=== PATIENT | female | born 1945 | race Caucasian/White ===

== ENCOUNTER 2016-06-28 16:05 | Emergency (ER) | payer MEDICARE ==
[2016-06-28 18:10] LABS: Hematocrit 39 % (35-47); Hemoglobin 12.5 g/dl (12.0-16.0); Mean Corpuscular HGB Conc 33 g/dl (31-36); Mean Corpuscular Hemoglobin 28 pg (27-31); Mean Corpuscular Volume 85 fL (80-97); Mean Platelet Volume 8 um3 (7.4-10.4); Red Blood Count 4.53 10^6/ul (4.0-5.4); Red Cell Distribution Width 14 % (10.5-15); White Blood Count 7.7 10^3/ul (3.5-10.8)
[2016-06-28 18:29] LABS: BUN/Creatinine Ratio 19.8 (8-20); Calcium 9.2 mg/dL (8.6-10.3); EGFR African American 69.9 (>60); EGFR Non-African American 54.3 (>60); Globulin 2.8 g/dL (2-4); Potassium 4.3 mmol/L (3.5-5.0); Total Bilirubin 0.4 mg/dL (0.2-1.0); Total Protein 6.8 g/dL (6.4-8.9)
[2016-06-28 18:36] VITALS: BP 150/65
[2016-06-28 19:35] LABS: Troponin I 0.01 ng/mL (<0.04)
[2016-06-28 20:09] LABS: Urine Bilirubin Negative (Negative); Urine Glucose Negative (Negative); Urine Nitrite Negative (Negative)
--- NOTE | 2016-06-28 22:11 | ED ---
Destiny Owens Claudia, scribed for Vinod Thompson MD on 06/28/16 at 1740 . Abdominal Pain/Female - HPI Summary HPI Summary: 70 year old female presents to the ED with epigastric pain since 10:30 this am. Pt notes that she woke up fine but then after doing some laundry she began having Sx. Pt notes that it felt like a large "gas bubble" in her stomach that would not go away she then describes intermittent "squeezing sensation" in the lower chest/epigastrium. Pt notes that she has a PMHx of Gastritis/GERD. She also notes that a few hours after the stomach pain she had bilaterally burning/ tingling in her arms which has now resolved. She currently has a dull sensation in her epigastrium. Pt notes that she has had several stress brayan in the past with Dr. Murillo but does not follow-up with him currently. Pt also notes a endoscopy last year with Dr. Su which was nml except for gastritis. Shx of Cholecystectomy. - History of Current Complaint Chief Complaint: EDAbdPain Stated Complaint: WEAK/UPPER ABD PAIN/NAUSEA Time Seen by Provider: 06/28/16 17:26 Hx Obtained From: Patient Hx Last Menstrual Period: n/a Onset/Duration: Sudden Onset - this am about 10:30, Lasting Hours, Still Present Timing: Intermittent Episode Lasting Pain Intensity: 5 Pain Scale Used: 0-10 Numeric Location: Epigastric Character: Other: - "gas"like sensation with some intermittent "sqeezing" episodes Associated Signs and Symptoms: Negative: Diaphoresis, Fever Allergies/Adverse Reactions: Allergies Allergy/AdvReac Type Severity Reaction Status Date / Time Codeine Allergy dry heaves Verified 04/30/15 08:27 Prochlorperazine Allergy convulsions Verified 04/30/15 08:27 [From Compazine] Contrast Allergy Hives Uncoded 04/30/15 08:27 PMH/Surg Hx/FS Hx/Imm Hx Previously Healthy: Yes Endocrine/Hematology History: Reports: Hx Diabetes Denies: Hx Thyroid Disease Cardiovascular History: Reports: Hx Hypertension Denies: Hx Pacemaker/ICD Respiratory History: Denies: Hx Asthma, Hx Chronic Obstructive Pulmonary Disease (COPD) GI History: Denies: Hx Ulcer Sensory History: Denies: Hx Hearing Aid Psychiatric History: Denies: Hx Panic Disorder - Cancer History Hx Chemotherapy: No Hx Radiation Therapy: No - Surgical History Surgery Procedure, Year, and Place: Hysterectomy with left oopherectomy age 36 yrs, oopherectomy age 39. Cholecystectomy. Right Knee Arthroscopy. Tonsillectomy Infectious Disease History: No Infectious Disease History: Reports: Hx Shingles - ~1993 Denies: Hx Clostridium Difficile, Hx Hepatitis, Hx Human Immunodeficiency Virus (HIV), Hx of Known/Suspected MRSA, Hx Tuberculosis, Hx Known/Suspected VRE , Hx Known/Suspected VRSA, History Other Infectious Disease, Traveled Outside the [place] in Last 30 Days - Family History Known Family History: Positive: Cardiac Disease, Other - similar neck problems - mother - Social History Occupation: Employed Full-time Lives: Alone Alcohol Use: None Hx Substance Use: No Substance Use Type: Reports: None Hx Tobacco Use: No Smoking Status (MU): Never Smoked Tobacco Review of Systems Constitutional: Negative Negative: Fever, Chills, Skin Diaphoresis Eyes: Negative ENT: Negative Cardiovascular: Negative Positive: Abdominal Pain, Nausea. Negative: Vomiting, Diarrhea Genitourinary: Negative Musculoskeletal: Negative Skin: Negative Neurological: Negative Psychological: Normal All Other Systems Reviewed And Are Negative: Yes Physical Exam Triage Information Reviewed: Yes Vital Signs On Initial Exam: Initial Vitals Temp Pulse Resp BP Pulse Ox 98.1 F 68 16 142/77 99 06/28/16 16:07 06/28/16 16:07 06/28/16 16:07 06/28/16 16:07 06/28/16 16:07 Vital Signs Reviewed: Yes Appearance: Positive: Well-Appearing - comfortable, plesant, alert Eyes: Positive: EOMI ENT: Positive: Other - moist mucosa Neck: Positive: Supple, Nontender Respiratory/Lung Sounds: Positive: Clear to Auscultation, Breath Sounds Present. Negative: Rales, Rhonchi, Wheezes Cardiovascular: Positive: RRR, S1. Negative: Murmur, Rub, Leg Edema Left, Leg Edema Right Abdomen Description: Negative: Nontender - upper abd tenderness, CVA Tenderness (R), CVA Tenderness (L) Musculoskeletal: Positive: Other - calves soft nontender no edema. Negative: Edema Left, Edema Right Neurological: Positive: Alert, Oriented to Person Place, Time Psychiatric: Positive: Other - logical coherent Diagnostics - Vital Signs Vital Signs Temp Pulse Resp BP Pulse Ox 06/28/16 16:07 98.1 F 68 16 142/77 99 - Laboratory Lab Results: Lab Results 06/28/16 06/28/16 06/28/16 Range/Units 18:00 18:00 18:00 WBC 7.7 (3.5-10.8) 10^3/ul RBC 4.53 (4.0-5.4) 10^6/ul Hgb 12.5 (12.0-16.0) g/dl Hct 39 (35-47) % MCV 85 (80-97) fL MCH 28 (27-31) pg MCHC 33 (31-36) g/dl RDW 14 (10.5-15) % Plt Count 188 (150-450) 10^3/ul MPV 8 (7.4-10.4) um3 Neut % (Auto) 52.9 (38-83) % Lymph % (Auto) 31.9 (25-47) % [place] % (Auto) 6.6 (1-9) % Eos % (Auto) 7.1 H (0-6) % Baso % (Auto) 1.5 (0-2) % Absolute Neuts (auto) 4.1 (1.5-7.7) 10^3/ul Absolute Lymphs (auto) 2.5 (1.0-4.8) 10^3/ul Absolute Monos (auto) 0.5 (0-0.8) 10^3/ul Absolute Eos (auto) 0.5 (0-0.6) 10^3/ul Absolute Basos (auto) 0.1 (0-0.2) 10^3/ul Absolute Nucleated RBC 0 10^3/ul Nucleated RBC % 0 Sodium 138 (133-145) mmol/L Potassium 4.3 (3.5-5.0) mmol/L Chloride 105 (101-111) mmol/L Carbon Dioxide 26 (22-32) mmol/L Anion Gap 7 (2-11) mmol/L BUN 20 (6-24) mg/dL Creatinine 1.01 H (0.51-0.95) mg/dL Est GFR ( Amer) 69.9 (>60) Est GFR (Non-Af Amer) 54.3 (>60) BUN/Creatinine Ratio 19.8 (8-20) Glucose 119 H (70-100) mg/dL Lactic Acid 1.3 (0.5-2.0) mmol/L Calcium 9.2 (8.6-10.3) mg/dL Total Bilirubin 0.40 (0.2-1.0) mg/dL AST 43 H (13-39) U/L ALT 47 (7-52) U/L Alkaline Phosphatase 55 (34-104) U/L Troponin I 0.01 (<0.04) ng/mL Total Protein 6.8 (6.4-8.9) g/dL Albumin 4.0 (3.2-5.2) g/dL Globulin 2.8 (2-4) g/dL Albumin/Globulin Ratio 1.4 (1-3) Lipase 17 (11.0-82.0) U/L Urine Color Urine Appearance Urine pH (5-9) Ur Specific [place] (1.010-1.030) Urine Protein (Negative) Urine Ketones (Negative) Urine Blood (Negative) Urine Nitrate (Negative) Urine Bilirubin (Negative) Urine Urobilinogen (Negative) Ur Leukocyte Esterase (Negative) Urine Glucose (Negative) 06/28/16 Range/Units 20:00 WBC (3.5-10.8) 10^3/ul RBC (4.0-5.4) 10^6/ul Hgb (12.0-16.0) g/dl Hct (35-47) % MCV (80-97) fL MCH (27-31) pg MCHC (31-36) g/dl RDW (10.5-15) % Plt Count (150-450) 10^3/ul MPV (7.4-10.4) um3 Neut % (Auto) (38-83) % Lymph % (Auto) (25-47) % [place] % (Auto) (1-9) % Eos % (Auto) (0-6) % Baso % (Auto) (0-2) % Absolute Neuts (auto) (1.5-7.7) 10^3/ul Absolute Lymphs (auto) (1.0-4.8) 10^3/ul Absolute Monos (auto) (0-0.8) 10^3/ul Absolute Eos (auto) (0-0.6) 10^3/ul Absolute Basos (auto) (0-0.2) 10^3/ul Absolute Nucleated RBC 10^3/ul Nucleated RBC % Sodium (133-145) mmol/L Potassium (3.5-5.0) mmol/L Chloride (101-111) mmol/L Carbon Dioxide (22-32) mmol/L Anion Gap (2-11) mmol/L BUN (6-24) mg/dL Creatinine (0.51-0.95) mg/dL Est GFR ( Amer) (>60) Est GFR (Non-Af Amer) (>60) BUN/Creatinine Ratio (8-20) Glucose (70-100) mg/dL Lactic Acid (0.5-2.0) mmol/L Calcium (8.6-10.3) mg/dL Total Bilirubin (0.2-1.0) mg/dL AST (13-39) U/L ALT (7-52) U/L Alkaline Phosphatase (34-104) U/L Troponin I (<0.04) ng/mL Total Protein (6.4-8.9) g/dL Albumin (3.2-5.2) g/dL Globulin (2-4) g/dL Albumin/Globulin Ratio (1-3) Lipase (11.0-82.0) U/L Urine Color Yellow Urine Appearance Clear Urine pH 6.0 (5-9) Ur Specific [place] 1.011 (1.010-1.030) Urine Protein Negative (Negative) Urine Ketones Negative (Negative) Urine Blood Negative (Negative) Urine Nitrate Negative (Negative) Urine Bilirubin Negative (Negative) Urine Urobilinogen Negative (Negative) Ur Leukocyte Esterase Negative (Negative) Urine Glucose Negative (Negative) Result Diagrams: 06/28/16 18:00 06/28/16 18:00 Lab Statement: Any lab studies that have been ordered have been reviewed, and results considered in the medical decision making process. - EKG 16:45 Cardiac Rate: NL EKG Rhythm: Sinus Rhythm - 64 beats/min EKG Interpretation: Inferior/lateral ST flattening Abdominal Pain Fem Course/Dx - Course Course Of Treatment: A/P:She has episodic upper abd lower Cp. She notes that todays episode says feels similar to prior with some radiation to the back. At first it was concerning but she has no Sx now. And again she says this is similar to multiple episodes in the past. With age and other concerns and we thought this was cardiac however the episode occurred at 10:30am and blood work and troponin several hours later are nml.I believe she is safe for d/c with lengthy discussed with her and agree that she will get a stress test for further evaluation. I believe that her Sx are unlikely cardiac related because her upper abd is tender and Sx are atypical. Also she has had her gallbladder taken out. No focal guarding, normal vitals and essentially nml lab work. I don t think CT is an order. CTA was originally ordered but after further evaluation and listening to story again I do not think this is consistent with an aneurysm. - Diagnoses Differential Diagnosis: Positive: Abdominal Aortic Aneurysm, Appendicitis, Bowel Obstruction, Constipation, Diverticulitis, Irritable Bowel Syndrome, Pancreatitis, Pneumonia, Urinary Tract Infection Provider Diagnoses: Upper abdominal pain Discharge - Discharge Plan Condition: Good Disposition: HOME Patient Education Materials: Acute Abdominal Pain (ED) Referrals: Kris Pressley MD [Primary Care Provider] - 2 Days The documentation as recorded by the Destiny zamarripa Claudia accurately reflects the service I personally performed and the decisions made by me, Vinod Thompson MD.
== END 2016-06-28 21:54 | disposition home or self-care (01) ==
LOC: ED 16:05
DX: R10.10 Upper abdominal pain, unspecified (principal); E11.9 Type 2 diabetes mellitus without complications; Z88.5 Allergy status to narcotic agent
CPT/HCPCS: 36415; 80053; 81003; 83605; 83690; 84484; 85025; 93005; 99282

== ENCOUNTER 2016-09-03 07:04 | Emergency (ER) | payer MEDICARE ==
[2016-09-03 07:25] VITALS: BP 145/76
--- NOTE | 2016-09-03 08:19 | UC ---
Allyssa Owens Salem, scribed for [facility] Center[facility]assan MD on 09/03/16 at 0813 . Skin Complaint HPI - HPI Summary HPI Summary: HPI: Patient is 70 y/o female who presents to the with pruritus complain on anterior abd and running down both lower extremities since a few nights. Pt clarifies that sx have persisted intermittently throughout the past for years. She reports that it is present most often at night. She also reports using Gold Bower with little alleviation and Hydrocortisone with no alleviation. She reports being sent here by her PCP, but didnt not have a chance to see them first. Pt was hospitalized 7 years ago for some CAD. FHx: CAD both parents. note: Vital signs stable, afebrile, post ox: 99, non-smoker, none drinker, HTN, DM; visit review otherwise non-contributory; Hx of ATOPY Nurses note: Pt c/o being itchy from lower abdomen to angles x 1 month. No rash visible, per patient. - History of Current Complaint Chief Complaint: Ras Time Seen by Provider: 09/03/16 07:26 Stated Complaint: ITCHING Hx Obtained From: Patient Hx Last Menstrual Period: menapause Onset/Duration: Gradual Onset, Lasting Weeks - Years intermittently. Onset Severity: Moderate Current Severity: Moderate Location: Other - Lower extremities and abd - anterior. Character: Pruritus Aggravating: Clothing - Possibility. Alleviating: Other - Gold Bower. Associated Signs & Symptoms: Positive: Negative - Allergy/Home Medications Allergies/Adverse Reactions: Allergies Allergy/AdvReac Type Severity Reaction Status Date / Time Codeine Allergy dry heaves Verified 04/30/15 08:27 Prochlorperazine Allergy convulsions Verified 04/30/15 08:27 [From Compazine] Contrast Allergy Hives Uncoded 04/30/15 08:27 Home Medications: Home Medications Sucralfate TAB* [Carafate*] 1 gm PO QID 09/03/16 [History Confirmed 09/03/16] Review of Systems Constitutional: Negative Skin: Other - pruritus All Other Systems Reviewed And Are Negative: Yes PMH/Surg Hx/FS Hx/Imm Hx Endocrine History Of: Reports: Diabetes Denies: Thyroid Disease Cardiovascular History Of: Reports: Hypertension Denies: Cardiac Disorders, Pacemaker/ICD Respiratory History Of: Denies: COPD, Asthma GI/ History Of: Denies: Ulcer Cancer History Of: Denies: Breast Cancer - Surgical History Surgical History: Yes Surgery Procedure, Year, and Place: Hysterectomy with left oopherectomy age 36 yrs, oopherectomy age 39. Cholecystectomy. Right Knee Arthroscopy. Tonsillectomy - Family History Known Family History: Positive: Cardiac Disease - Both parents., Other - similar neck problems - mother - Social History Alcohol Use: None Substance Use Type: None Smoking Status (MU): Never Smoked Tobacco - Immunization History Most Recent Influenza Vaccination: utd Most Recent Tetanus Shot: utd Most Recent Pneumonia Vaccination: utd Physical Exam Triage Information Reviewed: Yes Appearance: Well-Appearing, No Pain Distress, Well-Nourished Vital Signs: Initial Vital Signs Temp 97.3 F 09/03/16 07:19 Pulse 59 09/03/16 07:19 Resp 18 09/03/16 07:19 BP 145/76 09/03/16 07:19 Pulse Ox 99 09/03/16 07:19 Vital Signs Reviewed: Yes Eyes: Positive: Conjunctiva Clear ENT: Positive: Hearing grossly normal, Pharynx normal, TMs normal. Negative: Muffled/hoarse voice Neck: Positive: Supple, No Lymphadenopathy Respiratory: Positive: Chest non-tender, Lungs clear, Normal breath sounds, No respiratory distress Cardiovascular: Positive: RRR, No Murmur Abdomen Description: Positive: Nontender, No Organomegaly, Soft Bowel Sounds: Positive: Present Musculoskeletal: Positive: Strength Intact, Other: - LIM[place] Neurological: Positive: Alert Psychological: Positive: Age Appropriate Behavior Skin: Positive: Other - SOME EXCORIATED AREA IN MEDIAL ASPECT OF RIGHT LOWER LEG AND PRETIBIAL ASPECT OF LEFT LEG FROM ITCHING. NO EVIDENCE OF THROMBOSIS OR ERYTHEMA. EXCORIATED PRIMARILY ON LEFT. Course/Dx - Course Course Of Treatment: Discussed with pt possibility caused by clothing rubbing against legs and describe Contact Dermatitis. This is my primary dx. Pt will use Aveeno, powder, Calamine as a barrier and will try different pants. Will follow up with tobacco sizer. Differential dx: Scabies vs winter itch vs Contact Dermatitis. Even though the only skin disruption is from itching, I suspect that this is a direct irritant causing her discomfort. Its of note that it happens later in the day after she has been wearing her jeans all day. - Diagnoses Provider Diagnoses: Contact Dermatitis Discharge - Discharge Plan Condition: Stable Disposition: HOME Patient Education Materials: Contact Dermatitis (ED) Referrals: Kris Pressley MD [Primary Care Provider] - Additional Instructions: WE DISCUSSED: 1. TRY DIFFERENT PANTS. 2. USE CALOMINE TO CREATE A BARRIER BETWEEN YOUR LEGS AND ANYTHING RUBBING AGAINST YOUR LEGS AND STOMACH. 3. FOLLOW UP WITH A MULTIPLE RESAW OPERATOR. 4. USE POWDER AND AVEENO CREAM TO CREATE A SKIN BARRIER AND GIVE SOME RELIEF. 5. TRY NOT TO ITCH SKIN; WATCH FOR ANY INFECTION. The documentation as recorded by the Allyssa zamarripa Salem accurately reflects the service I personally performed and the decisions made by , Ghassan Christopher MD.
== END 2016-09-03 08:13 | disposition home or self-care (01) ==
LOC: UCEAST 07:04
DX: L25.9 Unspecified contact dermatitis, unspecified cause (principal); Z88.5 Allergy status to narcotic agent; Z88.8 Allergy status to other drugs, medicaments and biological substances; Z91.041 Radiographic dye allergy status
CPT/HCPCS: 99211; G0463

== ENCOUNTER 2016-09-24 12:01 | Observation (INO) | payer MEDICARE ==
[2016-09-24] MEDS ORDERED: NS 0.9% 1000 ML* 2,000 ML IV ONE (12:30)
[2016-09-24] MEDS ORDERED: Aspirin TAB* 325 MG PO ONE (12:30)
[2016-09-24 13:02] LABS: Hematocrit 40 % (35-47); Hemoglobin 12.9 g/dl (12.0-16.0); Mean Corpuscular HGB Conc 33 g/dl (31-36); Mean Corpuscular Hemoglobin 28 pg (27-31); Mean Corpuscular Volume 85 fL (80-97); Mean Platelet Volume 9 um3 (7.4-10.4); Red Cell Distribution Width 15 % (10.5-15); White Blood Count 7.6 10^3/ul (3.5-10.8)
[2016-09-24 13:14] LABS: Albumin 4.3 g/dL (3.2-5.2); BUN/Creatinine Ratio 28.6 (8-20); Calcium 9.9 mg/dL (8.6-10.3); EGFR African American 78.8 (>60); EGFR Non-African American 61.3 (>60); Globulin 2.9 g/dL (2-4); Potassium 3.8 mmol/L (3.5-5.0); Total Bilirubin 0.4 mg/dL (0.2-1.0); Total Protein 7.2 g/dL (6.4-8.9)
[2016-09-24 13:15] LABS: Troponin I 0.01 ng/mL (<0.04)
--- NOTE | 2016-09-24 13:20 | RAD ---
INDICATION: Slurred speech. CVA. Bleed. COMPARISON: CT brain August 14, 2014 TECHNIQUE: Noncontrast axial source images were acquired from the skull base to the vertex. FINDINGS: Ventricles/sulci: There is age-related cortical atrophy with compensatory dilatation of the CSF spaces. Brain parenchyma: There is moderate periventricular and subcortical white matter change compatible with chronic ischemia, unchanged. There is a cyst in the medial temporal lobe appearing unchanged. Intracranial hemorrhage:None. Extra-axial spaces: There are no abnormal extra axial fluid collections or evidence of extra-axial mass. Calvarium: There is no calvarial fracture or other calvarial abnormality. Scalp: There is no evidence of scalp or extracalvarial soft tissue abnormality. Paranasal sinuses/mastoid: The paranasal sinuses and mastoid air cells are clear. Other: None. IMPRESSION: CORTICAL ATROPHY WITH CHRONIC MICROVASCULAR ISCHEMIC CHANGES. NO ACUTE FINDINGS.
[2016-09-24 13:26] LABS: Urine Bacteria Absent (Absent); Urine Bilirubin Negative (Negative); Urine Glucose 1+(50 mg/dL) (Negative); Urine Nitrite Negative (Negative)
--- NOTE | 2016-09-24 15:03 | ED ---
Don Owens Billy, scribed for Patrick Bean MD on 09/24/16 at 1227 . Neurological HPI - HPI Summary HPI Summary: Patient is a 70 year-old female coming to [facility] with left hand numbness starting at 1030 this morning. 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 She then developed numbness in the tongue, lips, and left-side of her face. She was seen by the school nurse, and she states that there was no note of anyslurred speech or facial droop. Patient denies chest pain or shortness of breath. She also denies any weakness in the extremities or changes in vision. However, she states that she states she is beginning to feel a headache. The numbness, at this time, has spontaneously resolved. Patient is not on any bloodthinners. She states that one month ago, she had an episode of asphasia when she had difficulty findings her words, and she states that the words she spoke "did not make any sense." - History of Current Complaint Chief Complaint: EDNeurologicalDeficit Stated Complaint: NUMBNESS TO LEFT HAND AND FACE Time Seen by Provider: 09/24/16 12:15 Hx Obtained From: Patient Hx Last Menstrual Period: menapause Onset/Duration: Gradual Onset Timing: Constant Onset Severity: Moderate Current Severity: Moderate Neurological Deficit Location: Facial, LUE Headache Location: Frontal Character: Numbness/Tingling Aggravating: Unknown Alleviating: Unknown Associated Signs and Symptoms: Positive: Headache, Numbness. Negative: Visual Changes, Weakness, Impaired Speech, Lightheadness, Fever, Chest Pain, Shortness of Breath - Allergy/Home Medications Allergies/Adverse Reactions: Allergies Allergy/AdvReac Type Severity Reaction Status Date / Time Codeine Allergy dry heaves Verified 09/24/16 12:24 Prochlorperazine Allergy convulsions Verified 09/24/16 12:24 [From Compazine] Contrast Allergy Hives Uncoded 09/24/16 12:24 Home Medications: Home Medications Esomeprazole(NF) [NexIUM(NF)] 40 mg PO DAILY 09/24/16 [History Confirmed ] glipiZIDE TAB* [Glucotrol TAB*] 10 mg PO QAM 09/24/16 [History Confirmed ] PMH/Surg Hx/FS Hx/Imm Hx Endocrine/Hematology History: Reports: Hx Diabetes Denies: Hx Thyroid Disease Cardiovascular History: Reports: Hx Hypertension Denies: Hx Pacemaker/ICD Respiratory History: Denies: Hx Asthma, Hx Chronic Obstructive Pulmonary Disease (COPD) GI History: Denies: Hx Ulcer Sensory History: Denies: Hx Hearing Aid Psychiatric History: Denies: Hx Panic Disorder - Cancer History Hx Chemotherapy: No Hx Radiation Therapy: No - Surgical History Surgery Procedure, Year, and Place: Hysterectomy with left oopherectomy age 36 yrs, oopherectomy age 39. Cholecystectomy. Right Knee Arthroscopy. Tonsillectomy Infectious Disease History: No Infectious Disease History: Reports: Hx Shingles - ~1993 Denies: Hx Clostridium Difficile, Hx Hepatitis, Hx Human Immunodeficiency Virus (HIV), Hx of Known/Suspected MRSA, Hx Tuberculosis, Hx Known/Suspected VRE , Hx Known/Suspected VRSA, History Other Infectious Disease, Traveled Outside the [place] in Last 30 Days - Family History Known Family History: Positive: Cardiac Disease - Both parents., Other - similar neck problems - mother - Social History Alcohol Use: None Hx Substance Use: No Substance Use Type: Reports: None Hx Tobacco Use: No Smoking Status (MU): Never Smoked Tobacco Review of Systems Negative: Fever Negative: Chest Pain Negative: Shortness Of Breath Positive: Headache, Numbness. Negative: Weakness All Other Systems Reviewed And Are Negative: Yes Physical Exam - Summary Physical Exam Summary: The patient is well-nourished in no acute distress and in no acute pain. The skin is warm and dry and skin color reflects adequate perfusion. HEENT: The head is normocephalic and atraumatic. The pupils are equal and reactive. EOMI. The conjunctivae are clear and without drainage. Nares are patent and without drainage. Mouth reveals moist mucous membranes and the throat is without erythema and exudate. The external ears are intact. The ear canals are patent and without drainage. The tympanic membranes are intact. Neck is supple with full range of motion and non-tender. There are no carotid bruits. There is no neck vein distension. Respiratory: Chest is non-tender. Lungs are clear to auscultation and breath sounds are symmetrical and equal. Cardiovascular: Heart is regular rate and rhythm. There is no murmur or rub auscultated. There is no peripheral edema and pulses are symmetrical and equal. Abdomen: The abdomen is soft and non-tender. There are normal bowel sounds heard in all four quadrants and there is no organomegaly palpated. Musculoskeletal: There is no back pain noted. Extremities are non-tender with full range of motion. There is good capillary refill. There is no peripheral edema or calf tenderness elicited. Neurological: Patient is alert and oriented to person, place and time. The patient has symmetrical motor strength in all four extremities. Cranial nerves are grossly intact. Deep tendon reflexes are symmetrical and equal in all four extremities. Negative Babinski's. See NIHSS assessment for further details. Psychiatric: The patient has an appropriate affect and does not exhibit any anxiety or depression. Triage Information Reviewed: Yes Vital Signs On Initial Exam: Initial Vitals Temp Pulse Resp BP Pulse Ox 99.2 F 62 18 165/62 98 09/24/16 12:15 09/24/16 12:15 09/24/16 12:15 09/24/16 12:15 09/24/16 12:15 Vital Signs Reviewed: Yes Diagnostics - Vital Signs Vital Signs Temp Pulse Resp BP Pulse Ox 09/24/16 12:15 99.2 F 62 18 165/62 98 - Laboratory Lab Results: Lab Results 09/24/16 09/24/16 09/24/16 Range/Units 12:07 12:07 12:20 WBC 7.6 (3.5-10.8) 10^3/ul RBC 4.70 (4.0-5.4) 10^6/ul Hgb 12.9 (12.0-16.0) g/dl Hct 40 (35-47) % MCV 85 (80-97) fL MCH 28 (27-31) pg MCHC 33 (31-36) g/dl RDW 15 (10.5-15) % Plt Count 182 (150-450) 10^3/ul MPV 9 (7.4-10.4) um3 Neut % (Auto) 63.0 (38-83) % Lymph % (Auto) 23.9 L (25-47) % Grayson % (Auto) 7.0 (1-9) % Eos % (Auto) 4.9 (0-6) % Baso % (Auto) 1.2 (0-2) % Absolute Neuts (auto) 4.8 (1.5-7.7) 10^3/ul Absolute Lymphs (auto) 1.8 (1.0-4.8) 10^3/ul Absolute Monos (auto) 0.5 (0-0.8) 10^3/ul Absolute Eos (auto) 0.4 (0-0.6) 10^3/ul Absolute Basos (auto) 0.1 (0-0.2) 10^3/ul Absolute Nucleated RBC 0 10^3/ul Nucleated RBC % 0 INR (Anticoag Therapy) 0.98 (0.89-1.11) Sodium (133-145) mmol/L Potassium (3.5-5.0) mmol/L Chloride (101-111) mmol/L Carbon Dioxide (22-32) mmol/L Anion Gap (2-11) mmol/L BUN (6-24) mg/dL Creatinine (0.51-0.95) mg/dL Est GFR ( Amer) (>60) Est GFR (Non-Af Amer) (>60) BUN/Creatinine Ratio (8-20) Glucose (70-100) mg/dL Lactic Acid (0.5-2.0) mmol/L Calcium (8.6-10.3) mg/dL Total Bilirubin (0.2-1.0) mg/dL AST (13-39) U/L ALT (7-52) U/L Alkaline Phosphatase (34-104) U/L Troponin I (<0.04) ng/mL Total Protein (6.4-8.9) g/dL Albumin (3.2-5.2) g/dL Globulin (2-4) g/dL Albumin/Globulin Ratio (1-3) Urine Color Yellow Urine Appearance Clear Urine pH 5.0 (5-9) Ur Specific [place] 1.013 (1.010-1.030) Urine Protein 1+(30 mg/dl) H (Negative) Urine Ketones Negative (Negative) Urine Blood Negative (Negative) Urine Nitrate Negative (Negative) Urine Bilirubin Negative (Negative) Urine Urobilinogen Negative (Negative) Ur Leukocyte Esterase Negative (Negative) Urine WBC (Auto) Absent (Absent) Urine RBC (Auto) Absent (Absent) Urine Bacteria Absent (Absent) Urine Glucose 1+(50 mg/dl) H (Negative) 09/24/16 09/24/16 Range/Units 12:20 12:20 WBC (3.5-10.8) 10^3/ul RBC (4.0-5.4) 10^6/ul Hgb (12.0-16.0) g/dl Hct (35-47) % MCV (80-97) fL MCH (27-31) pg MCHC (31-36) g/dl RDW (10.5-15) % Plt Count (150-450) 10^3/ul MPV (7.4-10.4) um3 Neut % (Auto) (38-83) % Lymph % (Auto) (25-47) % Grayson % (Auto) (1-9) % Eos % (Auto) (0-6) % Baso % (Auto) (0-2) % Absolute Neuts (auto) (1.5-7.7) 10^3/ul Absolute Lymphs (auto) (1.0-4.8) 10^3/ul Absolute Monos (auto) (0-0.8) 10^3/ul Absolute Eos (auto) (0-0.6) 10^3/ul Absolute Basos (auto) (0-0.2) 10^3/ul Absolute Nucleated RBC 10^3/ul Nucleated RBC % INR (Anticoag Therapy) (0.89-1.11) Sodium 135 (133-145) mmol/L Potassium 3.8 (3.5-5.0) mmol/L Chloride 102 (101-111) mmol/L Carbon Dioxide 26 (22-32) mmol/L Anion Gap 7 (2-11) mmol/L BUN 26 H (6-24) mg/dL Creatinine 0.91 (0.51-0.95) mg/dL Est GFR ( Amer) 78.8 (>60) Est GFR (Non-Af Amer) 61.3 (>60) BUN/Creatinine Ratio 28.6 H (8-20) Glucose 194 H (70-100) mg/dL Lactic Acid 1.6 (0.5-2.0) mmol/L Calcium 9.9 (8.6-10.3) mg/dL Total Bilirubin 0.40 (0.2-1.0) mg/dL AST 39 (13-39) U/L ALT 40 (7-52) U/L Alkaline Phosphatase 58 (34-104) U/L Troponin I 0.01 (<0.04) ng/mL Total Protein 7.2 (6.4-8.9) g/dL Albumin 4.3 (3.2-5.2) g/dL Globulin 2.9 (2-4) g/dL Albumin/Globulin Ratio 1.5 (1-3) Urine Color Urine Appearance Urine pH (5-9) Ur Specific [place] (1.010-1.030) Urine Protein (Negative) Urine Ketones (Negative) Urine Blood (Negative) Urine Nitrate (Negative) Urine Bilirubin (Negative) Urine Urobilinogen (Negative) Ur Leukocyte Esterase (Negative) Urine WBC (Auto) (Absent) Urine RBC (Auto) (Absent) Urine Bacteria (Absent) Urine Glucose (Negative) Result Diagrams: 09/24/16 12:07 09/24/16 12:20 Lab Statement: Any lab studies that have been ordered have been reviewed, and results considered in the medical decision making process. - CT brain CT Interpretation Completed By: Radiologist - CORTICAL ATROPHY WITH CHRONIC MICROVASCULAR ISCHEMIC CHANGES. NO ACUTE FINDINGS. - EKG 1210 Cardiac Rate: NL - 65 bpm EKG Rhythm: Sinus Rhythm ST Segment: Non-Specific - Non-specific ST changes in V3-V6 EKG Interpretation: T-wave inversion in II, III; normal axis; poor R-wave progression; no STEMI NIH Scale - NIH Scale Level of Consciousness: Alert/Keenly Responsive Ask Patient the Month and His/Her Age: Both Correct Ask Pt to Open/Close Eyes and Under Sheriff/Release Non-Paretic Hand: Both Correctly Best Gaze (Only Horizontal Eye Movement): Normal Visual Field Testing: No Visual Loss Facial Paresis-Pt to Smile & Close Eyes or Grimace Symmetry: Normal/Symmetrical Motor Function - Right Arm: No Drift-Holds 10 Seconds Motor Function - Left Arm: No Drift-Holds 10 Seconds Motor Function - Right Leg: No Drift-Holds 10 Seconds Motor Function - Left Leg: No Drift-Holds 10 Seconds Limb Ataxia-Must be out of Proportion to Weakness Present: Absent Sensory (Use Pinprick to Test Arms/Legs/Trunk/Face): Normal Best Language (Describe Picture, Name Items): No Aphasia Dysarthria (Read Several Words): Normal Extinction and Inattention: No Abnormality Total Score: 0 Course/Dx - Course Assessment/Plan: 70 year-old female coming to [facility] for evaluation of numbness in the left face and hand. EKG shows T-wave inversion in II, III; normal axis; poor R-wave progression; no STEMI; and non-specific ST changes in V3-V6. NIH stroke scale of 0. Patient care discussed with Dr. Hanley and Dr. David, who accepted the patient for admission. - Differential Dx Differential Diagnoses Neuro: Positive: Cerebrovascular Accident, Seizure Disorder, Transient Ischemic Attack - Diagnoses Provider Diagnoses: TIA (transient ischemic attack) - Physician Notifications Discussed Care of Patient With: Dr. Hanley (neurology) @ 1233: recommends TIA workup. Dr. David (hospitalist) @ 1252: accepts admission. Will likely have prophylactic CTA. Discharge - Discharge Plan Condition: Stable Disposition: ADMITTED TO [facility] documentation as recorded by the Don zamarripa Billy accurately reflects the service I personally performed and the decisions made by me, Patrick Bean MD.
[2016-09-24] MEDS ORDERED: LORazepam TAB(*) 0.5 MG PO ONE (15:33)
[2016-09-24] MEDS ORDERED: Dextrose 50% Syringe 50 ML* 25 GM/50 ML SYRINGE IV PUSH PRN (16:42)
[2016-09-24] MEDS ORDERED: Sucralfate TAB* 1 GM PO SCH (17:00)
[2016-09-24] MEDS: Insulin LISPRO* 1 UNITS UNIT SUBCUT SCH ×2 (17:15→22:15)
--- NOTE | 2016-09-24 17:21 | CONS ---
NEUROLOGY CONSULTATION REPORT: DATE OF CONSULT: 09/24/16 REQUESTING PHYSICIAN: Dr. Bean in ED. PRIMARY CARE PHYSICIAN: Dr. Kris Pressley. REASON FOR CONSULT: Possible TIA. HISTORY OF PRESENT ILLNESS: The patient is a 70-year-old right-handed female who about at 10:45 this morning suddenly felt a numbness in the left hand followed by the same sensation in the left side of the face, perioral area and her tongue. She describes this numbness more of a feeling 'heavy' and 'warm' in the left side of the face. This lasted probably for 20 to 30 minutes and by the time 911 was called and she was on en route the the hospital, the symptoms improved and by the time she arrived at the hospital in the ED, it had resolved. She currently complains of some mild headache in the bifrontal region. Denies any diplopia or weakness in the arm and leg or dysarthria or aphasia. She had probably a couple of similar episodes to a milder extent, only involving the left facial numbness, within the last few months. About a months ago, she had an episode where she had difficulty remembering words when she was singing a familiar song with her grandson, and when they arrived home she continued to have difficulty with findings words she wanted to say; she then went to sleep and when she woke up, the symptoms had resolved. PAST MEDICAL HISTORY: 1. Hypertension. 2. Diabetes. 3. History of shingles in 1993. 4. Chronic neck pain and occipital headache (no clear history of migraine headaches) PAST SURGICAL HISTORY: 1. Hysterectomy and left oophorectomy at age 36. 2. Cholecystectomy. 3. Right knee arthroscopy. 4. Tonsillectomy. MEDICATIONS: Home medications include: 1. Metformin 1000 mg p.o. b.i.d. 2. Glipizide 10 mg q.a.m. and 5 mg q.p.m. 3. Carafate. 4. Losartan 25 mg at bedtime. 5. Nexium. 6. Atenolol 50 mg p.o. b.i.d. ALLERGIES: To CODEINE and PROCHLORPERAZINE and to CONTRAST. FAMILY HISTORY: Both her parents had history of cardiac disease. 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 She does not smoke or drink alcohol or do drugs. REVIEW OF SYSTEMS: A complete review of systems was performed and other than what mentioned in the HPI is negative. PHYSICAL EXAM: Blood pressure 162/73, pulse rate 67, respiratory rate 18, temperature 98.4. The patient is awake, alert and oriented x3. Pupils are symmetric and reactive to light. Extraocular movements are intact. Visual mary are intact by confrontation. Face is symmetric. V1 to V3 is intact to light touch and pinprick. Tongue is midline. Palate elevates upwards. Sensation is intact to light touch and pinprick in the upper and lower extremities symmetrically. The strength is 5/5 throughout. There is no pronator drift. [id number] is intact bilaterally. Rapid alternative movements are intact bilaterally. Deep tendon reflexes are 2+ and symmetric in the upper and lower extremities. NIHSS is 0. LABORATORY DATA: Sodium 135, potassium 3.8, BUN 26, creatinine 0.91, glucose 194. AST 39, ALT 40. Alkaline phosphatase is 58. LDL is pending. Vitamin B2 a week ago was 249. IMAGING: She had head CT, cortical atrophy with chronic microvascular ischemic changes. ASSESSMENT AND PLAN: A 70-year-old right-handed female with history of an episode of numbness in the left side of the face and left hand which resolved after about 20 to 30 minutes. She had an episode of seemingly mild aphasia about one month ago. Considering the patient's vascula risk factor, it was important to investigate and do a TIA workup including an MRI of the brain and MRA of the head and neck (or alternatively CTA of head and neck, but she is allergic to contrast). She needs a transthoracic echocardiogram and a telemonitoring is needed to watch for A-fib. Can be started on daily aspirin. CC: Dr. Kris Pressley, primary care physician* [id number]/[facility] #: [id number] [facility]ITAL[facility]iana
[2016-09-24] MEDS ORDERED: Insulin REGULAR(*) 1 UNITS UNIT SUBCUT SCH (18:00)
--- NOTE | 2016-09-24 18:04 | HP ---
HISTORY AND PHYSICAL: DATE OF ADMISSION: 09/24/16 TIME OF EVALUATION: 2:30 p.m. PRIMARY CARE PROVIDER: Dr. Pressley. CHIEF COMPLAINT: "My hand was numb." HISTORY OF PRESENT ILLNESS: Ms. Angulo is a 70-year-old lady with a past medical history of type 2 diabetes, hypertension, irritable bowel syndrome, diverticular disease, obesity, who presented to the emergency room with complaints of left hand numbness. She states she was in her usual state of health until around 10:30 this morning when she had sudden onset of left hand numbness. This was followed by left- sided facial numbness including her lips and her tongue. She went to the school nurse office and states that her blood pressure was 210/100 and she was advised to come to the emergency room. She states that by the time she was arriving to the hospital, her symptoms were already resolving and at the time of this interview, she is back to her usual self. She denies headache, nausea, vomiting, chest pain, palpitations, dizziness, or lightheadedness. She states that 1 month ago, she had an episode of difficulty finding words. She was with her grandson trying to sing a song that they always sing together and she could not remember it and even when talking, she states that she was not making sense. She took a nap and an hour later when she woke up, she was feeling fine. The patient states that she is compliant with her medications and that she took her usual antihypertensives last night and this morning as prescribed. PAST MEDICAL HISTORY: 1. Hypertension. 2. Type 2 diabetes. 3. Irritable bowel. 4. Diverticulosis. 5. GERD, the patient states Dr. Pressley suspects she has also an ulcer and added sucralfate to her PPI. PAST SURGICAL HISTORY: 1. Status post hysterectomy. 2. Status post cholecystectomy. MEDICATIONS: 1. Atenolol 50 mg p.o. b.i.d. 2. Nexium 40 mg p.o. daily. 3. Glipizide 10 mg p.o. in the morning and 5 mg p.o. in the evening. 4. Losartan 25 mg p.o. at bedtime. 5. Metformin 1000 mg p.o. b.i.d. 6. Sucralfate 1 g p.o. 4 times a day. ALLERGIES: CODEINE and CONTRAST, the patient had hives and with COMPAZINE she had reported convulsion. FAMILY HISTORY: Father had a history of coronary artery disease. SOCIAL HISTORY: She denies history of tobacco, alcohol, or drug use. REVIEW OF SYSTEMS: A 14-point review of systems was performed and all the pertinent negative and positive findings are in the HPI. PHYSICAL EXAMINATION GENERAL: The patient is pleasant elderly lady, sitting up in the stretcher, in no acute distress. VITAL SIGNS: Temperature 99.2, heart rate is 71, respiratory rate is 20, oxygen saturation 96% on room air, blood pressure 162/73. HEENT: Pupils are equal, reactive to light. Extraocular movements are intact. Moist mucous membranes. Cranial nerves II through XII are grossly intact. NECK: Supple. There is no audible carotid bruits. CHEST: Breath sounds present bilaterally with no added sounds. CVS: Normal S1 and S2. Regular rate and rhythm. ABDOMEN: Obese, soft, nontender, and nondistended. Bowel sounds are present. EXTREMITIES: No edema. NEUROLOGIC: She is alert, awake, and oriented x3. Able to move all 4 extremities. No sensory deficits at this time. LABORATORY AND IMAGING DATA: CBC was normal except for mild lymphopenia 23%. INR is 0.98. Chemistries showed sodium of 135, potassium of 3.8, chloride of 102 , bicarb of 26, BUN of 26, creatinine of 0.91, glucose of 195, lactic acid 1.6, calcium of 9.9. LFTs are normal. Troponin 0.01. Urinalysis showed 1+ protein , 1+ glucose, but no other abnormalities. CT of the brain without contrast showed cortical atrophy with chronic microvascular ischemic changes and no acute findings. EKG done on 09/24/16 at 12:10 p.m. showed sinus rhythm at 65 beats per minute with T flattening in V4 to V6 and T inversion in V3, but this is unchanged from her prior EKG from June 2016. ASSESSMENT AND PLAN: Ms. Angulo is a 70-year-old lady with past medical history of type 2 diabetes, hypertension, irritable bowel, diverticulosis, possible peptic ulcer disease, who presented to the emergency room with complaints of left hand and facial numbness who is going to be admitted for possible transient ischemic attack. 1. Transient ischemic attack. The patient will be admitted as observation to the telemetry floor and she will be started on aspirin. Her case was discussed with Neurology and as she had a reaction to contrast in the past, the decision was to do an MRI of the brain, MRA of the head and neck for further imaging. She will also have an echocardiogram with bubble study, I am going to check a lipid profile, hemoglobin A1c. She will be monitored with neuro checks. Her episode of word finding difficulty could suggest another episode of transient ischemic attack a month ago. 2. Hypertensive urgency. The patient had a blood pressure of greater than 200/ 100 at the school, when she was having symptoms, so her numbness could also be related to it. 3. Her blood pressure is better at this time. I am going to continue her atenolol and losartan with holding parameters. 4. Type 2 diabetes. The patient is n.p.o. at this point. We are going to cover her with regular insulin sliding scale. Glipizide and metformin are on hold. 5. DVT prophylaxis. The patient has a score of 3 on the DVT Prophylaxis Risk Assessment Guide and she will be started on subcutaneous heparin. 6. Code status is full. TIME SPENT: Approximately 60 minutes was spent with the patient interview, medical records review, physical examination to complete the admission, more than half of this time was spent [id number] with the patient in coordination of care. CC: Dr. Pressley* [id number]/[facility] #: [id number] JUNE
[2016-09-24] MEDS: Sucralfate TAB* 1 GM PO SCH (20:23)
[2016-09-24] MEDS: Atenolol TAB* 50 MG PO SCH (20:23)
[2016-09-24] MEDS ORDERED: Losartan TAB* 25 MG PO SCH (21:00)
[2016-09-24] MEDS ORDERED: Gadobenate* (CONTRAST) 529 MG/ML 10 ML SDV IV ONE (21:01)
--- NOTE | 2016-09-24 21:48 | RAD ---
HISTORY: TIA COMPARISONS: None TECHNIQUE: 3-D axial [id number] MR angiography was performed of the head to include the platinum of [place]. Multiple 3-D maximum intensity projection reconstructions are also submitted for review. FINDINGS: The study is limited by patient motion artifact. RIGHT VERTEBRAL ARTERY: The distal right vertebral artery is unremarkable, without stenosis. LEFT VERTEBRAL ARTERY: The distal left vertebral artery is unremarkable, without stenosis. DOMINANCE: The vertebral arteries are codominant. DISTAL RIGHT CERVICAL INTERNAL CAROTID ARTERY: The distal right cervical internal carotid artery is unremarkable. DISTAL LEFT CERVICAL INTERNAL CAROTID ARTERY: The distal left cervical internal carotid artery is unremarkable. INTRACRANIAL CIRCULATION: There is no aneurysm, vascular malformation, occlusion, or stenosis of the visualized intracranial circulation. The anterior communicating artery complex is clear. Bilateral posterior communicating arteries are identified. OTHER FINDINGS: None IMPRESSION: NO ANEURYSM, VASCULAR MALFORMATION, OCCLUSION, OR STENOSIS OF THE VISUALIZED INTRACRANIAL CIRCULATION.
--- NOTE | 2016-09-24 21:50 | RAD ---
HISTORY: TIA COMPARISONS: Head CT dated September 24, 2016 TECHNIQUE: The following sequences were obtained of the head: Sagittal T1-weighted images, axial T2-weighted images, axial FLAIR images, axial susceptibility weighted images, axial T1-weighted images. Additionally, axial diffusion-weighted images were obtained with calculated apparent diffusion coefficients. FINDINGS: The study is limited by patient motion artifact. HEMORRHAGE/INFARCT: There is no hemorrhage or acute infarct. MASSES/SHIFT: There is no mass or shift. EXTRA-AXIAL SPACES/MENINGES: There are no extra-axial fluid collections. SULCI AND VENTRICLES: The sulci and ventricles are normal in size and position for the patient's stated age. CEREBRUM: There are multiple scattered small foci of elevated T2/FLAIR signal within the periventricular and subcortical white matter. There is a dilated perivascular space of the left basal ganglia. BRAINSTEM: There are no focal parenchymal abnormalities. CEREBELLUM: There are no focal parenchymal abnormalities. The cerebellar tonsils are normal in size and position. SELLA: The sella is normal. PINEAL: The pineal region is clear. CP ANGLE/TEMPORAL BONES: The labyrinthine structures are grossly normal. VESSELS: Normal flow-voids are noted within the visualized vertebral vasculature. DIFFUSION ABNORMALITIES: There are no diffusion abnormalities. PARANASAL SINUSES/MASTOIDS: The paranasal sinuses are clear. ORBITS: The orbits are unremarkable. BONES AND SOFT TISSUE: No bone or soft tissue abnormalities are noted. OTHER: None IMPRESSION: 1. ELEVATED T2/FLAIR SIGNAL IN THE PERIVENTRICULAR AND SUBCORTICAL WHITE MATTER. WHILE NONSPECIFIC, THE APPEARANCE IS SUGGESTIVE OF CHRONIC SMALL VESSEL ISCHEMIA. 2. NO RESTRICTED DIFFUSION TO SUGGEST ACUTE INFARCT.
--- NOTE | 2016-09-24 21:52 | RAD ---
HISTORY: K COMPARISONS: None TECHNIQUE: The following sequences were obtained of the neck after localizing images: Stacked axial 2-D [id number] MR angiography of the neck; 3-D axial [id number] MR angiography of the carotid bifurcations. Additionally 3-D multiphase contrast-enhanced MR angiography of the neck was performed after the administration of a gadolinium-based intravenous contrast agent. . Multiple 3-D maximum intensity projection reconstructions are submitted for review. FINDINGS: The study is limited by patient motion artifact. AORTA: There is no ostial or proximal stenosis of the cephalic great vessels. RIGHT VERTEBRAL ARTERY: The right vertebral artery is patent and without stenosis. There is in plane flow saturation artifact of the horizontal portion of the right vertebral artery. LEFT VERTEBRAL ARTERY: The left vertebral artery is patent, without stenosis. There is in plane flow saturation artifact of the horizontal portion of the left vertebral artery. DOMINANCE: The vertebral arteries are codominant. RIGHT COMMON CAROTID ARTERY: The right common carotid artery is patent. RIGHT INTERNAL CAROTID ARTERY: There is no right internal carotid artery stenosis by NASCET criteria. LEFT COMMON CAROTID ARTERY: The left common carotid artery is patent. LEFT INTERNAL CAROTID ARTERY: There is no left internal carotid artery stenosis by NASCET criteria. ADDITIONAL FINDINGS: The visualized intracranial circulation is unremarkable. IMPRESSION: NO INTERNAL CAROTID ARTERY STENOSIS BY NASCET CRITERIA. CPT II Codes: 3100F
[2016-09-24] MEDS: Heparin VIAL(*) 5000 UNITS/ML VIAL (FIVE THOUSAND) SUBCUT SCH (23:11)
[2016-09-25] MEDS: Heparin VIAL(*) 5000 UNITS/ML VIAL (FIVE THOUSAND) SUBCUT SCH (05:27)
[2016-09-25 05:56] LABS: HDL Cholesterol 44.2 mg/dL
[2016-09-25] MEDS ORDERED: Omeprazole CAP* 20 MG PO SCH (06:00)
[2016-09-25] MEDS: Sucralfate TAB* 1 GM PO SCH ×2 (07:13→11:30)
[2016-09-25] MEDS: Insulin LISPRO* 1 UNITS UNIT SUBCUT SCH ×2 (08:23→12:09)
[2016-09-25] MEDS: Atenolol TAB* 50 MG PO SCH (08:23)
[2016-09-25] MEDS ORDERED: Aspirin EC TAB* 325 MG PO SCH (09:00)
--- NOTE | 2016-09-25 11:00 | ECHO ---
Patient: SANKET COON [facility] Rec#: [id number] : 1945 Date: 09/25/2016 Age: 70y Height: 160.02 cm / 63.0 in Weight: 32.66 kg / 72.0 lbs Sex: F Admit Date#: 09/24/2016 Referring: Ladonna Berkowitz MD Reading: Liyah Mojica MD Bus Greaser: Shirley Pan RDCS CC: Kris Pressley MD Transthoracic Echocardiogram Findings History: HTN,DM,IBS,GERD,obesity, left handed numbess and facial numbness, prior difficulty with speech 1 month ago. Technical Comments: The study is technically limited due to patient body habitus. Completed at 1016. Left Ventricle: The left ventricular chamber size is normal. Posterior wall hypertrophy is observed. Global left ventricular wall motion and contractility are within normal limits. The estimated ejection fraction is 55-60%. Left Atrium: The left atrial chamber size is normal. Right Ventricle: The right ventricular cavity size is normal. The right ventricular global systolic function is normal. Right Atrium: The right atrial cavity size is normal. There is no patent foramen ovale visualized. A patent foramen ovale is not demonstrated with color Doppler and agitated contrast. Aortic Valve: The aortic valve is trileaflet. The aortic valve leaflets are mildly thickened. There is a trace of aortic regurgitation.Trace-mild AI. There is no evidence of aortic stenosis. Mitral Valve: The mitral valve leaflets are mildly thickened. There is a trace of mitral regurgitation. There is no evidence of mitral stenosis. Tricuspid Valve: The tricuspid valve leaflets are normal. There is no evidence of tricuspid valve regurgitation. There is no tricuspid stenosis. Pulmonic Valve: The pulmonic valve appears normal. There is no evidence of pulmonic regurgitation. There is no pulmonic stenosis. Pericardium: No pericardial fat pad is visualized. Aorta: There is mild dilatation of the ascending aorta. There is no dilatation of the aortic arch. There is mild dilatation of the aortic root. Pulmonary Artery: The main pulmonary artery appears normal. Venous: The venous system is not well visualized. Summary: There are changes noted when compared to the previous study done on 04/11/2004, dilated ascending aorta and aortic root are new. Conclusions The left ventricular chamber size is normal. Global left ventricular wall motion and contractility are within normal limits. The estimated ejection fraction is 55-60%. A patent foramen ovale is not demonstrated with color Doppler and agitated contrast. There is a trace of aortic regurgitation.Trace-mild AI. There is a trace of mitral regurgitation. There is mild dilatation of the ascending aorta. There is mild dilatation of the aortic root. There are changes noted when compared to the previous study done on 04/11/2004, dilated ascending aorta and aortic root are new. Measurements Name Value Normal Range RVIDd (AP) 2D 2.4 cm (0.9 - 2.6) RVDdMajor (2D) 2.9 cm (2.2 - 4.4) RAd ISD 4CH 4.2 cm (3.4 - 4.9) RA (A4C)W 2.2 cm (2.9 - 4.6) IVSd (2D) 1 cm (0.6 - 1) LVPWd (2D) 1.1 cm (0.6 - 1) LVIDd (2D) 4.6 cm (3.6 - 5.4) LVIDs (2D) 3.1 cm - LV FS (2D) 33 % (25 - 45) Aortic Annulus 1.6 cm (1.4 - 2.6) Ao root diameter (2D) 3.6 cm (2.1 - 3.5) Ascending Ao 3.7 cm (2.1 - 3.4) Aortic arch 2.4 cm (1.8 - 3.4) Descending Ao 0.8 cm - LA dimension (AP) 2D 3.5 cm (2.3 - 3.8) LAd ISD 4CH 5 cm (2.9 - 5.3) LA ISD 4CH W 3.1 cm (2.5 - 4.5) Name Value Normal Range LA ESV SP 4CH (A/L) 39 ml - LA ESV SP 2CH (A/L) 27 ml - LA ESV BP (A/L) 34 ml - LA ESV BP (A/L) index 27.36 ml/m2 - LA ESV SP 4CH (MOD) 35 ml - LA ESV SP 2CH (MOD) 26 ml - Name Value Normal Range MV E-wave Vmax 0.9 m/sec - MV deceleration time 285 msec - MV A-wave Vmax 1 m/sec - MV E:A ratio 0.87 ratio - LV septal e' Vmax 0.07 m/sec - LV lateral e' Vmax 0.08 m/sec - LV E:e' septal ratio 12.86 ratio - LV E:e' lateral ratio 11.25 ratio - Name Value Normal Range AV Vmax 1.7 m/sec - AV VTI 42 cm - AV peak gradient 4.46 mmHg - AV mean gradient 6.54 mmHg - LVOT diameter 1.8 cm - LVOT Vmax 1.3 m/sec - LVOT VTI 32.5 cm - LVOT peak gradient 6.98 mmHg - LVOT mean gradient 3.58 mmHg - SV LVOT 80 ml - ARCHIE (continuity Vmax) 3.1 cm2 - AR PHT 775 msec - AR peak gradient 60.63 mmHg -
--- NOTE | 2016-09-25 11:28 | PN ---
Progress Note - Progress Note SOAP: Neurology progress note Date of service: 09/25/16 Subjective: There was no acute events overnight. No recurrence of the symptoms or new symptoms. Patient feeling well this morning. Objective: Vital Signs Temp Pulse Resp BP Pulse Ox 98.0 F 59 18 142/72 94 09/25/16 07:15 09/25/16 07:15 09/25/16 07:15 09/25/16 07:15 09/25/16 07:15 Current Medications Aspirin (Ecotrin Ec Tab*) 325 mg PO DAILY [facility] Last Admin: 09/25/16 08:23 Dose: 325 mg Atenolol (Tenormin Tab*) 50 mg PO BID [facility] Last Admin: 09/25/16 08:23 Dose: 50 mg Dextrose (D50w Syringe 50 Ml*) 12.5 gm IV PUSH .FOR FS < 60 - SS PRN PRN Reason: FS < 60 Heparin Sodium (Porcine) (Heparin Vial(*)) 5,000 units SUBCUT Q8HR [facility] Last Admin: 09/25/16 05:27 Dose: 5,000 units Insulin Human Lispro (Humalog*) 0 units SUBCUT ACHS [facility] PRN Reason: Protocol Last Admin: 09/25/16 08:23 Dose: 3 units Losartan Potassium (Cozaar Tab*) 25 mg PO BEDTIME [facility] Last Admin: 09/24/16 20:22 Dose: 25 mg Omeprazole (Prilosec Cap*) 20 mg PO 0600 [facility] Last Admin: 09/25/16 05:27 Dose: 20 mg Sucralfate (Carafate*) 1 gm PO 0700,1100,1600,2100 [facility] Last Admin: 09/25/16 07:13 Dose: 1 gm Laboratory Last Values WBC 7.6 10^3/ul (3.5-10.8) 09/24/16 12:07 RBC 4.70 10^6/ul (4.0-5.4) 09/24/16 12:07 Hgb 12.9 g/dl (12.0-16.0) 09/24/16 12:07 Hct 40 % (35-47) 09/24/16 12:07 MCV 85 fL (80-97) 09/24/16 12:07 MCH 28 pg (27-31) 09/24/16 12:07 MCHC 33 g/dl (31-36) 09/24/16 12:07 RDW 15 % (10.5-15) 09/24/16 12:07 Plt Count 182 10^3/ul (150-450) 09/24/16 12:07 MPV 9 um3 (7.4-10.4) 09/24/16 12:07 Neut % (Auto) 63.0 % (38-83) 09/24/16 12:07 Lymph % (Auto) 23.9 % (25-47) L 09/24/16 12:07 [place] % (Auto) 7.0 % (1-9) 09/24/16 12:07 Eos % (Auto) 4.9 % (0-6) 09/24/16 12:07 Baso % (Auto) 1.2 % (0-2) 09/24/16 12:07 Absolute Neuts (auto) 4.8 10^3/ul (1.5-7.7) 09/24/16 12:07 Absolute Lymphs (auto) 1.8 10^3/ul (1.0-4.8) 09/24/16 12:07 Absolute Monos (auto) 0.5 10^3/ul (0-0.8) 09/24/16 12:07 Absolute Eos (auto) 0.4 10^3/ul (0-0.6) 09/24/16 12:07 Absolute Basos (auto) 0.1 10^3/ul (0-0.2) 09/24/16 12:07 Absolute Nucleated RBC 0 10^3/ul 09/24/16 12:07 Nucleated RBC % 0 09/24/16 12:07 INR (Anticoag Therapy) 0.98 (0.89-1.11) 09/24/16 12:20 Sodium 135 mmol/L (133-145) 09/24/16 12:20 Potassium 3.8 mmol/L (3.5-5.0) 09/24/16 12:20 Chloride 102 mmol/L (101-111) 09/24/16 12:20 Carbon Dioxide 26 mmol/L (22-32) 09/24/16 12:20 Anion Gap 7 mmol/L (2-11) 09/24/16 12:20 BUN 26 mg/dL (6-24) H 09/24/16 12:20 Creatinine 0.91 mg/dL (0.51-0.95) 09/24/16 12:20 Est GFR ( Amer) 78.8 (>60) 09/24/16 12:20 Est GFR (Non-Af Amer) 61.3 (>60) 09/24/16 12:20 BUN/Creatinine Ratio 28.6 (8-20) H 09/24/16 12:20 Glucose 194 mg/dL (70-100) H 09/24/16 12:20 POC Glucose (mg/dL) 178 mg/dL (74-106) H 09/25/16 07:16 Lactic Acid 1.6 mmol/L (0.5-2.0) 09/24/16 12:20 Calcium 9.9 mg/dL (8.6-10.3) 09/24/16 12:20 Total Bilirubin 0.40 mg/dL (0.2-1.0) 09/24/16 12:20 AST 39 U/L (13-39) 09/24/16 12:20 ALT 40 U/L (7-52) 09/24/16 12:20 Alkaline Phosphatase 58 U/L (34-104) 09/24/16 12:20 Troponin I 0.01 ng/mL (<0.04) 09/24/16 12:20 Total Protein 7.2 g/dL (6.4-8.9) 09/24/16 12:20 Albumin 4.3 g/dL (3.2-5.2) 09/24/16 12:20 Globulin 2.9 g/dL (2-4) 09/24/16 12:20 Albumin/Globulin Ratio 1.5 (1-3) 09/24/16 12:20 Triglycerides 176 mg/dL 09/25/16 05:26 Cholesterol 149 mg/dL 09/25/16 05:26 LDL Cholesterol 70 mg/dL 09/25/16 05:26 HDL Cholesterol 44.2 mg/dL 09/25/16 05:26 Urine Color Yellow 09/24/16 12:07 Urine Appearance Clear 09/24/16 12:07 Urine pH 5.0 (5-9) 09/24/16 12:07 Ur Specific Lueders 1.013 (1.010-1.030) 09/24/16 12:07 Urine Protein 1+(30 mg/dl) (Negative) H 09/24/16 12:07 Urine Ketones Negative (Negative) 09/24/16 12:07 Urine Blood Negative (Negative) 09/24/16 12:07 Urine Nitrate Negative (Negative) 09/24/16 12:07 Urine Bilirubin Negative (Negative) 09/24/16 12:07 Urine Urobilinogen Negative (Negative) 09/24/16 12:07 Ur Leukocyte Esterase Negative (Negative) 09/24/16 12:07 Urine WBC (Auto) Absent (Absent) 09/24/16 12:07 Urine RBC (Auto) Absent (Absent) 09/24/16 12:07 Urine Bacteria Absent (Absent) 09/24/16 12:07 Urine Glucose 1+(50 mg/dl) (Negative) H 09/24/16 12:07 LDL 70 On neurological exam: awake, alert, oriented, speech fluent. Pupils symmetric and reactive. Face symmetric. V1-3 intact to light touch and pinprick. tongue midline. Strength 5/5 throughout. Sensation intact to light touch and pinprick bilaterally. Finger to nose intact bilaterally. Gait stable. MRI IMPRESSION: 1. ELEVATED T2/FLAIR SIGNAL IN THE PERIVENTRICULAR AND SUBCORTICAL WHITE MATTER. WHILE NONSPECIFIC, THE APPEARANCE IS SUGGESTIVE OF CHRONIC SMALL VESSEL ISCHEMIA. 2. NO RESTRICTED DIFFUSION TO SUGGEST ACUTE INFARCT. MRA HEAD IMPRESSION: NO ANEURYSM, VASCULAR MALFORMATION, OCCLUSION, OR STENOSIS OF THE VISUALIZED INTRACRANIAL CIRCULATION. MRA NECK: IMPRESSION: NO INTERNAL CAROTID ARTERY STENOSIS BY NASCET CRITERIA. Echo Summary: There are changes noted when compared to the previous study done on 04/11/2004, dilated ascending aorta and aortic root are new. Conclusions The left ventricular chamber size is normal. Global left ventricular wall motion and contractility are within normal limits. The estimated ejection fraction is 55-60%. A patent foramen ovale is not demonstrated with color Doppler and agitated contrast. There is a trace of aortic regurgitation.Trace-mild AI. There is a trace of mitral regurgitation. There is mild dilatation of the ascending aorta. There is mild dilatation of the aortic root. There are changes noted when compared to the previous study done on 04/11/2004, dilated ascending aorta and aortic root are new. Assessment and Plan: 70 year-old female presented with an episode of left sided numbness in face and left hand which resolved in 20-30 minutes. Workup for TIA so far has been negative with no intracranial stenosis and brain MRI other than some non- specific changes that are maybe chronic small vessel disease is negative for acute stroke.. The patient did experience some headache after her symptoms yesterday, therefore, other than TIA, a complex migraine could be in the differential diagnosis. At this point, no further recommendations other than start to take daily antiplatelets, can be 81 mg daily of aspirin. LDL is in the goal range. And continue to control the risk factors of hypertension and diabetes.
[2016-09-25 11:47] VITALS: BP 148/70
--- NOTE | 2016-09-26 02:05 | DS ---
CC: Kris Pressley MD DISCHARGE SUMMARY: DATE OF ADMISSION: DATE OF DISCHARGE: 09/25/16 HOSPITAL COURSE: This 70-year-old woman presented with an episode of left-sided numbness in face an d left hand, which lasted 20 to 30 minutes. She was seen in consultation by Dr. Hanley. She under went evaluation with neck MRA, head MRA, brain MRI and transthoracic echocardiogram. There were no significant findings from any of these tests. She had no further symptoms in the hospital. She did report having mild headache on questioning. It appears she very likely has a history of migraine h eadaches with severe headaches and nausea causing her to seek neurologic consultation for which medi cation was prescribed. She remembers these events but reportedly as they were many years ago. FINAL DIAGNOSES: 1. Transient ischemic attacks versus migraine headache. 2. Hypertension. 3. Diabetes. 4. Gastroesophageal reflux disease. DISCHARGE MEDICATIONS: 1. Aspirin 81 mg daily. 2. Losartan 25 mg h.s. 3. Metformin 1000 mg b.i.d. 4. Atenolol 50 mg b.i.d. 5. Glipizide 5 mg h.s. 6. Sucralfate 1 g 4 times a day. 7. Glipizide 10 mg every morning. 8. Esomeprazole 40 mg daily. [id number]/[facility] #: [id number]
== END 2016-09-25 13:36 | disposition home or self-care (01) ==
LOC: ED 12:01 → MEDTELE 12:55
PROVIDERS: ADMIT Internal Medicine; ATTEND Internal Medicine
DX: R20.0 Anesthesia of skin (principal); R51 Headache; I16.0 Hypertensive urgency; E11.9 Type 2 diabetes mellitus without complications; K21.9 Gastro-esophageal reflux disease without esophagitis; I49.9 Cardiac arrhythmia, unspecified; I77.819 Aortic ectasia, unspecified site; Z79.84 Long term (current) use of oral hypoglycemic drugs; Z79.899 Other long term (current) drug therapy; Z88.8 Allergy status to other drugs, medicaments and biological substances; Z88.5 Allergy status to narcotic agent; R47.01 Aphasia
CPT/HCPCS: 36415; 70450; 70544; 70549; 70551; 80053; 80061; 81003; 81015; 83036; 83605; 84484; 85025; 85610; 93005; 93306; 96360; 96361; 96372; 99284; A9270-GY; A9579; G0378; J1644

== ENCOUNTER 2016-11-01 08:10 | Emergency (ER) | payer MEDICARE ==
[2016-11-01 08:37] VITALS: BP 156/82
--- NOTE | 2016-11-01 09:26 | UC ---
Back Pain HPI - HPI Summary HPI Summary: Noticed urinary frequency for at least a week, up to once per hour. In the last couple days has L lower back pain that radiates through her hip to her L groin. Denies colicky pain, mainly with movement and rest/position relieves pain reliably. No fever, vomiting, or dysuria. Recently started new DM medication empagliflozin which is helping her blood sugars significantly, but Dr. Dorsey told her it would put her at risk for more UTIs and yeast infections. Has had lots of vulvar itching and burning for a few days. - History of Current Complaint Chief Complaint: UCGU Stated Complaint: BACK PAIN POSSIBLE UTI Time Seen by Provider: 11/01/16 08:49 Hx Obtained From: Patient Hx Last Menstrual Period: menapause ?: No Onset/Duration: Gradual Onset, Lasting Days Timing: Constant Severity Initially: Mild Severity Currently: Moderate Character: Aching, Stiffness, Burning - vulva Aggravating: Movement, Bending, Walking Alleviating: Rest, Position Associated Signs And Symptoms: Positive: Redness - vulva, Other - urinary frequency. Negative: Fever, Weakness, Numbness, Tingling, Abdominal Pain, Flank Pain, Bladder Incontinence, Bowel Incontinence - Allergies/Home Medications Allergies/Adverse Reactions: Allergies Allergy/AdvReac Type Severity Reaction Status Date / Time Codeine Allergy dry heaves Verified 09/24/16 12:24 Iodinated Diagnostic Agents Allergy Hives Verified 09/24/16 15:53 Prochlorperazine Allergy convulsions Verified 09/24/16 12:24 [From Compazine] Home Medications: Home Medications Empagliflozin-Metformin HCl [Synjardy 12.5-500 mg] 11/01/16 [History] Pantoprazole Sodium 11/01/16 [History] PMH/Surg Hx/FS Hx/Imm Hx Endocrine History Of: Reports: Diabetes - type 2 Denies: Thyroid Disease Cardiovascular History Of: Reports: Hypertension Denies: Cardiac Disorders, Pacemaker/ICD Respiratory History Of: Denies: COPD, Asthma GI/ History Of: Denies: Ulcer Cancer History Of: Denies: Breast Cancer - Surgical History Surgical History: Yes Surgery Procedure, Year, and Place: Hysterectomy with left oopherectomy age 36 yrs, oopherectomy age 39. Cholecystectomy. Right Knee Arthroscopy. Tonsillectomy - Family History Known Family History: Positive: Cardiac Disease - Both parents., Other - similar neck problems - mother - Social History Occupation: Retired Alcohol Use: None Substance Use Type: None Smoking Status (MU): Never Smoked Tobacco - Immunization History Most Recent Influenza Vaccination: utd Most Recent Tetanus Shot: utd Most Recent Pneumonia Vaccination: utd Review of Systems Constitutional: Negative Skin: Negative Eyes: Negative ENT: Negative Respiratory: Negative Cardiovascular: Negative Gastrointestinal: Negative Genitourinary: Frequency, Urgency, Other - itching, burning Motor: Negative Neurovascular: Negative Musculoskeletal: Myalgia - L low back pain Neurological: Negative Psychological: Negative All Other Systems Reviewed And Are Negative: Yes Physical Exam Triage Information Reviewed: Yes Appearance: Well-Appearing, No Pain Distress, Obese Vital Signs: Initial Vital Signs Temp 98.3 F 11/01/16 08:31 Pulse 63 11/01/16 08:31 Resp 16 11/01/16 08:31 BP 156/82 11/01/16 08:31 Pulse Ox 97 11/01/16 08:31 Vital Signs Reviewed: Yes Eye Exam: Normal Eyes: Positive: Conjunctiva Clear ENT Exam: Normal ENT: Positive: Normal ENT inspection, Hearing grossly normal, Pharynx normal, TMs normal Dental: Negative: Percussion Tenderness @, Gross Decay/Caries @ Neck exam: Normal Neck: Positive: Supple Respiratory Exam: Normal Respiratory: Positive: Chest non-tender, Lungs clear, Normal breath sounds, No respiratory distress, No accessory muscle use Cardiovascular Exam: Normal Cardiovascular: Positive: RRR, No Murmur Abdomen Description: Positive: Nontender, No Organomegaly, Soft. Negative: CVA Tenderness (R), CVA Tenderness (L) Musculoskeletal Exam: Normal Musculoskeletal: Positive: Strength Intact, ROM Intact Neurological Exam: Normal, Other - DTRs 2+ BLE Neurological: Positive: Alert Psychological Exam: Normal Skin Exam: Normal - Additional Comments external genital exam performed, erythema, swelling, white curd-like discharge noted. Affirm collected. Back Pain Course/Dx - Differential Dx/Diagnosis Provider Diagnoses: Low back strain. vulvovaginal candidiasis. hematuria. Elevated blood pressure due to discomfort Discharge - Discharge Plan Condition: Stable Disposition: HOME Prescriptions: Cyclobenzaprine TAB* [Flexeril 10 MG TAB*] 5 mg PO BID #14 tab Fluconazole [Diflucan 150 MG (NF)] 150 mg PO ONCE #3 tab Terconazole Vaginal [Terazol 3] 1 applic VAGINAL BEDTIME #1 kit Patient Education Materials: Vulvovaginal Candidiasis (ED), Acute Low Back Pain (ED), Hematuria (ED) Referrals: Mina Dorsey MD [Primary Care Provider] - Additional Instructions: 1. I think your low back pain is from the joints and muscles in your back. This kind of pain is very common, and usually goes away in a matter of weeks. Make sure you continue light activity (such as walking or swimming) every day, use acetaminophen 650mg 3-4 times per day for pain, take 5mg cyclobenzaprine at bedtime, and consider use of a hot tub or very warm bath for 20 minutes up to 4 times per day. 2. Your urinary frequency is almost certainly from your new medication, as the medicine sends glucose out through your urine. This is what will make you more prone to UTIs and yeast infections. Continue to drink plenty of fluids and know that you will probably have some urinary frequency as long as you are on this medication. 3. You likely have a vaginal yeast infection. I have prescribed both pills and a cream for this -- use them concurrently. 4. The small amount of blood in your urine needs to be rechecked by your primary care office to make sure it resolves on its own. If it doesn't, you may need further testing. Go to the hospital if you develop fever, vomiting, or severe pain.
--- NOTE | 2016-11-03 10:42 | UC ---
Progress - Progress Note Progress Note: on cephalexin, cult/sens pending.
--- NOTE | 2016-11-03 10:45 | UC ---
Progress - Progress Note Progress Note: RN to call pt. + suzy. cont meds.
== END 2016-11-01 09:26 | disposition home or self-care (01) ==
LOC: UCEAST 08:10
DX: S39.012A Strain of muscle, fascia and tendon of lower back, initial encounter (principal); E11.9 Type 2 diabetes mellitus without complications; I10 Essential (primary) hypertension; B37.3 Candidiasis of vulva and vagina; R31.9 Hematuria, unspecified; Z78.0 Asymptomatic menopausal state; Z88.5 Allergy status to narcotic agent; Z91.041 Radiographic dye allergy status; Z79.84 Long term (current) use of oral hypoglycemic drugs; X58.XXXA Exposure to other specified factors, initial encounter
CPT/HCPCS: 81003; 87086; 87480; 87510; 99212; G0463

== ENCOUNTER 2016-11-16 15:04 | Emergency (ER) | payer MEDICARE ==
[2016-11-16 15:45] VITALS: BP 156/71
--- NOTE | 2016-11-16 16:02 | UC ---
Throat Pain/Nasal [place] HPI - HPI Summary HPI Summary: complaint of nasal congestion and cough that started 11/02/16 sinus congestion which has worsened cough with yellow sputum bilateral ear pain pressure in her head is increasing feels fatigued denies fever and chills took some alkaseltzer cold medication without relief - History of Current Complaint Chief Complaint: UCRespiratory Stated Complaint: SINUS CONGESTION Time Seen by Provider: 11/16/16 15:44 Hx Obtained From: Patient Hx Last Menstrual Period: menapause - Allergies/Home Medications Allergies/Adverse Reactions: Allergies Allergy/AdvReac Type Severity Reaction Status Date / Time Codeine Allergy dry heaves Verified 11/16/16 15:45 Iodinated Diagnostic Agents Allergy Hives Verified 11/16/16 15:45 Prochlorperazine Allergy convulsions Verified 11/16/16 15:45 [From Compazine] Home Medications: Home Medications Sitagliptin Phosphate [Januvia] 100 mg PO 11/16/16 [History] PMH/Surg Hx/FS Hx/Imm Hx Previously Healthy: Yes Endocrine History Of: Reports: Diabetes - type 2 Denies: Thyroid Disease Cardiovascular History Of: Reports: Hypertension Denies: Cardiac Disorders, Pacemaker/ICD Respiratory History Of: Denies: COPD, Asthma GI/ History Of: Denies: Ulcer Cancer History Of: Denies: Breast Cancer - Surgical History Surgical History: Yes Surgery Procedure, Year, and Place: Hysterectomy with left oopherectomy age 36 yrs, oopherectomy age 39. Cholecystectomy. Right Knee Arthroscopy. Tonsillectomy - Family History Known Family History: Positive: Cardiac Disease - Both parents., Other - similar neck problems - mother - Social History Alcohol Use: None Substance Use Type: None Smoking Status (MU): Never Smoked Tobacco - Immunization History Most Recent Influenza Vaccination: utd Most Recent Tetanus Shot: utd Most Recent Pneumonia Vaccination: utd Review of Systems Constitutional: Negative Skin: Negative Eyes: Negative ENT: Ear Ache, Nasal Discharge Respiratory: Cough Cardiovascular: Negative Gastrointestinal: Negative Genitourinary: Negative Motor: Negative Neurovascular: Negative Musculoskeletal: Negative Neurological: Headache Psychological: Negative All Other Systems Reviewed And Are Negative: Yes Physical Exam Triage Information Reviewed: Yes Appearance: No Pain Distress, Well-Nourished, Ill-Appearing Vital Signs: Initial Vital Signs Temp 97.5 F 11/16/16 15:38 Pulse 59 11/16/16 15:38 Resp 16 11/16/16 15:38 BP 156/71 11/16/16 15:38 Pulse Ox 99 11/16/16 15:38 Vital Signs Reviewed: Yes Eyes: Positive: Conjunctiva Clear ENT: Positive: Pharyngeal erythema, Nasal congestion, Nasal drainage, TMs normal , Other: - frontal and maxillary sinus tenderness Neck: Positive: No Lymphadenopathy Respiratory: Positive: Lungs clear, Normal breath sounds, No respiratory distress, No accessory muscle use Cardiovascular: Positive: RRR, No Murmur, Pulses Normal Abdomen Description: Positive: Nontender, Soft Bowel Sounds: Positive: Present Musculoskeletal: Positive: No Edema Neurological: Positive: Alert Psychological Exam: Normal Skin Exam: Normal Throat Pain/Nasal Course/Dx - Course Course Of Treatment: exam completed. will treat for sinusitis with augmentin d/ t length of time and sinus tenderness - Differential Dx/Diagnosis Differential Diagnosis/HQI/PQRI: Pharyngitis, Sinusitis, Tonsillitis, URI Provider Diagnoses: elevated blood pressure. sinusitis Discharge - Discharge Plan Condition: Stable Disposition: HOME Prescriptions: Amoxicillin/Clavulanate TAB* [Augmentin TAB 875*] 875 mg PO BID #20 tab Patient Education Materials: Sinusitis (ED) Referrals: Mina Dorsey MD [Primary Care Provider] - Additional Instructions: Please take antibiotic as directed Increase fluids and rest Take acetaminophen or ibuprofen for fever or pain Please review your discharge instructions. If your symptoms do not improve please call your primary care provider or return to urgent care. Your blood pressure is elevated. Please contact your primary care provider within 1 day -4 weeks for further evaluation.
== END 2016-11-16 16:20 | disposition home or self-care (01) ==
LOC: UCEAST 15:04
DX: I10 Essential (primary) hypertension (principal); J32.9 Chronic sinusitis, unspecified; E11.9 Type 2 diabetes mellitus without complications; Z79.84 Long term (current) use of oral hypoglycemic drugs; Z78.0 Asymptomatic menopausal state; Z88.5 Allergy status to narcotic agent
CPT/HCPCS: 99212; G0463

== ENCOUNTER 2016-12-27 21:09 | Emergency (ER) | payer MEDICARE ==
[2016-12-27 21:19] VITALS: BP 163/83
--- NOTE | 2016-12-27 21:52 | UC ---
Headache HPI - HPI Summary HPI Summary: WENT TO GO TO BED ABOUT 20 MIN [employer] AND FELT DIZZY AND HEADACHY. PT HAD WATCHED THE [employer] LAST NIGHT AND STATES LOOKING UP AT THE [facility] AGGRAVATED HER CERVICAL STENOSIS WHICH OFTEN MAKES HER FEEL THIS WAY. TOUCHED RIGHT SIDE OF HEAD AND NOTICED A SWELLING. NO FEVER, NAUSEA, JOINT PAIN. NO CP OR SOB. SHE IS LESS CONCERNED ABOUT THE DIZZINESS THAN THE LUMP ON HER HEAD. - History Of Current Complaint Chief Complaint: KYLAHeadajessica Stated Complaint: HEADACHE,DIZZY Time Seen by Provider: 12/27/16 21:33 Hx Obtained From: Patient Hx Last Menstrual Period: menapause Onset/Duration: Sudden Onset, Lasting Hours - ABOUT 1 HR, Still Present - BUT BETTER Pain Intensity: 6 Pain Scale Used: 0-10 Numeric Timing: Constant Location of Headache: Parietal, Occipital Aggravating Factor: Nothing Allevating Factors: Nothing Associated Signs And Symptoms: Positive: Dizziness, Neck Pain. Negative: Nausea , Vomiting, Sinus Pressure, Fever, Decreased LOC, Visual Changes - Allergies/Home Medications Allergies/Adverse Reactions: Allergies Allergy/AdvReac Type Severity Reaction Status Date / Time Codeine Allergy dry heaves Verified 11/16/16 15:45 Iodinated Diagnostic Agents Allergy Hives Verified 11/16/16 15:45 Prochlorperazine Allergy convulsions Verified 11/16/16 15:45 [From Compazine] Home Medications: Home Medications Simvastatin TAB(NF) [Zocor 10 MG (NF)] 10 mg PO 1700 12/27/16 [History Confirmed 12/27/16] PMH/Surg Hx/FS Hx/Imm Hx Endocrine History: Diabetes Cardiovascular History: Hypertension - Surgical History Surgical History: Yes Surgery Procedure, Year, and Place: Hysterectomy with left oopherectomy age 36 yrs, oopherectomy age 39. Cholecystectomy. Right Knee Arthroscopy. Tonsillectomy - Family History Known Family History: Positive: Cardiac Disease - Both parents., Other - similar neck problems - mother - Social History Alcohol Use: None Substance Use Type: None Smoking Status (MU): Never Smoked Tobacco - Immunization History Most Recent Influenza Vaccination: utd Most Recent Tetanus Shot: utd Most Recent Pneumonia Vaccination: utd Review of Systems Constitutional: Negative Skin: Other - BUT BITE Eyes: Negative Respiratory: Negative Cardiovascular: Negative Gastrointestinal: Negative Musculoskeletal: Arthralgia Neurological: Headache, Other - DIZZY All Other Systems Reviewed And Are Negative: Yes Physical Exam Triage Information Reviewed: Yes Appearance: Well-Appearing, No Pain Distress, Well-Nourished Vital Signs: Initial Vital Signs Temp 97.1 F 12/27/16 21:12 Pulse 68 12/27/16 21:12 Resp 18 12/27/16 21:12 BP 163/83 12/27/16 21:12 Pulse Ox 100 12/27/16 21:12 Vital Signs Reviewed: Yes Eyes: Positive: Conjunctiva Clear ENT: Positive: Hearing grossly normal Neck: Positive: Supple, Nontender Respiratory: Positive: No respiratory distress, No accessory muscle use Cardiovascular: Positive: Pulses Normal Abdomen Description: Positive: Soft Musculoskeletal: Positive: No Edema Neurological: Positive: Alert Psychological: Positive: Age Appropriate Behavior Skin: Positive: Other - 1CM AREA OF INDURATION WITH CENTRAL PUNCTUM CONSISTENT IN APPEARANCE WITH INSECT BITE. NO ERYTHEMA. MILDLY TENDER. Headache Course/Dx - Differential Dx/Diagnosis Provider Diagnoses: 1. INSECT BITE. 2. CERVICAL STRAIN Discharge - Discharge Plan Condition: Stable Disposition: HOME Patient Education Materials: Cervical Strain (ED), Insect Bite or Sting (ED) Referrals: Mina Dorsey MD [Primary Care Provider] - 1 Week Additional Instructions: YOU HAVE WHAT APPEARS TO BE A BUG BITE ON THE RIGHT SIDE OF YOUR HEAD. THERE IS NO SURROUNDING REDNESS TO INDICATE A SKIN INFECTION OR LYME DISEASE. TAKE SOME IBUPROFEN TO HELP WITH THE DISCOMFORT AND FOLLOW-UP WITH YOUR PCP. IT SHOULD IMPROVE OVER THE NEXT FEW DAYS. BE VIGILANT OF YOUR SYMPTOMS AND DON'T HESITATE TO GET SEEN AGAIN IF YOU DEVELOP UNEXPLAINED FEVER, HEADACHE, JOINT PAIN, BODY ACHES, RASH OR ANY OTHER CONCERNING SYMPTOMS.
== END 2016-12-27 22:24 | disposition home or self-care (01) ==
LOC: UCEAST 21:09
DX: E11.9 Type 2 diabetes mellitus without complications (principal); I10 Essential (primary) hypertension; T14.8 Other injury of unspecified body region; W57.XXXA Bitten or stung by nonvenomous insect and other nonvenomous arthropods, initial encounter; Y93.9 Activity, unspecified; Y92.9 Unspecified place or not applicable; Y99.9 Unspecified external cause status; S16.1XXA Strain of muscle, fascia and tendon at neck level, initial encounter; X50.0XXA Overexertion from strenuous movement or load, initial encounter; Y93.89 Activity, other specified; Y99.8 Other external cause status
CPT/HCPCS: 99211; G0463

== ENCOUNTER 2017-01-17 07:12 | Emergency (ER) | payer MEDICARE ==
[2017-01-17 07:22] VITALS: BP 128/65
--- NOTE | 2017-01-17 07:39 | UC ---
Lower Extremity/Ankle HPI - HPI Summary HPI Summary: 71 YEAR OLD FEMALE WITH A HISTORY OF RIGHT ACHILLES TENDON TEAR PRESENTS WITH COMPLAINS OF RIGHT HEEL PAIN. - History of Current Complaint Chief Complaint: UCLowerExtremity Stated Complaint: HEEL PAIN Time Seen by Provider: 01/17/17 07:28 Hx Last Menstrual Period: menapause - Allergies/Home Medications Allergies/Adverse Reactions: Allergies Allergy/AdvReac Type Severity Reaction Status Date / Time Codeine Allergy dry heaves Verified 11/16/16 15:45 Iodinated Diagnostic Agents Allergy Hives Verified 11/16/16 15:45 Prochlorperazine Allergy convulsions Verified 11/16/16 15:45 [From Compazine] PMH/Surg Hx/FS Hx/Imm Hx - Surgical History Surgical History: Yes Surgery Procedure, Year, and Place: Hysterectomy with left oopherectomy age 36 yrs, oopherectomy age 39. Cholecystectomy. Right Knee Arthroscopy. Tonsillectomy - Family History Known Family History: Positive: Cardiac Disease - Both parents., Other - similar neck problems - mother - Social History Alcohol Use: None Substance Use Type: None Smoking Status (MU): Never Smoked Tobacco - Immunization History Most Recent Influenza Vaccination: utd Most Recent Tetanus Shot: utd Most Recent Pneumonia Vaccination: utd Review of Systems Constitutional: Negative Skin: Negative Eyes: Negative ENT: Negative Respiratory: Negative Cardiovascular: Negative Gastrointestinal: Negative Genitourinary: Negative Motor: Negative Neurovascular: Negative Musculoskeletal: Other: - RIGHT HEEL PAIN Neurological: Negative Psychological: Negative All Other Systems Reviewed And Are Negative: Yes Physical Exam Triage Information Reviewed: Yes Vital Signs: Initial Vital Signs Temp 36.1 C 01/17/17 07:18 Pulse 60 01/17/17 07:18 Resp 16 01/17/17 07:18 BP 128/65 01/17/17 07:18 Pulse Ox 99 01/17/17 07:18 Eye Exam: Normal ENT Exam: Normal Dental Exam: Normal Neck exam: Normal Neck: Positive: 1 Respiratory Exam: Normal Cardiovascular Exam: Normal Abdominal Exam: Normal Musculoskeletal: Positive: Other: - RIGHT RETROCALCANEAL BURSITIS Neurological Exam: Normal Psychological Exam: Normal Skin Exam: Normal Lower Extremity Course/Dx - Differential Dx/Diagnosis Provider Diagnoses: RIGHT RETROCALCANEAL BURSITIS Discharge - Discharge Plan Condition: Stable Disposition: HOME Prescriptions: Methylprednisolone [Medrol Dosepak 4 MG*] 4 mg PO .SEE MATEO INSTRUCTION #21 tab Patient Education Materials: Ankle Bursitis (ED) Referrals: Mina Dorsey MD [Primary Care Provider] -
== END 2017-01-17 07:40 | disposition home or self-care (01) ==
LOC: UCEAST 07:12
DX: M77.51 Other enthesopathy of right foot and ankle (principal)
CPT/HCPCS: 99212; G0463

== ENCOUNTER 2017-05-22 01:00 | Emergency (ER) | payer MEDICARE ==
[2017-05-22] MEDS ORDERED: Morphine INJ* 4 MG/ML 1 ML CARPUJECT IV ONE (02:12)
[2017-05-22] MEDS ORDERED: Ondansetron INJ* 2 MG/ML VIAL IV ONE (02:12)
[2017-05-22 02:57] LABS: Hematocrit 39 % (35-47); Hemoglobin 12.7 g/dl (12.0-16.0); Mean Corpuscular HGB Conc 33 g/dl (31-36); Mean Corpuscular Hemoglobin 28 pg (27-31); Mean Corpuscular Volume 85 fL (80-97); Mean Platelet Volume 8 um3 (7.4-10.4); Red Blood Count 4.54 10^6/ul (4.0-5.4); Red Cell Distribution Width 14 % (10.5-15); White Blood Count 8.3 10^3/ul (3.5-10.8)
[2017-05-22 03:08] LABS: Albumin 4.3 g/dL (3.2-5.2); BUN/Creatinine Ratio 19.6 (8-20); C Reactive Protein 4.08 mg/L (< 5.00); Calcium 9.4 mg/dL (8.6-10.3); EGFR African American 68.9 (>60); EGFR Non-African American 53.6 (>60); Globulin 2.7 g/dL (2-4); Potassium 3.9 mmol/L (3.5-5.0); Total Bilirubin 0.5 mg/dL (0.2-1.0)
[2017-05-22 03:37] LABS: Urine Bacteria Absent (Absent); Urine Bilirubin Negative (Negative); Urine Glucose Negative (Negative); Urine Nitrite Negative (Negative)
[2017-05-22] MEDS ORDERED: Amoxicillin/Clavulanate TAB* 875 MG PO ONE (04:18)
[2017-05-22 04:56] VITALS: BP 122/62
--- NOTE | 2017-05-22 08:23 | RAD ---
INDICATION: Abdominal pain. COMPARISON: Comparison is made with a prior study from May 02, 2014. TECHNIQUE: A CT scan of the abdomen and pelvis was performed without intravenous or oral contrast. Contiguous axial sections were obtained from the lung bases through the symphysis pubis. Images were reconstructed in the coronal and sagittal planes. FINDINGS: The lung bases are clear. No pleural effusion is present. The liver and spleen are mildly enlarged and unchanged. The liver is decreased in attenuation consistent with fatty infiltration. No significant focal abnormality seen on this noncontrast study. The patient is status post cholecystectomy. The pancreas appears to be within normal limits. The adrenal glands and kidneys are normal in size. No renal calculi or hydronephrosis is seen. There is suggestion of a small cyst arising from the midportion of the right kidney measuring 1 cm in size which is unchanged from the prior study. The aorta is normal in caliber with mild calcific plaque present. No significant enlarged retroperitoneal lymph nodes are seen. The stomach is moderately distended. There appears to be food debris present. The small bowel and colon are nondistended. The appendix is within normal limits. There is moderate sigmoid diverticulosis and mild thickening of the wall of the proximal sigmoid colon suggesting the possibility of mild diverticulitis. The patient is status post hysterectomy. No free intraperitoneal air or fluid is seen. No abscess is noted. No significant focal osseous abnormality is seen. IMPRESSION: 1. MODERATE SIGMOID DIVERTICULOSIS AND MILD THICKENING OF THE WALL OF THE PROXIMAL SIGMOID COLON SUGGESTING THE POSSIBILITY OF MILD DIVERTICULITIS. 2. MILD HEPATOSPLENOMEGALY AND HEPATIC STEATOSIS, UNCHANGED. 3. MODERATE DISTENTION OF THE STOMACH.
--- NOTE | 2017-06-07 01:38 | ED ---
Crista Owens SooYoung, scribed for Lilibeth Wan MD on 05/22/17 at 0207 . Abdominal Pain/Female - HPI Summary HPI Summary: A 71 y/o F presents to ED with c/o epigastric abd pain onset three days ago and worsening today. Associated sx: nausea, bloating. Last BM was yesterday morning and was normal. Abd SHx includes hysterectomy, cholecystectomy. Pt states she has "a twisted intestine." She is not on any pain medication. - History of Current Complaint Chief Complaint: EDAbdPain Stated Complaint: ABD BLOATING/PAIN Time Seen by Provider: 05/22/17 02:06 Hx Obtained From: Patient Hx Last Menstrual Period: menapause Onset/Duration: Gradual Onset, Lasting Days, Still Present Timing: Constant Severity Initially: Moderate Severity Currently: Severe Pain Intensity: 10 Pain Scale Used: 0-10 Numeric Location: Epigastric Associated Signs and Symptoms: Positive: Nausea, Other: - bloating Allergies/Adverse Reactions: Allergies Allergy/AdvReac Type Severity Reaction Status Date / Time Codeine Allergy dry heaves Verified 05/22/17 02:10 Iodinated Diagnostic Agents Allergy Hives Verified 05/22/17 02:10 Prochlorperazine Allergy convulsions Verified 05/22/17 02:10 [From Compazine] PMH/Surg Hx/FS Hx/Imm Hx Previously Healthy: No Endocrine/Hematology History: Reports: Hx Diabetes - type 2 Denies: Hx Thyroid Disease Cardiovascular History: Reports: Hx Hypertension Denies: Hx Pacemaker/ICD Respiratory History: Denies: Hx Asthma, Hx Chronic Obstructive Pulmonary Disease (COPD) GI History: Denies: Hx Ulcer Sensory History: Denies: Hx Contacts or Glasses, Hx Hearing Aid Opthamlomology History: Denies: Hx Contacts or Glasses Psychiatric History: Denies: Hx Panic Disorder - Cancer History Hx Chemotherapy: No Hx Radiation Therapy: No - Surgical History Surgery Procedure, Year, and Place: Hysterectomy with left oopherectomy age 36 yrs, oopherectomy age 39. Cholecystectomy. Right Knee Arthroscopy. Tonsillectomy Infectious Disease History: No Infectious Disease History: Denies: Hx Clostridium Difficile, Hx Hepatitis, Hx Human Immunodeficiency Virus (HIV), Hx of Known/Suspected MRSA, Hx Shingles, Hx Tuberculosis, Hx Known/ Suspected VRE, Hx Known/Suspected VRSA, History Other Infectious Disease, Traveled Outside the [place] in Last 30 Days - Family History Known Family History: Positive: Cardiac Disease - Both parents., Other - similar neck problems - mother - Social History Occupation: Employed Full-time Lives: With Family Alcohol Use: None Hx Substance Use: No Substance Use Type: Reports: None Hx Tobacco Use: No Smoking Status (MU): Never Smoked Tobacco Review of Systems Negative: Fever Positive: Abdominal Pain, Nausea, Other - bloating All Other Systems Reviewed And Are Negative: Yes Physical Exam - Summary Physical Exam Summary: VITAL SIGNS: Reviewed. GENERAL: Patient is a well-developed and nourished FEMALE who is lying comfortable in the stretcher. Patient is not in any acute respiratory distress. HEAD AND FACE: No signs of trauma. No ecchymosis, hematomas or skull depressions. No sinus tenderness. EYES: PERRLA, EOMI x 2, no injected conjunctiva, no nystagmus. EARS: Hearing grossly intact. Ear canals and tympanic membranes are within normal limits. MOUTH: Oropharynx is within normal limits. NECK: Supple, trachea is midline, no adenopathy, no JVD, no carotid bruit, no c- spine tenderness, neck with full ROM. CHEST: Symmetric, no tenderness at palpation LUNGS: Clear to auscultation bilaterally. No wheezing or crackles. CVS: Regular rate and rhythm, S1 and S2 present, no murmurs or gallops appreciated. ABDOMEN: Soft. RUQ tenderness. Moderate distention. No rebound, no guarding, and no masses palpated. Hypoactive bowel sounds. EXTREMITIES: FROM in all major joints, no edema, no cyanosis, no clubbing. NEURO: Alert and oriented x 3. No acute neurological deficits. Speech is normal and follows commands. SKIN: Dry and warm Triage Information Reviewed: Yes Vital Signs On Initial Exam: Initial Vitals Temp Pulse Resp BP Pulse Ox 97 F 77 18 184/70 99 05/22/17 01:02 05/22/17 01:02 05/22/17 01:02 05/22/17 01:02 05/22/17 01:02 Vital Signs Reviewed: Yes Diagnostics - Vital Signs Vital Signs Temp Pulse Resp BP Pulse Ox 05/22/17 01:02 97 F 77 18 184/70 99 - Laboratory Result Diagrams: 05/22/17 02:45 05/22/17 02:45 Lab Statement: Any lab studies that have been ordered have been reviewed, and results considered in the medical decision making process. - CT ABD/PEL CT Interpretation: Positive (See Comments) - IMPRESSION: Diverticulosis with mild sigmoid colitis. ED physician has reviewed this radiology report and agrees. CT Interpretation Completed By: Radiologist Re-Evaluation - Re-Evaluation 1 Re-Evaluation Time: 04:22 Change: Improved Comment: Discussing results with pt. Pt voiced understanding. Abdominal Pain Fem Course/Dx - Course Course Of Treatment: A 71 y/o F presents to ED with c/o epigastric abd pain onset three days ago and worsening today. Associated sx: nausea, bloating. Last BM was yesterday morning and was normal. Abd SHx includes hysterectomy, cholecystectomy. Pt states she has "a twisted intestine." She is not on any pain medication. Pt given morphine and zofran in ED. Bloodwork is without significant abnormality except elevated glucose. UA results show trace leukocyte esterase. ABD/PEL CT shows "Diverticulosis with mild sigmoid colitis. " - Diagnoses Provider Diagnoses: Colitis Discharge - Discharge Plan Condition: Stable Disposition: HOME Prescriptions: Amoxicillin/Clavulanate TAB* [Augmentin TAB 875*] 875 mg PO BID #14 tab traMADol TAB* [Ultram*] 50 mg PO Q6HR PRN #14 tab MDD 4 PRN Reason: Pain Patient Education Materials: Amoxicillin/Clavulanate Potassium (By mouth), Tramadol (By mouth), Colitis (ED) Referrals: Mina Dorsey MD [Primary Care Provider] - 1 Week Additional Instructions: Follow up with your primary care provider this week. Please return to the ED if you experience new or worsening symptoms. The documentation as recorded by the Crista zamarripa SooYoung accurately reflects the service I personally performed and the decisions made by me, Lilibeth Wan MD.
== END 2017-05-22 04:55 | disposition home or self-care (01) ==
LOC: ED 01:00
DX: K52.9 Noninfective gastroenteritis and colitis, unspecified (principal); I10 Essential (primary) hypertension; E11.8 Type 2 diabetes mellitus with unspecified complications; Z88.5 Allergy status to narcotic agent
CPT/HCPCS: 36415; 74176; 80053; 81003; 81015; 82150; 83690; 85025; 85610; 85730; 86140; 87086; 96374; 96375; 96376; 99283; A9270-GY; J2270; J2405

== ENCOUNTER 2017-07-12 07:52 | Emergency (ER) | payer MEDICARE ==
[2017-07-12] MEDS ORDERED: Acetaminophen TAB* 325 MG PO ONE (08:43)
[2017-07-12 09:56] VITALS: BP 134/65
[2017-07-12] MEDS ORDERED: Benzonatate CAP* 100 MG PO ONE (10:45)
[2017-07-12] MEDS ORDERED: guaiFENesin ER TAB 600 MG PO ONE (10:45)
[2017-07-12] MEDS ORDERED: Albuterol HFA INHALER* 8 gm MDI INH ONE (10:45)
--- NOTE | 2017-07-25 15:21 | UC ---
Ashwin Owens Natalie, scribed for Chelsi Brar DO on 07/12/17 at 1036 . FLU HPI - HPI Summary HPI Summary: The pt is a 71 y/o F presenting to [facility] c/o influenza-like symptoms starting 06/14 and worsening since. She started with nasal congestion and worsening coughing. The pain is rated 9/10. 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 Pt additionally c/o fever (101F), runny nose, sore throat, ear ache, body aches, nausea, vomiting (once this morning), and loss of appetite. Pt denies SOB, headache, recent falls, recent confusion and abd pain. - History of Current Complaint Chief Complaint: UCRespiratory Stated Complaint: HEAD CONGESTION COUGH FEVER Time Seen by Provider: 07/12/17 08:43 Hx Obtained From: Patient Hx Last Menstrual Period: menopause Onset/Duration: Lasting Days - started 07/09/17, Still Present Severity Currently: Severe Severity Initially: Moderate Pain Intensity: 9 Pain Scale Used: 0-10 Numeric Associated Signs & Symptoms: Positive: Fever - 110F, Cough, Sore Throat, Nasal Congestion, Vomiting. Negative: Headache - Allergy/Home Medications Allergies/Adverse Reactions: Allergies Allergy/AdvReac Type Severity Reaction Status Date / Time Codeine Allergy dry heaves Verified 07/25/17 14:56 Iodinated Diagnostic Agents Allergy Hives Verified 07/25/17 14:56 Prochlorperazine Allergy convulsions Verified 07/25/17 14:56 [From Compazine] PMH/Surg Hx/FS Hx/Imm Hx Previously Healthy: No Endocrine History: Diabetes Cardiovascular History: Hypertension - Surgical History Surgical History: Yes Surgery Procedure, Year, and Place: Hysterectomy with left oopherectomy age 36 yrs, oopherectomy age 39. Cholecystectomy. Right Knee Arthroscopy. Tonsillectomy - Family History Known Family History: Positive: Cardiac Disease - Both parents., Other - similar neck problems - mother - Social History Alcohol Use: None Substance Use Type: None Smoking Status (MU): Never Smoked Tobacco - Immunization History Most Recent Influenza Vaccination: utd Most Recent Tetanus Shot: utd Most Recent Pneumonia Vaccination: utd Review of Systems Constitutional: Fever ENT: Sore Throat, Ear Ache, Nasal Discharge, Sinus Congestion Respiratory: Cough, Other - NEGATIVE: SOB Gastrointestinal: Vomiting, Nausea, Other - POSITIVE: loss of appetite; NEGATIVE : abd pain Musculoskeletal: Other: - body aches Neurological: Other - NEGATIVE: headache All Other Systems Reviewed And Are Negative: Yes Physical Exam Triage Information Reviewed: Yes Vital Signs: Initial Vital Signs Temp 101 F 07/12/17 08:08 Pulse 74 07/12/17 08:08 Resp 17 07/12/17 08:08 BP 144/56 07/12/17 08:08 Pulse Ox 99 07/12/17 08:08 Vital Signs Reviewed: Yes - Additional Comments Appearance: Mildly ill-Appearing, No Pain Distress, Well-Nourished Eyes: conjunctiva clear, no discharge ENT: Hearing grossly normal, no muffled/hoarse voice. TMs normal, negative tonsillar swelling, negative tonsillar exudate, negative trismus. Neck: Normal, Supple Respiratory/Lung Sounds: Lungs clear, Normal breath sounds, No respiratory distress, No accessory muscle use, Prolonged expiration at bilateral bases Cardiovascular: RRR, No murmur Abdomen: Nontender, Soft, no guarding, not distended Musculoskeletal: Normal Neurological: Alert, muscle tone normal Psychiatric: Normal, age appropriate behavior Skin: Normal, Warm, Dry, Normal color Flu Course/Dx - Course Course Of Treatment: [facility] the patient was given Acetaminophen. Patient will be discharged with prescription for Albuterol, Tessalon, and Mucinex and follow up from PCP. The patient is agreeable with this plan. Medications reviewed. Allergies reviewed. High blood pressure noted likely d/t pt's condition.. - Differential Dx/Diagnosis Provider Diagnoses: influenza Discharge - Discharge Plan Condition: Stable Disposition: HOME Prescriptions: Benzonatate CAP* [Tessalon 100 MG CAP*] 100 mg PO TID #30 cap guaiFENesin ER TAB [Mucinex*] 600 mg PO BID PRN #1 box PRN Reason: Cough Patient Education Materials: Influenza (ED) Referrals: Mina Dorsey MD [Primary Care Provider] - 2 Days Additional Instructions: INHALED BRONCHODILATORS: You have received a prescription for an inhaled bronchodilator -- a medication which stimulates the airways in the lung to dilate. This improves the flow of air in asthma, bronchitis, and emphysema. These medicines have some similarity to adrenaline, and can cause similar side effects: shakiness, racing heart, and a sense of nervousness. These side effects decrease with time. Contact your doctor if these side effects are severe. Do not over-use the medicine. Too-frequent use of the inhaler may make it ineffective. Call your doctor if the inhaler is not controlling your symptoms at the prescribed doses. EXPECTORANT MEDICATION: WE SENT IN A SCRIPT FOR MUCINEX SO THAT IT IS EASIER FOR YOU TO PICK THE RIGHT MED AT THE PHARMACY. HOWEVER, YOU CAN ALSO GO TO THE [employer] [facility] AND BUY PLAIN GUAIFENESIN WITHOU BINDERS OR FILLERS. An expectorant medicine has been prescribed. This type of drug makes mucous thinner, helping the sinuses, nose, and bronchial tubes to remain free of pus and mucous. Expectorants make a cough less severe and more comfortable, and help infected sinuses drain. In general, antihistamines defeat the purpose of the expectorant by making mucous thicker. They should be avoided unless specifically recommended by your physician. TESSALON PERLES: You have received a prescription for Tessalon Perles (benzonatate). This is a non-narcotic medicine for relief of cough. It usually works in about 15- 20 minutes and lasts around four hours. Tessalon Perles should be swallowed. They should not be chewed or dissolved in the mouth (this can produce temporary numbing of the mouth and choking can occur). If you develop any adverse effects such as wheezing, shortness of breath, hives, rash, itching, or lightheadedness, please return at once. The documentation as recorded by the Ashwin zamarripa Natalie accurately reflects the service I personally performed and the decisions made by , Chelsi Brar DO.
== END 2017-07-12 11:05 | disposition home or self-care (01) ==
LOC: UCEAST 07:52
DX: J11.1 Influenza due to unidentified influenza virus with other respiratory manifestations (principal); E11.9 Type 2 diabetes mellitus without complications; I10 Essential (primary) hypertension; Z90.710 Acquired absence of both cervix and uterus; Z90.722 Acquired absence of ovaries, bilateral; Z90.49 Acquired absence of other specified parts of digestive tract; Z88.5 Allergy status to narcotic agent; Z88.8 Allergy status to other drugs, medicaments and biological substances; Z91.041 Radiographic dye allergy status
CPT/HCPCS: 87502; 87651; 99213; A9270-GY; G0463

== ENCOUNTER 2017-07-13 12:31 | Emergency (ER) | payer MEDICARE ==
[2017-07-13] MEDS ORDERED: Oseltamivir CAP* 75 MG PO ONE (14:18)
[2017-07-13 14:40] LABS: ABS Basophils 0 10^3/ul (0-0.2); ABS Eosinophils 0.1 10^3/ul (0-0.6); ABS Lymphocytes 1.4 10^3/ul (1.0-4.8); ABS Monocytes 0.9 10^3/ul (0-0.8); ABS Neutrophils 5.6 10^3/ul (1.5-7.7); ABS Nucleated RBC 0 10^3/ul; Eosinophil % 0.7 % (0-6); Hematocrit 37 % (35-47); Hemoglobin 12.9 g/dl (12.0-16.0); Lymphocyte % 17.8 % (25-47); Mean Corpuscular HGB Conc 34 g/dl (31-36); Mean Corpuscular Hemoglobin 29 pg (27-31); Mean Corpuscular Volume 83 fL (80-97); Mean Platelet Volume 8 um3 (7.4-10.4); Nucleated Red Blood Cells % 0.1; Platelet Count 183 10^3/ul (150-450); Red Blood Count 4.49 10^6/ul (4.0-5.4); Red Cell Distribution Width 15 % (10.5-15)
--- NOTE | 2017-07-13 14:40 | RAD ---
Indication: Flu, cough. Single frontal view of the chest performed at 1426 hours was reviewed. Comparison is made with previous exam dated April 30, 2015. No mediastinal shift is noted. Heart is of normal size and configuration. Lung mary appear clear. IMPRESSION: NO ACTIVE CARDIOPULMONARY DISEASE IS NOTED.
[2017-07-13 14:47] LABS: EGFR Non-African American 45.3 (>60)
[2017-07-13] MEDS: NS 0.9% 1000 ML* 2,000 ML IV ONE (15:13)
[2017-07-13 19:24] VITALS: BP 151/84
--- NOTE | 2017-07-13 22:28 | CONS ---
CC: Dr. Mina Dorsey; Dr. Donavan Iniguez * CONSULTATION REPORT: DATE OF CONSULT: 07/13/17 REFERRING PROVIDER: Dr. Dustin Kaba, Emergency Department. PRIMARY CARE PROVIDER: Dr. Mina Dorsey. MY ATTENDING WHILE IN THE HOSPITAL: Dr. Donavan Iniguez. CHIEF COMPLAINTS: Flu-like symptoms for 4 days. HISTORY OF PRESENT ILLNESS: Ms. Angulo is a 71-year-old female with a past medical history significant for diabetes mellitus, hypertension, irritable bowel disease, diverticular disease, GERD with an ulcer, chronic kidney disease stage 2 and possible TIA, who presents after 4 days of flu-like symptoms. The patient states that this started on Wednesday night with a cough and a sore throat. On Wednesday, the patient started become febrile, had a temperature and her cough got worse. The patient denied any muscle aches or diarrhea at this time. The patient continued to get worse. On Wednesday had a fever that she was unable to decrease with Tylenol and had some diarrhea, became lightheaded and sat on the side of the tub. This was witnessed by her daughter and the daughter states that she was unresponsive while sitting for less than 2 minutes. The patient denied any tunnel vision, yawning, palpitations, chest pain, shortness of breath. The patient has no history of coronary artery disease, atrial fibrillation, palpitations, or other cardiac pathology. The patient actually had a formed bowel movement after her 1 episode of diarrhea. The patient states that she has been eating and drinking less due to her illness. The patient states she has had a decrease in urine, which has resumed after intravenous fluids in the emergency department. The patient denies any nausea or vomiting except small amounts after extended coughing fits. The hospitalist service was requested to assess for admission due to syncope. PAST MEDICAL HISTORY: Diabetes mellitus type 2, hypertension, IBS, diverticular disease, obesity, GERD with an ulcer, acute CKD stage 2, TIA. PAST SURGICAL HISTORY: Hysterectomy, cholecystectomy. MEDICATIONS: 1. Losartan 50 mg p.o. daily. 2. Metformin 1000 mg p.o. daily. 3. Glipizide 5 mg p.o. daily. 4. Carafate 1 g p.o. q.i.d. 5. Aspirin 81 mg p.o. daily. 6. Pantoprazole 20 mg p.o. daily. 7. Januvia 100 mg p.o. daily. 8. Simvastatin 10 mg p.o. daily. 9. Tessalon 100 mg p.o. t.i.d. 10. Mucinex 600 mg p.o. b.i.d. as needed. 11. Glargine 20 units subcutaneous daily. ALLERGIES: CODEINE, PROCHLORPERAZINE, IODINATED CONTRAST AGENTS. FAMILY HISTORY: The patient's father had an ND. The patient's paternal grandmother had diabetes mellitus type 2. The patient's maternal grandmother had bladder cancer. SOCIAL HISTORY: The patient has less than 100 lifetime cigarette smoking history. The patient denies alcohol use. The patient denies drug use. 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 The patient is and has 1 child. REVIEW OF SYSTEMS: A 14-point review of systems has been reviewed and is negative except as the above. PHYSICAL EXAMINATION: General: The patient is a 71-year-old female who appears stated age and sitting comfortably in bed, in no acute distress. Vital Signs: At time of discharge: Temperature 99.2, pulse rate 66, respiratory rate 20, oxygen saturation 97% on room air, blood pressure 106/70. HEENT: Head : Normocephalic, atraumatic. Sclerae anicteric. No conjunctival injection. Nasal mucosa moist. No discharge. Oral mucosa moist. No pharyngeal erythema or postnasal drainage is noted. Lips are chapped. Neck: Supple, nontender. Painful lymphadenopathy in the submandibular region. No carotid bruits auscultated. Cardiac: Regular rate and rhythm. No clicks, murmurs, gallops, or rubs. Pulses 2+ in bilateral dorsalis pedis, posterior tibialis, and radial areas. No edema noted in the bilateral lower extremities. Respiratory: Clear to auscultation bilaterally. No wheezes, rales, or rhonchi. Good air exchange bilaterally. Abdomen: Soft, nontender, nondistended. Bowel sounds present and normoactive in all 4 quadrants. No abdominal bruits auscultated. No hepatosplenomegaly. Genitourinary: No suprapubic tenderness or CVA tenderness. Skin: Clean, dry, and intact. No rash. Neuro: Cranial nerves II through XII grossly intact. No focal deficits. No weakness. Psychiatric: The patient is very pleasant and cooperative. DIAGNOSTIC STUDIES/LAB DATA: White blood cell count 8.0, RBC count 4.49, hemoglobin 12.9, hematocrit 37, MCV 83, MCH 29, MCHC 34, RDW of 15, platelet count 183, neutrophil percent 69.6, lymphocyte percentage 70.9, absolute monocytes 0.9. Sodium 133, potassium 4.0, chloride 98, carbon dioxide 25, anion gap 10, BUN 22, creatinine 1.8, glucose 99, lactic acid 2.4, calcium 9.1. Total bilirubin 0.5, AST 30, ALT 27, alkaline phosphatase 49. Troponin I 0.01. Total protein 6.9. Albumin 3.9, globulin 3.0, albumin-globulin ratio 1.3. Influenza A from 07/12/17 is positive, influenza B negative, group A Strep negative. Chest x-ray from 07/13/17 read as no active cardiopulmonary disease. Electrocardiogram from 07/13/17 shows normal sinus rhythm, no ST segment changes , rate 71, QTc of 453, left axis deviation, no other abnormalities. Exaggerated sinus arrhythmia. IMPRESSION: The patient is a 71-year-old female with a past medical history significant for diabetes mellitus type 2, hypertension, irritable bowel syndrome , diverticular disease, obesity, gastroesophageal reflux disease, chronic kidney disease stage 2 and previous transient ischemic attack, who presents with syncope in the setting of dehydration from diarrhea and influenza A. The patient has no alarming symptoms that this would be cardiac related. The patient was unresponsive for fewer than 2 minutes. The patient has no significant laboratory abnormalities or hemodynamic instability. ASSESSMENT AND PLAN: 1. Influenza A. Continue Tamiflu. The patient has been instructed to increase her fluid intake. The patient may take Imodium for any diarrhea to avoid fluid losses. The patient is not vomiting at this time. The patient is on day 4 of typical influenza course and should be beginning to recover soon. 2. Syncope, dehydration. The patient was given 2 L of fluid in the emergency department and now feels significantly better, good enough to go home. The patient will have her daughter with her. The patient states understanding that she should avoid becoming dehydrated again by drinking large amounts of fluid to compensate for any diarrheal losses and increased in some of the losses due to the fever. The patient has no alarming symptoms, but this might be cardiac in origin. The patient had an echocardiogram in August 2016, which showed normal ejection fraction. The patient has no EKG changes. The patient had a troponin high of 0.01. It was discussed with the patient the risk of staying in the hospital including delirium, falls, and contraction of hospital-acquired infections as well as the risk to other patients of having the patient who is influenza positive in the hospital. The patient was in agreement with this assessment and states that she would definitely prefer to go home. 3. Diabetes mellitus type 2. Continue the patient's home medications. The patient's glucose was 99. While in the hospital, the patient's hemoglobin A1c from last year was 8.0. The patient should follow up with her primary care provider about her diabetic control. 4. Hypertension. The patient was borderline hypotensive while in the hospital , but this increased again with fluid administration. Continue the patient's home antihypertensive medications at this time. 5. Gastroesophageal reflux disease with ulcer. We will continue Carafate and pantoprazole. 6. Chronic kidney disease stage 2. The patient should follow up with her primary care provider for repeat BMP to monitor her kidney function. The patient's creatinine is slightly above baseline probably due to dehydration. 7. FEN. The patient should drink a large amount of fluid to offset her losses from her influenza and diarrhea. The patient should not engage in too strenuous activity. 8. Disposition. It was recommended that the patient has not been admitted to the hospital. Thank you very much for this consultation. TIME SPENT: Approximately 60 minutes were spent on this consultation, 30 of which were spent [id number] with the patient obtaining history and physical and discussing treatment plan. WEI ARRINGTON [id number]/[facility] #: [id number] JUNE
== END 2017-07-13 19:25 | disposition home or self-care (01) ==
LOC: ED 12:31
DX: J09.X2 Influenza due to identified novel influenza A virus with other respiratory manifestations (principal); R55 Syncope and collapse; E86.0 Dehydration; E11.9 Type 2 diabetes mellitus without complications; I10 Essential (primary) hypertension; K21.9 Gastro-esophageal reflux disease without esophagitis; N18.2 Chronic kidney disease, stage 2 (mild); Z79.82 Long term (current) use of aspirin
CPT/HCPCS: 36415; 71045; 80053; 83605; 84484; 85025; 93005; 96360; 99283; A9270-GY

== ENCOUNTER 2017-07-25 12:08 | Emergency (ER) | payer MEDICARE ==
[2017-07-25 14:56] VITALS: BP 120/66
--- NOTE | 2017-07-25 15:29 | UC ---
Respiratory Complaint HPI - HPI Summary HPI Summary: PT POSITIVE FLU A 07/12/17. HAS TAKEN TAMIFLU AND MUCINEX. FEELS HER SX ARE NOT BETTER. STILL HAS STRONG COUGH, NAUSEA AND NOW HAS POST-TUSSIVE EMESIS. ALSO HAS RIGHT SIDE PAIN - WORSE WITH COUGH. STOOLS HAVE BECOME LOOSE TODAY. FEELS "LIKE I HAVE BEEN HIT BY A BUS". WAS IN ED 07/13/17 FOR DEHYDRATION. - History of Current Complaint Chief Complaint: UCRespiratory Stated Complaint: COUGH,CONGESTED Time Seen by Provider: 07/25/17 14:50 Hx Obtained From: Patient Hx Last Menstrual Period: post Onset/Duration: Gradual Onset, Lasting Weeks, Still Present Timing: Constant Severity Initially: Moderate Severity Currently: Moderate Pain Intensity: 6 Pain Scale Used: 0-10 Numeric Character: Cough: Productive Aggravating Factors: Exertion, Deep Breaths Alleviating Factors: Nothing Associated Signs And Symptoms: Positive: Pleuritic Chest Pain, Nasal Congestion , Hoarseness - Allergies/Home Medications Allergies/Adverse Reactions: Allergies Allergy/AdvReac Type Severity Reaction Status Date / Time Codeine Allergy dry heaves Verified 07/25/17 14:56 Iodinated Diagnostic Agents Allergy Hives Verified 07/25/17 14:56 Prochlorperazine Allergy convulsions Verified 07/25/17 14:56 [From Compazine] PMH/Surg Hx/FS Hx/Imm Hx Endocrine History: Diabetes Cardiovascular History: Hypertension - Surgical History Surgical History: Yes Surgery Procedure, Year, and Place: Hysterectomy with left oopherectomy age 36 yrs, oopherectomy age 39. Cholecystectomy. Right Knee Arthroscopy. Tonsillectomy - Family History Known Family History: Positive: Cardiac Disease - Both parents., Hypertension, Other - similar neck problems - mother - Social History Alcohol Use: None Substance Use Type: None Smoking Status (MU): Never Smoked Tobacco - Immunization History Most Recent Influenza Vaccination: utd Most Recent Tetanus Shot: utd Most Recent Pneumonia Vaccination: utd Review of Systems Constitutional: Fatigue ENT: Sore Throat, Nasal Discharge Respiratory: Shortness Of Breath, Cough Cardiovascular: Negative Gastrointestinal: Nausea All Other Systems Reviewed And Are Negative: Yes Physical Exam Triage Information Reviewed: Yes Appearance: No Pain Distress, Well-Nourished, Ill-Appearing - MOD Vital Signs: Initial Vital Signs Temp 98.5 F 01/28/18 14:51 Pulse 70 07/25/17 14:51 Resp 16 07/25/17 14:51 BP 120/66 07/25/17 14:51 Pulse Ox 100 07/25/17 14:51 Vital Signs Reviewed: Yes Eyes: Positive: Conjunctiva Clear ENT: Positive: Hearing grossly normal, Pharynx normal, Other - BILATERAL EAC OBSTRUCTED WITH CERUMEN Neck: Positive: Supple Respiratory Exam: Normal Cardiovascular Exam: Normal Abdomen Description: Positive: Soft, Other: - MILDLY TENDER DIFFUSELY Musculoskeletal: Positive: No Edema Neurological: Positive: Alert Psychological: Positive: Age Appropriate Behavior Skin: Negative: rashes UC Diagnostic Evaluation - Laboratory O2 Sat by Pulse Oximetry: 100 Respiratory Course/Dx - Course Course Of Treatment: TO [facility] PR[facility] CAR. PT OFFERED TRANSPORT BY AMBULANCE BUT DECLINES. ADVISED THAT BY NOT TRAVELING IN A MONITORED SETTING SHE COULD BE RISKING WORSENING OF HER CONDITION THAT COULD POSE A THREAT TO HER LIFE, HEALTH AND MEDICAL SAFETY. SHE VERBALIZES UNDERSTANDING AND CONTINUES TO DECLINE AMBULANCE TRANSFER. - Differential Dx/Diagnosis Provider Diagnoses: COUGH/SOB/FATIGUE Discharge - Discharge Plan Condition: Stable Disposition: OTHER Discharge Disposition Comment: TO [facility] Patient Education Materials: Shortness of Breath (ED) Referrals: Mina Dorsey MD [Primary Care Provider] - If Needed Additional Instructions: GO DIRECTLY TO THE [facility] FROM HERE FOR FURTHER EVALUATION.
== END 2017-07-25 15:36 ==
LOC: UCEAST 12:08
DX: R05 Cough (principal); R06.02 Shortness of breath; R53.83 Other fatigue; Z88.5 Allergy status to narcotic agent; I10 Essential (primary) hypertension; E11.9 Type 2 diabetes mellitus without complications
CPT/HCPCS: 99212; G0463

== ENCOUNTER 2017-07-25 16:01 | Emergency (ER) | payer MEDICARE ==
[2017-07-25] MEDS ORDERED: GuaiFENesin DM* 5 ML UDC PO ONE (17:11)
--- NOTE | 2017-07-25 17:35 | RAD ---
INDICATION: Cough COMPARISON: Chest x-ray July 13, 2017 TECHNIQUE: An AP portable view obtained at 1718 hours is submitted. FINDINGS: Bones/Soft Tissues: There are no acute bony findings. Cardiomediastinal: The cardiomediastinal silhouette is normal. Lungs: There are no infiltrates. Pleura: There are no pleural effusions. Other: None IMPRESSION: NO ACTIVE DISEASE.
[2017-07-25 17:37] LABS: Urine Appearance Clear; Urine Blood Negative (Negative); Urine Color Straw; Urine Ketones Negative (Negative); Urine Protein Negative (Negative); Urine Specific Gravity 1.004 (1.010-1.030); Urine Urobilinogen Negative (Negative)
[2017-07-25 17:58] LABS: ABS Basophils 0 10^3/ul (0-0.2); ABS Eosinophils 0.2 10^3/ul (0-0.6); ABS Lymphocytes 1.6 10^3/ul (1.0-4.8); ABS Monocytes 0.6 10^3/ul (0-0.8); ABS Neutrophils 4.1 10^3/ul (1.5-7.7); ABS Nucleated RBC 0 10^3/ul; Eosinophil % 3.5 % (0-6); Hematocrit 38 % (35-47); Hemoglobin 12.7 g/dl (12.0-16.0); Lymphocyte % 24.7 % (25-47); Mean Corpuscular HGB Conc 33 g/dl (31-36); Mean Corpuscular Hemoglobin 28 pg (27-31); Mean Corpuscular Volume 84 fL (80-97); Mean Platelet Volume 8 um3 (7.4-10.4); Nucleated Red Blood Cells % 0.1; Platelet Count 193 10^3/ul (150-450); Red Blood Count 4.54 10^6/ul (4.0-5.4); Red Cell Distribution Width 15 % (10.5-15); White Blood Count 6.5 10^3/ul (3.5-10.8)
[2017-07-25 18:14] LABS: EGFR Non-African American 51.2 (>60)
[2017-07-25 19:31] VITALS: BP 141/61
--- NOTE | 2017-07-26 17:42 | ED ---
Krystle Owens Edward, scribed for Mike Santo MD on 07/25/17 at 1713 . Respiratory - HPI Summary HPI Summary: 71 y/o female presents to the ED c/o cough and SOB for around two weeks. Pt vomited last night to bring up phlegm. The cough is otherwise nonproductive. Associated: diarrhea today, chills, scratchy throat. - History of Current Complaint Chief Complaint: EDNauseaVomitDiarrh Stated Complaint: FLU-LIKE SYMPTOMS,SOB Time Seen by Provider: 07/25/17 17:07 Hx Obtained From: Patient Onset/Duration: Lasting Weeks Pain Intensity: 8 Character: Cough (Nonproductive) Aggravating Factor(s): Nothing Alleviating Factor(s): Nothing Associated Signs and Symptoms: SOB, Chills - Allergy/Home Medications Allergies/Adverse Reactions: Allergies Allergy/AdvReac Type Severity Reaction Status Date / Time Codeine Allergy dry heaves Verified 07/25/17 16:10 Iodinated Diagnostic Agents Allergy Hives Verified 07/25/17 16:10 Prochlorperazine Allergy convulsions Verified 07/25/17 16:10 [From Compazine] PMH/Surg Hx/FS Hx/Imm Hx Previously Healthy: No Endocrine/Hematology History: Reports: Hx Diabetes - type 2 Denies: Hx Thyroid Disease Cardiovascular History: Reports: Hx Hypertension Denies: Hx Pacemaker/ICD Respiratory History: Denies: Hx Asthma, Hx Chronic Obstructive Pulmonary Disease (COPD) GI History: Denies: Hx Ulcer Sensory History: Denies: Hx Contacts or Glasses, Hx Hearing Aid Opthamlomology History: Denies: Hx Contacts or Glasses Psychiatric History: Denies: Hx Panic Disorder - Cancer History Hx Chemotherapy: No Hx Radiation Therapy: No - Surgical History Surgery Procedure, Year, and Place: Hysterectomy with left oopherectomy age 36 yrs, oopherectomy age 39. Cholecystectomy. Right Knee Arthroscopy. Tonsillectomy - Immunization History Date of Tetanus Vaccine: unk Date of Influenza Vaccine: 03/14 Infectious Disease History: No Infectious Disease History: Denies: Hx Clostridium Difficile, Hx Hepatitis, Hx Human Immunodeficiency Virus (HIV), Hx of Known/Suspected MRSA, Hx Shingles, Hx Tuberculosis, Hx Known/ Suspected VRE, Hx Known/Suspected VRSA, History Other Infectious Disease, Traveled Outside the [place] in Last 30 Days - Family History Known Family History: Positive: Cardiac Disease - Both parents., Hypertension, Other - similar neck problems - mother - Social History Alcohol Use: None Hx Substance Use: No Substance Use Type: Reports: None Hx Tobacco Use: No Smoking Status (MU): Never Smoked Tobacco Review of Systems Positive: Chills Eyes: Negative Positive: Sore Throat - scratchy throat Cardiovascular: Negative Positive: Shortness Of Breath, Cough Positive: Diarrhea Genitourinary: Negative Musculoskeletal: Negative Skin: Negative Neurological: Negative Psychological: Normal All Other Systems Reviewed And Are Negative: Yes Physical Exam - Summary Physical Exam Summary: VITAL SIGNS: Reviewed. GENERAL: Patient is a well-developed and nourished female who is lying comfortable in the stretcher. Patient is not in any acute respiratory distress. HEAD AND FACE: No signs of trauma. No ecchymosis, hematomas or skull depressions. No sinus tenderness. EYES: PERRLA, EOMI x 2, No injected conjunctiva, no nystagmus. EARS: Hearing grossly intact. Ear canals and tympanic membranes are within normal limits. MOUTH: Oropharynx within normal limits. NECK: Supple, trachea is midline, no adenopathy, no JVD, no carotid bruit, no c- spine tenderness, neck with full ROM. CHEST: Symmetric, no tenderness at palpation LUNGS: Clear to auscultation bilaterally. No wheezing or crackles. CVS: Regular rate and rhythm, S1 and S2 present, no murmurs or gallops appreciated. ABDOMEN: Soft, non-tender. No signs of distention. No rebound no guarding, and no masses palpated. Bowel sounds are normal. EXTREMITIES: FROM in all major joints, no edema, no cyanosis or clubbing. NEURO: Alert and oriented x 3. No acute neurological deficits. Speech is normal and follows commands. SKIN: Dry and warm Triage Information Reviewed: Yes Vital Signs On Initial Exam: Initial Vitals Temp Pulse Resp BP Pulse Ox 98.6 F 71 16 130/106 99 07/25/17 16:10 07/25/17 16:10 07/25/17 16:10 07/25/17 16:10 07/25/17 16:10 Vital Signs Reviewed: Yes Diagnostics - Vital Signs Vital Signs Temp Pulse Resp BP Pulse Ox 07/25/17 16:10 98.6 F 71 16 130/106 99 - Laboratory Lab Results: Lab Results 07/25/17 07/25/17 07/25/17 Range/Units 17:17 17:25 17:36 WBC (3.5-10.8) 10^3/ul RBC (4.0-5.4) 10^6/ul Hgb (12.0-16.0) g/dl Hct (35-47) % MCV (80-97) fL MCH (27-31) pg MCHC (31-36) g/dl RDW (10.5-15) % Plt Count (150-450) 10^3/ul MPV (7.4-10.4) um3 Neut % (Auto) (38-83) % Lymph % (Auto) (25-47) % [place] % (Auto) (1-9) % Eos % (Auto) (0-6) % Baso % (Auto) (0-2) % Absolute Neuts (auto) (1.5-7.7) 10^3/ul Absolute Lymphs (auto) (1.0-4.8) 10^3/ul Absolute Monos (auto) (0-0.8) 10^3/ul Absolute Eos (auto) (0-0.6) 10^3/ul Absolute Basos (auto) (0-0.2) 10^3/ul Absolute Nucleated RBC 10^3/ul Nucleated RBC % Sodium (133-145) mmol/L Potassium (3.5-5.0) mmol/L Chloride (101-111) mmol/L Carbon Dioxide (22-32) mmol/L Anion Gap (2-11) mmol/L BUN (6-24) mg/dL Creatinine (0.51-0.95) mg/dL Est GFR ( Amer) (>60) Est GFR (Non-Af Amer) (>60) BUN/Creatinine Ratio (8-20) Glucose (70-100) mg/dL Calcium (8.6-10.3) mg/dL Total Bilirubin (0.2-1.0) mg/dL AST (13-39) U/L ALT (7-52) U/L Alkaline Phosphatase (34-104) U/L C-Reactive Protein (< 5.00) mg/L Total Protein (6.4-8.9) g/dL Albumin (3.2-5.2) g/dL Globulin (2-4) g/dL Albumin/Globulin Ratio (1-3) Urine Color Straw Urine Appearance Clear Urine pH 5.0 (5-9) Ur Specific [place] 1.004 L (1.010-1.030) Urine Protein Negative (Negative) Urine Ketones Negative (Negative) Urine Blood Negative (Negative) Urine Nitrate Negative (Negative) Urine Bilirubin Negative (Negative) Urine Urobilinogen Negative (Negative) Ur Leukocyte Esterase Negative (Negative) Urine Glucose Negative (Negative) Influenza A (Rapid) Negative (Negative) Influenza B (Rapid) Negative (Negative) Group A Strep Rapid Negative (Negative) 07/25/17 07/25/17 Range/Units 17:45 17:45 WBC 6.5 (3.5-10.8) 10^3/ul RBC 4.54 (4.0-5.4) 10^6/ul Hgb 12.7 (12.0-16.0) g/dl Hct 38 (35-47) % MCV 84 (80-97) fL MCH 28 (27-31) pg MCHC 33 (31-36) g/dl RDW 15 (10.5-15) % Plt Count 193 (150-450) 10^3/ul MPV 8 (7.4-10.4) um3 Neut % (Auto) 62.3 (38-83) % Lymph % (Auto) 24.7 L (25-47) % [place] % (Auto) 9.0 (1-9) % Eos % (Auto) 3.5 (0-6) % Baso % (Auto) 0.5 (0-2) % Absolute Neuts (auto) 4.1 (1.5-7.7) 10^3/ul Absolute Lymphs (auto) 1.6 (1.0-4.8) 10^3/ul Absolute Monos (auto) 0.6 (0-0.8) 10^3/ul Absolute Eos (auto) 0.2 (0-0.6) 10^3/ul Absolute Basos (auto) 0 (0-0.2) 10^3/ul Absolute Nucleated RBC 0 10^3/ul Nucleated RBC % 0.1 Sodium 137 (133-145) mmol/L Potassium 4.1 (3.5-5.0) mmol/L Chloride 101 (101-111) mmol/L Carbon Dioxide 27 (22-32) mmol/L Anion Gap 9 (2-11) mmol/L BUN 20 (6-24) mg/dL Creatinine 1.06 H (0.51-0.95) mg/dL Est GFR ( Amer) 65.9 (>60) Est GFR (Non-Af Amer) 51.2 (>60) BUN/Creatinine Ratio 18.9 (8-20) Glucose 127 H (70-100) mg/dL Calcium 9.1 (8.6-10.3) mg/dL Total Bilirubin 0.40 (0.2-1.0) mg/dL AST 28 (13-39) U/L ALT 26 (7-52) U/L Alkaline Phosphatase 46 (34-104) U/L C-Reactive Protein 8.70 H (< 5.00) mg/L Total Protein 7.0 (6.4-8.9) g/dL Albumin 4.0 (3.2-5.2) g/dL Globulin 3.0 (2-4) g/dL Albumin/Globulin Ratio 1.3 (1-3) Urine Color Urine Appearance Urine pH (5-9) Ur Specific [place] (1.010-1.030) Urine Protein (Negative) Urine Ketones (Negative) Urine Blood (Negative) Urine Nitrate (Negative) Urine Bilirubin (Negative) Urine Urobilinogen (Negative) Ur Leukocyte Esterase (Negative) Urine Glucose (Negative) Influenza A (Rapid) (Negative) Influenza B (Rapid) (Negative) Group A Strep Rapid (Negative) Result Diagrams: 07/25/17 17:45 07/25/17 17:45 Lab Statement: Any lab studies that have been ordered have been reviewed, and results considered in the medical decision making process. - Radiology CXR Xray Interpretation: No Acute Changes Radiology Interpretation Completed By: Radiologist Disposition - Course Assessment/Plan: 71 y/o female presents to the ED c/o cough and SOB for several weeks. Pt vomited last night to bring up phlegm. The cough is otherwise nonproductive. Associated: diarrhea today, chills, scratchy throat. CXR SHOWS NAD. Test results are without significant abnormalities. CXR negative. UA uti. Rapid influenza negative. In the ED course the pt was hydrated, given Robitussin and the pts sx improved. The pt was given an Rx for mucinex and d/c home with f/u with pcp. The pt is hemodynamically stable, A&Ox3. I discussed all the findings and test results with the patient. Patient was instructed to return to the emergency room immediately if any of the symptoms return or worsens. Plan of care was discussed with the patient and understands and agrees. All questions were answered at patient satisfaction. There were no further complaints or concerns. Lung exam before discharge: CTA B/L. Good air exchange. No wheezing or crackles heard. CVS: S1 and S2 present. No murmurs appreciated. Patient is alert and oriented x 3. Patient is hemodynamically stable. Patient will be discharged home with follow up PCP in the next 2-3 days - Differential Dx - Cardiopulmonary Differential Diagnoses - Cardiopulmonary: Bronchitis, Lower Resp Infection - Diagnoses Provider Diagnoses: Bronchitis Discharge - Discharge Plan Condition: Stable Disposition: HOME Prescriptions: Pseudoephedrine-Guaifenesin [Mucinex D 60-600 mg] 1 tab PO BID #10 tab Patient Education Materials: Acute Bronchitis (ED) Referrals: Mina Dorsey MD [Primary Care Provider] - 4 Days (PLEASE F/U IN 3-5 DAYS) The documentation as recorded by the Krystle zamarripa Edward accurately reflects the service I personally performed and the decisions made by Gal salguero Walter, MD.
== END 2017-07-25 19:29 | disposition home or self-care (01) ==
LOC: ED 16:01
DX: J40 Bronchitis, not specified as acute or chronic (principal)
CPT/HCPCS: 36415; 71045; 80053; 81003; 85025; 86140; 87502; 87651; 99282; A9270-GY

== ENCOUNTER 2017-08-23 07:02 | Emergency (ER) | payer MEDICARE ==
[2017-08-23 07:18] VITALS: BP 164/72
--- NOTE | 2017-08-23 07:53 | UC ---
Abdominal Pain Female HPI - HPI Summary HPI Summary: 71 YO FEMALE WITH THE ONSET OF LLQ ABD PAIN YESTERDAY GRADUAL ONSET NAUSEA NO CHANGE IN BOWEL HABITS NO UTI SYMPTOMS MAX PAIN THIS AM WAS 10/10 PAIN CURRENTLY 6/10 FEVER YESTERDAY DIABETIC HX DIVERTICULITIS - History of Current Complaint Chief Complaint: UCGU Stated Complaint: ABD PAIN Time Seen by Provider: 08/23/17 07:27 Hx Obtained From: Patient Hx Last Menstrual Period: post Onset/Duration: Gradual Onset, Lasting Hours Severity Initially: Mild Severity Currently: Moderate Pain Intensity: 6 - MAX PAIN THIS AM 10/10 Pain Scale Used: 0-10 Numeric Location: Discrete At: LLQ Radiates to: Back Character: Unable to describe Aggravating Factor(s): Movement Alleviating Factor(s): Nothing Associated Signs and Symptoms: Positive: Fever, Decreased Appetite, Nausea Allergies/Adverse Reactions: Allergies Allergy/AdvReac Type Severity Reaction Status Date / Time codeine Allergy Nausea Verified 08/23/17 07:27 Iodinated Contrast- Oral and Allergy Nausea Verified 08/23/17 07:27 IV Dye prochlorperazine Allergy nauase Verified 08/23/17 07:27 [From Compazine] PMH/Surg Hx/FS Hx/Imm Hx Previously Healthy: Yes Endocrine History: Diabetes Cardiovascular History: Hypertension GI/ History: Diverticulitis - Surgical History Surgical History: Yes Surgery Procedure, Year, and Place: Hysterectomy with left oopherectomy age 36 yrs, oopherectomy age 39. Cholecystectomy. Right Knee Arthroscopy. Tonsillectomy - Family History Known Family History: Positive: Cardiac Disease - Both parents., Hypertension, Other - similar neck problems - mother - Social History Alcohol Use: None Substance Use Type: None Smoking Status (MU): Never Smoked Tobacco - Immunization History Most Recent Influenza Vaccination: utd Most Recent Tetanus Shot: utd Most Recent Pneumonia Vaccination: utd Review of Systems Constitutional: Fever Skin: Negative Eyes: Negative ENT: Negative Respiratory: Negative Cardiovascular: Negative Gastrointestinal: Abdominal Pain, Nausea Genitourinary: Negative Motor: Negative Neurovascular: Negative Musculoskeletal: Negative Neurological: Negative Psychological: Negative Is Patient Immunocompromised?: No All Other Systems Reviewed And Are Negative: Yes Physical Exam Triage Information Reviewed: Yes Appearance: Well-Appearing, No Pain Distress, Well-Nourished Vital Signs: Initial Vital Signs Temp 97.1 F 08/23/17 07:13 Pulse 69 02/26/18 07:13 BP 164/72 08/23/17 07:13 Pulse Ox 96 08/23/17 07:13 Vital Signs Reviewed: Yes Eyes: Positive: Conjunctiva Clear ENT: Positive: Hearing grossly normal. Negative: Nasal congestion, Nasal drainage, Trismus, Hoarse voice Neck: Positive: Nontender, No Lymphadenopathy Respiratory: Positive: Lungs clear, Normal breath sounds, No respiratory distress, No accessory muscle use Cardiovascular: Positive: RRR, No Murmur Abdomen Description: Positive: No Organomegaly, Soft, Other: - MARKEDL;Y TENDER LLQ. Negative: Nontender, CVA Tenderness (R), CVA Tenderness (L), Distended Musculoskeletal: Positive: ROM Intact, No Edema Neurological Exam: Normal Psychological Exam: Normal Skin Exam: Normal Abd Pain Female Course/Dx - Course Course Of Treatment: UNABLE TO PROVIDE UA HERE. DECLINES EMS TRANSFER - Differential Dx/Diagnosis Provider Diagnoses: LLQ ABD PAIN. SUSPECT DIVERTICULITIS Discharge - Discharge Plan Condition: Stable Disposition: TRANS HIGHER LVL OF CARE FAC Referrals: Mina Dorsey MD [Primary Care Provider] - Additional Instructions: TO ER FOR FURTHER INVESTIGATION OF YOUR SYMPTOMS I AM CONCERNED YOU HAVE DIVERTICULITIS
== END 2017-08-23 07:50 | disposition short-term general hospital (02) ==
LOC: UCEAST 07:02
DX: R10.32 Left lower quadrant pain (principal); R11.0 Nausea; E11.9 Type 2 diabetes mellitus without complications; Z79.4 Long term (current) use of insulin; Z79.84 Long term (current) use of oral hypoglycemic drugs; I10 Essential (primary) hypertension; K57.92 Diverticulitis of intestine, part unspecified, without perforation or abscess without bleeding; Z90.710 Acquired absence of both cervix and uterus; Z90.722 Acquired absence of ovaries, bilateral; Z90.49 Acquired absence of other specified parts of digestive tract; Z88.5 Allergy status to narcotic agent; Z88.8 Allergy status to other drugs, medicaments and biological substances; Z91.041 Radiographic dye allergy status
CPT/HCPCS: 99211; G0463

== ENCOUNTER 2017-08-23 08:35 | Emergency (ER) | payer MEDICARE ==
[2017-08-23] MEDS ORDERED: Ondansetron INJ* 2 MG/ML VIAL IV ONE (09:16)
[2017-08-23] MEDS ORDERED: NS 0.9% 1000 ML* 1,000 ML IV ONE (09:16)
[2017-08-23 09:41] LABS: ABS Basophils 0.1 10^3/ul (0-0.2); ABS Eosinophils 0.2 10^3/ul (0-0.6); ABS Lymphocytes 1.5 10^3/ul (1.0-4.8); ABS Monocytes 0.8 10^3/ul (0-0.8); ABS Neutrophils 7.3 10^3/ul (1.5-7.7); ABS Nucleated RBC 0 10^3/ul; Eosinophil % 1.5 % (0-6); Hematocrit 37 % (35-47); Hemoglobin 12.1 g/dl (12.0-16.0); Lymphocyte % 15.2 % (25-47); Mean Corpuscular HGB Conc 33 g/dl (31-36); Mean Corpuscular Hemoglobin 28 pg (27-31); Mean Corpuscular Volume 84 fL (80-97); Mean Platelet Volume 8 um3 (7.4-10.4); Nucleated Red Blood Cells % 0.1; Platelet Count 191 10^3/ul (150-450); Red Blood Count 4.36 10^6/ul (4.0-5.4); Red Cell Distribution Width 15 % (10.5-15); White Blood Count 9.8 10^3/ul (3.5-10.8)
[2017-08-23 09:58] LABS: EGFR Non-African American 63.5 (>60)
--- NOTE | 2017-08-23 10:17 | RAD ---
CLINICAL HISTORY: Left lower quadrant pain, history of diverticulitis COMPARISON: May 22, 2017 TECHNIQUE: Multiple contiguous axial CT scans were obtained of the abdomen and pelvis, without intravenous contrast enhancement. Coronal and sagittal multiplanar reformations are submitted for review. Oral contrast was not administered. FINDINGS: The study is limited by the lack of intravenous contrast. This limits evaluation of the solid organs and vasculature. LUNG BASES: The lung bases are clear. LIVER: The liver is diffusely low in attenuation compared to the spleen. There are no focal hepatic parenchymal masses. BILE DUCTS: There is no intrahepatic or extrahepatic biliary dilatation. GALLBLADDER: The gallbladder is not clearly visualized. PANCREAS: The pancreas is normal, without mass or ductal dilatation. SPLEEN: The spleen measures approximately 14.7 cm in long axis. UPPER GI TRACT: Evaluation of the gastrointestinal tract is limited by incomplete gastric distention. The upper GI tract is unremarkable. SMALL BOWEL AND MESENTERY: The small bowel is normal in contour, course, and caliber. There is no obstruction or dilatation. COLON: There are are extensive diverticula of the descending and sigmoid colon. There is mucosal thickening with stranding of the pericolonic fat along the sigmoid colon. There is no loculated fluid collection. ADRENALS: Normal bilaterally. KIDNEYS: There is an exophytic simple cyst of the midpole the right kidney. There is no hydronephrosis or nephrolithiasis. BLADDER: The bladder is smooth in contour. PELVIC ORGANS: The pelvic organs are not visualized. AORTA: There is mild calcific atherosclerotic disease of the abdominal aorta and its branches, without aneurysmal dilatation IVC: Unremarkable LYMPH NODES: There is no lymphadenopathy by size criteria. ABDOMINAL WALL: There is no evidence for abdominal wall hernia. BONES AND SOFT TISSUES: Degenerative changes are noted. OTHER: None IMPRESSION: 1. SIGMOID DIVERTICULITIS, WITHOUT APPRECIABLE LOCULATED FLUID COLLECTION TO SUGGEST ABSCESS. 2. SPLENOMEGALY. 3. FATTY INFILTRATION OF THE LIVER.
[2017-08-23] MEDS ORDERED: metroNIDAZOLE TAB* 250 MG PO ONE (10:48)
[2017-08-23] MEDS ORDERED: Ciprofloxacin TAB* 500 MG PO ONE (10:48)
[2017-08-23 11:17] VITALS: BP 152/70
--- NOTE | 2017-08-24 14:33 | ED ---
Tio Owens Angela, scribed for Dustin Kaba MD on 08/23/17 at 0915 . Abdominal Pain/Female - HPI Summary HPI Summary: This pt is a 71 y/o female presenting to [facility] referred by [facility] c/o gradually worsening suprapubic abd pain since yesterday. Pt reports she has had diarrhea and nausea today. She denies bloody diarrhea. Last night pt states she had a fever of a little over 100F. Pt additionally notes she has some lower back pain. Denies dysuria, hematuria. Pt has just finished an antibiotics over a little week ago for sinusitis. PMHx: IBS, diverticulitis multiple times. Pt lives at home with her daughter. - History of Current Complaint Chief Complaint: EDAbdPain Stated Complaint: LOWER ABD PAIN FROM CC Hx Obtained From: Patient Hx Last Menstrual Period: post Onset/Duration: Lasting Days - 1, Still Present Timing: Days - 1 Severity Currently: Moderate Pain Intensity: 6 Location: Suprapubic Radiates: No Aggravating Factor(s): Nothing Alleviating Factor(s): Nothing Associated Signs and Symptoms: Positive: Cough, Back Pain - lower, Nausea, Diarrhea. Negative: Vomiting Allergies/Adverse Reactions: Allergies Allergy/AdvReac Type Severity Reaction Status Date / Time codeine Allergy Nausea Verified 08/23/17 07:27 Iodinated Contrast- Oral and Allergy Nausea Verified 08/23/17 07:27 IV Dye prochlorperazine Allergy nauase Verified 08/23/17 07:27 [From Compazine] Home Medications: Home Medications Aspirin Low Dose CHEW TAB* [Aspirin Low Dose TAB*] 81 mg PO QAM 08/23/17 [ History Confirmed 08/23/17] Atenolol TAB* [Tenormin TAB* 50 MG] 50 mg PO BID 08/23/17 [History Confirmed ] Lovastatin (NF) [Mevacor (NF)] 10 mg PO DAILY 08/23/17 [History Confirmed ] Pantoprazole TAB (NF) [Protonix TAB (NF)] 20 mg PO QAM 08/23/17 [History Confirmed 08/23/17] SitaGLIPtin (NF) [Januvia (NF)] 100 mg PO QAM 08/23/17 [History Confirmed ] traMADol TAB* [Ultram*] 5 - 100 mg PO Q12H PRN 08/23/17 [History Confirmed 08/23] PMH/Surg Hx/FS Hx/Imm Hx Endocrine/Hematology History: Reports: Hx Diabetes - type 2 Denies: Hx Thyroid Disease Cardiovascular History: Reports: Hx Hypertension Denies: Hx Pacemaker/ICD Respiratory History: Denies: Hx Asthma, Hx Chronic Obstructive Pulmonary Disease (COPD) GI History: Denies: Hx Ulcer Sensory History: Denies: Hx Contacts or Glasses, Hx Hearing Aid Opthamlomology History: Denies: Hx Contacts or Glasses Psychiatric History: Denies: Hx Panic Disorder - Cancer History Hx Chemotherapy: No Hx Radiation Therapy: No - Surgical History Surgery Procedure, Year, and Place: Hysterectomy with left oopherectomy age 36 yrs, oopherectomy age 39. Cholecystectomy. Right Knee Arthroscopy. Tonsillectomy - Immunization History Date of Tetanus Vaccine: unk Date of Influenza Vaccine: 03/14 Infectious Disease History: No Infectious Disease History: Denies: Hx Clostridium Difficile, Hx Hepatitis, Hx Human Immunodeficiency Virus (HIV), Hx of Known/Suspected MRSA, Hx Shingles, Hx Tuberculosis, Hx Known/ Suspected VRE, Hx Known/Suspected VRSA, History Other Infectious Disease, Traveled Outside the [place] in Last 30 Days - Family History Known Family History: Positive: Cardiac Disease - Both parents., Hypertension, Other - similar neck problems - mother - Social History Alcohol Use: None Hx Substance Use: No Substance Use Type: Reports: None Hx Tobacco Use: No Smoking Status (MU): Never Smoked Tobacco Review of Systems Positive: Fever. Negative: Chills Negative: Erythema Negative: Sore Throat Negative: Chest Pain Negative: Shortness Of Breath, Cough Positive: Abdominal Pain, Diarrhea, Nausea. Negative: Vomiting Negative: dysuria, hematuria Musculoskeletal: Other - lower back pain Negative: Myalgia, Edema Negative: Rash Neurological: Other - NEG: dizziness All Other Systems Reviewed And Are Negative: Yes Physical Exam - Summary Physical Exam Summary: Constitutional: Well-developed, Well-nourished, Alert. (-) Distressed Skin: Warm, Dry HENT: Normocephalic; Atraumatic Eyes: Conjunctiva normal Neck: Musculoskeletal ROM normal neck. (-) JVD, (-) Stridor, (-) Tracheal deviation Cardio: Rhythm regular, rate normal, Heart sounds normal; Intact distal pulses; The pedal pulses are 2+ and symmetric. Radial pulses are 2+ and symmetric. (-) Murmur Pulmonary/Chest wall: Effort normal. (-) Respiratory distress, (-) Wheezes, (-) Rales Abd: Soft, Left lower quadrant tenderness, (-) Distension, (-) Guarding, (-) Rebound Musculoskeletal: (-) Edema Lymph: (-) Cervical adenopathy Neuro: Alert, Oriented x3 Psych: Mood and affect Normal Triage Information Reviewed: Yes Vital Signs On Initial Exam: Initial Vitals Temp Pulse Resp BP Pulse Ox 97.7 F 67 16 152/67 99 08/23/17 08:42 08/23/17 08:42 08/23/17 08:42 08/23/17 08:42 08/23/17 08:42 Vital Signs Reviewed: Yes Diagnostics - Vital Signs Vital Signs Temp Pulse Resp BP Pulse Ox 08/23/17 08:42 97.7 F 67 16 152/67 99 - Laboratory Result Diagrams: 08/23/17 09:30 08/23/17 09:30 Lab Statement: Any lab studies that have been ordered have been reviewed, and results considered in the medical decision making process. - CT Abdomen/Pelvis CT CT Interpretation: Positive (See Comments) - IMPRESSION: 1. Sigmoid diverticulitis, without appreciable loculted fluid collection to suggest abscess. 2. Splenomegaly. 3. Fatty infiltration of the liver. Dr. Kaba has reviewed this radiology report. CT Interpretation Completed By: Radiologist Re-Evaluation - Re-Evaluation First Eval Re-Evaluation Time: 10:48 Comment: I reviewed the CT abdomen/pelvis with the pt. She was given return ED precautions. Abdominal Pain Fem Course/Dx - Course Course Of Treatment: Labs and CT abdomen/pelvis were obtained. In the ED course , the pt was given IV fluids and Zofran. CT shows recurrent diverticulitis. Therefore pt will be discharged to home with a prescription for Ciprofloxacin and Flagyl. She was advised to follow up with her PCP. - Diagnoses Provider Diagnoses: Recurrent diverticulitis Discharge - Discharge Plan Condition: Stable Disposition: HOME Prescriptions: Ciprofloxacin TAB* [Cipro 500 MG TAB*] 500 mg PO BID #42 tab metroNIDAZOLE [Flagyl 500 MG TAB] 500 mg PO TID #63 tab Patient Education Materials: Diverticulitis (ED) Referrals: Mina Dorsey MD [Primary Care Provider] - 2 Days (in 2-3 days.) Additional Instructions: Follow up with your primary care provider in 2-3 days. RETURN TO THE EMERGENCY DEPARTMENT FOR CHANGING OR WORSENING SYMPTOMS. The documentation as recorded by the Tio zamarripa Angela accurately reflects the service I personally performed and the decisions made by me, Dustin Kaba MD.
== END 2017-08-23 11:17 | disposition home or self-care (01) ==
LOC: ED 08:35
DX: K57.92 Diverticulitis of intestine, part unspecified, without perforation or abscess without bleeding (principal); R05 Cough; M54.5 Low back pain; R19.7 Diarrhea, unspecified; Z86.79 Personal history of other diseases of the circulatory system; R50.9 Fever, unspecified
CPT/HCPCS: 36415; 74176; 80053; 83605; 83690; 85025; 86140; 96374; 99282; A9270-GY; J2405

== ENCOUNTER 2017-11-22 09:49 | Emergency (ER) | payer MEDICARE ==
[2017-11-22] MEDS ORDERED: NS 0.9% 1000 ML* 1,000 ML IV ONE (10:16)
[2017-11-22 10:34] LABS: ABS Basophils 0.1 10^3/ul (0-0.2); ABS Eosinophils 0.4 10^3/ul (0-0.6); ABS Lymphocytes 1.9 10^3/ul (1.0-4.8); ABS Monocytes 0.5 10^3/ul (0-0.8); ABS Neutrophils 4.4 10^3/ul (1.5-7.7); ABS Nucleated RBC 0 10^3/ul; Eosinophil % 5.5 % (0-6); Hematocrit 39 % (35-47); Hemoglobin 12.7 g/dl (12.0-16.0); Lymphocyte % 26.1 % (25-47); Mean Corpuscular HGB Conc 33 g/dl (31-36); Mean Corpuscular Hemoglobin 28 pg (27-31); Mean Corpuscular Volume 84 fL (80-97); Mean Platelet Volume 7.7 um3 (7.4-10.4); Nucleated Red Blood Cells % 0; Platelet Count 197 10^3/ul (150-450); Red Blood Count 4.58 10^6/ul (4.0-5.4); Red Cell Distribution Width 15 % (10.5-15); White Blood Count 7.2 10^3/ul (3.5-10.8)
--- NOTE | 2017-11-22 10:41 | RAD ---
HISTORY: Abdominal pain, epigastric pain COMPARISONS: July 25, 2017 VIEWS: 1: frontal portable view of the chest at 10:22 AM FINDINGS: LINES AND TUBES: None. CARDIOMEDIASTINAL SILHOUETTE: The cardiomediastinal silhouette is normal for portable technique. PLEURA: The costophrenic angles are sharp. No pleural abnormalities are noted. LUNG PARENCHYMA: The lungs are clear. ABDOMEN: The upper abdomen is clear. There is no subphrenic gas. BONES AND SOFT TISSUES: No bone or soft tissue abnormalities are noted. IMPRESSION: NO ACTIVE CARDIOPULMONARY DISEASE.
[2017-11-22 10:43] LABS: INR 1.02 (0.77-1.02)
[2017-11-22 10:58] LABS: EGFR Non-African American 56.6 (>60)
--- NOTE | 2017-11-22 11:24 | RAD ---
CLINICAL HISTORY: Diffuse abdominal pain, diverticulitis COMPARISON: August 23, 2017, May 02, 2014 TECHNIQUE: Multiple contiguous axial CT scans were obtained of the abdomen and pelvis, without intravenous contrast enhancement. Coronal and sagittal multiplanar reformations are submitted for review. Oral contrast was not administered. FINDINGS: The study is limited by the lack of intravenous contrast. This limits evaluation of the solid organs and vasculature. LUNG BASES: The lung bases are clear. LIVER: The liver is diffusely low in attenuation compared to the spleen. There are no focal hepatic parenchymal masses. BILE DUCTS: There is no intrahepatic or extrahepatic biliary dilatation. GALLBLADDER: The gallbladder is not clearly visualized. The patient is status post cholecystectomy by history. PANCREAS: The pancreas is normal, without mass or ductal dilatation. SPLEEN: Normal in size and appearance. UPPER GI TRACT: Evaluation of the gastrointestinal tract is limited by incomplete gastric distention. The upper GI tract is unremarkable. SMALL BOWEL AND MESENTERY: The small bowel is normal in contour, course, and caliber. There is no obstruction or dilatation. COLON: There is extensive diverticulosis of the distal descending and sigmoid colon. There is no appreciable pericolonic inflammatory change. ADRENALS: There is a 1.3 cm right adrenal nodule suggestive of an adrenal adenoma. This can be identified on the 2014 examination and is stable. KIDNEYS: The kidneys are normal in shape, size, contour, and axis. There is no hydronephrosis or nephrolithiasis. BLADDER: The bladder is smooth in contour. PELVIC ORGANS: The pelvic organs are not visualized. AORTA: There is mild calcific atherosclerotic disease of the abdominal aorta and its branches, without aneurysmal dilatation IVC: Unremarkable LYMPH NODES: There is no lymphadenopathy by size criteria. ABDOMINAL WALL: There is postsurgical change to the abdominal wall in the right upper quadrant. BONES AND SOFT TISSUES: Degenerative changes are noted. OTHER: None IMPRESSION: DIVERTICULOSIS. FATTY INFILTRATION OF THE LIVER.
[2017-11-22 12:47] LABS: Urine Appearance Cloudy; Urine Blood Negative (Negative); Urine Color Yellow; Urine Ketones Negative (Negative); Urine Protein Negative (Negative); Urine Specific Gravity 1.012 (1.010-1.030); Urine Urobilinogen Negative (Negative)
[2017-11-22 13:41] VITALS: BP 144/75
--- NOTE | 2017-11-22 14:08 | ED ---
Sandhya Owens Rebecca, scribed for Fab Ricardo on 11/22/17 at 1005 . Abdominal Pain/Female - HPI Summary HPI Summary: Pt is a 72 y/o F who presents to ED c/o abdominal pain. Sx began 3 days ago and has improved since yesterday. Pain is diffusely throughout the abdomen with radiation up the chest and on triage was moderate, ranked 7/10. Sx aggravated and alleviated by nothing. Additionally c/o mild SOB. Denies CP, N/V/D, constipation. Prior similar episodes. PSHx cholecystectomy. PMHx diverticulitis - scheduled to have surgery in December to remove the sigmoid colon. - History of Current Complaint Chief Complaint: EDAbdPain Stated Complaint: ABD PAIN Time Seen by Provider: 11/22/17 10:02 Hx Obtained From: Patient Hx Last Menstrual Period: post Onset/Duration: Lasting Days - 3 days, Still Present Severity Currently: Moderate Pain Intensity: 7 Pain Scale Used: 0-10 Numeric Location: Diffuse Radiates: Yes Radiates to: Chest Aggravating Factor(s): Nothing Alleviating Factor(s): Nothing Associated Signs and Symptoms: Positive: Other: - SOB. Negative: Nausea, Vomiting, Diarrhea Allergies/Adverse Reactions: Allergies Allergy/AdvReac Type Severity Reaction Status Date / Time codeine Allergy Nausea Verified 11/22/17 09:54 Iodinated Contrast- Oral and Allergy Nausea Verified 11/22/17 09:54 IV Dye prochlorperazine Allergy nauase Verified 11/22/17 09:54 [From Compazine] PMH/Surg Hx/FS Hx/Imm Hx Endocrine/Hematology History: Reports: Hx Diabetes - type 2 Denies: Hx Thyroid Disease Cardiovascular History: Reports: Hx Hypertension Denies: Hx Pacemaker/ICD Respiratory History: Denies: Hx Asthma, Hx Chronic Obstructive Pulmonary Disease (COPD) GI History: Reports: Hx Diverticulosis Denies: Hx Ulcer Sensory History: Denies: Hx Contacts or Glasses, Hx Hearing Aid Opthamlomology History: Denies: Hx Contacts or Glasses Psychiatric History: Denies: Hx Panic Disorder - Cancer History Hx Chemotherapy: No Hx Radiation Therapy: No - Surgical History Surgery Procedure, Year, and Place: Hysterectomy with left oopherectomy age 36 yrs, oopherectomy age 39. Cholecystectomy. Right Knee Arthroscopy. Tonsillectomy - Immunization History Date of Tetanus Vaccine: unk Date of Influenza Vaccine: 03/14 Infectious Disease History: No Infectious Disease History: Denies: Hx Clostridium Difficile, Hx Hepatitis, Hx Human Immunodeficiency Virus (HIV), Hx of Known/Suspected MRSA, Hx Shingles, Hx Tuberculosis, Hx Known/ Suspected VRE, Hx Known/Suspected VRSA, History Other Infectious Disease, Traveled Outside the [place] in Last 30 Days - Family History Known Family History: Positive: Cardiac Disease - Both parents., Hypertension, Other - similar neck problems - mother - Social History Alcohol Use: None Hx Substance Use: No Substance Use Type: Reports: None Hx Tobacco Use: No Smoking Status (MU): Never Smoked Tobacco Review of Systems Negative: Chest Pain Positive: Shortness Of Breath Positive: Abdominal Pain, Other - NEGATIVE: Constipation. Negative: Vomiting, Diarrhea, Nausea All Other Systems Reviewed And Are Negative: Yes Physical Exam - Summary Physical Exam Summary: Appearance: Well appearing, no pain distress Skin: warm, dry, reflects adequate perfusion Head/face: normal Eyes: EOMI, SHEILA ENT: normal Neck: supple, non-tender Respiratory: CTA, breath sounds present Cardiovascular: RRR, pulses symmetrical ~ Abdomen: tender in the RUQ and LUQ, soft Bowel: present Musculoskeletal: normal, strength/ROM intact Neuro: normal, sensory motor intact, A&Ox3 Triage Information Reviewed: Yes Vital Signs On Initial Exam: Initial Vitals Temp Pulse Resp BP Pulse Ox 97.3 F 64 18 175/87 99 11/22/17 09:55 11/22/17 09:55 11/22/17 09:55 11/22/17 09:55 11/22/17 09:55 Vital Signs Reviewed: Yes Diagnostics - Vital Signs Vital Signs Temp Pulse Resp BP Pulse Ox 11/22/17 09:55 97.3 F 64 18 175/87 99 - Laboratory Lab Results: Lab Results 11/22/17 11/22/17 11/22/17 Range/Units 10:25 10:25 10:25 WBC 7.2 (3.5-10.8) 10^3/ul RBC 4.58 (4.0-5.4) 10^6/ul Hgb 12.7 (12.0-16.0) g/dl Hct 39 (35-47) % MCV 84 (80-97) fL MCH 28 (27-31) pg MCHC 33 (31-36) g/dl RDW 15 (10.5-15) % Plt Count 197 (150-450) 10^3/ul MPV 7.7 (7.4-10.4) um3 Neut % (Auto) 61.0 (38-83) % Lymph % (Auto) 26.1 (25-47) % Yell % (Auto) 6.6 (0-7) % Eos % (Auto) 5.5 (0-6) % Baso % (Auto) 0.8 (0-2) % Absolute Neuts (auto) 4.4 (1.5-7.7) 10^3/ul Absolute Lymphs (auto) 1.9 (1.0-4.8) 10^3/ul Absolute Monos (auto) 0.5 (0-0.8) 10^3/ul Absolute Eos (auto) 0.4 (0-0.6) 10^3/ul Absolute Basos (auto) 0.1 (0-0.2) 10^3/ul Absolute Nucleated RBC 0 10^3/ul Nucleated RBC % 0 INR (Anticoag Therapy) 1.02 (0.77-1.02) APTT 32.4 (26.0-36.3) seconds Sodium 139 (139-145) mmol/L Potassium 4.7 (3.5-5.0) mmol/L Chloride 106 (101-111) mmol/L Carbon Dioxide 25 (22-32) mmol/L Anion Gap 8 (2-11) mmol/L BUN 22 (6-24) mg/dL Creatinine 0.97 H (0.51-0.95) mg/dL Est GFR ( Amer) 72.8 (>60) Est GFR (Non-Af Amer) 56.6 (>60) BUN/Creatinine Ratio 22.7 H (8-20) Glucose 99 (70-100) mg/dL Lactic Acid (0.5-2.0) mmol/L Calcium 9.4 (8.6-10.3) mg/dL Total Bilirubin 0.50 (0.2-1.0) mg/dL AST 37 (13-39) U/L ALT 35 (7-52) U/L Alkaline Phosphatase 48 (34-104) U/L Troponin I 0.00 (<0.04) ng/mL Total Protein 7.3 (6.4-8.9) g/dL Albumin 4.2 (3.2-5.2) g/dL Globulin 3.1 (2-4) g/dL Albumin/Globulin Ratio 1.4 (1-3) Lipase 26 (11.0-82.0) U/L Urine Color Urine Appearance Urine pH (5-9) Ur Specific [place] (1.010-1.030) Urine Protein (Negative) Urine Ketones (Negative) Urine Blood (Negative) Urine Nitrate (Negative) Urine Bilirubin (Negative) Urine Urobilinogen (Negative) Ur Leukocyte Esterase (Negative) Urine WBC (Auto) (Absent) Urine RBC (Auto) (Absent) Ur Squamous Epith Cells (Absent) Urine Bacteria (Absent) Urine Glucose (Negative) 11/22/17 11/22/17 Range/Units 10:25 12:12 WBC (3.5-10.8) 10^3/ul RBC (4.0-5.4) 10^6/ul Hgb (12.0-16.0) g/dl Hct (35-47) % MCV (80-97) fL MCH (27-31) pg MCHC (31-36) g/dl RDW (10.5-15) % Plt Count (150-450) 10^3/ul MPV (7.4-10.4) um3 Neut % (Auto) (38-83) % Lymph % (Auto) (25-47) % Yell % (Auto) (0-7) % Eos % (Auto) (0-6) % Baso % (Auto) (0-2) % Absolute Neuts (auto) (1.5-7.7) 10^3/ul Absolute Lymphs (auto) (1.0-4.8) 10^3/ul Absolute Monos (auto) (0-0.8) 10^3/ul Absolute Eos (auto) (0-0.6) 10^3/ul Absolute Basos (auto) (0-0.2) 10^3/ul Absolute Nucleated RBC 10^3/ul Nucleated RBC % INR (Anticoag Therapy) (0.77-1.02) APTT (26.0-36.3) seconds Sodium (139-145) mmol/L Potassium (3.5-5.0) mmol/L Chloride (101-111) mmol/L Carbon Dioxide (22-32) mmol/L Anion Gap (2-11) mmol/L BUN (6-24) mg/dL Creatinine (0.51-0.95) mg/dL Est GFR ( Amer) (>60) Est GFR (Non-Af Amer) (>60) BUN/Creatinine Ratio (8-20) Glucose (70-100) mg/dL Lactic Acid 1.1 (0.5-2.0) mmol/L Calcium (8.6-10.3) mg/dL Total Bilirubin (0.2-1.0) mg/dL AST (13-39) U/L ALT (7-52) U/L Alkaline Phosphatase (34-104) U/L Troponin I (<0.04) ng/mL Total Protein (6.4-8.9) g/dL Albumin (3.2-5.2) g/dL Globulin (2-4) g/dL Albumin/Globulin Ratio (1-3) Lipase (11.0-82.0) U/L Urine Color Yellow Urine Appearance Cloudy Urine pH 5.0 (5-9) Ur Specific [place] 1.012 (1.010-1.030) Urine Protein Negative (Negative) Urine Ketones Negative (Negative) Urine Blood Negative (Negative) Urine Nitrate Negative (Negative) Urine Bilirubin Negative (Negative) Urine Urobilinogen Negative (Negative) Ur Leukocyte Esterase 1+ A (Negative) Urine WBC (Auto) Trace(0-5/hpf) (Absent) Urine RBC (Auto) Trace(0-2/hpf) (Absent) Ur Squamous Epith Cells Present A (Absent) Urine Bacteria Absent (Absent) Urine Glucose Negative (Negative) Result Diagrams: 11/22/17 10:25 11/22/17 10:25 Lab Statement: Any lab studies that have been ordered have been reviewed, and results considered in the medical decision making process. - Radiology CXR Xray Interpretation: No Acute Changes - NO ACTIVE CARDIOPULMONARY DISEASE. ED physician reviewed this radiology report. Radiology Interpretation Completed By: Radiologist - CT Abd/Pel CT CT Interpretation Completed By: Radiologist - DIVERTICULOSIS. FATTY INFILTRATION OF THE LIVER. ED physician reviewed this report. - EKG 1006 Cardiac Rate: NL - 60 bpm EKG Rhythm: Sinus Rhythm EKG Interpretation: No acute changes Re-Evaluation - Re-Evaluation First Eval Re-Evaluation Time: 13:28 Change: Improved Comment: Discussed results and D/C plan with the pt. Abdominal Pain Fem Course/Dx - Course Course Of Treatment: Pt is a 72 y/o F who presents to ED c/o diffuse, moderate abdominal pain with radiation to the chest for 3 days, improving since yesterday. Additionally c/o mild SOB. Denies CP, N/V/D, constipation. Prior similar episodes. PSHx cholecystectomy. PMHx diverticulitis - scheduled to have surgery in December to remove the sigmoid colon. BLood work and UA were done. UA is negative for UTI. CXR and CT Abd/Pel reveal no acute findings. EKG is sinus rhythm with no acute changes. In the ED course, pt received 1 L of fluids. Pt will be D/C to home with Dx of nonspecific abdominal pain. She understands and agrees. Allergies noted. - Diagnoses Differential Diagnosis: Positive: Diverticulitis, Pancreatitis, Renal Colic, Urinary Tract Infection Provider Diagnoses: Pain, abdominal, nonspecific - Provider Notifications Discussed Care Of Patient With: Davis Smith Time Discussed With Above Provider: 13:28 Instructed by Provider To: Other - COnfirms that the pt is alright to be discharged. Discharge - Sign-Out/Discharge Documenting (check all that apply): Discharge/Admit/Transfer - Discharge - Discharge Plan Condition: Stable Disposition: HOME Patient Education Materials: Acute Abdominal Pain (ED) Referrals: Mina Dorsey MD [Primary Care Provider] - 3 Days Additional Instructions: RETURN TO ED FOR ANY NEW OR WORSENING SYMPTOMS. - Billing Disposition and Condition Condition: STABLE Disposition: HOME The documentation as recorded by the Sandhya zamarripa Rebecca accurately reflects the service I personally performed and the decisions made by , Fab Ricardo.
== END 2017-11-22 13:41 | disposition home or self-care (01) ==
LOC: ED 09:49
DX: R10.84 Generalized abdominal pain (principal); R06.02 Shortness of breath; K57.30 Diverticulosis of large intestine without perforation or abscess without bleeding; K76.0 Fatty (change of) liver, not elsewhere classified; E11.9 Type 2 diabetes mellitus without complications; Z79.84 Long term (current) use of oral hypoglycemic drugs; Z79.4 Long term (current) use of insulin; I10 Essential (primary) hypertension; Z90.710 Acquired absence of both cervix and uterus; Z90.722 Acquired absence of ovaries, bilateral; Z90.49 Acquired absence of other specified parts of digestive tract; Z88.5 Allergy status to narcotic agent; Z88.8 Allergy status to other drugs, medicaments and biological substances; Z91.041 Radiographic dye allergy status
CPT/HCPCS: 36415; 71045; 74176; 80053; 81003; 81015; 83605; 83690; 84484; 85025; 85610; 85730; 87086; 93005; 96360; 99282

== ENCOUNTER 2018-01-05 09:15 | Inpatient (IN) | payer MEDICARE ==
--- NOTE | 2017-12-31 01:57 | HP ---
AMENDED REPORT NOW INCLUDES COSIGNER DESIGNATION - ESIGNED BEFORE ADJUSTMENT CC: Dr. Mina Dorsey* ADMISSION HISTORY AND PHYSICAL: DATE OF ADMISSION: 01/12/18 ATTENDING PHYSICIAN: Davis Smith MD *(WEI Dodson, dictating). CHIEF COMPLAINT: Recurrent diverticulitis. HISTORY OF PRESENT ILLNESS: This is a 72-year-old hypertensive, diabetic female , who has had recurrent episodes of diverticulitis. Per the patient, approximately 10 episodes in the last 3 years, most episodes are characterized by acute lower abdominal pain located in the suprapubic area radiating bilaterally into the back. She denies fever or chills. Virtually, all episodes have been treated as an outpatient with oral antibiotics and resolution. She has not had any blood per rectum. She did undergo colonoscopy in 2015, which was apparently an incomplete study because of a torturous colon, a completion virtual colonoscopy was performed and by her history, that was normal other than for diverticular disease. She has had a couple of recent episodes of diverticulitis, one at the end of July and one at the end of October. The most recent CT scan on 11/22/17 without contrast did show extensive diverticulosis, but without evidence of diverticulitis or abscess. She states that in recent weeks, she has experienced symptoms of postprandial bloating in the upper abdomen with associated gassiness and increased burping as well as nausea, though no vomiting. She does report occasional constipation. She was seen in the office by Dr. Smith on 10/14/17. He has reviewed her previous diagnostic workup including CT scan from July of this year showing active diverticulitis at that time. He has discussed with her the indications for surgery, the risks, benefits, and alternatives, and she would like to proceed as scheduled with open sigmoid colectomy. PAST MEDICAL HISTORY: Recurrent diverticulitis (see above), type 2 diabetes with microalbuminuria, irritable bowel syndrome, hypertension, obesity, GERD, cervical degenerative disk disease, and stenosis. The patient denies any history of heart disease. She was evaluated in 2017 for symptoms of a possible stroke, but that was apparently ruled out. An echocardiogram at that time was apparently normal. PAST SURGICAL HISTORY: Open cholecystectomy, subtotal abdominal hysterectomy for endometriosis with eventual completion oophorectomy. Tonsillectomy remotely , right knee arthroscopies. No reported surgical or anesthesia complications other than postoperative nausea. CURRENT MEDICATIONS: 1. Glipizide extended release 2.5 mg once daily. 2. Toujeo 36 units subcutaneously q.a.m. (the patient is instructed to take half her usual dose on the day of her prep and then per direction from Anesthesia). 3. Januvia 100 mg once daily. 4. Metformin 1000 mg b.i.d. 5. Atenolol 50 mg b.i.d. 6. Lovastatin 10 mg once daily. 7. Losartan 50 mg once daily. 8. Aspirin 81 mg once daily (the patient is instructed to hold for 5 to 20 days preoperatively). 9. Carafate 1 g once daily. 10. Pantoprazole 20 mg once daily. 11. Cyclobenzaprine 10 mg b.i.d. p.r.n. for neck spasm. 12. Multivitamin once daily. DRUG ALLERGIES: IV CONTRAST (hives) and (the patient has been pretreated successfully for CONTRAST allergy). CODEINE (vomiting), COMPAZINE (convulsions) , JARDIANCE (yeast infection), TRULICITY (diarrhea). FAMILY HISTORY: Negative for colorectal cancer, anesthesia problems, bleeding or clotting disorder. SOCIAL HISTORY: The patient is . Her daughter and grandson live with her. 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 She denies use of tobacco. She drinks alcohol rarely and denies other recreational drug use. REVIEW OF SYSTEMS: General: No recent constitutional symptoms or acute illnesses other than described in the HPI. Her weight has been relatively stable. Eyes: Possible early cataracts. No other changes. Ears, Nose, and Throat: No problems reported. Cardiovascular: Treated for hypertension. No history of [place] or angina. No palpitations or history of heart murmur. Respiratory: No history of asthma, chronic cough or shortness of breath. GI: History of GERD symptoms, controlled. Otherwise, see HPI. : No problems reported. PATIENT SAFETY OFFICER: Most recent breast exam in August of this year, mammogram July of this year, which was normal. She no longer has pelvic exams performed. Endocrine: No thyroid dysfunction. She is treated for type 2 diabetes and has recently been increasing her Toujeo dosing gradually. She states that her morning fingerstick glucoses are currently in the 120 to 125 range. She has not recently experienced any hypoglycemia. Neuropsych: No problems reported. Musculoskeletal: As above. No additions. PHYSICAL EXAMINATION GENERAL: A well-nourished, obese female, in no acute distress. VITAL SIGNS: Height 62.5 inches, weight 170 pounds, BMI 30.6, temperature 97.2 , blood pressure 138/74, pulse 72, respirations 18. SKIN: Warm and dry. No suspicious rashes or lesions noted. HEENT: Pupils equal and round, reactive. EOMs intact. No conjunctival pallor. Oropharynx: Teeth in good repair. No intraoral lesions. NECK: No lymphadenopathy, thyromegaly or masses. LUNGS: Clear to auscultation. No rales or wheezes. HEART: Regular rate and rhythm. No murmur appreciated. BREASTS: Not examined. ABDOMEN: Well-healed right subcostal incision as well as Pfannenstiel incision. Soft, nontender to palpation. No palpable masses or organomegaly. GENITALIA: Not done. RECTAL: Not done. BACK: No spinous processes or CVA tenderness. EXTREMITIES: No edema. NEUROLOGIC: Grossly intact. IMPRESSION: Recurrent diverticulitis. PLAN: Open sigmoid colectomy. WEI DODSON [id number]/[facility] #: [id number] MTDD
[2018-01-11] MEDS ORDERED: Buffered Lidocaine 0.9% SYRIN* 5 ML/SYR SYRINGE INTRADERM ONE (09:14)
[2018-01-12] MEDS ORDERED: ERTApenem(*) 1 GM in NS 0.9% 50 ML* 50 ML IVPB SCH ×2
[2018-01-12] MEDS ORDERED: Dexamethasone IV* 4 MG/ML 1 ML (4 MG) IV SLOW PU ONE (06:00)
[2018-01-12] MEDS ORDERED: Famotidine IV* 10 MG/ML 2 ML (20 mg) IV ONE (06:00)
--- OUTSIDE RECORDS SUMMARY | 2018-01-12 07:43 | XMS REPORT ---
:1945 External Reference #:[id number] Author Organization [employer] Address [address] [facility] [place] [address] [place] [address] Phone [phone] Care Team Providers Name Role Phone Mina Dorsey MD Primary Care Physician Unavailable Payers Type Date Identification Numbers Payment Provider Subscriber Health Maintenance Effective: Policy Number: [facility] [employer] Charline Angelo (HMO) 06/28/2016 [id number] [employer] PayID: [id number] [address] [address] [place] [address] Medigap Part B Expires: 06/27/2016 Policy Number: [id number] Medicare Charline Angulo PayID: [id number] [address] [place] [address] Medigap Part B Expires: 08/26/2016 Policy Number: [facility] Charline Angulo [id number] PayID: [id number] [address] [place] [address] Advance Directives Type Date Description Status Comment Other Directive 05/31/2017 Health Care Proxy Current and Verified Problems Date Description Provider Status Onset: 01/17/2013 Type 2 diabetes mellitus Kris Pressley MD Active Onset: 01/17/2013 Essential hypertension Kris Pressley MD Active Onset: 01/17/2013 Irritable bowel syndrome Kris Pressley MD Active Onset: 01/17/2013 Diverticular disease of colon Kris Pressley MD Active Onset: 10/15/2016 Microalbuminuria due to type 2 Mina Dorsey, Active diabetes mellitus M.D.,FACP Onset: 06/24/2017 Ex-smoker Mina Dorsey, Active MSaira,FACP Onset: 08/17/2014 Dizziness and giddiness Inactive Inactive: 10/15/2016 Onset: 07/16/2014 Epigastric pain Inactive Inactive: 10/15/2016 Onset: 07/16/2014 Flatulence, eructation and gas pain Inactive Inactive: 10/15/2016 Family History Date Family Member(s) Problem(s) Comments Father MA Bypass graft x4 Mother Heart Disease Tachycardic Siblings None Paternal Grandfather due to Heart Disease () Maternal Grandmother due to Bladder Cancer () Maternal Grandmother due to Heart Disease () Social History Type Date Description Comments Marital Status Lives With Daughter 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 [employer] ETOH Use 10/15/2016 Denies alcohol use Recreational Drug Use 10/15/2016 Denies Drug Use Smoking Patient has never smoked Daily Caffeine 10/15/2016 Consumes on average 2 cups of regular coffee per day General Hx Text 1 daughter Allergies, Adverse Reactions, Alerts Date Description Reaction Status Severity Comments 09/24/2016 Iodinated Diagnostic Hives active Agents 09/24/2016 Codeine Nausea and Vomiting active 09/24/2016 Compazine active convulsions 12/16/2016 Jardiance active yeast infection 12/21/2016 Trulicity active diarrhea Medications Medication Date Status Form Strength Qnty SIG Indications Ordering Provider Cyclobenzaprine 09/24 Active Tablets 10mg 60tab 1 tablet by Mina CROSS /2017 s mouth bid Linda Dorsey, as needed M.D.,FACP muscle spasms Accu-Check 09/24 Active Device 1unit use devise E11.9 Mina Glucose Monitor /2018 s as Linda Dorsey, instructed M.D.,FACP daily last visit: 09/24/17, may change product if insurance does not cover Accu-Check Emily 09/24 Active Misc 100un check blood E11.9 Mina Chem Strips /2018 its sugar up to Linda Dorsey, three times M.D.,FACP daily last visit: 09/24/17 may change product if insurance does not cover Accu-Check Emily 30 Active Misc 100un use with E11.9 Mina Kevin /2017 its glucometer Linda Dorsey, up to three M.D.,FACP times daily, last visit: 09/24/17 product may be changed if the insurance does not cover Glipizide ER 06/24 Active Tablets ER 2.5mg 90tab 1 by mouth 24HR s every day Linda Dorsey M.D.,FACP Pen [place] 03/19 Active Misc 31G X 8 100un use one E11.9 Mina mm its time a Linda Dorsey, daily with Dionisio,FACP toujeo last visit: 09/24/17 Tojoie Solostar 03/19 Active Solution 300Unit/M 9unit inject Pen-Inject L s subcutaneou Linda Dorsey, sly 36 u M.DJayla,FACP once a day Januvia 12/21 Active Tablets 100mg 90tab Take 1 s Tablet By Linda Dorsey, Mouth M.DJayla,FACP Every Day Lovastatin 12/16 Active Tablets 10mg 90tab Take 1 s Tablet By Linda Dorsey, Mouth AT M.D.,FACP Bedtime Meclizine HCL 10/15 Active Tablets 25mg 30tab 2-1 by s mouth three Linda Dorsey, times a day M.DJayla,FACP as needed Losartan 10/15 Active Tablets 50mg 90tab Take 1 s Tablet By Linda Dorsey, Mouth M.DJayla,FACP Every Day Aspirin Low Dose 09/25 Active Chewtabs 81mg 100un Every Day its Carafate 07/10 Active Tablets 1gm 120ta take one K29.00 bs tablet by Linda Dorsey, mouth four M.D.,FACP times a day before meals every night Pantoprazole 02/[address] 20mg 90tab 1 by mouth [place] s every day Dionisio Gutiérrez Metformin HCL 02/01 Active Tablets 1000mg 180ta Take 1 bs Tablet By Linda Dorsey, Mouth M.D.,FACP Twice A Day Atenolol Active Tablets 50mg 180ta Take 1 Mina /0000 bs Tablet By Linda Dorsey, Mouth M.DJayla,FACP Twice A Day Augmentin 07/28 Hx Tablets 875-125mg 20tab 1 tablet by J01.90 s mouth q12 Ethan, [employer] - hours for 08/07 10 days Tramadol HCL 07/28 Hx Tablets 50mg 30tab 1-2 tablets M89.8x8 Barrett s every 12 Ethan, [employer] - hours as 08/04 needed for pain. [employer] 05/26 Hx Device Mina Blood Glucose /2016 Linda Dorsey Meter - Dionisio,FACP 09/24 [employer] 05/26 Hx Strips 150un check BS Mina Blood Glucose /2016 its tid Linda Dorsey Test Strips - [facility] 09/24 Glipizide ER 03/19 Hx Tablets ER 5mg 90tab 1 by mouth 24HR s every [place]achikara - judith , Dionisio 06/24 Nystatin 03/19 Hx Powder [id number] 60gm topical B37.9 t/GM twice a day Linda Dorsey, - as needed M.DJayla,FACP 09/24 Clotrimazole 02/23 Hx Cream 1% 90gm apply twice B37.9 daily Marla - Dionisio 03/19 Trulicity 12/16 Hx Solution 0.75mg/0. 4unit sc weekly Pen-Inject 5ML s Ricardo Dale M.D.,FACP 12/21 Januvia 11/03 Hx Tablets 100mg 90tab 1 by mouth s every day Ricardo Dale M.D.,FACP 12/16 Flexeril 11/01 Hx Tablets 10mg 30tab one tablet s every 12 Linda Dorsey, - hours as M.Linda,[facility] 09/24 needed for muscle spasm Diflucan 11/01 Hx Tablets 150mg 2tabs 1tab by mouth now Ordering - and repeat Provider 02/23 in 3 days Terconazole 11/01 Hx Cream 0.8% 20gm 1 applicator Ordering - intravagina Provider 11/04 lly at bedtime x 3 Valacyclovir HCL 10/15 Hx Tablets 1gm 21tab by mouth s every 8 Linda Dorsey - hours for 1 M.DJayla,[facility] Synjardy 10/15 Hx Tablets 5-500mg 60tab 2 tabs po s every Am Ricardo Dale M.D.,[facility] 11/03 Nexium 09/[address] 40mg Every Day - 10/15 Prevnar 13 06/18 Hx Suspension .5uni 0.5mg Z00.00 Huan ts intramuscul Kris - ar once 10/15 Zostavax 06/18 Hx Suspension [id number]/ 1unit 1 sq Z00.00 Pressley Rec 0.65ML s Ricardo Ponce MD 10/15 Glipizide 02/01 Hx Tablets 5mg 180ta 1 tab twice /2014 bs a day Ricardo Dale M.D.,[facility] 03/19 Eql Pain Relief 01/26 Hx Capsules 500mg Once Unknown Extra Strength /2014 - 10/15 Meclizine HCL 08/17 Hx Tablets 12.5mg 30tab one tab s every 8 Kris, - hours as 10/15 Glucophage 02/27 Hx Tablets 500mg Twice Daily - 10/15 Losartan 00 Hx Tablets 25mg 90tab daily Martínez Potassium /0000 Ricardo Pina 10/15 Medications Administered in Office Medication Date Status Form Strength Qnty SIG Indications Ordering Provider Pneumococcal,U Administered Injection Unknown nspecified 010 Immunizations CPT Code Status Date Vaccine Reaction Lot # [id number] Given 06/24/2017 Pneumonia Vaccine [id number] Given 03/19/2017 Influenza Virus Vaccine, NO IMMEDIATE REACTION , [id number] Quadrivalent, Split, PT TOLERATED WELL Preservative Free 04140 Given 04/29/2015 Pneumococcal Conjugate Vaccine 13 Valent For Intramuscular Use Vital Signs Date Vital Result Comment 12/31/2017 Height 62.5 inches 5'2.50" Weight 171.00 lb Heart Rate 63 /min BP Systolic Sitting 120 mmHg BP Diastolic Sitting 60 mmHg Body Temperature 97.6 F O2 % BldC Oximetry 97 % BMI (Body Mass Index) 30.8 kg/m2 12/30/2017 Height 62.5 inches 5'2.50" Weight 170.00 lb Heart Rate 72 /min BP Systolic Sitting 138 mmHg BP Diastolic Sitting 74 mmHg Respiratory Rate 18 /min Body Temperature 97.2 F BMI (Body Mass Index) 30.6 kg/m2 10/14/2017 Height 62.5 inches 5'2.50" Weight 170.00 lb Heart Rate 74 /min BP Systolic 128 mmHg BP Diastolic 68 mmHg Respiratory Rate 16 /min Body Temperature 98.1 F BMI (Body Mass Index) 30.6 kg/m2 09/24/2017 Height 62.5 inches 5'2.50" Weight 170.00 lb Heart Rate 67 /min BP Systolic Sitting 138 mmHg BP Diastolic Sitting 68 mmHg Body Temperature 96.7 F O2 % BldC Oximetry 98 % BMI (Body Mass Index) 30.6 kg/m2 07/28/2017 Weight 170.00 lb Heart Rate 73 /min BP Systolic 130 mmHg BP Diastolic 70 mmHg Body Temperature 97.7 F O2 % BldC Oximetry 96 % 06/24/2017 Weight 172.00 lb Heart Rate 63 /min BP Systolic Sitting 154 mmHg BP Diastolic Sitting 80 mmHg BP Systolic Recheck 156 mmHg BP Diastolic Recheck 78 mmHg Body Temperature 98.0 F O2 % BldC Oximetry 98 % 05/31/2017 Weight 173.00 lb Heart Rate 71 /min BP Systolic Sitting 160 mmHg BP Diastolic Sitting 80 mmHg Body Temperature 97.5 F O2 % BldC Oximetry 96 % 03/19/2017 Height 63 inches 5'3" Weight 173.38 lb Heart Rate 63 /min BP Systolic 122 mmHg BP Diastolic 64 mmHg Body Temperature 98.7 F O2 % BldC Oximetry 98 % BMI (Body Mass Index) 30.7 kg/m2 02/23/2017 Height 63 inches 5'3" Weight 173.50 lb Heart Rate 62 /min BP Systolic 136 mmHg BP Diastolic 72 mmHg Body Temperature 97.6 F O2 % BldC Oximetry 99 % BMI (Body Mass Index) 30.7 kg/m2 12/16/2016 Weight 173.12 lb Heart Rate 74 /min BP Systolic Sitting 120 mmHg BP Diastolic Sitting 68 mmHg Body Temperature 98.5 F O2 % BldC Oximetry 97 % 10/15/2016 Height 62.5 inches 5'2.50" Weight 173.12 lb Heart Rate 66 /min BP Systolic Sitting 160 mmHg BP Diastolic Sitting 80 mmHg BP Systolic Recheck 180 mmHg BP Diastolic Recheck 84 mmHg Body Temperature 98.1 F O2 % BldC Oximetry 98 % BMI (Body Mass Index) 31.2 kg/m2 07/10/2016 Height 66 inches Weight 180.00 lb Heart Rate 66 /min BP Systolic 160 mmHg BP Diastolic 84 mmHg BMI (Body Mass Index) 29.0 kg/m2 Results Test Date Test Result H/L Range Note Laboratory test finding 12/31/2017 Hemoglobin A1c 7.2 High 5-7 CBC Auto Diff 12/30/2017 White Blood Count 7.3 10^3/uL 3.5-10.8 Red Blood Count 4.68 10^6/uL 4.00-5.40 Hemoglobin 13.2 g/dL 12.0-16.0 Hematocrit 39 % 35-47 Mean Corpuscular Volume 83 fL 80-97 Mean Corpuscular Hemoglobin 28 pg 27-31 Mean Corpuscular HGB Conc 34 g/dL 31-36 Red Cell Distribution Width 15 % 10.5-15 Platelet Count 194 10^3/uL 150-450 Mean Platelet Volume 7.8 um3 7.4-10.4 Abs Neutrophils 4.0 10^3/uL 1.5-7.7 Abs Lymphocytes 2.2 10^3/uL 1.0-4.8 Abs Monocytes 0.6 10^3/uL 0-0.8 Abs Eosinophils 0.4 10^3/uL 0-0.6 Abs Basophils 0.1 10^3/uL 0-0.2 Abs Nucleated RBC 0 10^3/uL Granulocyte % 54.9 % 38-83 Lymphocyte % 30.3 % 25-47 Monocyte % 8.0 % High 0-7 Eosinophil % 5.9 % 0-6 Basophil % 0.9 % 0-2 Nucleated Red Blood Cells % 0 Comp Metabolic Panel 12/30/2017 Sodium 140 mmol/L 135-145 Chloride 104 mmol/L 101-111 Co2 Carbon Dioxide 26 mmol/L 22-32 Glucose 112 mg/dL High 70-100 Blood Urea Nitrogen 21 mg/dL 6-24 Creatinine 0.98 mg/dL High 0.51-0.95 BUN/Creatinine Ratio 21.4 High 8-20 Calcium 9.6 mg/dL 8.6-10.3 Total Protein 7.4 g/dL 6.4-8.9 Albumin 4.4 g/dL 3.2-5.2 Globulin 3.0 g/dL 2-4 Albumin/Globulin Ratio 1.5 1-3 Total Bilirubin 0.50 mg/dL 0.2-1.0 Alkaline Phosphatase 55 U/L 34-104 Alt 34 U/L 7-52 Egfr Non- 55.9 >60 Egfr 67.7 >60 1 Potassium 4.7 mmol/L 3.5-5.0 Anion Gap 10 mmol/L 2-11 Ast 40 U/L High 13-39 Type & Screen 12/30/2017 Patient Blood Type A Positive Antibody Screen NEGATIVE Urine Culture And Sensitivities 11/22/2017 Urine Culture SEE RESULT BELOW 2 Urinalysis Profile 11/22/2017 Urine Color Yellow Urine Appearance Cloudy Urine Specific [place] 1.012 1.010-1.030 Urine pH 5.0 5-9 Urine Urobilinogen Negative Negative Urine Ketones Negative Negative Urine Protein Negative Negative Urine Leukocytes 1+ Negative Urine Blood Negative Negative Urine Nitrite Negative Negative Urine Bilirubin Negative Negative Urine Glucose Negative Negative Urine White Blood Cell Trace(0-5/hpf) Absent Urine Red Blood Cell Trace(0-2/hpf) Absent Urine Bacteria Absent Absent Urine Squamous Epithelial Cell Present Absent Laboratory test finding 11/22/2017 Lipase 26 U/L 11.0-82.0 Troponin-I (TnI) 0.00 ng/mL <0.04 Lactic Acid 1.1 mmol/L 0.5-2.0 3 Comp Metabolic Panel 11/22/2017 Sodium 139 mmol/L 139-145 Potassium 4.7 mmol/L 3.5-5.0 Chloride 106 mmol/L 101-111 Co2 Carbon Dioxide 25 mmol/L 22-32 Anion Gap 8 mmol/L 2-11 Glucose 99 mg/dL 70-100 Blood Urea Nitrogen 22 mg/dL 6-24 Creatinine 0.97 mg/dL High 0.51-0.95 BUN/Creatinine Ratio 22.7 High 8-20 Calcium 9.4 mg/dL 8.6-10.3 Total Protein 7.3 g/dL 6.4-8.9 Albumin 4.2 g/dL 3.2-5.2 Globulin 3.1 g/dL 2-4 Albumin/Globulin Ratio 1.4 1-3 Total Bilirubin 0.50 mg/dL 0.2-1.0 Alkaline Phosphatase 48 U/L 34-104 Alt 35 U/L 7-52 Ast 37 U/L 13-39 Egfr Non- 56.6 >60 Egfr 72.8 >60 4 Laboratory test finding 11/22/2017 Partial Thrombo Time 32.4 seconds 26.0 -36.3 PTT Inr/Protime 11/22/2017 Inr 1.02 0.77-1.02 CBC Auto Diff 11/22/2017 White Blood Count 7.2 10^3/uL 3.5-10.8 Red Blood Count 4.58 10^6/uL 4.0-5.4 Hemoglobin 12.7 g/dL 12.0-16.0 Hematocrit 39 % 35-47 Mean Corpuscular Volume 84 fL 80-97 Mean Corpuscular Hemoglobin 28 pg 27-31 Mean Corpuscular HGB Conc 33 g/dL 31-36 Red Cell Distribution Width 15 % 10.5-15 Platelet Count 197 10^3/uL 150-450 Mean Platelet Volume 7.7 um3 7.4-10.4 Abs Neutrophils 4.4 10^3/uL 1.5-7.7 Abs Lymphocytes 1.9 10^3/uL 1.0-4.8 Abs Monocytes 0.5 10^3/uL 0-0.8 Abs Eosinophils 0.4 10^3/uL 0-0.6 Abs Basophils 0.1 10^3/uL 0-0.2 Abs Nucleated RBC 0 10^3/uL Granulocyte % 61.0 % 38-83 Lymphocyte % 26.1 % 25-47 Monocyte % 6.6 % 0-7 Eosinophil % 5.5 % 0-6 Basophil % 0.8 % 0-2 Nucleated Red Blood Cells % 0 Urine Microalbumin Random 09/24/2017 Ur Microalbumin (mg/L) 161.8 mg/L Urine Creatinine 97.93 mg/dL Urine Microalbumin/Creatinine 165.2 ug/mg High <31 Lipid Profile (Trig/Chol/HDL) 09/24/2017 Triglycerides 105 mg/dL 5 Cholesterol 144 mg/dL 6 HDL Cholesterol 63.7 mg/dL 7 LDL Cholesterol 59 mg/dL 8 Basic Metabolic Panel 09/24/2017 Sodium 141 mmol/L 139-145 Potassium 4.7 mmol/L 3.5-5.0 Chloride 105 mmol/L 101-111 Co2 Carbon Dioxide 25 mmol/L 22-32 Anion Gap 11 mmol/L 2-11 Glucose 140 mg/dL High 70-100 Blood Urea Nitrogen 23 mg/dL 6-24 Creatinine 0.92 mg/dL 0.51-0.95 BUN/Creatinine Ratio 25.0 High 8-20 Calcium 9.8 mg/dL 8.6-10.3 Egfr Non- 60.3 >60 Egfr 77.6 >60 9 Laboratory test finding 09/24/2017 Hemoglobin A1c (Glyco HGB) 7.5 % High 4.0-5.6 10 Hepatitis C Antibody Nonreactive Nonreactive 11 CBC Auto Diff 08/23/2017 White Blood Count 9.8 10^3/uL 3.5-10.8 Red Blood Count 4.36 10^6/uL 4.0-5.4 Hemoglobin 12.1 g/dL 12.0-16.0 Hematocrit 37 % 35-47 Mean Corpuscular Volume 84 fL 80-97 Mean Corpuscular Hemoglobin 28 pg 27-31 Mean Corpuscular HGB Conc 33 g/dL 31-36 Red Cell Distribution Width 15 % 10.5-15 Platelet Count 191 10^3/uL 150-450 Mean Platelet Volume 8 um3 7.4-10.4 Abs Neutrophils 7.3 10^3/uL 1.5-7.7 Abs Lymphocytes 1.5 10^3/uL 1.0-4.8 Abs Monocytes 0.8 10^3/uL 0-0.8 Abs Eosinophils 0.2 10^3/uL 0-0.6 Abs Basophils 0.1 10^3/uL 0-0.2 Abs Nucleated RBC 0 10^3/uL Granulocyte % 74.1 % 38-83 Lymphocyte % 15.2 % Low 25-47 Monocyte % 8.4 % High 0-7 Eosinophil % 1.5 % 0-6 Basophil % 0.8 % 0-2 Nucleated Red Blood Cells % 0.1 Laboratory test finding 08/23/2017 Lipase 19 U/L 11.0-82.0 C Reactive Protein 33.38 mg/L High < 5.00 12 Laboratory test finding 08/23/2017 Lactic Acid 2.2 mmol/L High 0.5-2.0 13 Comp Metabolic Panel 08/23/2017 Sodium 136 mmol/L 133-145 Potassium 4.2 mmol/L 3.5-5.0 Chloride 101 mmol/L 101-111 Co2 Carbon Dioxide 28 mmol/L 22-32 Anion Gap 7 mmol/L 2-11 Glucose 147 mg/dL High 70-100 Blood Urea Nitrogen 17 mg/dL 6-24 Creatinine 0.88 mg/dL 0.51-0.95 BUN/Creatinine Ratio 19.3 8-20 Calcium 9.7 mg/dL 8.6-10.3 Total Protein 7.1 g/dL 6.4-8.9 Albumin 3.9 g/dL 3.2-5.2 Globulin 3.2 g/dL 2-4 Albumin/Globulin Ratio 1.2 1-3 Total Bilirubin 0.70 mg/dL 0.2-1.0 Alkaline Phosphatase 56 U/L 34-104 Alt 26 U/L 7-52 Ast 22 U/L 13-39 Egfr Non- 63.5 >60 Egfr 81.7 >60 14 Laboratory test 07/25/2017 Rapid Influenza A B SEE RESULT BELOW 15 finding Antigen Laboratory test 07/25/2017 Rapid Strep A SEE RESULT BELOW 16 finding Laboratory test 07/25/2017 Rapid Strep Negative Negative 17 finding Molecular Comp Metabolic Panel 07/25/2017 Sodium 137 mmol/L 133-145 Potassium 4.1 mmol/L 3.5-5.0 Chloride 101 mmol/L 101-111 Co2 Carbon Dioxide 27 mmol/L 22-32 Anion Gap 9 mmol/L 2-11 Glucose 127 mg/dL High 70-100 Blood Urea Nitrogen 20 mg/dL 6-24 Creatinine 1.06 mg/dL High 0.51-0.95 BUN/Creatinine Ratio 18.9 8-20 Calcium 9.1 mg/dL 8.6-10.3 Total Protein 7.0 g/dL 6.4-8.9 Albumin 4.0 g/dL 3.2-5.2 Globulin 3.0 g/dL 2-4 Albumin/Globulin Ratio 1.3 1-3 Total Bilirubin 0.40 mg/dL 0.2-1.0 Alkaline Phosphatase 46 U/L 34-104 Alt 26 U/L 7-52 Ast 28 U/L 13-39 Egfr Non- 51.2 >60 Egfr 65.9 >60 18 Laboratory test finding 07/25/2017 C Reactive Protein 8.70 mg/L High < 5.00 19 Urinalysis Profile 07/25/2017 Urine Color Straw Urine Appearance Clear Urine Specific [place] 1.004 Low 1.010-1.030 Urine pH 5.0 5-9 Urine Urobilinogen Negative Negative Urine Ketones Negative Negative Urine Protein Negative Negative Urine Leukocytes Negative Negative Urine Blood Negative Negative Urine Nitrite Negative Negative Urine Bilirubin Negative Negative Urine Glucose Negative Negative CBC Auto Diff 07/25/2017 White Blood Count 6.5 10^3/uL 3.5-10.8 Red Blood Count 4.54 10^6/uL 4.0-5.4 Hemoglobin 12.7 g/dL 12.0-16.0 Hematocrit 38 % 35-47 Mean Corpuscular Volume 84 fL 80-97 Mean Corpuscular Hemoglobin 28 pg 27-31 Mean Corpuscular HGB Conc 33 g/dL 31-36 Red Cell Distribution Width 15 % 10.5-15 Platelet Count 193 10^3/uL 150-450 Mean Platelet Volume 8 um3 7.4-10.4 Abs Neutrophils 4.1 10^3/uL 1.5-7.7 Abs Lymphocytes 1.6 10^3/uL 1.0-4.8 Abs Monocytes 0.6 10^3/uL 0-0.8 Abs Eosinophils 0.2 10^3/uL 0-0.6 Abs Basophils 0 10^3/uL 0-0.2 Abs Nucleated RBC 0 10^3/uL Granulocyte % 62.3 % 38-83 Lymphocyte % 24.7 % Low 25-47 Monocyte % 9.0 % 1-9 Eosinophil % 3.5 % 0-6 Basophil % 0.5 % 0-2 Nucleated Red Blood Cells % 0.1 Rapid Influenza A & B 07/25/2017 Influenza A Molecular NEGATIVE Negative 20 Molecular Influenza B Molecular NEGATIVE Negative Laboratory test finding 07/13/2017 Troponin-I (TnI) 0.01 ng/mL <0.04 Comp Metabolic Panel 07/13/2017 Sodium 133 mmol/L 133-145 Potassium 4.0 mmol/L 3.5-5.0 Chloride 98 mmol/L Low 101-111 Co2 Carbon Dioxide 25 mmol/L 22-32 Anion Gap 10 mmol/L 2-11 Glucose 99 mg/dL 70-100 Blood Urea Nitrogen 22 mg/dL 6-24 Creatinine 1.18 mg/dL High 0.51-0.95 BUN/Creatinine Ratio 18.6 8-20 Calcium 9.1 mg/dL 8.6-10.3 Total Protein 6.9 g/dL 6.4-8.9 Albumin 3.9 g/dL 3.2-5.2 Globulin 3.0 g/dL 2-4 Albumin/Globulin Ratio 1.3 1-3 Total Bilirubin 0.50 mg/dL 0.2-1.0 Alkaline Phosphatase 49 U/L 34-104 Alt 27 U/L 7-52 Ast 30 U/L 13-39 Egfr Non- 45.3 >60 Egfr 58.2 >60 21 Laboratory test finding 07/13/2017 Lactic Acid 1.0 mmol/L 0.5-2.0 22 Laboratory test finding 07/13/2017 Lactic Acid 2.4 mmol/L High 0.5-2.0 23 CBC Auto Diff 07/13/2017 White Blood Count 8.0 10^3/uL 3.5-10.8 Red Blood Count 4.49 10^6/uL 4.0-5.4 Hemoglobin 12.9 g/dL 12.0-16.0 Hematocrit 37 % 35-47 Mean Corpuscular Volume 83 fL 80-97 Mean Corpuscular Hemoglobin 29 pg 27-31 Mean Corpuscular HGB Conc 34 g/dL 31-36 Red Cell Distribution Width 15 % 10.5-15 Platelet Count 183 10^3/uL 150-450 Mean Platelet Volume 8 um3 7.4-10.4 Abs Neutrophils 5.6 10^3/uL 1.5-7.7 Abs Lymphocytes 1.4 10^3/uL 1.0-4.8 Abs Monocytes 0.9 10^3/uL High 0-0.8 Abs Eosinophils 0.1 10^3/uL 0-0.6 Abs Basophils 0 10^3/uL 0-0.2 Abs Nucleated RBC 0 10^3/uL Granulocyte % 69.6 % 38-83 Lymphocyte % 17.8 % Low 25-47 Monocyte % 11.5 % High 1-9 Eosinophil % 0.7 % 0-6 Basophil % 0.4 % 0-2 Nucleated Red Blood Cells % 0.1 Laboratory test finding 07/12/2017 Rapid Strep Molecular Negative Negative 24 Rapid Influenza A & B 07/12/2017 Influenza A Molecular POSITIVE Negative 25 Molecular Influenza B Molecular NEGATIVE Negative Laboratory test finding 06/24/2017 Hemoglobin A1c 7.2 High 5-7 CBC Auto Diff 05/22/2017 White Blood Count 8.3 10^3/uL 3.5-10.8 Red Blood Count 4.54 10^6/uL 4.0-5.4 Hemoglobin 12.7 g/dL 12.0-16.0 Hematocrit 39 % 35-47 Mean Corpuscular Volume 85 fL 80-97 Mean Corpuscular Hemoglobin 28 pg 27-31 Mean Corpuscular HGB Conc 33 g/dL 31-36 Red Cell Distribution Width 14 % 10.5-15 Platelet Count 194 10^3/uL 150-450 Mean Platelet Volume 8 um3 7.4-10.4 Abs Neutrophils 5.7 10^3/uL 1.5-7.7 Abs Lymphocytes 1.7 10^3/uL 1.0-4.8 Abs Monocytes 0.6 10^3/uL 0-0.8 Abs Eosinophils 0.3 10^3/uL 0-0.6 Abs Basophils 0.1 10^3/uL 0-0.2 Abs Nucleated RBC 0 10^3/uL Granulocyte % 68.0 % 38-83 Lymphocyte % 20.0 % Low 25-47 Monocyte % 7.7 % 1-9 Eosinophil % 3.6 % 0-6 Basophil % 0.7 % 0-2 Nucleated Red Blood Cells % 0 Urinalysis Profile 05/22/2017 Urine Color Straw Urine Appearance Clear Urine Specific [place] 1.010 1.010-1.030 Urine pH 5.0 5-9 Urine Urobilinogen Negative Negative Urine Ketones Negative Negative Urine Protein Negative Negative Urine Leukocytes Trace Negative Urine Blood Negative Negative Urine Nitrite Negative Negative Urine Bilirubin Negative Negative Urine Glucose Negative Negative Urine White Blood Cell Trace(0-5/hpf) Absent Urine Red Blood Cell Absent Absent Urine Bacteria Absent Absent Urine Squamous Epithelial Cell Present Absent Inr/Protime 05/22/2017 Inr 0.99 0.89-1.11 Laboratory test finding 05/22/2017 Amylase 41 U/L 29-103 Lipase 24 U/L 11.0-82.0 C Reactive Protein 4.08 mg/L < 5.00 26 Comp Metabolic Panel 05/22/2017 Sodium 138 mmol/L 133-145 Potassium 3.9 mmol/L 3.5-5.0 Chloride 105 mmol/L 101-111 Co2 Carbon Dioxide 23 mmol/L 22-32 Anion Gap 10 mmol/L 2-11 Glucose 165 mg/dL High 70-100 Blood Urea Nitrogen 20 mg/dL 6-24 Creatinine 1.02 mg/dL High 0.51-0.95 BUN/Creatinine Ratio 19.6 8-20 Calcium 9.4 mg/dL 8.6-10.3 Total Protein 7.0 g/dL 6.4-8.9 Albumin 4.3 g/dL 3.2-5.2 Globulin 2.7 g/dL 2-4 Albumin/Globulin Ratio 1.6 1-3 Total Bilirubin 0.50 mg/dL 0.2-1.0 Alkaline Phosphatase 49 U/L 34-104 Alt 26 U/L 7-52 Ast 27 U/L 13-39 Egfr Non- 53.6 >60 Egfr 68.9 >60 27 Laboratory test 05/22/2017 Partial Thrombo 31.1 seconds 26.0-36.3 finding Time PTT Urine Culture And 05/22/2017 Urine Culture SEE RESULT 28 Sensitivities BELOW Laboratory test 03/19/2017 Hemoglobin A1c 8.4 High 5-7 finding Laboratory test 12/27/2016 Point of Care 124 mg/dL High 74-106 29 finding Glucose Laboratory test 12/16/2016 Culture Throat SEE RESULT 30 finding BELOW Laboratory test 12/16/2016 Rapid Group A Strep neg finding Laboratory test 12/16/2016 Hemoglobin A1c 8.3 High 5-7 finding Poc Urinalysis 11/01/2016 Poc Glucose, Urine 2+ Negative Poc Bilirubin, Urine Negative Negative Poc Ketone, Urine Negative Negative Poc Specific [place], Urine 1.010 1.010-1.030 Poc Blood, Urine Trace-intact Negative Poc pH, Urine 5.0 5-9 Poc Protein, Urine Negative Negative Poc Urobilinogen, Urine 0.2 Negative Poc Nitrite, Urine Negative Negative Poc Leukocytes, Urine Negative Negative Poc Color, Urine Yellow Poc Clarity, Urine Clear 31 Urine Culture And 11/01/2016 Urine Culture SEE RESULT BELOW 32 Sensitivities Laboratory test finding 11/01/2016 [place]/Yeast: SEE RESULT BELOW 33 Vaginal Dna Laboratory test finding 09/24/2016 Lactic Acid 1.6 mmol/L 0.5-2.0 34 Troponin I 0.01 ng/mL <0.04 35 CBC Auto Diff 09/24/2016 Abs Basophils 0.1 10^3/uL 0-0.2 Abs Eosinophils 0.4 10^3/uL 0-0.6 Abs Lymphocytes 1.8 10^3/uL 1.0-4.8 Abs Monocytes 0.5 10^3/uL 0-0.8 Abs Neutrophils 4.8 10^3/uL 1.5-7.7 Abs Nucleated RBC 0 10^3/uL Basophil % 1.2 % 0-2 Eosinophil % 4.9 % 0-6 Granulocyte % 63.0 % 38-83 Hematocrit 40 % 35-47 Hemoglobin 12.9 g/dL 12.0-16.0 Lymphocyte % 23.9 % Low 25-47 Mean Corpuscular HGB Conc 33 g/dL 31-36 Mean Corpuscular Hemoglobin 28 pg 27-31 Mean Corpuscular Volume 85 fL 80-97 Mean Platelet Volume 9 um3 7.4-10.4 Monocyte % 7.0 % 1-9 Nucleated Red Blood Cells % 0 Platelet Count 182 10^3/uL 150-450 Red Blood Count 4.70 10^6/uL 4.0-5.4 Red Cell Distribution Width 15 % 10.5-15 White Blood Count 7.6 10^3/uL 3.5-10.8 Comp Metabolic Panel 09/24/2016 Albumin 4.3 g/dL 3.2-5.2 Albumin/Globulin Ratio 1.5 1-3 Alkaline Phosphatase 58 U/L 34-104 Alt 40 U/L 7-52 Anion Gap 7 mmol/L 2-11 Ast 39 U/L 13-39 BUN/Creatinine Ratio 28.6 High 8-20 Blood Urea Nitrogen 26 mg/dL High 6-24 Calcium 9.9 mg/dL 8.6-10.3 Chloride 102 mmol/L 101-111 Co2 Carbon Dioxide 26 mmol/L 22-32 Creatinine 0.91 mg/dL 0.51-0.95 Egfr 78.8 >60 Egfr Non- 61.3 >60 Globulin 2.9 g/dL 2-4 Glucose 194 mg/dL High 70-100 Potassium 3.8 mmol/L 3.5-5.0 Sodium 135 mmol/L 133-145 36 Total Bilirubin 0.40 mg/dL 0.2-1.0 Total Protein 7.2 g/dL 6.4-8.9 Inr/Protime 09/24/2016 Inr 0.98 0.89-1.11 Laboratory Studies 09/24/2016 Absolute Basophils (auto) 0.1 10^3/ul 0- 0.2 Absolute Eosinophils (auto) 0.4 10^3/ul 0-0.6 Absolute Lymphocytes (auto) 1.8 10^3/ul 1.0-4.8 Absolute Monocytes (auto) 0.5 10^3/ul 0-0.8 Absolute Neutrophils (auto) 4.8 10^3/ul 1.5-7.7 Basophils (%) (Auto) 1.2 % 0-2 Eosinophils (%) (Auto) 4.9 % 0-6 Hematocrit 40 % 35-47 Hemoglobin 12.9 g/dL 12.0-16.0 Lymphocytes (%) (Auto) 23.9 % Low 25-47 Mean Corpuscular Hemoglobin 28 pg 27-31 Mean Corpuscular Hemoglobin Concent 33 g/dL 31-36 Mean Corpuscular Volume 85 fL 80-97 Mean Platelet Volume 9 um3 7.4-10.4 Monocytes (%) (Auto) 7.0 % 1-9 Neutrophils (%) (Auto) 63.0 % 38-83 Nucleated RBC Absolute Count (auto) 0 10^3/ul Nucleated Red Blood Cells % 0 Platelet Count 182 10^3/ul 150-450 Red Blood Count 4.70 10^6/ul 4.0-5.4 Red Cell Distribution Width 15 % 10.5-15 Urine Specific [place] 1.013 1.010-1.030 Urine pH 5.0 5-9 White Blood Count 7.6 10^3/ul 3.5-10.8 Urinalysis Profile 09/24/2016 Urine Appearance Clear Urine Bacteria Absent Absent Urine Bilirubin Negative Negative Urine Blood Negative Negative Urine Color Yellow Urine Glucose 1+(50 mg/dL) Negative Urine Ketones Negative Negative Urine Leukocytes Negative Negative Urine Nitrite Negative Negative Urine Protein 1+(30 mg/dL) Negative Urine Red Blood Cell Absent Absent Urine Specific [place] 1.013 1.010-1.030 Urine Urobilinogen Negative Negative Urine White Blood Cell Absent Absent Urine pH 5.0 5-9 Laboratory test finding 09/17/2016 Vitamin B12 249 pg/mL 180-914 37 Laboratory Studies 09/17/2016 Urine Creatinine mg/dL 128.28 mg/dL 37 Urine Microalbumin/Creatinine Ratio 366.2 ug/mg High 0-31 37 Urine Random Microalbumin 469.8 mg/L 37 Vitamin B12 Level 249 pg/mL 180-914 37 Urine Microalbumin Random 09/17/2016 Ur Microalbumin (mg/L) 469.8 mg/L 37 Urine Creatinine 128.28 mg/dL 37 Urine Microalbumin/Creatinine 366.2 ug/mg High <31 37 Laboratory test finding 09/17/2016 Hemoglobin A1c (!) 8.1 % High 4.0-5.9 CBC W/Auto Differential(!) 09/17/2016 Absolute Lymphocytes 2.0 X103/UL 1.0-4.8 Absolute Monocytes 0.4 X103/UL 0.0-0.8 Absolute Neutrophils 3.6 X103/UL 1.5-7.7 Hematocrit 39.4 % 35-52 Hemoglobin Blood 12.4 g/dL 12.0-18.0 Lymph% 33.1 % 20.0-45.0 MCH (Corpuscular Hemoglobin) 28.3 pg 27-31 MCHC (Corpuscular Hemog Conc) 31.6 g/dL Low 32.0-36.0 MCV (Corpuscular Volume) 89.6 FL 79-97 MPV 8.1 FL 7.4-10.4 [place]% 7.3 % 1.0-9.0 Neutrophil % 59.6 % 38.0-83.0 Platelet Count Blood Auto CNT 165 X103/UL 150-450 RBC Red Blood Count 4.39 X106/UL 4.20-6.20 RDW 15.7 % High 10.5-15.0 White Blood Count Ser Auto CNT 6.1 3/UL 4.8-10.8 CMP(!) 09/17/2016 Albumin Serum/Plasma(!) 4.3 g/dL 3.5-5.2 Alkaline Phosphatase(!) 63 U/L 39-117 Alt - SGPT 58 U/L High 10-40 Ast - Sgot 49 U/L High 5-34 BUN - Urea Nitrogen(!) 17 mg/dL 6-24 BUN/Creatinine Ratio(!) 24.3 RATIO 8.0-36 Bilirubin Total Mass/Vol 0.8 mg/dL 0.2-1.3 Calcium Ser/Plasma Mass/Vol(!) 9.4 mg/dL 8.6-10.2 Carbon Dioxide Ser/Plasm(!) 26 mEq/L 21-33 Chloride Serum/Plasma(!) 104 mEq/L 94-112 Creatinine Serum Mass/Vol(!) 0.7 mg/dL 0.5-1.4 Glucose Serum(!) 173 mg/dL High 70-105 Potassium(!) 4.3 mEq/L 3.6-5.5 Protein Total 6.3 g/dL 6.2-8.1 Sodium(!) 142 mEq/L 134-149 Uric Acid Ser/Plas Mass/Vol(!) 3.1 mg/dL 2.6-7.2 Lipid Panel(!) 09/17/2016 Cholesterol Total Mass/Vol 152 mg/dL 140-200 HDL Cholesterol Mol/Vol 58 30-85 LDL Cholesterol Mass/Vol(!) 71 mg/dL 0-130 Triglycerides Ser/Plas Mass/VL 113 mg/dL 30-150 Ua Dipstick Macroscopic(!) 09/17/2016 Ua Appearance Clear Ua Bilirubin Neg Ua Blood Qual Neg Ua Color Yellow Ua Glucose QL 3+ High Ua Ketones Neg Ua Leukocytes Neg Ua Nitrite Neg Ua PH Test 5.0 units 5.0-8.0 Ua Protein 1+ High Ua Specific [place] 1.020 GM/ML 1.00-1.035 Ua Urobilinogen Neg Ua Microscopic 09/17/2016 Ua Amorphous None Ua Bacteria Trace Ua Casts None Ua Crystals Few- CA.[place] Ua Epithelial Cells Mod Ua Mucous Small Ua RBC Rare Ua WBC 0-2 Ua Yeast None Laboratory Studies 06/28/2016 Urine Specific [place] 1.011 1.010-1.030 Urine pH 6.0 5-9 Laboratory test finding 06/28/2016 Lactic Acid 1.3 mmol/L 0.5-2.0 38 Lipase 17 U/L 11.0-82.0 39 Troponin I 0.01 ng/mL <0.04 CBC Auto Diff 06/28/2016 Abs Basophils 0.1 10^3/uL 0-0.2 Abs Eosinophils 0.5 10^3/uL 0-0.6 Abs Lymphocytes 2.5 10^3/uL 1.0-4.8 Abs Monocytes 0.5 10^3/uL 0-0.8 Abs Neutrophils 4.1 10^3/uL 1.5-7.7 Abs Nucleated RBC 0 10^3/uL Basophil % 1.5 % 0-2 Eosinophil % 7.1 % High 0-6 Granulocyte % 52.9 % 38-83 Hematocrit 39 % 35-47 Hemoglobin 12.5 g/dL 12.0-16.0 Lymphocyte % 31.9 % 25-47 Mean Corpuscular HGB Conc 33 g/dL 31-36 Mean Corpuscular Hemoglobin 28 pg 27-31 Mean Corpuscular Volume 85 fL 80-97 Mean Platelet Volume 8 um3 7.4-10.4 Monocyte % 6.6 % 1-9 Nucleated Red Blood Cells % 0 Platelet Count 188 10^3/uL 150-450 Red Blood Count 4.53 10^6/uL 4.0-5.4 Red Cell Distribution Width 14 % 10.5-15 White Blood Count 7.7 10^3/uL 3.5-10.8 Comp Metabolic Panel 06/28/2016 Albumin 4.0 g/dL 3.2-5.2 Albumin/Globulin Ratio 1.4 1-3 Alkaline Phosphatase 55 U/L 34-104 Alt 47 U/L 7-52 Anion Gap 7 mmol/L 2-11 Ast 43 U/L High 13-39 BUN/Creatinine Ratio 19.8 8-20 Blood Urea Nitrogen 20 mg/dL 6-24 Calcium 9.2 mg/dL 8.6-10.3 Chloride 105 mmol/L 101-111 Co2 Carbon Dioxide 26 mmol/L 22-32 Creatinine 1.01 mg/dL High 0.51-0.95 Egfr 69.9 >60 Egfr Non- 54.3 >60 Globulin 2.8 g/dL 2-4 Glucose 119 mg/dL High 70-100 Potassium 4.3 mmol/L 3.5-5.0 Sodium 138 mmol/L 133-145 40 Total Bilirubin 0.40 mg/dL 0.2-1.0 Total Protein 6.8 g/dL 6.4-8.9 Laboratory Studies 06/28/2016 Absolute Basophils (auto) 0.1 10^3/ul 0- 0.2 Absolute Eosinophils (auto) 0.5 10^3/ul 0-0.6 Absolute Lymphocytes (auto) 2.5 10^3/ul 1.0-4.8 Absolute Monocytes (auto) 0.5 10^3/ul 0-0.8 Absolute Neutrophils (auto) 4.1 10^3/ul 1.5-7.7 Alanine Aminotransferase (Alt/SGPT) 47 U/L 7-52 Albumin 4.0 g/dL 3.2-5.2 Albumin/Globulin Ratio 1.4 1-3 Alkaline Phosphatase 55 U/L 34-104 Anion Gap 7 mmol/L 2-11 Aspartate Amino Transf (Ast/Sgot) 43 U/L High 13-39 BUN/Creatinine Ratio 19.8 8-20 Basophils (%) (Auto) 1.5 % 0-2 Blood Urea Nitrogen 20 mg/dL 6-24 Calcium Level 9.2 mg/dL 8.6-10.3 Carbon Dioxide Level 26 mmol/L 22-32 Chloride Level 105 mmol/L 101-111 Creatinine 1.01 mg/dL High 0.51-0.95 Eosinophils (%) (Auto) 7.1 % High 0-6 Estimated GFR () 69.9 Estimated GFR (Non- 54.3 Globulin 2.8 g/dL 2-4 Glucose Level 119 mg/dL High 70-100 Hematocrit 39 % 35-47 Hemoglobin 12.5 g/dL 12.0-16.0 Lactic Acid Level 1.3 mmol/L 0.5-2.0 Lipase 17 U/L 11.0-82.0 Lymphocytes (%) (Auto) 31.9 % 25-47 Mean Corpuscular Hemoglobin 28 pg 27-31 Mean Corpuscular Hemoglobin Concent 33 g/dL 31-36 Mean Corpuscular Volume 85 fL 80-97 Mean Platelet Volume 8 um3 7.4-10.4 Monocytes (%) (Auto) 6.6 % 1-9 Neutrophils (%) (Auto) 52.9 % 38-83 Nucleated RBC Absolute Count (auto) 0 10^3/ul Nucleated Red Blood Cells % 0 Platelet Count 188 10^3/ul 150-450 Potassium Level 4.3 mmol/L 3.5-5.0 Red Blood Count 4.53 10^6/ul 4.0-5.4 Red Cell Distribution Width 14 % 10.5-15 Sodium Level 138 mmol/L 133-145 Total Bilirubin 0.40 mg/dL 0.2-1.0 Total Protein 6.8 g/dL 6.4-8.9 Troponin I 0.01 ng/mL White Blood Count 7.7 10^3/ul 3.5-10.8 Urinalysis Profile 06/28/2016 Urine Appearance Clear Urine Bilirubin Negative Negative Urine Blood Negative Negative Urine Color Yellow Urine Glucose Negative Negative Urine Ketones Negative Negative Urine Leukocytes Negative Negative Urine Nitrite Negative Negative Urine Protein Negative Negative Urine Specific [place] 1.011 1.010-1.030 Urine Urobilinogen Negative Negative Urine pH 6.0 5-9 CBC Auto Diff 06/23/2016 Abs Basophils 0 10^3/uL 0-0.2 Abs Eosinophils 0.5 10^3/uL 0-0.6 Abs Lymphocytes 2.6 10^3/uL 1.0-4.8 Abs Monocytes 0.7 10^3/uL 0-0.8 Abs Neutrophils 4.3 10^3/uL 1.5-7.7 Abs Nucleated RBC 0 10^3/uL Basophil % 0.2 % 0-2 Eosinophil % 6.1 % High 0-6 Granulocyte % 52.7 % 38-83 Hematocrit 39 % 35-47 Hemoglobin 12.8 g/dL 12.0-16.0 Lymphocyte % 32.1 % 25-47 Mean Corpuscular HGB Conc 33 g/dL 31-36 Mean Corpuscular Hemoglobin 28 pg 27-31 Mean Corpuscular Volume 85 fL 80-97 Mean Platelet Volume 8 um3 7.4-10.4 Monocyte % 8.9 % 1-9 Nucleated Red Blood Cells % 0 Platelet Count 196 10^3/uL 150-450 Red Blood Count 4.58 10^6/uL 4.0-5.4 Red Cell Distribution Width 14 % 10.5-15 White Blood Count 8.2 10^3/uL 3.5-10.8 Comp Metabolic Panel 06/23/2016 Albumin 4.3 g/dL 3.2-5.2 Albumin/Globulin Ratio 1.4 1-3 Alkaline Phosphatase 53 U/L 34-104 Alt 38 U/L 7-52 Anion Gap 7 mmol/L 2-11 Ast 40 U/L High 13-39 BUN/Creatinine Ratio 25.0 High 8-20 Blood Urea Nitrogen 26 mg/dL High 6-24 Calcium 9.5 mg/dL 8.6-10.3 Chloride 103 mmol/L 101-111 Co2 Carbon Dioxide 27 mmol/L 22-32 Creatinine 1.04 mg/dL High 0.51-0.95 Egfr 67.6 >60 Egfr Non- 52.5 >60 Globulin 3.0 g/dL 2-4 Glucose 90 mg/dL 70-100 Potassium 4.1 mmol/L 3.5-5.0 Sodium 137 mmol/L 133-145 41 Total Bilirubin 0.50 mg/dL 0.2-1.0 Total Protein 7.3 g/dL 6.4-8.9 Laboratory test finding 10/24/2015 Point of Care Glucose 143 mg/dL High 74 -106 42 Laboratory test finding 06/25/2015 SOB 1St Sample (Gai) Neg SOB 2ND Sample (Gai) Neg SOB 3RD Sample () Neg Ua Dipstick Macroscopic(!) 06/18/2015 Ua Appearance Clear Ua Bilirubin Neg Ua Blood Qual Neg Ua Color Yellow Ua Glucose QL Neg Ua Ketones Neg Ua Leukocytes 1+ High Ua Nitrite Neg Ua PH Test 5.0 units 5.0-8.0 Ua Protein Neg Ua Specific [place] 1.020 GM/ML 1.00-1.035 Ua Urobilinogen Neg Ua Microscopic 06/18/2015 Ua Amorphous None Ua Bacteria Rare Ua Casts Few-Hyaline Ua Crystals None Ua Epithelial Cells Mod Ua Mucous Small Ua RBC 0-2 Ua WBC 7-12 High Ua Yeast None Laboratory test finding 06/11/2015 Hemoglobin A1c (!) 6.2 % High 4.0-5.9 CBC W/Auto Differential(!) 06/11/2015 Absolute Lymphocytes 2.1 X103/UL 1.0-4.8 Absolute Monocytes 0.5 X103/UL 0.0-0.8 Absolute Neutrophils 3.9 X103/UL 1.5-7.7 Hematocrit 38.2 % 35-52 Hemoglobin Blood 12.0 g/dL 12.0-18.0 Lymph% 32.0 % 20.0-45.0 MCH (Corpuscular Hemoglobin) 27.4 pg 27-31 MCHC (Corpuscular Hemog Conc) 31.4 g/dL Low 32.0-36.0 MCV (Corpuscular Volume) 87.4 FL 79-97 MPV 7.6 FL 7.4-10.4 [place]% 8.0 % 1.0-9.0 Neutrophil % 60.0 % 38.0-83.0 Platelet Count Blood Auto CNT 197 X103/UL 150-450 RBC Red Blood Count 4.37 X106/UL 4.20-6.20 RDW 14.8 % 10.5-15.0 White Blood Count Ser Auto CNT 6.5 3/UL 4.8-10.8 CMP(!) 06/11/2015 Albumin Serum/Plasma(!) 4.2 g/dL 3.5-5.2 Alkaline Phosphatase(!) 57 U/L 39-117 Alt - SGPT 21 U/L 10-40 Ast - Sgot 19 U/L 5-34 BUN - Urea Nitrogen(!) 23 mg/dL 6-24 BUN/Creatinine Ratio(!) 25.6 RATIO 8.0-36 Bilirubin Total Mass/Vol 0.7 mg/dL 0.2-1.3 Calcium Ser/Plasma Mass/Vol(!) 9.4 mg/dL 8.6-10.2 Carbon Dioxide Ser/Plasm(!) 24 mEq/L 21-33 Chloride Serum/Plasma(!) 107 mEq/L 94-112 Creatinine Serum Mass/Vol(!) 0.9 mg/dL 0.5-1.4 Glucose Serum(!) 104 mg/dL 70-105 Potassium(!) 4.7 mEq/L 3.6-5.5 Protein Total 6.2 g/dL 6.2-8.1 Sodium(!) 142 mEq/L 134-149 Uric Acid Ser/Plas Mass/Vol(!) 4.4 mg/dL 2.6-7.2 Lipid Panel(!) 06/11/2015 Cholesterol Total Mass/Vol 156 mg/dL 140-200 HDL Cholesterol Mol/Vol 53 30-85 LDL Cholesterol Mass/Vol(!) 78 mg/dL 0-130 Triglycerides Ser/Plas Mass/VL 124 mg/dL 30-150 Laboratory test finding 04/30/2015 Lactic Acid 1.8 mmol/L 0.5-2.2 Troponin I 0.00 ng/mL <0.03 43 CBC Auto Diff 04/30/2015 Abs Basophils 0.1 10^3/uL 0-0.2 Abs Eosinophils 0.3 10^3/uL 0-0.6 Abs Lymphocytes 1.8 10^3/uL 1.0-4.8 Abs Monocytes 0.5 10^3/uL 0-0.8 Abs Neutrophils 4.7 10^3/uL 1.5-7.7 Abs Nucleated RBC 0 10^3/uL Basophil % 0.9 % 0-2 Eosinophil % 3.7 % 0-6 Granulocyte % 64.6 % 38-83 Hematocrit 40 % 35-47 Hemoglobin 12.9 g/dL 12.0-16.0 Lymphocyte % 24.2 % Low 25-47 Mean Corpuscular HGB Conc 32 g/dL 31-36 Mean Corpuscular Hemoglobin 28 pg 27-31 Mean Corpuscular Volume 87 fL 80-97 Mean Platelet Volume 8 um3 7.4-10.4 Monocyte % 6.6 % 1-9 Nucleated Red Blood Cells % 0 Platelet Count 210 10^3/uL 150-450 Red Blood Count 4.58 10^6/uL 4.0-5.4 Red Cell Distribution Width 14 % 10.5-15 White Blood Count 7.2 10^3/uL 4.8-10.8 Comp Metabolic Panel 04/30/2015 Albumin 4.3 g/dL 3.2-5.2 Albumin/Globulin Ratio 1.5 1-3 Alkaline Phosphatase 50 U/L 34-104 Alt 20 U/L 7-52 Anion Gap TNP mmol/L 2-11 Ast TNP U/L 13-39 BUN/Creatinine Ratio 26.3 High 8-20 Blood Urea Nitrogen 25 mg/dL High 6-24 Calcium 9.7 mg/dL 8.6-10.3 Chloride 104 mmol/L 101-111 Co2 Carbon Dioxide 23 mmol/L 22-32 Creatinine 0.95 mg/dL 0.51-0.95 Egfr 75.2 >60 Egfr Non- 58.5 >60 Globulin 2.8 g/dL 2-4 Glucose 129 mg/dL High 70-100 Potassium TNP mmol/L 3.5-5.0 Sodium 136 mmol/L 133-145 44 Total Bilirubin 0.60 mg/dL 0.2-1.0 Total Protein 7.1 g/dL 6.4-8.9 Laboratory Studies 04/30/2015 Absolute Basophils (auto) 0.1 10^3/ul 0- 0.2 Absolute Eosinophils (auto) 0.3 10^3/ul 0-0.6 Absolute Lymphocytes (auto) 1.8 10^3/ul 1.0-4.8 Absolute Monocytes (auto) 0.5 10^3/ul 0-0.8 Absolute Neutrophils (auto) 4.7 10^3/ul 1.5-7.7 Basophils (%) (Auto) 0.9 % 0-2 Eosinophils (%) (Auto) 3.7 % 0-6 Hematocrit 40 % 35-47 Hemoglobin 12.9 g/dL 12.0-16.0 Lymphocytes (%) (Auto) 24.2 % Low 25-47 Mean Corpuscular Hemoglobin 28 pg 27-31 Mean Corpuscular Hemoglobin Concent 32 g/dL 31-36 Mean Corpuscular Volume 87 fL 80-97 Mean Platelet Volume 8 um3 7.4-10.4 Monocytes (%) (Auto) 6.6 % 1-9 Neutrophils (%) (Auto) 64.6 % 38-83 Nucleated RBC Absolute Count (auto) 0 10^3/ul Nucleated Red Blood Cells % 0 Platelet Count 210 10^3/ul 150-450 Red Blood Count 4.58 10^6/ul 4.0-5.4 Red Cell Distribution Width 14 % 10.5-15 White Blood Count 7.2 10^3/ul 4.8-10.8 Ua Dipstick Macroscopic(!) 01/18/2015 Ua Appearance Clear Ua Bilirubin Neg Ua Blood Qual Neg Ua Color Yellow Ua Glucose QL Neg Ua Ketones Neg Ua Leukocytes Neg Ua Nitrite Neg Ua PH Test 5.0 units 5.0-8.0 Ua Protein Neg Ua Specific [place] 1.020 GM/ML 1.00-1.035 Ua Urobilinogen Neg Laboratory test finding 01/12/2015 Troponin I 0.01 ng/mL <0.03 45 Laboratory test finding 01/12/2015 Lipase 44 U/L 11.0-82.0 46 Troponin I 0.00 ng/mL <0.03 CBC Auto Diff 01/12/2015 Abs Basophils 0.1 10^3/uL 0-0.2 Abs Eosinophils 0.5 10^3/uL 0-0.6 Abs Lymphocytes 2.5 10^3/uL 1.0-4.8 Abs Monocytes 0.8 10^3/uL 0-0.8 Abs Neutrophils 4.2 10^3/uL 1.5-7.7 Abs Nucleated RBC 0 10^3/uL Basophil % 0.9 % 0-2 Eosinophil % 6.6 % High 0-6 Granulocyte % 52.0 % 38-83 Hematocrit 39 % 35-47 Hemoglobin 12.7 g/dL 12.0-16.0 Lymphocyte % 30.3 % 25-47 Mean Corpuscular HGB Conc 33 g/dL 31-36 Mean Corpuscular Hemoglobin 29 pg 27-31 Mean Corpuscular Volume 86 fL 80-97 Mean Platelet Volume 8 um3 7.4-10.4 Monocyte % 10.2 % High 1-9 Nucleated Red Blood Cells % 0 Platelet Count 196 10^3/uL 150-450 Red Blood Count 4.47 10^6/uL 4.0-5.4 Red Cell Distribution Width 14 % 10.5-15 White Blood Count 8.1 10^3/uL 4.8-10.8 Comp Metabolic Panel 01/12/2015 Albumin 4.3 g/dL 3.2-5.2 Albumin/Globulin Ratio 1.5 1-3 Alkaline Phosphatase 58 U/L 34-104 Alt 23 U/L 7-52 Anion Gap 9 mmol/L 2-11 Ast 23 U/L 13-39 BUN/Creatinine Ratio 24.2 High 8-20 Blood Urea Nitrogen 30 mg/dL High 6-24 Calcium 9.5 mg/dL 8.6-10.3 Chloride 104 mmol/L 101-111 Co2 Carbon Dioxide 24 mmol/L 22-32 Creatinine 1.24 mg/dL High 0.51-0.95 Egfr 55.3 >60 Egfr Non- 43.0 >60 Globulin 2.8 g/dL 2-4 Glucose 141 mg/dL High 70-100 Potassium 4.0 mmol/L 3.5-5.0 Sodium 137 mmol/L 133-145 47 Total Bilirubin 0.30 mg/dL 0.2-1.0 Total Protein 7.1 g/dL 6.4-8.9 CMP(!) 01/04/2015 Albumin Serum/Plasma(!) 4.4 g/dL 3.5-5.2 Alkaline Phosphatase(!) 62 U/L 39-117 Alt - SGPT 24 U/L 10-40 Ast - Sgot 21 U/L 5-34 BUN - Urea Nitrogen(!) 22 mg/dL 6-24 BUN/Creatinine Ratio(!) 24.4 RATIO 8.0-36 Bilirubin Total Mass/Vol 0.6 mg/dL 0.2-1.3 Calcium Ser/Plasma Mass/Vol(!) 9.5 mg/dL 8.6-10.2 Carbon Dioxide Ser/Plasm(!) 23 mEq/L 21-33 Chloride Serum/Plasma(!) 105 mEq/L 94-112 Creatinine Serum Mass/Vol(!) 0.9 mg/dL 0.5-1.4 Glucose Serum(!) 128 mg/dL High 70-105 Potassium(!) 4.8 mEq/L 3.6-5.5 Protein Total 6.5 g/dL 6.2-8.1 Sodium(!) 142 mEq/L 134-149 Uric Acid Ser/Plas Mass/Vol(!) 4.2 mg/dL 2.6-7.2 Urine Microalbumin Random 11/15/2014 Ur Microalbumin (mg/L) 45.0 mg/L Urine Creatinine 175.14 mg/dL Urine Microalbumin/Creatinine 25.6 ug/mg <31 1 Because ethnic data is not always readily available, this report includes an eGFR for both -Americans and non- Americans. The National Kidney Disease Education Program (NKDEP) does not endorse the use of the MDRD equation for patients that are not between the ages of 18 and 70, are , have extremes of body size, muscle mass, or nutritional status, or are non- or non-. According to the National Kidney Foundation, irrespective of diagnosis, the stage of the disease is based on the level of kidney function: Stage Description GFR(mL/min/1.73 m(2)) 1 Kidney damage with normal or decreased GFR 90 2 Kidney damage with mild decrease in GFR 60-89 3 Moderate decrease in GFR 30-59 4 Severe decrease in GFR 15-29 5 Kidney failure <15 (or dialysis) 2 SEE RESULT BELOW Name: CHARLINE ANGULO : [address]: Fab Ricardo MD Acct: [id number] Unit: [id number] AGE: 72 Location: ED Re11/22/17 SEX: F Status: AMBER MALLOY SPEC: [id number] KATHE: 11/22/[address] [facility] [address]: Fab Ricardo MD REQ: [id number] RECD: 11/22/17 STATUS: IRINA MARRERO DR: Mina Dorsey MD _ SOURCE: URINE SPDESC: ORDERED: Urine Culture Procedure Result Reported Site Urine Culture Final 11/23/17- 1304 ML No Growth (<1,000 CFU/mL) * ML - Main Lab . END OF REPORT DEPARTMENT OF PATHOLOGY, [address] [place] [address] Anil Goodrich M.D. Director [facility] # [id number] [facility] Severe Sepsis and Septic Shock Management Bundle Measure requires all lactic acids initially measuring >2.0 mmol/L be repeated. 4 Because ethnic data is not always readily available, this report includes an eGFR for both -Americans and non- Americans. The National Kidney Disease Education Program (NKDEP) does not endorse the use of the MDRD equation for patients that are not between the ages of 18 and 70, are , have extremes of body size, muscle mass, or nutritional status, or are non- or non-. According to the National Kidney Foundation, irrespective of diagnosis, the stage of the disease is based on the level of kidney function: Stage Description GFR(mL/min/1.73 m(2)) 1 Kidney damage with normal or decreased GFR 90 2 Kidney damage with mild decrease in GFR 60-89 3 Moderate decrease in GFR 30-59 4 Severe decrease in GFR 15-29 5 Kidney failure <15 (or dialysis) 5 Desirable: <150 Borderline High: 150-199 High: 200-499 Very High: >500 6 Desirable: <200 Borderline High: 200-239 High: >239 7 Low: <40 Desirable: 40-60 High: >60 8 Desirable: <100 Near Optimal: 100-129 Borderline High: 130-159 High: 160-189 Very High: >189 9 Because ethnic data is not always readily available, this report includes an eGFR for both -Americans and non- Americans. The National Kidney Disease Education Program (NKDEP) does not endorse the use of the MDRD equation for patients that are not between the ages of 18 and 70, are , have extremes of body size, muscle mass, or nutritional status, or are non- or non-. According to the National Kidney Foundation, irrespective of diagnosis, the stage of the disease is based on the level of kidney function: Stage Description GFR(mL/min/1.73 m(2)) 1 Kidney damage with normal or decreased GFR 90 2 Kidney damage with mild decrease in GFR 60-89 3 Moderate decrease in GFR 30-59 4 Severe decrease in GFR 15-29 5 Kidney failure <15 (or dialysis) 10 Therapeutic target for the treatment of diabetes mellitus patients is <7% HBA1C, and in selective patients <6.0%. Please refer to [place] [employer] diabetic care guidelines for further information. 11 FASTING 10 HOUR 12 Acute inflammation: >10.00 13 Critical Result LACT:2.2 Called to DOYLE at: 10:00:35 by:[id number] Read back by:DOYLE EPSTEIN Severe Sepsis and Septic Shock Management Bundle Measure requires all lactic acids initially measuring >2.0 mmol/L be repeated. 14 Because ethnic data is not always readily available, this report includes an eGFR for both -Americans and non- Americans. The National Kidney Disease Education Program (NKDEP) does not endorse the use of the MDRD equation for patients that are not between the ages of 18 and 70, are , have extremes of body size, muscle mass, or nutritional status, or are non- or non-. According to the National Kidney Foundation, irrespective of diagnosis, the stage of the disease is based on the level of kidney function: Stage Description GFR(mL/min/1.73 m(2)) 1 Kidney damage with normal or decreased GFR 90 2 Kidney damage with mild decrease in GFR 60-89 3 Moderate decrease in GFR 30-59 4 Severe decrease in GFR 15-29 5 Kidney failure <15 (or dialysis) 15 SEE RESULT BELOW Name: CHARLINE ANGULO Mary Ann : [address]: Mike Santo MD Acct: [id number] Unit: [id number] AGE: 71 Location: ED Re07/25/17 SEX: F Status: REG ER SPEC: [id number] KATHE: 07/25/[address]: Evi CARVAJAL REQ: [id number] RECD: 07/25/17 STATUS: IRINA MARRERO DR: Mina Santo MD _ SOURCE: NASAL SPDESC: ORDERED: Flu A B Request Procedure Result Reported Site Rapid Influenza A B Request Final 07/25/171735 ML Specimen received for Influenza A/B Molecular testing * ML - MAIN LAB ([facility]) . END OF REPORT * ML=Testing performed at Main Lab DEPARTMENT OF PATHOLOGY, [address] [place] [address] Anil Goodrich M.D. Director [facility] # [id number] 16 SEE RESULT BELOW Name: CHARLINE ANGULO : [address]: Mike Santo MD Acct: [id number] Unit: [id number] AGE: 71 Location: ED Re07/25/17 SEX: F Status: REG ER SPEC: [id number] KATHE: 07/25/[address] [facility] [address]: Mike Santo MD REQ: [id number] RECD: 07/25/17 STATUS: IRINA MARRERO DR: Mina Dorsey MD _ SOURCE: THROAT SPDESC: ORDERED: Strep A Request Procedure Result Reported Site Rapid Strep A Request Final 07/25/17- 1720 ML Specimen received for Rapid Strep A Molecular testing * ML - MAIN LAB ([facility]) . END OF REPORT * ML=Testing performed at Main Lab DEPARTMENT OF PATHOLOGY, [address] [place] [address] Anil Goodrich M.D. Director [facility] # [id number] 17 Landscape Architect And Planner: [id number] Because ethnic data is not always readily available, this report includes an eGFR for both -Americans and non- Americans. The National Kidney Disease Education Program (NKDEP) does not endorse the use of the MDRD equation for patients that are not between the ages of 18 and 70, are , have extremes of body size, muscle mass, or nutritional status, or are non- or non-. According to the National Kidney Foundation, irrespective of diagnosis, the stage of the disease is based on the level of kidney function: Stage Description GFR(mL/min/1.73 m(2)) 1 Kidney damage with normal or decreased GFR 90 2 Kidney damage with mild decrease in GFR 60-89 3 Moderate decrease in GFR 30-59 4 Severe decrease in GFR 15-29 5 Kidney failure <15 (or dialysis) 19 Acute inflammation: >10.00 20 Landscape Architect And Planner: [id number] Because ethnic data is not always readily available, this report includes an eGFR for both -Americans and non- Americans. The National Kidney Disease Education Program (NKDEP) does not endorse the use of the MDRD equation for patients that are not between the ages of 18 and 70, are , have extremes of body size, muscle mass, or nutritional status, or are non- or non-. According to the National Kidney Foundation, irrespective of diagnosis, the stage of the disease is based on the level of kidney function: Stage Description GFR(mL/min/1.73 m(2)) 1 Kidney damage with normal or decreased GFR 90 2 Kidney damage with mild decrease in GFR 60-89 3 Moderate decrease in GFR 30-59 4 Severe decrease in GFR 15-29 5 Kidney failure <15 (or dialysis) 22 [facility] Severe Sepsis and Septic Shock Management Bundle Measure requires all lactic acids initially measuring >2.0 mmol/L be repeated. 23 Critical Result LACT:2.4 Called to [id number] at: 14:56:34 by:[id number] Read back by:[id number] [facility] Severe Sepsis and Septic Shock Management Bundle Measure requires all lactic acids initially measuring >2.0 mmol/L be repeated. 24 Landscape Architect And Planner: [id number] 25 Landscape Architect And Planner: [id number] 26 Acute inflammation: >10.00 27 Because ethnic data is not always readily available, this report includes an eGFR for both -Americans and non- Americans. The National Kidney Disease Education Program (NKDEP) does not endorse the use of the MDRD equation for patients that are not between the ages of 18 and 70, are , have extremes of body size, muscle mass, or nutritional status, or are non- or non-. According to the National Kidney Foundation, irrespective of diagnosis, the stage of the disease is based on the level of kidney function: Stage Description GFR(mL/min/1.73 m(2)) 1 Kidney damage with normal or decreased GFR 90 2 Kidney damage with mild decrease in GFR 60-89 3 Moderate decrease in GFR 30-59 4 Severe decrease in GFR 15-29 5 Kidney failure <15 (or dialysis) 28 SEE RESULT BELOW Name: OPERACHARLINE C : [address]: Lilibeth Wan MD Acct: [id number] Unit: [id number] AGE: 71 Location: ED Re05/22/17 SEX: F Status: DEP ER SPEC: [id number] KATHE: 05/22/[address] [facility] [address]: Lilibeth Wan MD REQ: [id number] RECD: 05/22/17 STATUS: IRINA MARRERO DR: Mnia Dorsey MD _ SOURCE: URINE [facility]: ORDERED: Urine Culture Procedure Result Reported Site Urine Culture Final 05/24/17826 ML No growth of clinically significant organisms * ML - MAIN LAB ([facility]1) . END OF REPORT * ML=Testing performed at Main Lab DEPARTMENT OF PATHOLOGY, [address] [place] [id number] Anil Goodrich M.D. Director [facility] # [id number] 29 Landscape Architect And Planner: [id number] 30 SEE RESULT BELOW Name: CHARLINE ANGULO : [address]: Fidel Dorsey MD Acct: [id number] Unit: [id number] AGE: 71 Location: [facility] Re12/16/16 SEX: F Status: REG REF SPEC: [id number] KATHE: 12/16/[address]: Mina Dorsey MD REQ: [id number] RECD: 12/16/16 STATUS: COMP _ SOURCE: THROAT SPDESC: ORDERED: Throat Culture COMMENTS: [id number] Procedure Result Reported Site Throat Culture Final 12/18/16- 1110 ML Organism 1 NORMAL MARIANN Quantity 2+ Throat cultures are clinically indicated to detect the presence of group A strep, arcanobacterium and yeast. In certain cases, predominating organisms will be reported. * ML - MAIN LAB ([facility]) . END OF REPORT * ML=Testing performed at Main Lab DEPARTMENT OF PATHOLOGY, [address] [place] [address] Anil Goodrich M.D. Director [facility] # [id number] 31 Landscape Architect And Planner: [id number] 32 SEE RESULT BELOW Name: CHARLINE ANGULO Mary Ann : [address]: Stanislav Enciso MD Acct: [id number] Unit: [id number] AGE: 70 Location: [facility] Re11/01/16 SEX: F Status: DEP ER SPEC: [id number] KATHE: 11/01/[address] [facility] [address]: Roxann Cook NP REQ: [id number] RECD: 11/01/16 STATUS: IRINA MARRERO DR: Stanislav Dorsey MD _ SOURCE: URINE SPDESC: ORDERED: Urine Culture Procedure Result Reported Site Urine Culture Final 11/02/16- 1303 ML No growth of clinically significant organisms * ML - MAIN LAB ([facility]) . END OF REPORT * ML=Testing performed at Main Lab DEPARTMENT OF PATHOLOGY, [address] [place] [address] Anil Goodrich M.D. Director [facility] # [id number] 33 SEE RESULT BELOW Name: CHARLINE ANGULO : [address]: Stanislav Enciso MD Acct: [id number] Unit: [id number] AGE: 70 Location: [facility] Re11/01/16 SEX: F Status: DEP ER SPEC: [id number] KATHE: 11/01/[address]: Roxann Cook NP REQ: [id number] RECD: 11/01/16 STATUS: COMP ELIDA DR: Stanislav Dorsey MD _ SOURCE: VAGINAL SPDESC: ORDERED: Landon,Yeast DNA COMMENTS: Would you like to order Trichomonas Vaginalis RNA testing? N Procedure Result Reported Site Gardnerella/Yeast: Vaginal DNA Final 11/02/16- 1306 ML Organism 1 Negative Gardnerella Organism 2 POSITIVE UZMA The presence of G. vaginalis, although suggestive, is not diagnostic for bacterial vaginosis. Results should be interpreted in conjuction with other clinical and laboratory data available. Women with vaginal discharge should be evaluated for risk factors of cervicitis and pelvic inflammatory disease, toxic shock syndrome (S.aureus), and if present, evaluated for organisms not included in this assay such as N. gonorrhoeae, C. trachomatis, Mobiluncus, Mycoplasma and/or Prevotella. Mixed infections may occur. The performance of this test on patient specimens collected during or immediately after antimicrobial therapy is unknown. The presence or absence of Uzma species, or G. vaginalis cannot be used as a test for therapeutic success or failure. * ML - MAIN LAB ([facility]) . END OF REPORT * ML=Testing performed at Main Lab DEPARTMENT OF PATHOLOGY, [address] [place] [address] Anil Goodrich M.D. Director [facility] # [id number] 34 [facility] Severe Sepsis and Septic Shock Management Bundle Measure requires all lactic acids initially measuring >2.0 mmol/L be repeated. 35 99th percentile=0.04 ng/mL Troponin results at [facility] and [facility] are not interchangeable. 36 Because ethnic data is not always readily available, this report includes an eGFR for both -Americans and non- Americans. The National Kidney Disease Education Program (NKDEP) does not endorse the use of the MDRD equation for patients that are not between the ages of 18 and 70, are , have extremes of body size, muscle mass, or nutritional status, or are non- or non-. According to the National Kidney Foundation, irrespective of diagnosis, the stage of the disease is based on the level of kidney function: Stage Description GFR(mL/min/1.73 m(2)) 1 Kidney damage with normal or decreased GFR 90 2 Kidney damage with mild decrease in GFR 60-89 3 Moderate decrease in GFR 30-59 4 Severe decrease in GFR 15-29 5 Kidney failure <15 (or dialysis) 37 [id number] 38 [facility] Severe Sepsis and Septic Shock Management Bundle Measure requires all lactic acids initially measuring >2.0 mmol/L be repeated. 39 99th percentile=0.04 ng/mL Troponin results at [facility] and [facility] are not interchangeable. 40 Because ethnic data is not always readily available, this report includes an eGFR for both -Americans and non- Americans. The National Kidney Disease Education Program (NKDEP) does not endorse the use of the MDRD equation for patients that are not between the ages of 18 and 70, are , have extremes of body size, muscle mass, or nutritional status, or are non- or non-. According to the National Kidney Foundation, irrespective of diagnosis, the stage of the disease is based on the level of kidney function: Stage Description GFR(mL/min/1.73 m(2)) 1 Kidney damage with normal or decreased GFR 90 2 Kidney damage with mild decrease in GFR 60-89 3 Moderate decrease in GFR 30-59 4 Severe decrease in GFR 15-29 5 Kidney failure <15 (or dialysis) 41 Because ethnic data is not always readily available, this report includes an eGFR for both -Americans and non- Americans. The National Kidney Disease Education Program (NKDEP) does not endorse the use of the MDRD equation for patients that are not between the ages of 18 and 70, are , have extremes of body size, muscle mass, or nutritional status, or are non- or non-. According to the National Kidney Foundation, irrespective of diagnosis, the stage of the disease is based on the level of kidney function: Stage Description GFR(mL/min/1.73 m(2)) 1 Kidney damage with normal or decreased GFR 90 2 Kidney damage with mild decrease in GFR 60-89 3 Moderate decrease in GFR 30-59 4 Severe decrease in GFR 15-29 5 Kidney failure <15 (or dialysis) 42 Landscape Architect And Planner: [id number] BRAULIO NUGENT 43 Reference Range and Interpretation: TnI (ng/mL) Interpretation Less Than 0.03 ng/mL Not supportive of diagnosis of MA 0.03 - 0.50 ng/mL Indeterminate: suggest serial studies if clinically indicated. Greater than 0.5 ng/mL Consistent with diagnosis of MA 44 Because ethnic data is not always readily available, this report includes an eGFR for both -Americans and non- Americans. The National Kidney Disease Education Program (NKDEP) does not endorse the use of the MDRD equation for patients that are not between the ages of 18 and 70, are , have extremes of body size, muscle mass, or nutritional status, or are non- or non-. According to the National Kidney Foundation, irrespective of diagnosis, the stage of the disease is based on the level of kidney function: Stage Description GFR(mL/min/1.73 m(2)) 1 Kidney damage with normal or decreased GFR 90 2 Kidney damage with mild decrease in GFR 60-89 3 Moderate decrease in GFR 30-59 4 Severe decrease in GFR 15-29 5 Kidney failure <15 (or dialysis) 45 Reference Range and Interpretation: TnI (ng/mL) Interpretation Less Than 0.03 ng/mL Not supportive of diagnosis of MA 0.03 - 0.50 ng/mL Indeterminate: suggest serial studies if clinically indicated. Greater than 0.5 ng/mL Consistent with diagnosis of MA 46 Reference Range and Interpretation: TnI (ng/mL) Interpretation Less Than 0.03 ng/mL Not supportive of diagnosis of MA 0.03 - 0.50 ng/mL Indeterminate: suggest serial studies if clinically indicated. Greater than 0.5 ng/mL Consistent with diagnosis of MA 47 Because ethnic data is not always readily available, this report includes an eGFR for both -Americans and non- Americans. The National Kidney Disease Education Program (NKDEP) does not endorse the use of the MDRD equation for patients that are not between the ages of 18 and 70, are , have extremes of body size, muscle mass, or nutritional status, or are non- or non-. According to the National Kidney Foundation, irrespective of diagnosis, the stage of the disease is based on the level of kidney function: Stage Description GFR(mL/min/1.73 m(2)) 1 Kidney damage with normal or decreased GFR 90 2 Kidney damage with mild decrease in GFR 60-89 3 Moderate decrease in GFR 30-59 4 Severe decrease in GFR 15-29 5 Kidney failure <15 (or dialysis) Procedures Date CPT Code Description Status 08/25/2017 Mammogram Completed 02/17/2017 Diabetic Retinal Eye Exam Completed 09/25/2016 02199 ECHO Transthorasic Realtime 2D W Doppler & Color Flow Completed Hosp 09/24/2016 23967 EKG, Interpretation Only Completed 08/17/2016 Mammogram Completed 10/24/2015 Colonoscopy Completed 08/09/2015 Mammogram Completed Encounters Type Date Location Provider CPT E/M Dx Office Visit 10/14/2017 [facility] [place] [address] K57.32 3:30p [facility] K58.2 Office Visit 07/28/2017 4:00p [facility] [place] [address] J01.90 [place] R05 M89.8x8 Office Visit 07/13/2017 1:08p [facility], [place] [address] J10.1 Hospitalists E11.65 E86.0 I10 Office Visit 06/24/2017 2:00p [facility] Medicine Mina Dorsey, [address] E11.9 - [place] Nichole,FACP I10 Z23 Office Visit 05/31/2017 2:30p [facility] [place] [address] R10.10 Medicine - [address] Office Visit 03/19/2017 4:00p [facility] Mina Dorsey, 569[address] E11.9 Medicine - [place] Nichole,FACP K21.9 I10 Z23 Office Visit 02/23/2017 11:40a [facility] Yair Gutiérrez M.D. 88702 B37.9 Medicine - [address] E11.9 Office Visit 12/16/2016 4:20p [facility] Mina Dorsey, [address] E11.8 - [place] Nichole,FACP J02.9 Office Visit 10/15/2016 11:50a [facility] Mina Dorsey, [address]116 G45.9 - [address] Dionisio,FACP E11.8 I10 B00.89 Office Visit 09/25/2016 9:50a [facility] Joni Hanley, [address] G45.9 M.D. I10 Office Visit 09/25/2016 2:05p [facility], [place] Rivera, [address]118 G45.9 Hospitalists M.D. E11.8 I16.0 G43.909 Office Visit 09/24/2016 9:50a [facility] Joni Hanley, [address]1682 G45.9 M.D. I10 Office Visit 09/24/2016 2:04p [facility], Ladonna Leija, [address]238 G45.9 Hospitalists M.D. E11.8 I16.0 Plan of Care Future Appointment(s):06/22/2019 2:20 pm - Mina Dorsey M.D.,FACP at [facility] - [address]/12/2018 7:30 am - [facility] MD at [facility]12/31/2017 - Mina Dorsey M.D.,FACPE11.9 Type 2 diabetes mellitus without complicationsComments:Discussed your plans for your diabetes medications are as follows:1) Discontinue Metformin and Glipizide the day of the surgery.2) Continue taking Januvia through the surgery.3) Please take half of theToujeo dose on the day of the surgery (18 units instead of 36 units).Your A1c has improved since 09/24/17 from 7.5 down to 7.2 today.Discussed discontinuing your Aspirin a week prior to your surgery.I10 Essential (primary) fnrzqblurelwT01.30 Dvrtclos of lg int w/o perforation or abscess w/o bleeding
--- OUTSIDE RECORDS SUMMARY | 2018-01-12 07:44 | XMS REPORT ---
:1945 External Reference #:[id number] Author Organization Identia Address [address] [place] [address] Phone [phone] Care Team Providers Name Role Phone Mina Dorsey MD Primary Care Physician Unavailable Payers Type Date Identification Numbers Payment Provider Subscriber Health Maintenance Effective: Policy Number: [employer] Medicare Charline Angelo (HMO) 06/28/2016 [id number] Solutions PayID: [id number] [address] [address] [place] [address] Medigap Part B Expires: 06/27/2016 Policy Number: [id number] Medicare Charline Angulo PayID: [id number] [address] [place] [address] Medigap Part B Expires: 08/26/2016 Policy Number: [facility] Charline Angulo [id number] PayID: [id number] [address] [place] [address] Advance Directives Type Date Description Status Comment [...] History Date Family Member(s) Problem(s) Comments Father SD Bypass graft x4 Mother Heart Disease Tachycardic Siblings None Paternal Grandfather due to Heart Disease () Maternal Grandmother due to Bladder Cancer () Maternal Grandmother due to Heart Disease () Social History Type Date Description Comments Marital Status Lives With Daughter 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 [employer] ETOH Use 10/15/2016 Denies alcohol use Recreational [...] s every day Linda Dorsey M.D.,FACP Pen [place] 03/19 Active Misc 31G X 8 100un use one E11.9 Mina mm its time a Linda Dorsey, daily with Dionisio,FACP toualison last visit: 09/24/17 Cheryl Solostar 03/19 Active Solution 300Unit/M 9unit inject Pen-Inject L s subcutaneou Linda Dorsey, sly 25 u MSaira,FACP once a day, increase by 2u every 2 days until Am FS <110, max 40/day (12/30/17 36 units) Januvia 12/21 Active Tablets 100mg 90tab Take 1 s Tablet By Briana Dale M.DJayla,FACP Every Day Lovastatin 12/16 Active Tablets 10mg 90tab Take 1 s Tablet By Linda Dorsey Mouth AT M.DJayla,FACP Bedtime Meclizine HCL 10/15 Active Tablets 25mg 30tab 2-1 by s mouth three Linda Dorsey, times a day M.DJayla,FACP as needed Losartan 10/15 Active Tablets 50mg 90tab Take 1 s Tablet By Linda Dorsey Mouth M.DJayla,FACP Every Day Aspirin Low Dose 09/25 Active Chewtabs 81mg 100un Every Day its Carafate 07/10 Active Tablets 1gm 120ta take one K29.00 bs tablet by Linda Dorsey mouth four MJaylaDJayla,FACP times a day before meals every night Pantoprazole 02/[address] 20mg 90tab 1 by mouth Yair Lucero s every day Dionisio Gutiérrez Metformin HCL 02/01 Active Tablets 1000mg 180ta Take 1 bs Tablet By Linda Dorsey Mouth M.DJayla,FACP Twice A Day Atenolol Active Tablets 50mg 180ta Take 1 Mina /0000 bs Tablet By Linda Dorsey, Mouth M.Linda,FACP Twice A Day Augmentin 07/28 Hx Tablets 875-125mg 20tab 1 tablet by J01.90 Barrett s mouth q12 Ethan, LADLE REPAIRMAN - hours for 08/07 10 days Tramadol HCL 07/28 Hx Tablets 50mg 30tab 1-2 tablets M89.8x8 [place] s every 12 Ethan, LADLE REPAIRMAN - hours as 08/04 needed for pain. [facility] 05/26 Hx Device Mina Blood Glucose /2016 Linda Dorsey Meter - Dionis[facility] 09/24 [facility] 05/26 Hx Strips 150un check BS Mina Blood Glucose /2016 its tid Linda Dorsey Test Strips - Dionisio,[facility] 09/24 Glipizide ER 03/19 Hx Tablets ER 5mg 90tab 1 by mouth 24HR s every [place]achikara - Dionisio wong 06/24 Nystatin 03/19 Hx Powder [id number] 60gm topical B37.9 t/GM twice a day Linda Dorsey, - as needed M.Linda,[facility] 09/24 Clotrimazole 02/23 Hx Cream 1% 90gm apply twice B37.9 daily Marla - Dionisio 03/19 Trulicity 12/16 Hx Solution 0.75mg/0. 4unit sc weekly Pen-Inject 5ML s Ricardo Dale M.D.,FACP 12/21 Januvia 11/03 Hx Tablets 100mg 90tab 1 by mouth s every day Ricardo Dale M.D.,[facility] 12/16 Flexeril 11/01 Hx Tablets 10mg 30tab one tablet s every 12 Linda Dorsey, - hours as M.Linda,[facility] 09/24 needed for muscle spasm Diflucan 11/01 Hx Tablets 150mg 2tabs 1tab by mouth now Ordering - and repeat Provider 02/23 in 3 days Terconazole 11/01 Hx Cream 0.8% 20gm 1 applicator Ordering - intravagina Provider 11/04 lly at bedtime x 3 Valacyclovir HCL 10/15 Hx Tablets 1gm 21tab by mouth s every 8 D. Sunita - hours for 1 M.DJayla,[facility] Synjardy 10/15 Hx Tablets 5-500mg 60tab 2 tabs po s every Am Ricardo Dale M.D.,[facility] 11/03 Nexium 09/[address] 40mg Every Day Unknown - 10/15 Prevnar 13 06/18 Hx Suspension .5uni 0.5mg Z00.00 Huan ts intramuscul Kris - ar once 10/15 Zostavax 06/18 Hx Suspension 78850Kci/ 1unit 1 sq Z00.00 Huan Rec 0.65ML s Ricardo Ponce MD 10/15 Glipizide 02/01 Hx Tablets 5mg 180ta 1 tab twice /2014 bs a day Ricardo Dale M.D.,[facility] 03/19 Eql Pain Relief 01/26 Hx Capsules 500mg Once Unknown Extra Strength /2014 - 10/15 Meclizine HCL 08/17 Hx Tablets 12.5mg 30tab one tab Huan s every 8 Kris - hours as 10/15 Glucophage 02/27 Hx Tablets 500mg Twice Daily Unknown - 10/15 Losartan 00/00 Hx Tablets 25mg 90tab daily Martínez Potassium /0000 s Ricardo Wagoner 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-Mary Ann 10/15 Medications Administered in Office Medication Date Status Form Strength Qnty SIG Indications Ordering Provider Pneumococcal,U Administered Injection Unknown nspecified 010 Immunizations CPT Code Status Date Vaccine Reaction Lot # [id number] Given 06/24/2017 Pneumonia Vaccine [id number] Given 03/19/2017 Influenza Virus Vaccine, NO IMMEDIATE REACTION , [id number] Quadrivalent, Split, PT TOLERATED WELL Preservative Free [id number] Given 04/29/2015 Pneumococcal Conjugate Vaccine 13 Valent For Intramuscular Use Vital Signs Date Vital Result Comment 12/30/2017 Height 62.5 inches 5'2.50" Weight 170.00 [...] Test Date Test Result H/L Range Note CBC Auto Diff 11/22/2017 White Blood Count [...] 0-2 Nucleated Red Blood Cells % 0 Inr/Protime 11/22/2017 Inr 1.02 0.77-1.02 Laboratory test finding 11/22/2017 Partial Thrombo Time 32.4 seconds 26.0 -36.3 PTT Comp Metabolic Panel 11/22/2017 Sodium 139 mmol/L [...] Egfr Non- 56.6 >60 Egfr 72.8 >60 1 Laboratory test finding 11/22/2017 Lipase 26 U/L 11.0-82.0 Troponin-I (TnI) 0.00 ng/mL <0.04 Lactic Acid 1.1 mmol/L 0.5-2.0 2 Urinalysis Profile 11/22/2017 Urine Color Yellow Urine Appearance Cloudy Urine Specific Lockhart 1.012 1.010-1.030 Urine pH 5.0 5-9 Urine Urobilinogen Negative Negative Urine Ketones Negative Negative Urine Protein Negative Negative Urine Leukocytes 1+ Negative Urine Blood Negative Negative Urine Nitrite Negative Negative Urine Bilirubin Negative Negative Urine Glucose Negative Negative Urine White Blood Cell Trace(0-5/hpf) Absent Urine Red Blood Cell Trace(0-2/hpf) Absent Urine Bacteria Absent Absent Urine Squamous Epithelial Cell Present Absent Urine Culture And 11/22/2017 Urine Culture SEE RESULT BELOW 3 Sensitivities Urine Microalbumin Random 09/24/2017 Ur Microalbumin (mg/L) 161.8 mg/L Urine Creatinine 97.93 mg/dL Urine Microalbumin/Creatinine 165.2 ug/mg High <31 Lipid Profile (Trig/Chol/HDL) 09/24/2017 Triglycerides 105 mg/dL 4 Cholesterol 144 mg/dL 5 HDL Cholesterol 63.7 mg/dL 6 LDL Cholesterol 59 mg/dL 7 Basic Metabolic Panel 09/24/2017 Sodium 141 mmol/L 139-145 Potassium 4.7 mmol/L 3.5-5.0 Chloride 105 mmol/L 101-111 Co2 Carbon Dioxide 25 mmol/L 22-32 Anion Gap 11 mmol/L 2-11 Glucose 140 mg/dL High 70-100 Blood Urea Nitrogen 23 mg/dL 6-24 Creatinine 0.92 mg/dL 0.51-0.95 BUN/Creatinine Ratio 25.0 High 8-20 Calcium 9.8 mg/dL 8.6-10.3 Egfr Non- 60.3 >60 Egfr 77.6 >60 8 Laboratory test finding 09/24/2017 Hemoglobin A1c (Glyco HGB) 7.5 % High 4.0-5.6 9 Hepatitis C Antibody Nonreactive Nonreactive 10 CBC Auto Diff 08/23/2017 White Blood Count [...] Reactive Protein 33.38 mg/L High < 5.00 11 Laboratory test finding 08/23/2017 Lactic Acid 2.2 mmol/L High 0.5-2.0 12 Comp Metabolic Panel 08/23/2017 Sodium 136 mmol/L [...] Egfr Non- 63.5 >60 Egfr 81.7 >60 13 Laboratory test 07/25/2017 Rapid Influenza A B SEE RESULT BELOW 14 finding Antigen Laboratory test 07/25/2017 Rapid Strep A SEE RESULT BELOW 15 finding Laboratory test 07/25/2017 Rapid Strep Negative Negative 16 finding Molecular Comp Metabolic Panel 07/25/2017 Sodium [...] Egfr Non- 51.2 >60 Egfr 65.9 >60 17 Laboratory test finding 07/25/2017 C Reactive Protein 8.70 mg/L High < 5.00 18 Urinalysis Profile 07/25/2017 Urine Color Straw Urine Appearance Clear Urine Specific [place] 1.004 Low 1.010-1.030 Urine pH 5.0 5-9 [...] B 07/25/2017 Influenza A Molecular NEGATIVE Negative 19 Molecular Influenza B Molecular NEGATIVE Negative Laboratory [...] Egfr Non- 45.3 >60 Egfr 58.2 >60 20 Laboratory test finding 07/13/2017 Lactic Acid 1.0 mmol/L 0.5-2.0 21 Laboratory test finding 07/13/2017 Lactic Acid 2.4 mmol/L High 0.5-2.0 22 CBC Auto Diff 07/13/2017 White Blood Count [...] finding 07/12/2017 Rapid Strep Molecular Negative Negative 23 Rapid Influenza A & B 07/12/2017 Influenza A Molecular POSITIVE Negative 24 Molecular Influenza B Molecular NEGATIVE Negative Laboratory [...] Color Straw Urine Appearance Clear Urine Specific Lockhart 1.010 1.010-1.030 Urine pH 5.0 5-9 Urine [...] C Reactive Protein 4.08 mg/L < 5.00 25 Comp Metabolic Panel 05/22/2017 Sodium 138 mmol/L [...] Egfr Non- 53.6 >60 Egfr 68.9 >60 26 Laboratory test 05/22/2017 Partial Thrombo 31.1 seconds 26.0-36.3 finding Time PTT Urine Culture And 05/22/2017 Urine Culture SEE RESULT 27 Sensitivities BELOW Laboratory test 03/19/2017 Hemoglobin A1c 8.4 High 5-7 finding Laboratory test 12/27/2016 Point of Care 124 mg/dL High 74-106 28 finding Glucose Laboratory test 12/16/2016 Culture Throat SEE RESULT 29 finding BELOW Laboratory test 12/16/2016 Rapid Group A Strep neg finding Laboratory test 12/16/2016 Hemoglobin A1c 8.3 High 5-7 finding Poc Urinalysis 11/01/2016 Poc Glucose, Urine 2+ Negative Poc Bilirubin, Urine Negative Negative Poc Ketone, Urine Negative Negative Poc Specific [place], Urine 1.010 1.010-1.030 Poc Blood, Urine Trace-intact Negative Poc pH, Urine 5.0 5-9 Poc Protein, Urine Negative Negative Poc Urobilinogen, Urine 0.2 Negative Poc Nitrite, Urine Negative Negative Poc Leukocytes, Urine Negative Negative Poc Color, Urine Yellow Poc Clarity, Urine Clear 30 Urine Culture And 11/01/2016 Urine Culture SEE RESULT BELOW 31 Sensitivities Laboratory test finding 11/01/2016 Gardnerella/Yeast: SEE RESULT BELOW 32 Vaginal Dna Laboratory test finding 09/24/2016 Lactic Acid 1.6 mmol/L 0.5-2.0 33 Troponin I 0.01 ng/mL <0.04 34 CBC Auto Diff 09/24/2016 Abs Basophils 0.1 [...] 3.8 mmol/L 3.5-5.0 Sodium 135 mmol/L 133-145 35 Total Bilirubin 0.40 mg/dL 0.2-1.0 Total Protein [...] Distribution Width 15 % 10.5-15 Urine Specific [place] 1.013 1.010-1.030 Urine pH 5.0 5-9 White Blood Count 7.6 10^3/ul 3.5-10.8 Urinalysis Profile 09/24/2016 Urine Appearance Clear Urine Bacteria Absent Absent Urine Bilirubin Negative Negative Urine Blood Negative Negative Urine Color Yellow Urine Glucose 1+(50 mg/dL) Negative Urine Ketones Negative Negative Urine Leukocytes Negative Negative Urine Nitrite Negative Negative Urine Protein 1+(30 mg/dL) Negative Urine Red Blood Cell Absent Absent Urine Specific [place] 1.013 1.010-1.030 Urine Urobilinogen Negative Negative Urine White Blood Cell Absent Absent Urine pH 5.0 5-9 Laboratory test finding 09/17/2016 Vitamin B12 249 pg/mL 180-914 36 Laboratory Studies 09/17/2016 Urine Creatinine mg/dL 128.28 mg/dL 36 Urine Microalbumin/Creatinine Ratio 366.2 ug/mg High 0-31 36 Urine Random Microalbumin 469.8 mg/L 36 Vitamin B12 Level 249 pg/mL 180-914 36 Urine Microalbumin Random 09/17/2016 Ur Microalbumin (mg/L) 469.8 mg/L 36 Urine Creatinine 128.28 mg/dL 36 Urine Microalbumin/Creatinine 366.2 ug/mg High <31 36 Laboratory test finding 09/17/2016 Hemoglobin A1c (!) [...] 89.6 FL 79-97 MPV 8.1 FL 7.4-10.4 Morrow% 7.3 % 1.0-9.0 Neutrophil % 59.6 % [...] 5.0-8.0 Ua Protein 1+ High Ua Specific Lockhart 1.020 GM/ML 1.00-1.035 Ua Urobilinogen Neg Ua Microscopic 09/17/2016 Ua Amorphous None Ua Bacteria Trace Ua Casts None Ua Crystals Few- CA.[place] Ua Epithelial Cells Mod Ua Mucous Small Ua RBC Rare Ua WBC 0-2 Ua Yeast None Laboratory Studies 06/28/2016 Urine Specific [place] 1.011 1.010-1.030 Urine pH 6.0 5-9 Laboratory test finding 06/28/2016 Lactic Acid 1.3 mmol/L 0.5-2.0 37 Lipase 17 U/L 11.0-82.0 38 Troponin I 0.01 ng/mL <0.04 CBC Auto [...] 4.3 mmol/L 3.5-5.0 Sodium 138 mmol/L 133-145 39 Total Bilirubin 0.40 mg/dL 0.2-1.0 Total Protein [...] Negative Urine Protein Negative Negative Urine Specific [place]hart 1.011 1.010-1.030 Urine Urobilinogen Negative Negative Urine [...] 4.1 mmol/L 3.5-5.0 Sodium 137 mmol/L 133-145 40 Total Bilirubin 0.50 mg/dL 0.2-1.0 Total Protein 7.3 g/dL 6.4-8.9 Laboratory test finding 10/24/2015 Point of Care Glucose 143 mg/dL High 74 -106 41 Laboratory test finding 06/25/2015 [address] 1St Sample (Gai) Neg SOB 2ND Sample (Gai) Neg SOB 3RD Sample (Gai) Neg Ua Dipstick Macroscopic(!) 06/18/2015 Ua Appearance Clear Ua Bilirubin Neg Ua Blood Qual Neg Ua Color Yellow Ua Glucose QL Neg Ua Ketones Neg Ua Leukocytes 1+ High Ua Nitrite Neg Ua PH Test 5.0 units 5.0-8.0 Ua Protein Neg Ua Specific Lockhart 1.020 GM/ML 1.00-1.035 Ua Urobilinogen Neg Ua [...] 87.4 FL 79-97 MPV 7.6 FL 7.4-10.4 Morrow% 8.0 % 1.0-9.0 Neutrophil % 60.0 % [...] mmol/L 0.5-2.2 Troponin I 0.00 ng/mL <0.03 42 CBC Auto Diff 04/30/2015 Abs Basophils 0.1 [...] TNP mmol/L 3.5-5.0 Sodium 136 mmol/L 133-145 43 Total Bilirubin 0.60 mg/dL 0.2-1.0 Total Protein [...] units 5.0-8.0 Ua Protein Neg Ua Specific Lockhart 1.020 GM/ML 1.00-1.035 Ua Urobilinogen Neg Laboratory test finding 01/12/2015 Troponin I 0.01 ng/mL <0.03 44 Laboratory test finding 01/12/2015 Lipase 44 U/L 11.0-82.0 45 Troponin I 0.00 ng/mL <0.03 CBC Auto [...] 4.0 mmol/L 3.5-5.0 Sodium 137 mmol/L 133-145 46 Total Bilirubin 0.30 mg/dL 0.2-1.0 Total Protein [...] 5 Kidney failure <15 (or dialysis) 2 [facility] Severe Sepsis and Septic Shock Management Bundle Measure requires all lactic acids initially measuring >2.0 mmol/L be repeated. 3 SEE RESULT BELOW Name: CHARLINE ANGULO Mary Ann : [address]: Fab Ricardo MD Acct: [id number] Unit: [id number] AGE: 72 Location: ED Re11/22/17 SEX: F Status: DEP ER SPEC: [id number] KATHE: 11/22/[address] [facility] [address]: Fab Ricrado MD REQ: [id number] RECD: 11/22/17 STATUS: [facility] DR: Mina Dorsey MD _ SOURCE: URINE SPDESC: ORDERED: Urine Culture Procedure Result Reported Site Urine Culture Final 11/23/17- 1304 ML No Growth (<1,000 CFU/mL) * ML - Main Lab . END OF REPORT DEPARTMENT OF PATHOLOGY, [address] [place] [address] Anil Goodrich M.D. Director [facility] # [id number] Desirable: <150 Borderline High: 150-199 High: 200-499 Very High: >500 5 Desirable: <200 Borderline High: 200-239 High: >239 6 Low: <40 Desirable: 40-60 High: >60 7 Desirable: <100 Near Optimal: 100-129 Borderline High: 130-159 High: 160-189 Very High: >189 8 Because ethnic data is not always readily [...] 15-29 5 Kidney failure <15 (or dialysis) 9 Therapeutic target for the treatment of diabetes mellitus patients is <7% HBA1C, and in selective patients <6.0%. Please refer to [place] [employer] diabetic care guidelines for further information. 10 FASTING 10 HOUR 11 Acute inflammation: >10.00 12 Critical Result LACT:2.2 Called to DOYLE at: 10:00:35 by:[id number] Read back by:DOYLE EPSTEIN Severe Sepsis and Septic Shock Management Bundle Measure requires all lactic acids initially measuring >2.0 mmol/L be repeated. 13 Because ethnic data is not always readily [...] 15-29 5 Kidney failure <15 (or dialysis) 14 SEE RESULT BELOW Name: CHARLINE ANGULO : [address]: Mike Santo MD Acct: [id number] Unit: [id number] AGE: 71 Location: ED Re07/25/17 SEX: F Status: REG ER SPEC: [id number] KATHE: 07/25/[address]: Evi CARVAJAL REQ: [id number] RECD: 07/25/17 STATUS: [facility] DR: Mina Santo MD _ SOURCE: NASAL SPDESC: ORDERED: Flu A B Request Procedure Result Reported Site Rapid Influenza A B Request Final 07/25/17- 1736 ML Specimen received for Influenza A/B Molecular testing * ML - MAIN LAB ([facility]) . END OF REPORT * ML=Testing performed at Main Lab DEPARTMENT OF PATHOLOGY, [address] [place] [address] Anil Goodrich M.D. Director [facility] # [id number] 15 SEE RESULT BELOW Name: CHARLINE ANGULO : [address]: Mike Santo MD Acct: [id number] Unit: [id number] AGE: 71 Location: ED Re07/25/17 SEX: F Status: REG ER SPEC: [id number] KATHE: 07/25/17-17[address] [facility] [address]: Mike Santo MD REQ: [id number] RECD: 07/25/17 STATUS: [facility] DR: Mina Dorsey MD _ SOURCE: [facility]: ORDERED: Strep A Request Procedure Result Reported Site Rapid Strep A Request Final 07/25/17- 1721 ML Specimen received for Rapid Strep A Molecular testing * ML - MAIN LAB ([facility]) . END OF REPORT * ML=Testing performed at Main Lab DEPARTMENT OF PATHOLOGY, [address] [place] [address] Anil Goodrich M.D. Director [facility] # [id number] 16 Wrapping Machine Helper: [id number] 17 Because ethnic data is not always readily [...] 15-29 5 Kidney failure <15 (or dialysis) 18 Acute inflammation: >10.00 19 Wrapping Machine Helper: [id number] 20 Because ethnic data is not always readily [...] 15-29 5 Kidney failure <15 (or dialysis) 21 [facility] Severe Sepsis and Septic Shock Management Bundle Measure requires all lactic acids initially measuring >2.0 mmol/L be repeated. 22 Critical Result LACT:2.4 Called to [id number] at: 14:56:34 by:[id number] Read back by:[id number] [facility] Severe Sepsis and Septic Shock Management Bundle Measure requires all lactic acids initially measuring >2.0 mmol/L be repeated. 23 Wrapping Machine Helper: [id number] 24 Wrapping Machine Helper: [id number] 25 Acute inflammation: >10.00 26 Because ethnic data is not always readily [...] 15-29 5 Kidney failure <15 (or dialysis) 27 SEE RESULT BELOW Name: CHARLINE ANGULO : [address]: Lilibeth Wan MD Acct: [id number] Unit: [id number] AGE: 71 Location: ED Re05/22/17 SEX: F Status: DEP ER SPEC: [id number] KATHE: 05/22/17 [facility] [address]: Lilibeth Wan MD REQ: [id number] RECD: 05/22/17 STATUS: [facility] DR: Mina Dorsey MD _ SOURCE: URINE SPDESC: ORDERED: Urine Culture Procedure Result Reported Site Urine Culture Final 05/24/17- 08 ML No growth of clinically significant organisms * ML - MAIN LAB ([facility]) . END OF REPORT * ML=Testing performed at Main Lab DEPARTMENT OF PATHOLOGY, [address] [place] [address] Anil Goodrich M.D. Director [facility] # [id number] 28 Wrapping Machine Helper: [id number] 29 SEE RESULT BELOW Name: CHARLINE ANGULO Mary Ann : [address]: Fidel Dorsey MD Acct: [id number] Unit: [id number] AGE: 71 Location: [facility] Re12/16/16 SEX: F Status: REG REF SPEC: [id number] KATHE: 12/16/[address]: Mina Dorsey MD REQ: [id number] RECD: 12/16/16 STATUS: COMP _ SOURCE: THROAT SPDESC: ORDERED: Throat Culture COMMENTS: [id number] Procedure Result Reported Site Throat Culture Final 12/18/16- 1110 ML Organism 1 NORMAL MARIANN Quantity 2+ Throat cultures are clinically indicated to detect the presence of group A strep, arcanobacterium and yeast. In certain cases, predominating organisms will be reported. * ML - MAIN LAB ([facility]) . END OF REPORT * ML=Testing performed at Main Lab DEPARTMENT OF PATHOLOGY, [address] [place] [address] Anil Goodrich M.D. Director [facility] # [id number] 30 Wrapping Machine Helper: [id number] 31 SEE RESULT BELOW Name: CHARLINE ANGULO : [address]: Stanislav Enciso MD Acct: [id number] Unit: [id number] AGE: 70 Location: [facility] Re11/01/16 SEX: F Status: DEP ER SPEC: [id number] KATHE: 11/01/[address]: Roxann Cook NP REQ: [id number] RECD: 11/01/16 STATUS: [facility] DR: Stanislav Dorsey MD _ SOURCE: URINE SPDESC: ORDERED: Urine Culture Procedure Result Reported Site Urine Culture Final 11/02/16- 1303 ML No growth of clinically significant organisms * ML - MAIN LAB ([facility]) . END OF REPORT * ML=Testing performed at Main Lab DEPARTMENT OF PATHOLOGY, [address] [place] [address] Anil Goodrich M.D. Director [facility] # [id number] 32 SEE RESULT BELOW Name: CHARLINE ANGULO : [address]: Stanislav Enciso MD Acct: [id number] Unit: [id number] AGE: 70 Location: [facility] Re11/01/16 SEX: F Status: DEP ER SPEC: [id number] KATHE: 11/01/16-[address]: Roxann Cook NP REQ: [id number] RECD: 11/01/16-9217 STATUS: [facility] DR: Stanislav Dorsey MD _ SOURCE: VAGINAL [...] or failure. * ML - MAIN LAB ([facility]) . END OF REPORT * ML=Testing performed at Main Lab DEPARTMENT OF PATHOLOGY, [address] [place] [address] Anil Goodrich M.D. Director [facility] # [id number] 33 [facility] Severe Sepsis and Septic Shock Management Bundle Measure requires all lactic acids initially measuring >2.0 mmol/L be repeated. 34 99th percentile=0.04 ng/mL Troponin results at [facility] are not interchangeable. 35 Because ethnic data is not always readily [...] 15-29 5 Kidney failure <15 (or dialysis) 36 [id number] [facility] Severe Sepsis and Septic Shock Management Bundle Measure requires all lactic acids initially measuring >2.0 mmol/L be repeated. 38 99th percentile=0.04 ng/mL Troponin results at [facility] and [facility] are not interchangeable. 39 Because ethnic data is not always readily [...] 15-29 5 Kidney failure <15 (or dialysis) 40 Because ethnic data is not always [...] 5 Kidney failure <15 (or dialysis) 41 Wrapping Machine Helper: [id number] BRAULIO NUGENT 42 Reference Range and Interpretation: TnI (ng/mL) Interpretation Less Than 0.03 ng/mL Not supportive of diagnosis of SD 0.03 - 0.50 ng/mL Indeterminate: suggest serial studies if clinically indicated. Greater than 0.5 ng/mL Consistent with diagnosis of SD 43 Because ethnic data is not always readily [...] 15-29 5 Kidney failure <15 (or dialysis) 44 Reference Range and Interpretation: TnI (ng/mL) Interpretation Less Than 0.03 ng/mL Not supportive of diagnosis of SD 0.03 - 0.50 ng/mL Indeterminate: suggest serial studies if clinically indicated. Greater than 0.5 ng/mL Consistent with diagnosis of SD 45 Reference Range and Interpretation: TnI (ng/mL) Interpretation Less Than 0.03 ng/mL Not supportive of diagnosis of SD 0.03 - 0.50 ng/mL Indeterminate: suggest serial studies if clinically indicated. Greater than 0.5 ng/mL Consistent with diagnosis of SD 46 Because ethnic data is not always readily [...] 02/17/2017 Diabetic Retinal Eye Exam Completed 09/25/2016 29206 ECHO Transthorasic Realtime 2D W Doppler & Color Flow Completed Hosp 09/24/2016 41791 EKG, Interpretation Only Completed 08/17/2016 Mammogram Completed 10/24/2015 Colonoscopy Completed 08/09/2015 Mammogram Completed Encounters Type Date Location Provider CPT E/M Dx Office Visit 10/14/2017 [facility] [place] [address] K57.32 3:30p Switch Cleaner K58.2 Office Visit 07/28/2017 4:00p [facility] [place] [address] J01.90 [place] 443105 M89.8x8 Office Visit 07/13/2017 1:08p [facility] [place] [address] J10.1 Hospitalists E11.65 E86.0 I10 Office Visit 06/24/2017 2:00p [facility] Internal Medicine Mina Dorsey, [address] E11.9 - [place] Nichole,FACP I10 Z23 Office Visit 05/31/2017 2:30p [facility] Internal Yanci Weiss, RYAN [address] R10.10 Medicine - [address] Office Visit 03/19/2017 4:00p [facility] Internal Mina Dorsey, [address] E11.9 Medicine - [place] Nichole,FACP K21.9 I10 Z23 Office Visit 02/23/2017 11:40a [facility] Internal Yair Gutiérrez M.D. [address] B37.9 Medicine - [address] E11.9 Office Visit 12/16/2016 4:20p [facility] Internal Medicine Mina Dorsey, [address] E11.[address] - [address] Dionisio,FACP J02.9 Office Visit 10/15/2016 11:50a [facility] Mina Dorsey, [address] G45.9 - [address] Nichole,FACP E11.8 I10 B00.89 Office Visit 09/25/2016 9:50a [facility] Joni Hanley, 14636 G45.9 M.D. I10 Office Visit 09/25/2016 2:05p [facility], Osman Rivera, 33147 G45.9 Hospitalists MSaira E11.8 I16.0 G43.909 Office Visit 09/24/2016 9:50a [facility] Joni Hanley, 55547 G45.9 M.D. I10 Office Visit 09/24/2016 2:04p [facility], Ladonna Leija, [address]8613 G45.9 Hospitalists MJaylaDJayla E11.8 I16.0 Plan of Care Future Appointment(s):12/31/2017 9:40 am - Mina Dorsey M.D.,FACP at [facility] - [address]/ 7:30 am - Davis Smith MD at [facility]
[2018-01-12] MEDS ORDERED: Heparin VIAL(*) 5000 UNITS/ML VIAL (FIVE THOUSAND) ONE (07:55)
[2018-01-12] MEDS ORDERED: Famotidine IV* 10 MG/ML 2 ML (20 mg) ONE (07:55)
[2018-01-12] MEDS ORDERED: Dexamethasone IV* 4 MG/ML 1 ML (4 MG) ONE (07:55)
[2018-01-12] MEDS ORDERED: Midazolam* 1 MG/ML 5 ML VIAL (5 MG) ONE (09:30)
[2018-01-12] MEDS ORDERED: fentaNYL* 50 MCG/ML 5 ML VIAL (250 MCG VIAL) ONE (09:31)
[2018-01-12] MEDS ORDERED: Propofol* 10 MG/ML 20 ML BTL IV PUSH ONE (09:32)
[2018-01-12] MEDS ORDERED: Ketorolac INJ* 30 MG/ML 1 ML VIAL ONE (09:32)
[2018-01-12] MEDS ORDERED: Lidocaine 2% PF * 5 ML VIAL ONE (09:32)
[2018-01-12] MEDS ORDERED: Ondansetron INJ* 2 MG/ML VIAL ONE (09:32)
[2018-01-12] MEDS ORDERED: Bupivacaine 0.25% W/EPI* 10 ML SDV ONE (10:22)
[2018-01-12] MEDS ORDERED: Ondansetron INJ* 2 MG/ML VIAL IV PRN ×3 (11:06→15:18)
[2018-01-12] MEDS ORDERED: DiMENhydriNATE IV* 50 MG/ML VIAL IV PUSH PRN ×2 (11:06)
[2018-01-12] MEDS ORDERED: EPHEDrine (Pressors)* 50 MG/ML VIAL IV PUSH PRN (11:06)
[2018-01-12] MEDS ORDERED: oxyCODONE/Acetamin 5/325 MG* TAB PO PRN ×2 (11:06)
[2018-01-12] MEDS ORDERED: Naloxone* 0.4 MG/ML 1 ML VIAL IV PRN (11:06)
[2018-01-12] MEDS ORDERED: Naloxone* 0.4 MG/ML 1 ML VIAL IV PUSH PRN (11:18)
[2018-01-12] MEDS ORDERED: fentaNYL* 50 MCG/ML 2 ML VIAL (100 MCG VIAL) ONE ×3 (11:19→15:34)
[2018-01-12] MEDS ORDERED: Atracurium* 10 MG/ML 10 ML VIAL ONE (11:41)
[2018-01-12] MEDS ORDERED: Ropivacaine (OR use only) 2 MG/ML 10 ML ONE (11:54)
[2018-01-12] MEDS ORDERED: HYDROmorphone PCA* 20 MG/20 ML PCA.SYRING PCA SCH (12:00)
[2018-01-12] MEDS ORDERED: Scopolamine 1.5 mg* PATCH TRANSDERM SCH (12:00)
[2018-01-12] MEDS ORDERED: HYDROmorphone PCA* 20 MG/20 ML PCA.SYRING ONE (12:18)
[2018-01-12] MEDS ORDERED: Docusate CAP* 100 MG PO PRN (15:18)
[2018-01-12] MEDS ORDERED: Cyclobenzaprine TAB* 10 MG PO PRN (15:22)
[2018-01-12] MEDS ORDERED: Dextrose 50% Syringe 50 ML* 25 GM/50 ML SYRINGE IV PUSH PRN (15:26)
--- NOTE | 2018-01-12 15:31 | OP ---
Operative Report - Blank - Operative Report Date of Operation: 01/12/18 Note: Brief Operative Note: Pre-op: Recurrent diverticulitis Post-op: Same Procedure: Sigmoid colectomy Surgeon: Dr. Smith Blower Mechanic: WEI Alexander Anesthesia: GETA EBL: 300 cc Fluids: LR 2,000 cc Catheter: Boyce to gravity Drains: None Specimen: Sigmoid colon Findings: See dictated op note
[2018-01-12] MEDS ORDERED: HYDROmorphone INJ* 0.5 MG/0.5 ML SYRINGE ONE (15:34)
[2018-01-12] MEDS: HYDROmorphone INJ* 0.5 MG/0.5 ML SYRINGE IV PRN ×3 (15:38→17:38)
[2018-01-12] MEDS: Ropivacaine* 300 MG in NS 0.9% 250 ML* 240 ML EPIDURAL SCH (15:39)
[2018-01-12] MEDS: fentaNYL* 50 MCG/ML 2 ML VIAL (100 MCG VIAL) IV PRN ×2 (15:41→16:17)
[2018-01-12] MEDS ORDERED: Insulin LISPRO* 1 UNITS UNIT SUBCUT ONE (17:06)
[2018-01-12] MEDS: Insulin LISPRO* 1 UNITS UNIT SUBCUT SCH (17:06)
[2018-01-12] MEDS: Atenolol TAB* 50 MG PO SCH (21:20)
[2018-01-12] MEDS: Omeprazole CAP* 20 MG PO SCH (21:21)
[2018-01-12] MEDS: Losartan TAB* 25 MG PO SCH (21:42)
[2018-01-12] MEDS ORDERED: Ertapenem* 1 GM in NS 0.9% 50 ML* 50 ML IVPB ONE (22:00)
[2018-01-13] MEDS: Insulin LISPRO* 1 UNITS UNIT SUBCUT SCH ×4 (00:02→18:33)
[2018-01-13] MEDS: Heparin VIAL(*) 5000 UNITS/ML VIAL (FIVE THOUSAND) SUBCUT SCH ×3 (05:52→21:33)
[2018-01-13 06:03] LABS: Hematocrit 34 % (35-47); Hemoglobin 11.2 g/dl (12.0-16.0); Mean Corpuscular HGB Conc 33 g/dl (31-36); Mean Corpuscular Hemoglobin 28 pg (27-31); Mean Corpuscular Volume 84 fL (80-97); Mean Platelet Volume 8.2 um3 (7.4-10.4); Platelet Count 201 10^3/ul (150-450); Red Blood Count 4.05 10^6/ul (4.00-5.40); Red Cell Distribution Width 15 % (10.5-15)
[2018-01-13 06:09] LABS: ABS Basophils 0 10^3/ul (0-0.2); ABS Eosinophils 0 10^3/ul (0-0.6); ABS Monocytes 1.1 10^3/ul (0-0.8); ABS Nucleated RBC 0 10^3/ul; Eosinophil % 0 % (0-6); Lymphocyte % 7.7 % (25-47); Nucleated Red Blood Cells % 0
[2018-01-13] MEDS: Atenolol TAB* 50 MG PO SCH ×2 (08:09→21:21)
[2018-01-13] MEDS: Omeprazole CAP* 20 MG PO SCH ×2 (08:09→15:10)
--- NOTE | 2018-01-13 10:23 | PN ---
Progress Note - Progress Note Date of Service: 01/13/18 SOAP: Subjective: POD #1 s/p open sigmoid colectomy. Patient rates her pain at a consistent 6/10. She is currently on Dilaudid via LINING SETTER and says she is pushing her button about every 15 minutes with very little relief. Denies nausea/vomiting. She is passing flatus and has ambulated from her bed to the door in her room once today. Objective: Vital Signs 01/13/18 01/13/18 01/13/18 03:00 03:20 05:43 Temperature 98.9 F Pulse Rate 83 Respiratory 16 21 16 Rate Blood Pressure 121/55 (mmHg) O2 Sat by Pulse 95 96 95 Oximetry 01/13/18 01/13/18 01/13/18 07:00 07:14 08:00 Temperature 98.8 F Pulse Rate 85 Respiratory 18 16 16 Rate Blood Pressure 123/58 (mmHg) O2 Sat by Pulse 94 96 94 Oximetry heart- RRR no gallops, rubs or murmurs appreciated lungs- clear to auscultation bilaterally abdo- bowel sounds present and abdomen is tender. wound vac dressing is covering wound with no surrounding erythema. Assessment: S/P sigmoid colectomy the patient appears to be doing well with no signs of infection but pain is not currently well controlled. Plan: -adjust epidural dose -if epidural dose adjustment does work to improve pain, increase Dilaudid -encourage ambulation -incentive spirometry -cruz cath removal tomorrow
[2018-01-13] MEDS ORDERED: HYDROmorphone PCA* 20 MG/20 ML PCA.SYRING PCA SCH (10:36)
--- NOTE | 2018-01-13 11:40 | PN ---
Progress Note - Progress Note Date of Service: 01/13/18 SOAP: Subjective: Pt seen and examined. abdo pain. no flatus, no nausea Objective: af vss uo fair lungs clear abdo: soft/ distended/ tender vac dressing intact ext wnl labs noted Assessment: POD1 sigmoid colectomy Plan: continue cruz for now- fair UO, difficulty getting out of bed pain control ice chips
[2018-01-13] MEDS: Ropivacaine* 300 MG in NS 0.9% 250 ML* 240 ML EPIDURAL SCH (13:34)
[2018-01-13] MEDS ORDERED: NS 0.9% 1000 ML* 1,000 ML IV ONE (15:25)
[2018-01-13] MEDS ORDERED: Magnesium Sulfate 1 GM IV* 1 GM/100 ML BAG IV ONE (15:25)
[2018-01-13] MEDS: Losartan TAB* 25 MG PO SCH (21:21)
[2018-01-14 05:51] LABS: ABS Basophils 0 10^3/ul (0-0.2); ABS Eosinophils 0.1 10^3/ul (0-0.6); ABS Lymphocytes 1.4 10^3/ul (1.0-4.8); ABS Monocytes 0.6 10^3/ul (0-0.8); ABS Neutrophils 6.9 10^3/ul (1.5-7.7); ABS Nucleated RBC 0 10^3/ul; Eosinophil % 0.7 % (0-6); Hematocrit 28 % (35-47); Hemoglobin 9.6 g/dl (12.0-16.0); Lymphocyte % 15.4 % (25-47); Mean Corpuscular HGB Conc 34 g/dl (31-36); Mean Corpuscular Hemoglobin 29 pg (27-31); Mean Corpuscular Volume 84 fL (80-97); Mean Platelet Volume 7.9 um3 (7.4-10.4); Nucleated Red Blood Cells % 0; Platelet Count 135 10^3/ul (150-450); Red Blood Count 3.36 10^6/ul (4.00-5.40); Red Cell Distribution Width 15 % (10.5-15)
[2018-01-14] MEDS: Insulin LISPRO* 1 UNITS UNIT SUBCUT SCH ×4 (06:03→18:19)
[2018-01-14] MEDS: Heparin VIAL(*) 5000 UNITS/ML VIAL (FIVE THOUSAND) SUBCUT SCH ×3 (06:03→21:57)
[2018-01-14 06:17] LABS: EGFR Non-African American 82.5 (>60)
[2018-01-14] MEDS: Omeprazole CAP* 20 MG PO SCH ×2 (08:18→16:51)
[2018-01-14] MEDS: Atenolol TAB* 50 MG PO SCH ×2 (08:19→21:06)
--- NOTE | 2018-01-14 11:18 | PN ---
Progress Note - Progress Note Date of Service: 01/14/18 SOAP: Subjective: Pt seen and examined. abdo pain. no flatus, no nausea, positive burping Attempted to walk together today, but pt unsteady with R leg cramp and abdominal pain Objective: af Hr 90-100s normotensive; O2 sat 94% on ra uo good lungs clear abdo: distended/ tender diffusely vac dressing intact ext wnl labs noted Assessment: POD2 sigmoid colectomy Plan: d/c cruz pain control ice chips OOB change IVF
[2018-01-14] MEDS: D5W 1/2 NS 1000 ML BAG* 1,000 ML IV SCH (11:21)
--- NOTE | 2018-01-14 15:16 | RAD ---
HISTORY: enlarged R calf, s/p surgery; r/o DVT COMPARISONS: None relevant TECHNIQUE: Multiple transverse and longitudinal ultrasound images were obtained of the right lower extremity from the level of the common femoral vein inferiorly through to the infrapopliteal veins using grayscale, color Doppler, and spectral Doppler imaging with and without compression and with augmentation. Comparison images were obtained of the contralateral common femoral vein. FINDINGS: VEINS: The venous system of the right lower extremity is compressible throughout its course, with normal flow on color Doppler imaging and normal response to augmentation on spectral Doppler imaging. SOFT TISSUES: Unremarkable. OTHER FINDINGS: There is a 4.6 x 1.1 x 2.7 cm fluid collection within the popliteal fossa. IMPRESSION: 1. NO RIGHT LOWER EXTREMITY DEEP VEIN THROMBOSIS 2. BETTS'S CYST
[2018-01-14] MEDS: Ropivacaine* 300 MG in NS 0.9% 250 ML* 240 ML EPIDURAL SCH (16:10)
--- NOTE | 2018-01-14 17:01 | PN ---
Progress Note - Progress Note Date of Service: 01/14/18 SOAP: Subjective: POD #2 s/p sigmoid colectomy. Patient complains of pain behind her R knee. A doppler was ordered and the impression was a Watkins's cyst. Admits to feeling a little hot but at 15:09 temp was 99.5 F. Denies chills, n/v. Her abdominal pain is better controlled today. She can usually get her pain level down to 3-4/10 by laying down still and using her RECEIVING TELLER every 10-15 minutes. She is passing flatus and urinated for the first time at 16:40 since getting her cruz removed at 11:00. She tried ambulating this morning with but was lightheaded and in pain so she didn't but since then she walked to the commode to urinate. Objective: Vital Signs 01/14/18 01/14/18 01/14/18 10:00 11:28 12:00 Temperature 98.5 F Pulse Rate 105 Respiratory 18 20 20 Rate Blood Pressure 154/66 (mmHg) O2 Sat by Pulse 96 94 96 Oximetry 01/14/18 01/14/18 14:00 15:09 Temperature 99.5 F Pulse Rate 105 Respiratory 18 20 Rate Blood Pressure 160/90 (mmHg) O2 Sat by Pulse 94 95 Oximetry heart: RRR lungs: clear to auscultation bilaterally abdomen: +b/s, tenderness elicited on light palpation. no erythema or edema surrounding wound dressing. Assessment: S/P sigmoid colectomy the patient is improving and her pain is being managed better. Plan: -continue RECEIVING TELLER -continue ice chips only -incentive spirometry -ambulation
[2018-01-14] MEDS: Losartan TAB* 25 MG PO SCH (21:06)
[2018-01-15] MEDS: Insulin LISPRO* 1 UNITS UNIT SUBCUT SCH ×4 (00:02→18:08)
[2018-01-15] MEDS: D5W 1/2 NS 1000 ML BAG* 1,000 ML IV SCH ×2 (00:38→14:00)
[2018-01-15 05:36] LABS: ABS Basophils 0 10^3/ul (0-0.2); ABS Eosinophils 0.2 10^3/ul (0-0.6); ABS Lymphocytes 1.2 10^3/ul (1.0-4.8); ABS Monocytes 0.7 10^3/ul (0-0.8); ABS Neutrophils 6.5 10^3/ul (1.5-7.7); ABS Nucleated RBC 0 10^3/ul; Eosinophil % 2.8 % (0-6); Hematocrit 28 % (35-47); Hemoglobin 9.4 g/dl (12.0-16.0); Lymphocyte % 13.9 % (25-47); Mean Corpuscular HGB Conc 34 g/dl (31-36); Mean Corpuscular Hemoglobin 29 pg (27-31); Mean Corpuscular Volume 83 fL (80-97); Mean Platelet Volume 7.4 um3 (7.4-10.4); Nucleated Red Blood Cells % 0; Platelet Count 144 10^3/ul (150-450); Red Blood Count 3.32 10^6/ul (4.00-5.40); Red Cell Distribution Width 15 % (10.5-15); White Blood Count 8.6 10^3/ul (3.5-10.8)
[2018-01-15] MEDS: Heparin VIAL(*) 5000 UNITS/ML VIAL (FIVE THOUSAND) SUBCUT SCH ×3 (06:02→22:45)
[2018-01-15] MEDS: Omeprazole CAP* 20 MG PO SCH ×2 (07:19→16:43)
--- NOTE | 2018-01-15 08:29 | PN ---
Progress Note - Progress Note Date of Service: 01/15/18 SOAP: Subjective: Pt seen and examined. abdo pain. no flatus, no nausea, positive burping walk together today Objective: af Hr 90-100s normotensive; uo fair lungs clear abdo: distended/ tender diffusely vac dressing intact ext wnl labs noted Assessment: POD3 sigmoid colectomy Plan: pain control clears OOB
[2018-01-15] MEDS: Atenolol TAB* 50 MG PO SCH ×2 (09:58→22:43)
[2018-01-15] MEDS ORDERED: Scopolamine PATCH Remove* 1 NOTE MISC PATCH OFF ONE (12:00)
--- NOTE | 2018-01-15 16:29 | OP ---
[facility]; primary care doctor; Mina Dorsey MD OPERATIVE REPORT: DATE OF OPERATION: 01/12/18 DATE OF : 1945 SURGEON: Davis Smith MD RADIO TECHNICIAN: Catherine. ANESTHESIOLOGIST: Dr. Bergman. ANESTHESIA: General and epidural. PRE-OP DIAGNOSIS: Recurrent diverticulitis. POST-OP DIAGNOSIS: Recurrent diverticulitis. OPERATIVE PROCEDURE: Sigmoid colectomy. ESTIMATED BLOOD LOSS: 300 cc. FLUIDS: 2 L of crystalloid fluid given. DRAINS: Boyce catheter to gravity. SPECIMEN: Sigmoid colon. INDICATIONS: Ms. Angulo is a 72-year-old female with history of recurrent diverticulitis leading to s everal emergency room visits and treatments. The patient was seen as outpatient and recommendation w as for a sigmoid colectomy. The patient understood the risk, benefits and alternatives for the proce dure. She understood the risks which included bleeding, infection, leak, the possible need for colos issac, possible prolonged hospitalization, stroke, [place] and even and consent was signed. On day of admission, the patient was brought to the operating room. A spinal epidural was inserted. Please see the operative report for details. The patient was then given general anesthesia after pl acement of sequential devices bilaterally. The patient received preoperative antibiotics. Rectal exam was performed and rectum was washed out with the Betadine mixture. There was no evidence of stenosis at the anus. The patient was mostly clear from below. Boyce catheter was then inserted and the patient's abdomen was prepped and draped in standard surgical fashion and a time-out was per formed. DESCRIPTION OF PROCEDURE: A midline incision was made, this was deepened down through layers of the abdominal wall and entry into the abdomen was made. Small bowel appeared normal. The omentum was ad hered to the anterior abdominal wall mostly at the upper abdomen along the open cholecystectomy scar. The portion inferior to this were taken down with sharp dissection and the omentum reflected superi kamila. A Bookwalter retractor was used and the small bowel was brought up into the right upper quadrant. We first had to lyse some adhesions of the small bowel from the cecum and sigmoid colon. The descendin g colon appeared normal. It then started to show bulkiness consistent with disease that had extended into the pelvis. In the pelvis, the colon took an angulation, which was difficult to fully gauge at this point. Attention was then towards the White line of Toldt. This was taken down with electrocautery and we e xtended our dissection up to the splenic flexure. Omentum over the site were taken down with both bl unt and sharp dissection until we could see the splenic flexure well enough. We entered into the day ne in between omentum and transverse colon mesentry and performed our dissection from here to fully t karina down the splenic flexure. Once this was taken down, we did put a lap pad up in the site. There was some oozing. Colon appeare d intact and next our attention towards the pelvis. We took the peritoneum off the lateral aspect of the sigmoid colon. It should be noted that we refle cted colon medially and the left ureter was identified. It was difficult attachments to what seemed to be the vaginal cuff. This was taken down mostly bluntly with scissors. Blunt dissection of the s igmoid colon was utilized to really follow its outline. The angulation had extended towards the righ t iliac fossa, it proved difficult and we ended up entering into the colon. There was no soilage; ho wever, and this was clamped off. This gave us the opportunity to follow the colon inferiorly and gav e stability to stay in the appropriate plane. We got towards the upper rectum and finally the perito andie reflection at this site. Upper rectum appeared intact and at this point we made our decision to transect the colon with a TA-60 green load stapler. LigaSure device was then used to take the mesen try. I took this up to the area of the mid descending colon. The specimen was passed off and attent ion was turned towards the pelvis. Hemostasis was achieved. There was some oozing at the vaginal cu ff area. Bladder was maintained intact and was not injured. There were no ovaries, no uterus as exp ected. The anterior aspect of the rectum was intact and free of any disease. The descending colon came into this area with ease and without tension. It should be noted that we did transect the colon utilizing a pursestring device first placing this o edilberto the portion of the colon that we wished to transect through. Once the pursestring was in place, we did cut that specimen off. The descending colon was then dilated with the typical dilators. It would not be able to hold a 31 m m EEA anvil. We also did have some leakage of thin brownish fluid. This was suctioned off and we di d have the bowel clamped proximally and soilage was minimal. Once 31 mm [address] was in place, the 3-0 suture was tied down. It appeared intact and was involving th e entire wall of the colon. There were no diverticula at this site. From below, the anus was dilated and EEA stapling device inserted. We placed the spike out at the a nterior proximal rectum and matted with the anvil. An air test was utilized placing the anastomosis under water. We inflated the rectum with air. We c lamped the descending colon in the appropriate fashion and the bowel dilated with air easily. There was no leak and the air was then evacuated. The anastomosis was in the appropriate orientation, inta ct and there was no evidence of bleeding. We then irrigated out the pelvis, where there had been scant amount of soilage. We then looked at th e splenic flexure. Some omental areas were oozing and these were controlled with electrocautery. We copiously irrigated the abdomen with approximately 3 L of warm saline. The retractor was then rem nneka. Small bowel allowed to fall in through position. Attention was turned towards the midline inci ronnie, which was reapproximated with #1 Vicryl sutures in [id number] fashion. We irrigated the s kin incision and reapproximated with skin ellen and applied a negative pressure wound therapy KCI v acuum to the midline wound. The patient was woken up in the OR and transferred to PACU in stable con dition. [id number]/[facility] [place] #: [id number]
[2018-01-15] MEDS ORDERED: Ketorolac INJ* 15 MG/ML 1 ML VIAL IV PUSH ONE (22:26)
[2018-01-15] MEDS: Losartan TAB* 25 MG PO SCH (22:42)
[2018-01-16] MEDS: Insulin LISPRO* 1 UNITS UNIT SUBCUT SCH ×5 (00:10→22:01)
[2018-01-16] MEDS: D5W 1/2 NS 1000 ML BAG* 1,000 ML IV SCH ×3 (03:15→18:21)
[2018-01-16 06:10] LABS: ABS Basophils 0 10^3/ul (0-0.2); ABS Eosinophils 0.4 10^3/ul (0-0.6); ABS Lymphocytes 1.2 10^3/ul (1.0-4.8); ABS Nucleated RBC 0 10^3/ul; Eosinophil % 5.2 % (0-6); Hematocrit 28 % (35-47); Hemoglobin 9.6 g/dl (12.0-16.0); Lymphocyte % 13.6 % (25-47); Mean Corpuscular HGB Conc 34 g/dl (31-36); Mean Corpuscular Hemoglobin 29 pg (27-31); Mean Corpuscular Volume 84 fL (80-97); Mean Platelet Volume 7.7 um3 (7.4-10.4); Nucleated Red Blood Cells % 0; Platelet Count 178 10^3/ul (150-450); Red Blood Count 3.33 10^6/ul (4.00-5.40); Red Cell Distribution Width 15 % (10.5-15); White Blood Count 8.7 10^3/ul (3.5-10.8)
[2018-01-16 06:31] LABS: EGFR Non-African American 68.7 (>60)
[2018-01-16] MEDS: Heparin VIAL(*) 5000 UNITS/ML VIAL (FIVE THOUSAND) SUBCUT SCH ×3 (06:35→22:03)
[2018-01-16] MEDS: Omeprazole CAP* 20 MG PO SCH ×2 (07:23→17:27)
[2018-01-16] MEDS: Atenolol TAB* 50 MG PO SCH ×2 (08:53→21:57)
--- NOTE | 2018-01-16 10:24 | PN ---
Progress Note - Progress Note Date of Service: 01/16/18 SOAP: Subjective: Pt seen and examined. abdo pain. no flatus, no nausea, feeling better today. Difficult night with pain at Right pop fossa (Watkins's cyst) walk together today Objective: Temp Pulse Resp BP Pulse Ox 98.2 F 70 18 144/65 97 01/16/18 07:11 01/16/18 07:11 01/16/18 08:47 01/16/18 07:11 01/16/18 08:00 Intake & Output 01/15/18 01/16/18 01/16/18 22:59 06:59 14:59 Intake Total 310 50 Output Total 100 500 750 Balance 210 -450 -750 lungs clear abdo: less distended/ less tender vac dressing intact ext wnl labs noted path: reviewed and d/w pt Assessment: POD4 sigmoid colectomy Plan: pain control advance to liquids OOB
[2018-01-16] MEDS ORDERED: Insulin LISPRO* 1 UNITS UNIT SUBCUT SCH (10:30)
[2018-01-16] MEDS ORDERED: Magnesium Sulfate 1 GM IV* 1 GM/100 ML BAG IV ONE (11:00)
[2018-01-16] MEDS: Potassium Phosphate IV* 15 MMOLE in NS 0.9% 250 ML* 250 ML IVPB SCH ×2 (12:49→20:03)
[2018-01-16] MEDS: Losartan TAB* 25 MG PO SCH (21:57)
[2018-01-16] MEDS: metFORMIN* 1,000 MG TAB PO SCH (21:58)
[2018-01-17] MEDS: Heparin VIAL(*) 5000 UNITS/ML VIAL (FIVE THOUSAND) SUBCUT SCH ×3 (06:34→22:14)
[2018-01-17] MEDS: Omeprazole CAP* 20 MG PO SCH ×2 (07:39→16:59)
[2018-01-17] MEDS: Aspirin 81 mg CHEW TAB* 81 MG TAB.CHEW PO SCH (09:40)
[2018-01-17] MEDS: metFORMIN* 1,000 MG TAB PO SCH ×2 (09:40→22:10)
[2018-01-17] MEDS: Atenolol TAB* 50 MG PO SCH ×2 (09:40→22:10)
[2018-01-17] MEDS: glipiZIDE TAB* 5 MG PO SCH (09:40)
[2018-01-17] MEDS: Insulin LISPRO* 1 UNITS UNIT SUBCUT SCH ×4 (09:42→22:11)
[2018-01-17] MEDS ORDERED: oxyCODONE/Acetamin 5/325 MG* TAB PO PRN (10:56)
[2018-01-17] MEDS ORDERED: HYDROmorphone INJ* 0.5 MG/0.5 ML SYRINGE IV SLOW PU PRN (10:57)
--- NOTE | 2018-01-17 11:00 | PN ---
Progress Note - Progress Note Date of Service: 01/17/18 SOAP: Subjective: pt seen and examined. Doing well today. OOB. Pos flatus this am, no nausea Objective: Temp Pulse Resp BP Pulse Ox 98.4 F 71 20 137/62 97 01/17/18 07:22 01/17/18 07:22 01/17/18 10:00 01/17/18 07:22 01/17/18 10:00 Intake & Output 01/16/18 01/17/18 01/17/18 22:59 06:59 14:59 Intake Total 650 50 270 Output Total 225 200 150 Balance 425 -150 120 a and o x3, nad lungs clear, decreased effort abdo; soft/ less distended/ less tender CIGAR HEAD PERFORATOR dressing removed. no erythema, small bulla at umbilicus ext: pop fossa discomfort Assessment: POD 5, sigmoid colectomy Plan: ad calzada diet d/c planning
[2018-01-17] MEDS: Ketorolac INJ* 15 MG/ML 1 ML VIAL IV PUSH SCH ×3 (11:41→22:16)
[2018-01-17] MEDS: Losartan TAB* 25 MG PO SCH (22:09)
[2018-01-18] MEDS: Ketorolac INJ* 15 MG/ML 1 ML VIAL IV PUSH SCH ×4 (06:03→22:54)
[2018-01-18] MEDS: Heparin VIAL(*) 5000 UNITS/ML VIAL (FIVE THOUSAND) SUBCUT SCH ×3 (06:05→21:05)
[2018-01-18] MEDS: Omeprazole CAP* 20 MG PO SCH ×2 (07:35→16:42)
[2018-01-18] MEDS: metFORMIN* 1,000 MG TAB PO SCH ×2 (09:35→20:53)
[2018-01-18] MEDS: Aspirin 81 mg CHEW TAB* 81 MG TAB.CHEW PO SCH (09:35)
[2018-01-18] MEDS: glipiZIDE TAB* 5 MG PO SCH (09:35)
[2018-01-18] MEDS: Atenolol TAB* 50 MG PO SCH ×2 (09:35→20:52)
[2018-01-18] MEDS: Insulin GLARGINE(*) 1 UNITS UNIT SUBCUT SCH (09:36)
[2018-01-18] MEDS: Insulin LISPRO* 1 UNITS UNIT SUBCUT SCH ×4 (09:37→21:03)
[2018-01-18] MEDS: Acetaminophen TAB* 325 MG PO PRN ×2 (09:41→13:53)
--- NOTE | 2018-01-18 10:12 | PN ---
Progress Note - Progress Note Date of Service: 01/18/18 SOAP: Subjective: pt seen and exemained. Fells well. pos flatus, BM, less ado pain Objective: Temp Pulse Resp BP Pulse Ox 97.7 F 79 16 155/76 95 01/18/18 07:24 01/18/18 07:24 01/18/18 07:44 01/18/18 07:24 01/18/18 07:24 Intake & Output 01/17/18 01/18/18 01/18/18 22:59 06:59 14:59 Intake Total 560 360 200 Output Total 200 Balance 360 360 200 lungs clear abdo: soft/ less distended, NT staple line intact, bulla unchanged, no drainage ext wnl Assessment: POD6 sigmoid colectomy Plan: advance diet d/c planning
--- NOTE | 2018-01-18 10:56 | PN ---
Progress Note - Progress Note Date of Service: 01/18/18 SOAP: Subjective: [] Objective: [] Assessment: [] Plan: []
[2018-01-18] MEDS: Losartan TAB* 25 MG PO SCH (20:53)
[2018-01-19] MEDS: Acetaminophen TAB* 325 MG PO PRN (05:30)
[2018-01-19] MEDS: Heparin VIAL(*) 5000 UNITS/ML VIAL (FIVE THOUSAND) SUBCUT SCH (05:32)
[2018-01-19] MEDS: glipiZIDE TAB* 5 MG PO SCH (07:48)
[2018-01-19] MEDS: Aspirin 81 mg CHEW TAB* 81 MG TAB.CHEW PO SCH (07:48)
[2018-01-19] MEDS: Atenolol TAB* 50 MG PO SCH (07:48)
[2018-01-19] MEDS: metFORMIN* 1,000 MG TAB PO SCH (07:48)
[2018-01-19] MEDS: Omeprazole CAP* 20 MG PO SCH (07:48)
[2018-01-19] MEDS: Insulin GLARGINE(*) 1 UNITS UNIT SUBCUT SCH (07:49)
[2018-01-19] MEDS: Insulin LISPRO* 1 UNITS UNIT SUBCUT SCH ×2 (07:50→12:14)
[2018-01-19 11:49] VITALS: BP 147/67
== END 2018-01-19 12:55 | disposition home or self-care (01) | DRG 331 ==
LOC: AA 01-12 07:38 → SSU 01-12 18:34
PROVIDERS: ADMIT Surgery; ATTEND Surgery
PROC: 0DBN0ZZ Excision of Sigmoid Colon, Open Approach (ICD-10-PCS; principal; 2018-01-12 09:15)
DX: K57.32 Diverticulitis of large intestine without perforation or abscess without bleeding (principal); I10 Essential (primary) hypertension; E11.9 Type 2 diabetes mellitus without complications; K59.00 Constipation, unspecified; K58.9 Irritable bowel syndrome, unspecified; K21.9 Gastro-esophageal reflux disease without esophagitis; E66.9 Obesity, unspecified; M50.30 Other cervical disc degeneration, unspecified cervical region; M71.21 Synovial cyst of popliteal space [Baker], right knee; K57.90 Diverticulosis of intestine, part unspecified, without perforation or abscess without bleeding; M48.02 Spinal stenosis, cervical region; Z90.49 Acquired absence of other specified parts of digestive tract; Z90.710 Acquired absence of both cervix and uterus; Z88.5 Allergy status to narcotic agent; Z88.8 Allergy status to other drugs, medicaments and biological substances; Z91.041 Radiographic dye allergy status; Z83.2 Family history of diseases of the blood and blood-forming organs and certain disorders involving the immune mechanism; Z80.0 Family history of malignant neoplasm of digestive organs; Z72.89 Other problems related to lifestyle; Z68.30 Body mass index [BMI] 30.0-30.9, adult
CPT/HCPCS: 36415; 62323; 80048; 83735; 84100; 85025; 88307; A9270-GY; A9272; J1100; J1170; J1335; J1644; J1885; J2250; J2405; J2704; J2795; J3010; J3475

== ENCOUNTER 2018-02-09 18:10 | Emergency (ER) | payer MEDICARE ==
[2018-02-09 18:20] VITALS: BP 150/63
--- NOTE | 2018-02-09 18:32 | UC ---
Ear Complaint HPI - HPI Summary HPI Summary: The patient is a 72 y/o F presenting to [facility] c/o possible cerumen impaction in bilateral ears starting about a week ago. She states that the right ear is in more pain than the left, and her hearing has been muffled in both ears. Overakk , the pain is rated 5/10 in severity. She has been using ear drops for wax buildup, but it doesn't seem to be helping. She additionally c/o lightheadedness this morning. She denies CP. She has hx of cerumen impaction, diabetes. - History of Current Complaint Chief Complaint: UCEar Stated Complaint: EARS CLOGGED Time Seen by Provider: 02/09/18 18:24 Hx Obtained From: Patient Hx Last Menstrual Period: post Onset/Duration: Sudden Onset, Lasting Days - one week, Still Present Severity Initially: Mild Severity Currently: Mild Pain Intensity: 5 Pain Scale Used: 0-10 Numeric Aggravating Factors: Nothing Alleviating Factors: Nothing - has been trying wax build-up medication to no relief Associated Signs/Symptoms: Positive: Hearing Loss - Allergies/Home Medications Allergies/Adverse Reactions: Allergies Allergy/AdvReac Type Severity Reaction Status Date / Time codeine Allergy Severe Nausea Verified 02/09/18 18:20 Iodinated Contrast- Oral and Allergy Severe Hives Verified 02/09/18 18:20 IV Dye prochlorperazine Allergy Severe convulsions Verified 02/09/18 18:20 [From Compazine] Home Medications: Home Medications Ibuprofen TAB* [Motrin TAB* 400 MG] 800 mg PO Q6HR 02/09/18 [History Confirmed 02/09/18] PMH/Surg Hx/FS Hx/Imm Hx Endocrine History: Diabetes Other Cardiovascular History: NEGATIVE: HTN Other Respiratory History: NEGATIVE: COPD, asthma - Surgical History Surgical History: Yes Surgery Procedure, Year, and Place: Tonsillectomy 6 yrs of age [place]. Hysterectomy with left oopherectomy age 34 yrs [facility] [place]. oopherectomy age 39 [facility] [place]. Cholecystectomy [facility]. Right Knee Arthroscopy [facility] [place] - Family History Known Family History: Positive: Cardiac Disease - Both parents., Hypertension, Other - similar neck problems - mother - Social History Alcohol Use: None Substance Use Type: None Smoking Status (MU): Never Smoked Tobacco Have You Smoked in the Last Year: No - Immunization History Most Recent Influenza Vaccination: 10/17 Most Recent Tetanus Shot: utd Most Recent Pneumonia Vaccination: utd Review of Systems Constitutional: Other - lightheaded ENT: Ear Ache - bilateral ears, worse in right ear, with possible cerumen impaction Cardiovascular: Other - NEGATIVE: chest pain All Other Systems Reviewed And Are Negative: Yes Physical Exam - Summary Physical Exam Summary: General: well-appearing, no pain distress Skin: warm, color reflects adequate perfusion, dry Head: normal Eyes: EOMI, SHEILA ENT: Right ear canal cerumen impaction, left ear has cerumen obscuring half of TM, TM is normal Neck: supple, nontender Respiratory: CTA, breath sounds present Cardiovascular: RRR Abdomen: soft, nontender Bowel: present Musculoskeletal: normal, strength/ROM intact Neurological: sensory/motor intact, A&O x3 Psychological: affect/mood appropriate Triage Information Reviewed: Yes Vital Signs: Initial Vital Signs Temp 98.6 F 02/09/18 18:14 Pulse 82 02/09/18 18:14 Resp 16 02/09/18 18:14 BP 150/63 02/09/18 18:14 Pulse Ox 100 02/09/18 18:14 Vital Signs Reviewed: Yes Ear Complaint Course/Dx - Course Course Of Treatment: Medications reviewed. Allergies noted. BP noted and advised to follow up with PCP. - Differential Dx/Diagnosis Provider Diagnoses: CERUMEN IMPACTION. Elevated BP without dx of HTN, Discharge - Sign-Out/Discharge Documenting (check all that apply): Patient Departure - Patient will be discharged home. - Discharge Plan Condition: Stable Disposition: HOME Patient Education Materials: Cerumen Impaction (ED) Referrals: Mina Dorsey MD [Primary Care Provider] - Additional Instructions: FOLLOW UP WITH YOUR DOCTOR IF NOT COMPLETELY IMPROVED. GET RECHECKED FOR ANY WORSENING OF YOUR CONDITION OR QUESTIONS OR CONCERNS. Your blood pressure was elevated during todays visit; please follow up with your primary care provider within a week for further evaluation. - Billing Disposition and Condition Condition: STABLE Disposition: Home Attestation Statement Scribe Attestation: This is marilou Christopher documenting for attending Dr. Jorge Alberto Hong MD. User Type: Provider with Scribe Provider Attestation: The documentation recorded by the sayraibe accurately reflects the service I personally performed and the decisions made by me.
== END 2018-02-09 18:55 | disposition home or self-care (01) ==
LOC: UCEAST 18:10
DX: H61.23 Impacted cerumen, bilateral (principal); R03.0 Elevated blood-pressure reading, without diagnosis of hypertension; R42 Dizziness and giddiness; Z88.5 Allergy status to narcotic agent; Z88.8 Allergy status to other drugs, medicaments and biological substances; Z91.041 Radiographic dye allergy status
CPT/HCPCS: 99213; G0463

== ENCOUNTER 2018-03-17 15:47 | Emergency (ER) | payer MEDICARE ==
--- OUTSIDE RECORDS SUMMARY | 2018-03-17 15:52 | XMS REPORT ---
:1945 External Reference #:[id number] Author Organization [facility] Address [address] [place] [address] Phone [phone] Care Team Providers Name Role Phone Mina Dorsey MD Primary Care Physician Unavailable Payers Type Date Identification Numbers Payment Provider Subscriber Health Maintenance Effective: Policy Number: [employer] Medicare Charline Angulo Organization (HMO) 06/28/2016 [id number] Solutions PayID: [id number] [address] [address] [place] [address] Medigap Part B Expires: 06/27/2016 Policy Number: [id number] Medicare Charline Angulo PayID: [id number] [address] [place] [address] Medigap Part B Expires: 08/26/2016 Policy Number: [facility] Charline Angulo [id number] PayID: [id number] [address] [place] [address] Advance Directives Type Date Description Status Comment Other Directive 05/31/2017 Health Care Proxy Current and Verified Problems Date Description Provider Status Onset: 01/17/2013 Type 2 diabetes mellitus Kris Pressley MD Active Onset: 01/17/2013 Essential hypertension Kris Pressley MD Active Onset: 01/17/2013 Irritable bowel syndrome Kris Pressley MD Active Onset: 01/17/2013 Diverticular disease of colon Kris Pressley MD Active Note: had sigmoid resection Onset: 10/15/2016 Microalbuminuria due to type 2 Mina Dorsey, Active diabetes mellitus Dionisio,FACP Onset: 06/24/2017 Ex-smoker Mina Dorsey, Active Dionisio,FACP Onset: 08/17/2014 Dizziness and giddiness Inactive Inactive: 10/15/2016 Onset: 07/16/2014 Epigastric pain Inactive Inactive: 10/15/2016 Onset: 07/16/2014 Flatulence, eructation and gas pain Inactive Inactive: 10/15/2016 Family History Date Family Member(s) Problem(s) Comments Father [place] Bypass graft x4 Mother Heart Disease Tachycardic Siblings None Paternal Grandfather due to Heart Disease () Maternal Grandmother due to Bladder Cancer () Maternal Grandmother due to Heart Disease () Social History Type Date Description Comments Marital Status Lives With Daughter 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 [employer] ETOH Use 10/15/2016 Denies alcohol use Recreational [...] Form Strength Qnty SIG Indications Ordering Provider Accu-Check 09/24 Active Device 1unit use devise E11.9 Mina Glucose Monitor /2018 s as Linda Dorsey, instructed M.DJayla,FACP daily last visit: 09/24/17, may change product if insurance does not cover Accu-Check Emily 09/24 Active Misc 100un check blood E11.9 Mina Chem Strips /2018 its sugar up to Linda Dorsey, three times M.D.,FACP daily last visit: 09/24/17 may change product if insurance does not cover Accu-Check Emily 09/24 Active Misc 100un use with E11.9 Mina Kevin /2018 its glucometer Linda Dorsey, up to three M.D.,FACP times daily, last visit: 09/24/17 product may be changed if the insurance does not cover Glipizide ER 06/24 Active Tablets ER 2.5mg 90tab Take 1 24HR s Tablet By Marla Warren M.D. Every Day Pen Criders 03/19 Active Misc 31G X 8 100un use one E11.9 Mina mm its time a Linda Dorsey, daily with Dionisio,FACP elieser last visit: 09/24/17 Tojoie Oakesostar 03/19 Active Solution 300Unit/M 9unit inject Pen-Inject L s subcutaneou Linda Dorsey, sly 30 u MSaira,FACP once a day Januvia 12/21 Active Tablets 100mg 90tab Take 1 s Tablet By Briana Dale M.D.,FACP Every Day Lovastatin 12/16 Active Tablets 10mg 90tab Take 1 s Tablet By Briana Dale AT M.Linda,FACP Bedtime Meclizine HCL 10/15 Active Tablets 25mg 30tab 06/29-1 by s mouth three Linda Dorsey, times a day Dionisio,FACP as needed Losartan 10/15 Active Tablets 50mg 90tab Take 1 s Tablet By Briana Dale M.D.,FACP Every Day Aspirin Low Dose 09/25 Active Chewtabs 81mg 100un Every Day its Carafate 07/10 Active Tablets 1gm 120ta take one K29.00 bs tablet by briana Dale four Dionisio,FACP times a day before meals every night Pantoprazole 02/[address] 20mg 90tab 1 by mouth Yair s every day Dionisio Gutiérrez Metformin HCL 02/01 Active Tablets 1000mg 180ta Take 1 bs Tablet By Briana Dale M.D.,FACP Twice A Day Tylenol 00 Active Capsules 325mg 2 tablets Unknown / every 4 hours as needed for pain Atenolol 00 Active Tablets 50mg 180ta Take 1 Stevenson bs Tablet By Marla Warren M.D. Twice A Day Flagyl 12/31 Hx Tablets 500mg 3tabs 1 tab by Swathi Santos mouth at [place], 1:00 at night & 7:00 at night the day before surgery and at 7:00 in the morning the day of surgery Neomycin Sulfate 12/31 Hx Tablets 500mg 6tabs 2 tabs by Swathi Santos mouth at [place], 1:00 at night & 7:00 at night the day before surgery, and at 7:00 in the morning the day of surgery Peg-[id number]/Electro 12/31 Hx Solution 236gm 4000m as directed Swathi cano /2017 Rec epifanio Linn MD Cyclobenzaprine 09/24 Hx Tablets 10mg 60tab 1 tablet by Mina HCL s mouth bid Linda Dorsey, as needed Dionisio,FAC muscle spasms Augmentin 07/28 Hx Tablets 875-125mg 20tab 1 tablet by J01.90 Barrett s mouth q12 Ethan, [employer] - hours for 08/07 10 days Tramadol HCL 07/28 Hx Tablets 50mg 30tab 1-2 tablets M89.8x8 Barrett s every 12 Ethan, [employer] - hours as 08/04 needed for 2018 pain. [employer] 05/26 Hx Device Mina Blood Glucose /2016 Linda Dorsey, Meter - Dionisio,[facility] 09/24 [employer] 05/26 Hx Strips 150un check BS Mina Blood Glucose /2016 its tid Linda Dorsey, Test Strips - Dionisio,[facility] 09/24 Glipizide ER 03/19 Hx Tablets ER 5mg 90tab 1 by mouth 24HR s every [place] - Dionisio wong 06/24 Nystatin 03/19 Hx Powder [id number] 60gm topical B37.9 Mina t/GM twice a day Linda Dorsey, - as needed Dionisio,[facility] 09/24 Clotrimazole 02/23 Hx Cream 1% 90gm apply twice B37.9 daily Pachblue Silva M.D. 03/19 Trulicity 12/16 Hx Solution 0.75mg/0. 4unit sc weekly Pen-Inject 5ML s Ricardo Dale M.D.,[facility] 12/21 Januvia 11/03 Hx Tablets 100mg 90tab 1 by mouth s every day Ricardo Dale M.D.,[facility] 12/16 Flexeril 11/01 Hx Tablets 10mg 30tab one tablet s every 12 D. Sunita - hours as Dionisio,[facility] 09/24 needed for muscle spasm Diflucan 11/01 Hx Tablets 150mg 2tabs 1tab by mouth now Ordering - and repeat Provider 02/23 in 3 days Terconazole 11/01 Hx Cream 0.8% 20gm 1 applicator Ordering - intravagina Provider 11/04 lly at bedtime x 3 Valacyclovir HCL 10/15 Hx Tablets 1gm 21tab by mouth s every 8 DJayla Dorsey, - hours for 1 MSaira,[facility] Synjardy 10/15 Hx Tablets 5-500mg 60tab 2 tabs po s every Am Ricardo Dale M.D.,[facility] 11/03 Nexium 09/[address] 40mg Every Day - 10/15 Prevnar 13 06/18 Hx Suspension .5uni 0.5mg Z00.00 Huan ts intramuscul Kris, - ar once 10/15 Zostavax 06/18 Hx Suspension [id number]/ 1unit 1 sq Z00.00 Huan Rec 0.65ML s Ricardo Ponce MD 10/15 Glipizide 02/01 Hx Tablets 5mg 180ta 1 tab twice bs a day Ricardo Dale M.D.,[facility] 03/19 Eql Pain Relief 01/26 Hx Capsules 500mg Once Unknown Extra Strength /2014 - 10/15 Meclizine HCL 08/17 Hx Tablets 12.5mg 30tab one tab Huan, s every 8 Kris, - hours as 10/15 Glucophage 02/27 Hx Tablets 500mg Twice Daily Unknown /2012 - 10/15 Losartan 00/ Hx Tablets 25mg 90tab daily Martínez, /0000 Ricardo Pina 10/15 Medications Administered in Office Medication Date Status Form Strength Qnty SIG Indications Ordering Provider Pneumococcal,U Administered Injection Unknown nspecified 010 Immunizations CPT Code Status Date Vaccine Reaction Lot # [id number] Given 06/24/2017 Pneumonia Vaccine [id number] Given 03/19/2017 Influenza Virus Vaccine, NO IMMEDIATE REACTION , [id number] Quadrivalent, Split, PT TOLERATED WELL Preservative Free [id number] Given 04/29/2015 Pneumococcal Conjugate Vaccine 13 Valent For Intramuscular Use Vital Signs Date Vital Result Comment 02/22/2018 Height 63 inches 5'3" Weight 155.00 lb Heart Rate 75 /min BP Systolic Sitting 128 mmHg BP Diastolic Sitting 54 mmHg Body Temperature 97.8 F O2 % BldC Oximetry 97 % BMI (Body Mass Index) 27.5 kg/m2 02/10/2018 Heart Rate 74 /min Respiratory Rate 18 /min Body Temperature 98.3 F 01/24/2018 Heart Rate 80 /min Respiratory Rate 18 /min Body Temperature 98.3 F 12/31/2017 Height 62.5 inches 5'2.50" Weight 171.00 [...] Test Result H/L Range Note Laboratory test 01/12/2018 Surgical Pathology SEE RESULT BELOW 1 finding Laboratory test 12/31/2017 Hemoglobin A1c 7.2 High 5-7 finding Type & Screen 12/30/2017 Patient Blood Type A Positive Antibody Screen NEGATIVE Comp Metabolic Panel 12/30/2017 Sodium 140 mmol/L [...] Egfr Non- 55.9 >60 Egfr 67.7 >60 2 Potassium 4.7 mmol/L 3.5-5.0 Anion Gap 10 mmol/L 2-11 Ast 40 U/L High 13-39 CBC Auto Diff 12/30/2017 White Blood Count [...] 0-2 Nucleated Red Blood Cells % 0 CBC Auto Diff 11/22/2017 White Blood Count [...] Egfr Non- 56.6 >60 Egfr 72.8 >60 3 Laboratory test finding 11/22/2017 Lipase 26 U/L 11.0-82.0 Troponin-I (TnI) 0.00 ng/mL <0.04 Lactic Acid 1.1 mmol/L 0.5-2.0 4 Urinalysis Profile 11/22/2017 Urine Color Yellow Urine Appearance Cloudy Urine Specific [place] 1.012 1.010-1.030 Urine pH 5.0 5-9 Urine [...] And 11/22/2017 Urine Culture SEE RESULT BELOW 5 Sensitivities Urine Microalbumin Random 09/24/2017 Ur Microalbumin (mg/L) 161.8 mg/L Urine Creatinine 97.93 mg/dL Urine Microalbumin/Creatinine 165.2 ug/mg High <31 Lipid Profile (Trig/Chol/HDL) 09/24/2017 Triglycerides 105 mg/dL 6 Cholesterol 144 mg/dL 7 HDL Cholesterol 63.7 mg/dL 8 LDL Cholesterol 59 mg/dL 9 Basic Metabolic Panel 09/24/2017 Sodium 141 mmol/L 139-145 Potassium 4.7 mmol/L 3.5-5.0 Chloride 105 mmol/L 101-111 Co2 Carbon Dioxide 25 mmol/L 22-32 Anion Gap 11 mmol/L 2-11 Glucose 140 mg/dL High 70-100 Blood Urea Nitrogen 23 mg/dL 6-24 Creatinine 0.92 mg/dL 0.51-0.95 BUN/Creatinine Ratio 25.0 High 8-20 Calcium 9.8 mg/dL 8.6-10.3 Egfr Non- 60.3 >60 Egfr 77.6 >60 10 Laboratory test finding 09/24/2017 Hemoglobin A1c (Glyco HGB) 7.5 % High 4.0-5.6 11 Hepatitis C Antibody Nonreactive Nonreactive 12 CBC Auto Diff 08/23/2017 White Blood Count [...] Cells % 0.1 Laboratory test finding 08/23/2017 Lactic Acid 2.2 [...] >60 Egfr 81.7 >60 14 Laboratory test finding 08/23/2017 Lipase 19 U/L 11.0-82.0 C Reactive Protein 33.38 mg/L High < 5.00 15 Laboratory test 07/25/2017 Rapid Influenza A B SEE RESULT BELOW 16 finding Antigen Laboratory test 07/25/2017 Rapid Strep A SEE RESULT BELOW 17 finding Laboratory test 07/25/2017 Rapid Strep Negative Negative 18 finding Molecular Comp Metabolic Panel 07/25/2017 Sodium [...] Egfr Non- 51.2 >60 Egfr 65.9 >60 19 Laboratory test finding 07/25/2017 C Reactive Protein 8.70 mg/L High < 5.00 20 Urinalysis Profile 07/25/2017 Urine Color Straw Urine Appearance Clear Urine Specific [place] 1.004 Low 1.010-1.030 Urine pH 5.0 5-9 Urine Urobilinogen Negative Negative Urine Ketones Negative Negative Urine Protein Negative Negative Urine Leukocytes Negative Negative Urine Blood Negative Negative Urine Nitrite Negative Negative Urine Bilirubin Negative Negative Urine Glucose Negative Negative Rapid Influenza A & B 07/25/2017 Influenza A Molecular NEGATIVE Negative 21 Molecular Influenza B Molecular NEGATIVE Negative CBC Auto Diff 07/25/2017 White Blood [...] Blood Cells % 0.1 Laboratory test finding 07/13/2017 Lactic Acid 1.0 mmol/L 0.5-2.0 22 Laboratory test finding 07/13/2017 Troponin-I (TnI) 0.01 ng/mL <0.04 CBC Auto Diff 07/13/2017 White Blood Count [...] Blood Cells % 0.1 Laboratory test finding 07/13/2017 Lactic Acid 2.4 mmol/L High 0.5-2.0 23 Comp Metabolic Panel 07/13/2017 Sodium 133 mmol/L [...] Egfr Non- 45.3 >60 Egfr 58.2 >60 24 Laboratory test finding 07/12/2017 Rapid Strep Molecular Negative Negative 25 Rapid Influenza A & B 07/12/2017 Influenza A Molecular POSITIVE Negative 26 Molecular Influenza B Molecular NEGATIVE Negative Laboratory test finding 06/24/2017 Hemoglobin A1c 7.2 High 5-7 Urine Culture And 05/22/2017 Urine Culture SEE RESULT BELOW 27 Sensitivities Urinalysis Profile 05/22/2017 Urine Color Straw Urine Appearance Clear Urine Specific [place] 1.010 1.010-1.030 Urine pH 5.0 5-9 Urine Urobilinogen Negative Negative Urine Ketones Negative Negative Urine Protein Negative Negative Urine Leukocytes Trace Negative Urine Blood Negative Negative Urine Nitrite Negative Negative Urine Bilirubin Negative Negative Urine Glucose Negative Negative Urine White Blood Cell Trace(0-5/hpf) Absent Urine Red Blood Cell Absent Absent Urine Bacteria Absent Absent Urine Squamous Epithelial Cell Present Absent CBC Auto Diff 05/22/2017 White Blood Count [...] Blood Cells % 0 Comp Metabolic Panel 05/22/2017 Sodium 138 mmol/L [...] Egfr Non- 53.6 >60 Egfr 68.9 >60 28 Laboratory test finding 05/22/2017 Partial Thrombo Time 31.1 seconds 26.0 -36.3 PTT Inr/Protime 05/22/2017 Inr 0.99 0.89-1.11 Laboratory test finding 05/22/2017 Amylase 41 U/L 29-103 Lipase 24 U/L 11.0-82.0 C Reactive Protein 4.08 mg/L < 5.00 29 Laboratory test 03/19/2017 Hemoglobin A1c 8.4 High 5-7 finding Laboratory test 12/27/2016 Point of Care 124 mg/dL High 74-106 30 finding Glucose Laboratory test 12/16/2016 Culture Throat SEE RESULT BELOW 31 finding Laboratory test 12/16/2016 Rapid Group A Strep neg finding Laboratory test 12/16/2016 Hemoglobin A1c 8.3 High 5-7 finding Laboratory test 11/01/2016 Gardnerella/Yeast: SEE RESULT BELOW 32 finding Vaginal Dna Poc Urinalysis 11/01/2016 Poc Glucose, Urine 2+ Negative Poc Bilirubin, Urine Negative Negative Poc Ketone, Urine Negative Negative Poc Specific [place], Urine 1.010 1.010-1.030 Poc Blood, Urine Trace-intact Negative Poc pH, Urine 5.0 5-9 Poc Protein, Urine Negative Negative Poc Urobilinogen, Urine 0.2 Negative Poc Nitrite, Urine Negative Negative Poc Leukocytes, Urine Negative Negative Poc Color, Urine Yellow Poc Clarity, Urine Clear 33 Urine Culture And 11/01/2016 Urine Culture SEE RESULT BELOW 34 Sensitivities Comp Metabolic Panel 09/24/2016 Albumin 4.3 g/dL [...] Distribution Width 15 % 10.5-15 Urine Specific [place] 1.013 1.010-1.030 Urine pH 5.0 5-9 White Blood Count 7.6 10^3/ul 3.5-10.8 Urinalysis Profile 09/24/2016 Urine Appearance Clear Urine Bacteria Absent Absent Urine Bilirubin Negative Negative Urine Blood Negative Negative Urine Color Yellow Urine Glucose 1+(50 mg/dL) Negative Urine Ketones Negative Negative Urine Leukocytes Negative Negative Urine Nitrite Negative Negative Urine Protein 1+(30 mg/dL) Negative Urine Red Blood Cell Absent Absent Urine Specific [place] 1.013 1.010-1.030 Urine Urobilinogen Negative Negative Urine White Blood Cell Absent Absent Urine pH 5.0 5-9 Laboratory test finding 09/24/2016 Lactic Acid 1.6 mmol/L 0.5-2.0 36 Troponin I 0.01 ng/mL <0.04 37 CBC Auto Diff 09/24/2016 Abs Basophils 0.1 [...] 10.5-15 White Blood Count 7.6 10^3/uL 3.5-10.8 CBC W/Auto Differential(!) 09/17/2016 Absolute Lymphocytes 2.0 X103/UL 1.0-4.8 Absolute Monocytes 0.4 X103/UL 0.0-0.8 Absolute Neutrophils 3.6 X103/UL 1.5-7.7 Hematocrit 39.4 % 35-52 Hemoglobin Blood 12.4 g/dL 12.0-18.0 Lymph% 33.1 % 20.0-45.0 MCH (Corpuscular Hemoglobin) 28.3 pg 27-31 MCHC (Corpuscular Hemog Conc) 31.6 g/dL Low 32.0-36.0 MCV (Corpuscular Volume) 89.6 FL 79-97 MPV 8.1 FL 7.4-10.4 [place]% 7.3 % 1.0-9.0 Neutrophil % 59.6 % [...] 5.0-8.0 Ua Protein 1+ High Ua Specific [place] 1.020 GM/ML 1.00-1.035 Ua Urobilinogen Neg Ua Microscopic 09/17/2016 Ua Amorphous None Ua Bacteria Trace Ua Casts None Ua Crystals Few- CA.[place] Ua Epithelial Cells Mod Ua Mucous Small Ua RBC Rare Ua WBC 0-2 Ua Yeast None Laboratory test finding 09/17/2016 Vitamin B12 249 pg/mL 180-914 38 Laboratory Studies 09/17/2016 Urine Creatinine mg/dL 128.28 mg/dL 38 Urine Microalbumin/Creatinine Ratio 366.2 ug/mg High 0-31 38 Urine Random Microalbumin 469.8 mg/L 38 Vitamin B12 Level 249 pg/mL 180-914 38 Urine Microalbumin Random 09/17/2016 Ur Microalbumin (mg/L) 469.8 mg/L 38 Urine Creatinine 128.28 mg/dL 38 Urine Microalbumin/Creatinine 366.2 ug/mg High <31 38 Laboratory test finding 09/17/2016 Hemoglobin A1c (!) 8.1 % High 4.0-5.9 Laboratory Studies 06/28/2016 Urine Specific [place] 1.011 1.010-1.030 Urine pH 6.0 5-9 Laboratory test finding 06/28/2016 Lactic Acid 1.3 mmol/L 0.5-2.0 39 Lipase 17 U/L 11.0-82.0 40 Troponin I 0.01 ng/mL <0.04 CBC Auto [...] 4.3 mmol/L 3.5-5.0 Sodium 138 mmol/L 133-145 41 Total Bilirubin 0.40 mg/dL 0.2-1.0 Total Protein [...] Negative Urine Protein Negative Negative Urine Specific [place] 1.011 1.010-1.030 Urine Urobilinogen Negative Negative Urine [...] 4.1 mmol/L 3.5-5.0 Sodium 137 mmol/L 133-145 42 Total Bilirubin 0.50 mg/dL 0.2-1.0 Total Protein 7.3 g/dL 6.4-8.9 Laboratory test finding 10/24/2015 Point of Care Glucose 143 mg/dL High 74 -106 43 Laboratory test finding 06/25/[address] 1[address] Sample (Gai) Neg SOB 2ND Sample (Gai) Neg SOB 3RD Sample (Gai) Neg Ua Microscopic 06/18/2015 Ua Amorphous None Ua Bacteria Rare Ua Casts Few-Hyaline Ua Crystals None Ua Epithelial Cells Mod Ua Mucous Small Ua RBC 0-2 Ua WBC 7-12 High Ua Yeast None Ua Dipstick Macroscopic(!) 06/18/2015 Ua Appearance Clear Ua Bilirubin Neg Ua Blood Qual Neg Ua Color Yellow Ua Glucose QL Neg Ua Ketones Neg Ua Leukocytes 1+ High Ua Nitrite Neg Ua PH Test 5.0 units 5.0-8.0 Ua Protein Neg Ua Specific [place] 1.020 GM/ML 1.00-1.035 Ua Urobilinogen Neg Laboratory test finding 06/11/2015 Hemoglobin A1c (!) [...] 87.4 FL 79-97 MPV 7.6 FL 7.4-10.4 [place]% 8.0 % 1.0-9.0 Neutrophil % 60.0 % [...] mmol/L 0.5-2.2 Troponin I 0.00 ng/mL <0.03 44 CBC Auto Diff 04/30/2015 Abs Basophils 0.1 [...] TNP mmol/L 3.5-5.0 Sodium 136 mmol/L 133-145 45 Total Bilirubin 0.60 mg/dL 0.2-1.0 Total Protein [...] units 5.0-8.0 Ua Protein Neg Ua Specific [place] 1.020 GM/ML 1.00-1.035 Ua Urobilinogen Neg Laboratory test finding 01/12/2015 Troponin I 0.01 ng/mL <0.03 46 Laboratory test finding 01/12/2015 Lipase 44 U/L 11.0-82.0 47 Troponin I 0.00 ng/mL <0.03 CBC Auto [...] 4.0 mmol/L 3.5-5.0 Sodium 137 mmol/L 133-145 48 Total Bilirubin 0.30 mg/dL 0.2-1.0 Total Protein [...] mg/dL Urine Microalbumin/Creatinine 25.6 ug/mg <31 1 SEE RESULT BELOW Name: CHARLINE ANGULO : [address]: Davis Smith MD Acct: [id number] Unit: [id number] AGE: 72 Location: [facility] [id number] Re01/12/18 SEX: F Status: ADM IN SPEC: [id number] KATHE: 01/12/18- [facility] DR: Davis Smith MD REQ: [id number] RECD: 01/12/18 STATUS: SOUT _ ORDERED: LEVEL 5 FINAL DIAGNOSIS Colon, sigmoid, partial colectomy: -- Diverticulosis. -- No evidence of neoplasia. -- Margins of resection viable. PRE-OPERATIVE DIAGNOSIS Diverticulitis of large intestine without perforation or abscess without bleeding GROSS DESCRIPTION The specimen is received in formalin labeled, Sigmoid Colon, and consists of an 18.0 cm unoriented length of intestinal tissue with abundant adherent yellow-john fat. There is a 4.3 cm partially detached focally disrupted area stripped of muscularis, serosa and fat, 2.9 cm from the nearest margin. The serosa is predominantly shaggy schafer-john with multiple fibromembranous adhesions and adherent fat. There are multiple uncomplicated to focally erythematous diverticula. The mucosa is glistening schafer-pink with normal folds. Lead Medical Technologist sections are submitted in cassettes A through F as follows: A- margins, B-detached area and C through F-diverticula. Signed by and Reported on: Genesis Ramirez MD 01/14/18 1533 END OF REPORT DEPARTMENT OF PATHOLOGY, [address] [place] [address] Anil Goodrich M.D. Director [facility] # [id number] 2 Because ethnic data is not always readily [...] 15-29 5 Kidney failure <15 (or dialysis) 3 Because ethnic data is not always readily [...] 15-29 5 Kidney failure <15 (or dialysis) 4 [facility] Severe Sepsis and Septic Shock Management Bundle Measure requires all lactic acids initially measuring >2.0 mmol/L be repeated. 5 SEE RESULT BELOW Name: CHARLINE ANGULO : [address]: Fab Ricardo MD Acct: [id number] Unit: [id number] AGE: 72 Location: ED Re11/22/17 SEX: F Status: DEP ER SPEC: [id number] KATHE: 11/22/17 [facility] [address]: Fab Ricardo MD REQ: [id number] RECD: 11/22/17 STATUS: IRINA AMRRERO DR: Mina Dorsey MD _ SOURCE: URINE SPDESC: ORDERED: Urine Culture Procedure Result Reported Site Urine Culture Final 11/23/17- 1304 ML No Growth (<1,000 CFU/mL) * ML - Main Lab . END OF REPORT DEPARTMENT OF PATHOLOGY, [address] [place] [address] Anil Goodrich M.D. Director [facility] # [id number] 6 Desirable: <150 Borderline High: 150-199 High: 200-499 Very High: >500 7 Desirable: <200 Borderline High: 200-239 High: >239 8 Low: <40 Desirable: 40-60 High: >60 9 Desirable: <100 Near Optimal: 100-129 Borderline High: 130-159 High: 160-189 Very High: >189 10 Because ethnic data is not always readily [...] 15-29 5 Kidney failure <15 (or dialysis) 11 Therapeutic target for the treatment of diabetes mellitus patients is <7% HBA1C, and in selective patients <6.0%. Please refer to [place] [employer] diabetic care guidelines for further information. 12 FASTING 10 HOUR 13 Critical Result LACT:2.2 Called to DOYLE at: 10:00:35 by:[id number] Read back by:DOYLE EPSTEIN Severe Sepsis and [...] 5 Kidney failure <15 (or dialysis) 15 Acute inflammation: >10.00 16 SEE RESULT BELOW Name: CHARLINE ANGULO : [address]: Mike Santo MD Acct: [id number] Unit: [id number] AGE: 71 Location: ED Re07/25/17 SEX: F Status: REG ER SPEC: [id number] KATHE: 07/25/[address]: Evi CARVAJAL REQ: [id number] RECD: 07/25/17 STATUS: IRINA MARRERO DR: Mina Santo MD _ SOURCE: NASAL SPDESC: ORDERED: Flu A B Request Procedure Result Reported Site Rapid Influenza A B Request Final 07/25/17- 1734 ML Specimen received for Influenza A/B Molecular testing * ML - [facility] LAB ([facility]) . END OF REPORT * ML=Testing performed at Main Lab DEPARTMENT OF PATHOLOGY, [address] [place] [address] Anil Goodrich M.D. Director [facility] # [id number] 17 SEE RESULT BELOW Name: CHARLINE ANGULO : [address]: Mike Santo MD Acct: [id number] Unit: [id number] AGE: 71 Location: ED Re07/25/17 SEX: F Status: REG ER SPEC: [id number] KATHE: 07/25/[address]: Mike Santo MD REQ: [id number] RECD: 07/25/17 STATUS: COMP OTHR DR: Mina Dorsey MD _ SOURCE: THROAT SPDESC: ORDERED: Strep A Request Procedure Result Reported Site Rapid Strep A Request Final 07/25/17- 1720 ML Specimen received for Rapid Strep A Molecular testing * ML - [facility] LAB ([facility]) . END OF REPORT * ML=Testing performed at Main Lab DEPARTMENT OF PATHOLOGY, [address] [place] [address] Anil Goodrich M.D. Director [facility] # [id number] 18 Real Estate Office Manager: [id number] 19 Because ethnic data is not always readily [...] 15-29 5 Kidney failure <15 (or dialysis) 20 Acute inflammation: >10.00 21 Real Estate Office Manager: [id number] 22 [facility] Severe Sepsis and Septic Shock Management Bundle Measure requires all lactic acids initially measuring >2.0 mmol/L be repeated. 23 Critical Result LACT:2.4 Called to [id number] at: 14:56:34 by:[id number] Read back by:[id number] [facility] Severe Sepsis and Septic Shock Management Bundle Measure requires all lactic acids initially measuring >2.0 mmol/L be repeated. 24 Because ethnic data is not always readily [...] 15-29 5 Kidney failure <15 (or dialysis) 25 Real Estate Office Manager: [id number] 26 Real Estate Office Manager: [id number] 27 SEE RESULT BELOW Name: CHARLINE ANGULO : [address]: Lilibeth Wan MD Acct: [id number] Unit: [id number] AGE: 71 Location: ED Re05/22/17 SEX: F Status: DEP ER SPEC: [id number] KATHE: 05/22/17-224 [facility] [address]: Lilibeth Wan MD REQ: [id number] RECD: 05/22/17 STATUS: COMP ELIDA DR: Mina Dorsey MD _ SOURCE: URINE SPDESC: ORDERED: Urine Culture Procedure Result Reported Site Urine Culture Final 05/24/17- 826 ML No growth of clinically significant organisms * ML - MAIN LAB ([facility]) . END OF REPORT * ML=Testing performed at Main Lab DEPARTMENT OF PATHOLOGY, [address] [place] [address] Anil Goodrich M.D. Director [facility] # [id number] 28 Because ethnic data is not always readily [...] 15-29 5 Kidney failure <15 (or dialysis) 29 Acute inflammation: >10.00 30 Real Estate Office Manager: [id number] 31 SEE RESULT BELOW Name: CHARLINE ANGULO : [address]: Fidel Dorsey MD Acct: [id number] Unit: [id number] AGE: 71 Location: [facility] Re12/16/16 SEX: F Status: REG REF SPEC: [id number] KATHE: 12/16/[address]: Mina Dorsey MD REQ: [id number] RECD: 12/16/16 STATUS: COMP _ SOURCE: THROAT SPDESC: ORDERED: Throat Culture COMMENTS: [id number] Procedure Result Reported Site Throat Culture Final 12/18/16- 1110 ML Organism 1 NORMAL MARIANN Quantity 2+ Throat cultures are clinically indicated to detect the presence of group A strep, arcanobacterium and yeast. In certain cases, predominating organisms will be reported. * ML - MAIN LAB ([facility]) . END OF REPORT * ML=Testing performed at Main Lab DEPARTMENT OF PATHOLOGY, [address] [place] [address] Anil Goodrich M.D. Director [facility] # [id number] 32 SEE RESULT BELOW Name: CHARLINE ANGULO : [address]: Stanislav Enciso MD Acct: [id number] Unit: [id number] AGE: 70 Location: [facility] Re11/01/16 SEX: F Status: DEP ER SPEC: [id number] KATHE: 11/01/[address]: Roxann Cook NP REQ: [id number] RECD: 11/01/163882 STATUS: COMP [facility] DR: Stanislav Dorsey MD _ SOURCE: VAGINAL [...] or failure. * ML - MAIN LAB ([facility]) . END OF REPORT * ML=Testing performed at Main Lab DEPARTMENT OF PATHOLOGY, [address] [place] [address] Anil Goodrich M.D. Director [facility] # [id number] 33 Real Estate Office Manager: [id number] 34 SEE RESULT BELOW Name: CHARLINE ANGULO : [address]: Stanislav Enciso MD Acct: [id number] Unit: [id number] AGE: 70 Location: [facility] Re11/01/16 SEX: F Status: DEP ER SPEC: [id number] KATHE: 11/01/16 [facility] DR: Roxann Cook NP REQ: [id number] RECD: 11/01/160763 STATUS: IRINA MARRERO DR: Stanislav Dorsey MD _ SOURCE: URINE SPDESC: ORDERED: Urine Culture Procedure Result Reported Site Urine Culture Final 11/02/16- 1303 ML No growth of clinically significant organisms * ML - MAIN LAB ([facility]) . END OF REPORT * ML=Testing performed at Main Lab DEPARTMENT OF PATHOLOGY, [address] [place] [address] Anil Goodrich M.D. Director [facility] # [id number] 35 Because ethnic data is not always [...] 5 Kidney failure <15 (or dialysis) 36 [facility] Severe Sepsis and Septic Shock Management Bundle Measure requires all lactic acids initially measuring >2.0 mmol/L be repeated. 37 99th percentile=0.04 ng/mL Troponin results at [facility] and [facility] are not interchangeable. 38 [id number] 39 [facility] Severe Sepsis and Septic Shock Management Bundle Measure requires all lactic acids initially measuring >2.0 mmol/L be repeated. 40 99th percentile=0.04 ng/mL Troponin results at [facility] and [facility] are not interchangeable. 41 Because ethnic data is not always [...] 5 Kidney failure <15 (or dialysis) 42 Because ethnic data is not always readily [...] 15-29 5 Kidney failure <15 (or dialysis) 43 Real Estate Office Manager: [id number] BRAULIO NUGENT 44 Reference Range and Interpretation: TnI (ng/mL) Interpretation Less Than 0.03 ng/mL Not supportive of diagnosis of MT 0.03 - 0.50 ng/mL Indeterminate: suggest serial studies if clinically indicated. Greater than 0.5 ng/mL Consistent with diagnosis of MT 45 Because ethnic data is not always readily [...] 15-29 5 Kidney failure <15 (or dialysis) 46 Reference Range and Interpretation: TnI (ng/mL) Interpretation Less Than 0.03 ng/mL Not supportive of diagnosis of MT 0.03 - 0.50 ng/mL Indeterminate: suggest serial studies if clinically indicated. Greater than 0.5 ng/mL Consistent with diagnosis of MT 47 Reference Range and Interpretation: TnI (ng/mL) Interpretation Less Than 0.03 ng/mL Not supportive of diagnosis of MT 0.03 - 0.50 ng/mL Indeterminate: suggest serial studies if clinically indicated. Greater than 0.5 ng/mL Consistent with diagnosis of MT 48 Because ethnic data is not always readily [...] dialysis) Procedures Date CPT Code Description Status 01/12/2018 06505 Colectomy Partial W/Coloproctostomy Completed 01/12/2018 19710 Colectomy Partial W/Coloproctostomy Completed 01/12/2018 79567 Mobilization Splenic Flexure W/Partial Colectomy Completed 01/12/2018 12271 Mobilization Splenic Flexure W/Partial Colectomy Completed 08/25/2017 Mammogram Completed 02/17/2017 Diabetic Retinal Eye Exam Completed 09/25/2016 35729 ECHO Transthorasic Realtime 2D W Doppler & Color Flow Completed Hosp 09/24/2016 25215 EKG, Interpretation Only Completed 08/17/2016 Mammogram Completed 10/24/2015 Colonoscopy Completed 08/09/2015 Mammogram Completed Encounters Type Date Location Provider CPT E/M Dx Office Visit 12/31/2017 9:40a [facility] Internal Medicine Mina Dorsey, [address] E11.9 - [place] Jorge Nichole,FACP I10 K57.30 Office Visit 10/14/2017 3:30p [facility] [place] [address] K57.32 [facility] K58.2 Office Visit 07/28/2017 4:00p [facility] [place] [address] J01.90 [place] R05 M89.8x8 Office Visit 07/13/2017 1:08p [facility], [place] [address] J10.1 Hospitalists E11.65 E86.0 I10 Office Visit 06/24/2017 2:00p [facility] Internal Medicine Mina Dorsey, [address]233 E11.9 - [place] Jorge Nichole,FACP I10 Z23 Office Visit 05/31/2017 2:30p [facility] [place] [address] R10.10 Medicine - [address] Office Visit 03/19/2017 4:00p [facility] Internal Mina Dorsey, 58464 E11.9 Medicine - [place] Jorge Nichole,FACP K21.9 I10 Z23 Office Visit 02/23/2017 11:40a [facility] Internal Yair Gutiérrez M.D. 43168 B37.9 Medicine - [address] E11.9 Office Visit 12/16/2016 4:20p [facility] Internal Medicine Mina Dorsey, 46891 E11.8 - [place] Jorge Nichole,FACP J02.9 Office Visit 10/15/2016 11:50a [facility] Internal Medicine Mina Dorsey, 54309 G45.9 - [place] Jorge Nichole,FACP E11.8 I10 B00.89 Office Visit 09/25/2016 9:50a [facility] Joni Hanley, 93107 G45.9 M.D. I10 Office Visit 09/25/2016 2:05p [facility],pc Osman Rivera, [address]689 G45.9 Hospitalists M.D. E11.8 I16.0 G43.909 Office Visit 09/24/2016 9:50a [facility] Joni Hanley, 67470 G45.9 M.D. I10 Office Visit 09/24/2016 2:04p [facility],pc Ladonna Leija, [address]2445 G45.9 Hospitalists M.DJayla E11.8 I16.0 Plan of Care Future Appointment(s):05/18/2018 3:40 pm - JESSICA Burleson at [facility] Internal Medicine - [address]/22/2018 - Mina Dorsey M.D.,FACPK57.32 Dvtrcli of lg int w/o perforation or abscess w/o bleedingComments:Symptoms appear to have resolved. Continue monitoring your diet. Continue to follow up with Dr. Smith as planned.E11.9 Type 2 diabetes mellitus without complicationsComments:You are meeting goal for blood sugar control. Reduce Toujeo to 30 units daily. Continue other medications as prescribed. You are on a moderate-potency statin to prevent new or recurrent heart disease, which is common in diabetics.Goals:Goal Hemoglobin A1c is less than 7.0% in ages 18-74 Goal Hemoglobin A1c is between 7.0% and 8.0% in age over 75 Goal Blood pressure is less than 130/85. Cholesterol should be lowered by a high or moderate-dose statin.I10 Essential ( primary) hypertensionComments:You are meeting target blood pressure. Continue low salt diet and current medicationAerobic exercise 30 minutes 5 times per week should improve blood pressure.Goals:Blood pressure goal <140/90 in general. Blood pressure goal <150/90 in people older than 75. Blood pressure goal <130/85 in diabetic patients. Goal BMI is less than 25.
[2018-03-17 16:01] VITALS: BP 153/70
--- NOTE | 2018-03-17 16:04 | UC ---
Ear Complaint HPI - HPI Summary HPI Summary: 72 yo female presents with b/l ear itching and right ear pain for 1 week. She tells me that she has a hx of cerumen impaction and has had to have her ears flushed in the past. Has been using debrox ear drops daily to soften her earwax. Denies fever, chills, decreased hearing, headache, dizziness, or ear drainage. - History of Current Complaint Chief Complaint: UCEar Stated Complaint: EAR ITCHINESS AND ACHE Time Seen by Provider: 03/17/18 16:04 Hx Obtained From: Patient Hx Last Menstrual Period: post Onset/Duration: Gradual Onset Severity Initially: Moderate Severity Currently: Moderate Pain Intensity: 5 Pain Scale Used: 0-10 Numeric - Allergies/Home Medications Allergies/Adverse Reactions: Allergies Allergy/AdvReac Type Severity Reaction Status Date / Time codeine Allergy Severe Nausea Verified 03/17/18 16:02 Iodinated Contrast- Oral and Allergy Severe Hives Verified 03/17/18 16:02 IV Dye prochlorperazine Allergy Severe convulsions Verified 03/17/18 16:02 [From Compazine] PMH/Surg Hx/FS Hx/Imm Hx Endocrine History: Diabetes Cardiovascular History: Hypertension GI/ History: Gastroesophageal Reflux - Surgical History Surgical History: Yes Surgery Procedure, Year, and Place: Tonsillectomy 6 yrs of age [place]. Hysterectomy with left oopherectomy age 34 yrs [facility] [place]. oopherectomy age 39 [facility] [place]. Cholecystectomy [facility]. Right Knee Arthroscopy [facility] [place] - Family History Known Family History: Positive: Cardiac Disease - Both parents., Hypertension, Other - similar neck problems - mother - Social History Occupation: Retired Lives: With Family Alcohol Use: None Substance Use Type: None Smoking Status (MU): Never Smoked Tobacco Have You Smoked in the Last Year: No - Immunization History Most Recent Influenza Vaccination: 04/13 Most Recent Tetanus Shot: utd Most Recent Pneumonia Vaccination: utd Review of Systems Constitutional: Negative Skin: Negative Eyes: Negative ENT: Ear Ache Respiratory: Negative Cardiovascular: Negative Gastrointestinal: Negative Neurological: Negative Psychological: Negative All Other Systems Reviewed And Are Negative: Yes Physical Exam - Summary Physical Exam Summary: GENERAL: NAD. WDWN. No pain distress. SKIN: No rashes, sores, lesions, or open wounds. HEENT: Head: AT/NC Eyes: EOM intact. Conjunctiva clear without inflammation or discharge. Ears: Hearing grossly normal. RIGHT TM with mild erythema and bulging. No canal edema or drainage. LEFT TM WNL Nose: Nasal mucosa pink and moist. NTTP maxillary and frontal sinus. Throat: Posterior oropharynx without exudates, erythema, or tonsillar enlargement. Uvula midline. NECK: Supple. Nontender. No lymphadenopathy. CHEST: CTAB. No r/r/w. No accessory muscle use. Breathing comfortably and in no distress. CV: RRR. Without m/r/g. Pulses intact. NEURO: Alert. PSYCH: Age appropriate behavior. Triage Information Reviewed: Yes Vital Signs: Initial Vital Signs Temp 98.2 F 03/17/18 15:59 Pulse 73 03/17/18 15:59 Resp 12 03/17/18 15:59 BP 153/70 03/17/18 15:59 Pulse Ox 99 03/17/18 15:59 Vital Signs Reviewed: Yes Ear Complaint Course/Dx - Course Course Of Treatment: Right otitis media - Differential Dx/Diagnosis Provider Diagnoses: Right otitis media Discharge - Sign-Out/Discharge Documenting (check all that apply): Patient Departure All imaging exams completed and their final reports reviewed: No Studies - Discharge Plan Condition: Stable Disposition: HOME Prescriptions: Amoxicillin/Clavulanate TAB* [Augmentin TAB 875*] 875 mg PO BID #14 tab Patient Education Materials: Ear Infection (ED) Referrals: Mina Dorsey MD [Primary Care Provider] - Additional Instructions: If you develop a fever, shortness of breath, chest pain, new or worsening symptoms - please call your PCP or go to the ED. Your blood pressure was high at todays visit. Please see your primary provider within 4 weeks for recheck and re-evaluation. - Billing Disposition and Condition Condition: STABLE Disposition: Home - Attestation Statements Provider Attestation: I was available for consult. This patient was seen by the CASSID[facility]. The patient was not presented to, seen by, or examined by me. -Julio
== END 2018-03-17 16:35 | disposition home or self-care (01) ==
LOC: UCEAST 15:47
DX: H66.91 Otitis media, unspecified, right ear (principal); Z88.5 Allergy status to narcotic agent; Z88.8 Allergy status to other drugs, medicaments and biological substances; Z91.041 Radiographic dye allergy status
CPT/HCPCS: 99212; G0463

== ENCOUNTER 2018-08-31 07:40 | Emergency (ER) | payer MEDICARE ==
[2018-08-31 07:54] VITALS: BP 155/61
--- NOTE | 2018-08-31 08:19 | UC ---
Respiratory Complaint HPI - HPI Summary HPI Summary: 72 yo WF p/w sinus congestion and cold sx.Was here 2 days ago for a UTI, is on KEflex for UTI. Did not try anything for her cold sx - History of Current Complaint Chief Complaint: UCRespiratory Stated Complaint: SINUS COMPLAINT Time Seen by Provider: 08/31/18 08:04 Hx Obtained From: Patient Hx Last Menstrual Period: post Onset/Duration: Sudden Onset Timing: Constant Severity Currently: Moderate Pain Intensity: 4 - Allergies/Home Medications Allergies/Adverse Reactions: Allergies Allergy/AdvReac Type Severity Reaction Status Date / Time codeine Allergy Severe Nausea Verified 08/31/18 07:45 Iodinated Contrast- Oral and Allergy Severe Hives Verified 08/31/18 07:45 IV Dye prochlorperazine Allergy Severe convulsions Verified 08/31/18 07:45 [From Compazine] PMH/Surg Hx/FS Hx/Imm Hx Previously Healthy: Yes - Surgical History Surgical History: Yes Surgery Procedure, Year, and Place: Tonsillectomy 6 yrs of age [place]. Hysterectomy with left oopherectomy age 34 yrs [facility] [place]opherectomy age 39 [facility] [place] [facility]olecyst[facility]. Right Knee Arthroscopy [facility] [place], colon resection for diveric. - Family History Known Family History: Positive: Cardiac Disease - Both parents., Hypertension, Other - similar neck problems - mother - Social History Alcohol Use: None Substance Use Type: None Smoking Status (MU): Never Smoked Tobacco Have You Smoked in the Last Year: No - Immunization History Most Recent Influenza Vaccination: 04/13 Most Recent Tetanus Shot: utd Most Recent Pneumonia Vaccination: utd Review of Systems All Other Systems Reviewed And Are Negative: Yes Constitutional: Positive: Negative Skin: Positive: Negative Eyes: Positive: Negative ENT: Positive: Nasal Discharge, Sinus Congestion Respiratory: Positive: Negative Cardiovascular: Positive: Negative Gastrointestinal: Positive: Negative Genitourinary: Positive: Negative Motor: Positive: Negative Neurovascular: Positive: Negative Musculoskeletal: Positive: Negative Neurological: Positive: Negative Psychological: Positive: Negative Physical Exam - Summary Physical Exam Summary: Vital Signs Reviewed: Yes Skin: Positive: Warm Head/Face: Positive: Normal Head/Face Inspection Eyes: Positive: Normal ENT: Positive: sinus congestion, no pharyngeal erythema Neck: Positive: Supple Respiratory/Lung Sounds: Positive: Clear to Auscultation Cardiovascular: Positive: Normal, RRR, S1, S2 Abdomen Description: Positive: Nontender Musculoskeletal: Positive: Normal Neurological: Positive: Normal Psychiatric: Positive: Normal, Affect/Mood Appropriate Triage Information Reviewed: Yes Vital Signs: Initial Vital Signs Temp 36.7 C 08/31/18 07:48 Pulse 70 08/31/18 07:48 Resp 18 08/31/18 07:48 BP 155/61 08/31/18 07:48 Pulse Ox 100 08/31/18 07:48 Respiratory Course/Dx - Differential Dx/Diagnosis Provider Diagnosis: URI, acute Discharge - Sign-Out/Discharge Documenting (check all that apply): Patient Departure All imaging exams completed and their final reports reviewed: Yes - Discharge Plan Condition: Stable Disposition: HOME Prescriptions: Guaifenesin/Dextromethorphan [Mucinex Dm ER 600-30 mg Tablet] 1 each PO BID PRN 5 Days #10 tab.er.12h PRN Reason: Cough Patient Education Materials: Upper Respiratory Infection (ED) Forms: *Work Release Referrals: Mina Dorsey MD [Primary Care Provider] - - Billing Disposition and Condition Condition: STABLE Disposition: Home
== END 2018-08-31 08:30 | disposition home or self-care (01) ==
LOC: UCEAST 07:40
DX: J06.9 Acute upper respiratory infection, unspecified (principal)
CPT/HCPCS: 99212; G0463

== ENCOUNTER 2018-09-03 00:58 | Emergency (ER) | payer MEDICARE ==
--- NOTE | 2018-09-03 01:21 | ED ---
Abdominal Pain/Female - HPI Summary HPI Summary: This patient is a 72 year old F presenting to [facility] with a chief complaint of epigastric pain radiating to shoulders and back that began yesterday afternoon. The patient rates the pain 8/10 in severity. Symptoms aggravated by nothing. Symptoms alleviated by nothing. Patient reports nausea. Patient denies vomiting. - History of Current Complaint Chief Complaint: EDAbdPain Stated Complaint: "PAIN IN STOMACH THAT GOES INTO BACK" PER PT Time Seen by Provider: 09/03/18 01:14 Hx Obtained From: Patient Hx Last Menstrual Period: post ?: No Onset/Duration: Sudden Onset, Lasting Hours, Still Present Timing: Constant Severity Initially: Severe Severity Currently: Severe Pain Intensity: 8 Pain Scale Used: 0-10 Numeric Location: Epigastric Radiates: Yes Radiates to: Back, Other - Shoulders Aggravating Factor(s): Nothing Alleviating Factor(s): Nothing Associated Signs and Symptoms: Positive: Nausea. Negative: Vomiting Allergies/Adverse Reactions: Allergies Allergy/AdvReac Type Severity Reaction Status Date / Time codeine Allergy Severe Nausea Verified 08/31/18 07:45 Iodinated Contrast- Oral and Allergy Severe Hives Verified 08/31/18 07:45 IV Dye prochlorperazine Allergy Severe convulsions Verified 08/31/18 07:45 [From Compazine] PMH/Surg Hx/FS Hx/Imm Hx Previously Healthy: No Endocrine/Hematology History: Reports: Hx Diabetes - TYPE 2 Denies: Hx Bone Marrow Disease, Hx Sickle Cell Disease, Hx Thyroid Disease, Hx Anemia Cardiovascular History: Reports: Hx Hypertension Denies: Hx Pacemaker/ICD Respiratory History: Denies: Hx Asthma, Hx Chronic Obstructive Pulmonary Disease (COPD) GI History: Reports: Hx Diverticulosis, Hx Gastroesophageal Reflux Disease, Hx Hiatal Hernia, Hx Irritable Bowel, Hx Ulcer, Other GI Disorders - CHRONIC GASTRITIS, DIVERTICULITIS Musculoskeletal History: Reports: Hx Arthritis, Hx Bursitis - HX OF- RIGHT SHOULDER, RIGHT FOOT Sensory History: Reports: Hx Cataracts - RIGHT, MILD, Hx Contacts or Glasses - READING Denies: Hx Glaucoma, Hx Hearing Aid Opthamlomology History: Reports: Hx Cataracts - RIGHT, MILD, Hx Contacts or Glasses - READING Denies: Hx Glaucoma Psychiatric History: Reports: Hx Anxiety - r/t upcoming procedure Denies: Hx Panic Disorder, Other Psychiatric Issues/Disorders - Cancer History Hx Chemotherapy: No Hx Radiation Therapy: No - Surgical History Surgery Procedure, Year, and Place: Tonsillectomy 6 yrs of age [place]. Hysterectomy with left oopherectomy age 34 yrs [facility] [place]. oopherectomy age 39 [facility] [place]. [facility]. Right Knee Arthroscopy [facility] [place], colon resection for diveric. Hx Anesthesia Reactions: Yes - severe n/v post-op - Immunization History Date of Tetanus Vaccine: unk Date of Influenza Vaccine: 03/14 Infectious Disease History: No Infectious Disease History: Reports: Hx Shingles - 30 yrs ago, under breasts, has been ok since Denies: Hx Clostridium Difficile, Hx Hepatitis, Hx Human Immunodeficiency Virus (HIV), Hx of Known/Suspected MRSA, Hx Tuberculosis, Hx Known/Suspected VRE , Hx Known/Suspected VRSA, History Other Infectious Disease, Traveled Outside the in Last 30 Days - Family History Known Family History: Positive: Cardiac Disease - Both parents., Hypertension, Other - similar neck problems - mother - Social History Occupation: Employed Full-time Lives: With Family Alcohol Use: None Hx Substance Use: No Substance Use Type: Reports: None Hx Tobacco Use: No Smoking Status (MU): Never Smoked Tobacco Have You Smoked in the Last Year: No Review of Systems Negative: Fever Positive: Abdominal Pain, Nausea. Negative: Vomiting All Other Systems Reviewed And Are Negative: Yes Physical Exam - Summary Physical Exam Summary: VITAL SIGNS: Reviewed. GENERAL: Patient is a well-developed and nourished female who is lying comfortable in the stretcher. Patient is not in any acute respiratory distress. HEAD AND FACE: No signs of trauma. No ecchymosis, hematomas or skull depressions. No sinus tenderness. EYES: PERRLA, EOMI x 2, No injected conjunctiva, no nystagmus. EARS: Hearing grossly intact. Ear canals and tympanic membranes are within normal limits. MOUTH: Oropharynx within normal limits. NECK: Supple, trachea is midline, no adenopathy, no JVD, no carotid bruit, no c- spine tenderness, neck with full ROM. CHEST: Symmetric, no tenderness at palpation LUNGS: Clear to auscultation bilaterally. No wheezing or crackles. CVS: Regular rate and rhythm, S1 and S2 present, no murmurs or gallops appreciated. ABDOMEN: Soft, epigastric tenderness. No signs of distention. No rebound no guarding, and no masses palpated. Bowel sounds are normal. EXTREMITIES: FROM in all major joints, no edema, no cyanosis or clubbing. NEURO: Alert and oriented x 3. No acute neurological deficits. Speech is normal and follows commands. SKIN: Dry and warm Triage Information Reviewed: Yes Vital Signs On Initial Exam: Initial Vitals Temp Pulse Resp BP Pulse Ox 98.5 F 68 18 172/80 98 09/03/18 01:05 09/03/18 01:05 09/03/18 01:05 09/03/18 01:05 09/03/18 01:05 Vital Signs Reviewed: Yes Diagnostics - Vital Signs Vital Signs Temp Pulse Resp BP Pulse Ox 09/03/18 01:05 98.5 F 68 18 172/80 98 - Laboratory Result Diagrams: 09/03/18 01:45 09/03/18 01:45 Lab Statement: Any lab studies that have been ordered have been reviewed, and results considered in the medical decision making process. - EKG 0149 Cardiac Rate: NL EKG Rhythm: Sinus Rhythm - [address] Segment: Normal Ectopy: None Summary of EKG Findings: An EKG taken at 0149 reveals nml sinus rhythm at 97 BPM with normal axis, normal intervals, and no ischemic changes. Abdominal Pain Fem Course/Dx - Course Course Of Treatment: This patient is a 72 year old F presenting to [facility] with a chief complaint of epigastric pain radiating to shoulders and back that began yesterday afternoon. Physical Exam Findings: Epigastric tenderness. An EKG taken at 0149 reveals nml sinus rhythm at 97 BPM with normal axis, normal intervals, and no ischemic changes. Bloodwork obtained. In the ED course the patient was given lidocaine, fluids, Protonix, and Maalox. Patient will be discharged with follow up from PCP. The patient is agreeable with this plan. - Diagnoses Provider Diagnoses: Epigastric pain Discharge - Sign-Out/Discharge Documenting (check all that apply): Patient Departure - Discharge home Patient Received Moderate/Deep Sedation with Procedure: No - Discharge Plan Condition: Stable Disposition: HOME Patient Education Materials: Epigastric Pain (ED) Referrals: Mina Dorsey MD [Medical Doctor] - 2 Days Additional Instructions: RETURN TO THE EMERGENCY DEPARTMENT FOR NEW OR WORSENING SYMPTOMS - Attestation Statements Document Initiated by Scribe: Yes Documenting Scribe: Roxann Bosch Provider For Whom Scribe is Documenting (Include Credential): Dr. Lilibeth Wan MD Scribe Attestation: I, Roxann Bosch, scribed for Dr. Lilibeth Wan MD on 09/03/18 at 0250. Status of Scribe Document: Ready
[2018-09-03] MEDS ORDERED: Lidocaine 2% VISCOUS* 15 ML UDC PO ONE (01:24)
[2018-09-03] MEDS ORDERED: Al Hydrox/Mg Hydrox/Simet LIQ* 30 ML UDC PO ONE (01:24)
[2018-09-03] MEDS ORDERED: Pantoprazole IV* 40 MG IV ONE (01:25)
[2018-09-03] MEDS ORDERED: NS 0.9% 500 ML* 500 ML IV ONE (01:59)
[2018-09-03 02:15] LABS: ABS Basophils 0.1 10^3/ul (0-0.2); ABS Eosinophils 0.6 10^3/ul (0-0.6); ABS Lymphocytes 2.3 10^3/ul (1.0-4.8); ABS Monocytes 0.9 10^3/ul (0-0.8); ABS Neutrophils 4.9 10^3/ul (1.5-7.7); ABS Nucleated RBC 0 10^3/ul; Eosinophil % 6.8 %; Hematocrit 32 % (35-47); Hemoglobin 10.1 g/dl (12.0-16.0); Lymphocyte % 26.1 %; Mean Corpuscular HGB Conc 32 g/dl (31-36); Mean Corpuscular Hemoglobin 24 pg (27-31); Mean Corpuscular Volume 74 fL (80-97); Nucleated Red Blood Cells % 0; Platelet Count 236 10^3/ul (150-450); Red Blood Count 4.26 10^6/ul (4.00-5.40); Red Cell Distribution Width 17 % (10.5-15); White Blood Count 8.8 10^3/ul (3.5-10.8)
[2018-09-03 02:17] LABS: Albumin 4.1 g/dL (3.2-5.2); Albumin/Globulin Ratio 1.4 (1-3); BUN/Creatinine Ratio 30.1 (8-20); C Reactive Protein 6.7 mg/L (<8.01); Calcium 9.2 mg/dL (8.6-10.3); EGFR African American 63.9 (>60); EGFR Non-African American 52.8 (>60); Globulin 2.9 g/dL (2-4); Magnesium 1.9 mg/dL (1.9-2.7); Potassium 4.1 mmol/L (3.5-5.0); Total Bilirubin 0.3 mg/dL (0.2-1.0)
[2018-09-03 02:20] LABS: Troponin I 0.01 ng/mL (<0.04)
[2018-09-03 03:02] VITALS: BP 154/77
== END 2018-09-03 03:01 | disposition home or self-care (01) ==
LOC: ED 00:58
DX: R10.13 Epigastric pain (principal); R11.0 Nausea; E11.9 Type 2 diabetes mellitus without complications; Z79.84 Long term (current) use of oral hypoglycemic drugs; Z79.4 Long term (current) use of insulin; I10 Essential (primary) hypertension; K21.9 Gastro-esophageal reflux disease without esophagitis; K44.9 Diaphragmatic hernia without obstruction or gangrene; F41.9 Anxiety disorder, unspecified; Z90.49 Acquired absence of other specified parts of digestive tract; Z88.5 Allergy status to narcotic agent; Z88.8 Allergy status to other drugs, medicaments and biological substances; Z91.041 Radiographic dye allergy status
CPT/HCPCS: 36415; 80053; 82150; 83690; 83735; 84484; 85025; 85730; 86140; 93005; 96361; 96374; 99285; A9270-GY

== ENCOUNTER 2018-10-17 08:58 | Emergency (ER) | payer MEDICARE ==
[2018-10-17] MEDS ORDERED: NS 0.9% 1000 ML** 1,000 ML IV ONE (09:25)
--- NOTE | 2018-10-17 09:29 | ED ---
HPI Diabetic - HPI Summary HPI Summary: Patient is a 72 y/o F presenting to ED with complaints of high BG and diffuse joint aches located primarily at her hands, fingers, and neck. Patient is a diabetic, she notes that her BG level is typically around 160 but states that this morning it was 284. She notes that she checks her BG twice daily. Patient took her insulin shot and medications this morning, states she checked her BG three hours later and states that it had decreased to 281. She notes that joint aching onset this morning as well. Patient is on metofromin, januvia, lipocide and GLP. Patient notes that she typically takes metformin and januvia in the morning. Patient is followed by Dr. He. 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 No fever, SOB reported, patient notes some slight cough due to dry throat. Patient is on Flonase. Chest pain is denied. Patient reports abdominal pain but notes that she has Hx of gastritis and describes abdominal pain as chronic. Hx of cervical stenosis. PSHx of cholecystectomy, sigmoid colon surgery. Patient reports experiencing slight nausea this morning but it has since resolved. Bowel movements have been normal. On triage, pain is rated 2/ 10. Nothing is noted to aggravate/alleviate Sx. Home medications and allergies are reviewed. - History Of Current Complaint Chief Complaint: EDDiabeticProb Time Seen by Provider: 10/17/18 09:13 Hx Obtained From: Patient Hx Last Menstrual Period: post Onset/Duration: Lasting Hours - Sx onset this morning, Still Present Timing: Constant - Sx onset this morning Severity Initially: Mild Severity Currently: Mild - 2/10 Character: Alert Aggravating: Nothing Alleviating: Nothing Associated Signs & Symptoms: Abdominal Pain - chronic, Cough - due to dry throat , Nausea - since resolved - Allergies/Home Medications Allergies/Adverse Reactions: Allergies Allergy/AdvReac Type Severity Reaction Status Date / Time codeine Allergy Severe Nausea Verified 10/17/18 09:06 Iodinated Contrast- Oral and Allergy Severe Hives Verified 10/17/18 09:06 IV Dye prochlorperazine Allergy Severe convulsions Verified 10/17/18 09:06 [From Compazine] PMH/Surg Hx/FS Hx/Imm Hx Endocrine/Hematology History: Reports: Hx Diabetes - TYPE 2 Denies: Hx Bone Marrow Disease, Hx Sickle Cell Disease, Hx Thyroid Disease, Hx Anemia Cardiovascular History: Reports: Hx Hypertension Denies: Hx Pacemaker/ICD Respiratory History: Denies: Hx Asthma, Hx Chronic Obstructive Pulmonary Disease (COPD) GI History: Reports: Hx Diverticulosis, Hx Gastroesophageal Reflux Disease, Hx Hiatal Hernia, Hx Irritable Bowel, Hx Ulcer, Other GI Disorders - CHRONIC GASTRITIS, DIVERTICULITIS Musculoskeletal History: Reports: Hx Arthritis, Hx Bursitis - HX OF- RIGHT SHOULDER, RIGHT FOOT Sensory History: Reports: Hx Cataracts - RIGHT, MILD, Hx Contacts or Glasses - READING Denies: Hx Glaucoma, Hx Hearing Aid Opthamlomology History: Reports: Hx Cataracts - RIGHT, MILD, Hx Contacts or Glasses - READING Denies: Hx Glaucoma Psychiatric History: Reports: Hx Anxiety - r/t upcoming procedure Denies: Hx Panic Disorder, Other Psychiatric Issues/Disorders - Cancer History Hx Chemotherapy: No Hx Radiation Therapy: No - Surgical History Surgery Procedure, Year, and Place: Tonsillectomy 6 yrs of age [place]. Hysterectomy with left oopherectomy age 34 yrs [facility] [place] 39 [facility] [place] [facility] [facility]. Right K[place]rosc[place] [facility] [place] colon resection for diveric. Hx Anesthesia Reactions: Yes - severe n/v post-op - Immunization History Date of Tetanus Vaccine: unk Date of Influenza Vaccine: 03/14 Infectious Disease History: No Infectious Disease History: Reports: Hx Shingles - 30 yrs ago, under breasts, has been ok since Denies: Hx Clostridium Difficile, Hx Hepatitis, Hx Human Immunodeficiency Virus (HIV), Hx of Known/Suspected MRSA, Hx Tuberculosis, Hx Known/Suspected VRE , Hx Known/Suspected VRSA, History Other Infectious Disease, Traveled Outside the [place] in Last 30 Days - Family History Known Family History: Positive: Cardiac Disease - Both parents., Hypertension, Other - similar neck problems - mother - Social History Alcohol Use: None Hx Substance Use: No Substance Use Type: Reports: None Hx Tobacco Use: No Smoking Status (MU): Never Smoked Tobacco Have You Smoked in the Last Year: No Review of Systems Constitutional: Other - POSITIVE - HIGH BG Negative: Fever Negative: Chest Pain Positive: Cough. Negative: Shortness Of Breath Gastrointestinal: Other - NEGATIVE - ABNORMAL BOWEL MOVEMENTS Positive: Abdominal Pain - chronic, Nausea - since resolved Musculoskeletal: Other - POSITIVE - JOINT PAIN All Other Systems Reviewed And Are Negative: Yes Physical Exam - Summary Physical Exam Summary: Appearance: well appearing, no pain distress Skin: warm, dry, reflects adequate perfusion Head/face: normal Eyes: EOMI, SHEILA ENT: mucous membranes moist Neck: supple, non-tender Respiratory: CTA, breath sounds present Cardiovascular: RRR, pulses symmetrical Abdomen: non-tender, soft Bowel Sounds: present Musculoskeletal: normal, strength/ROM intact Neuro: normal, sensory motor intact, A&Ox3 Triage Information Reviewed: Yes Vital Signs On Initial Exam: Initial Vitals Temp Pulse Resp BP Pulse Ox 98.3 F 68 15 206/87 100 10/17/18 09:02 10/17/18 09:02 10/17/18 09:02 10/17/18 09:02 10/17/18 09:02 Vital Signs Reviewed: Yes Diagnostics - Vital Signs Vital Signs Temp Pulse Resp BP Pulse Ox 10/17/18 09:02 98.3 F 68 15 206/87 100 - Laboratory Result Diagrams: 10/17/18 09:23 10/17/18 09:22 Lab Statement: Any lab studies that have been ordered have been reviewed, and results considered in the medical decision making process. - EKG 0941 Cardiac Rate: NL - rate of 65 BPM EKG Rhythm: Sinus Rhythm ST Segment: Non-Specific Summary of EKG Findings: EKG showed sinus rhythm with rate of 65 BPM, normal axis, non-specific ST. Re-Evaluation - Re-Evaluation First Eval Re-Evaluation Time: 11:03 Change: Improved Comment: Patient reports improvment of Sx, patient will be discharged to home and follow up with PCP. She is agreeable with this. Diabetic Course/Dx - Course Course Of Treatment: Nurse's notes reviewed. Patient with complaint of elevated blood sugar also found to have elevated blood pressure. Patient has no real symptoms other minor joint aches. She was found to have UTI and was feeling much better with IV fluids. Her blood sugars were in the 170s. She'll be discharged on Keflex and will follow-up with her primary care physician for reevaluation and recheck of blood pressure. - Diagnoses Differential Dx: Diabetic Ketoacidosis, Hyperglycemia, Hyperosmolar State, Pneumonia, Pyelonephritis, Sepsis Provider Diagnoses: UTI (urinary tract infection), Elevated BP without diagnosis of hypertension, Diabetes mellitus with hyperglycemia Discharge - Sign-Out/Discharge Documenting (check all that apply): Patient Departure - discharge Patient Received Moderate/Deep Sedation with Procedure: No - Discharge Plan Condition: Improved Disposition: HOME Prescriptions: Cephalexin CAP* [Keflex 500 CAP*] 500 mg PO TID #15 cap Patient Education Materials: Urinary Tract Infection in Women (ED), Diabetic Hyperglycemia (ED) Referrals: Barrett Long, [employer] [Primary Care Provider] - Additional Instructions: Drink lots of fluids. Monitor your blood sugars closely. Call your doctor today for close follow-up and reevaluation of your elevated blood pressure. Return with nausea/vomiting, rising blood sugars, worse, new symptoms or other concerns. - Billing Disposition and Condition Condition: IMPROVED Disposition: Home - Attestation Statements Document Initiated by Mary: Yes Documenting Scribe: KOFI ARMSTRONG Provider For Whom Mary is Documenting (Include Credential): BRIDGET LEE MD Scribe Attestation: IKOFI, scribed for BRIDGET LEE MD on 10/17/18 at 1220. Scribe Documentation Reviewed: Yes Provider Attestation: The documentation as recorded by the KOFI zamarripa accurately reflects the service I personally performed and the decisions made by me, BRIDGET LEE MD Status of Scribe Document: Viewed
[2018-10-17 09:52] LABS: Albumin 4.2 g/dL (3.2-5.2); Albumin/Globulin Ratio 1.4 (1-3); BUN/Creatinine Ratio 22.1 (8-20); C Reactive Protein 4.89 mg/L (<8.01); Calcium 9.6 mg/dL (8.6-10.3); EGFR African American 70.2 (>60); Globulin 2.9 g/dL (2-4); Potassium 4.6 mmol/L (3.5-5.0); Total Bilirubin 0.4 mg/dL (0.2-1.0); Total Protein 7.1 g/dL (6.4-8.9)
[2018-10-17 09:52] LABS: Urine Appearance Clear; Urine Bacteria 1+ (Absent); Urine Bilirubin Negative (Negative); Urine Blood 1+ (Negative); Urine Color Straw; Urine Glucose 1+(50 mg/dL) (Negative); Urine Ketones Negative (Negative); Urine Nitrite Negative (Negative); Urine Protein 1+(30 mg/dL) (Negative); Urine Red Blood Cell Trace(0-2/hpf) (Absent); Urine Specific Gravity 1.008 (1.010-1.030); Urine Squamous Epithelial Cell Present (Absent); Urine Urobilinogen Negative (Negative); Urine White Blood Cell 2+(11-20/hpf) (Absent)
[2018-10-17 09:53] LABS: Troponin I 0.01 ng/mL (<0.04)
--- OUTSIDE RECORDS SUMMARY | 2018-10-17 09:59 | XMS REPORT | Continuity of Care Document ---
:1945 External Reference #:[id number] Author Name Kelle Campbell Care Team Providers Name Role Phone Kari He MD Primary Care Physician Unavailable Payers Date Identification Numbers Payment Provider Subscriber Effective: 2016 Policy Number: [id number] [facility] Medicare Solutions Charline Reese Opera PayID: [id number] [address] [address] [place] [address] Expires: 2016 Policy Number: [id number] Medicare Charline Reese Opera PayID: [id number] [address] [place] [address] Expires: 2016 Policy Number: [id number] [employer] Charline Reese Opera PayID: [id number] [address] [place] [address] Advance Directives Type Date Description Status Comment [...] 10/15/2016 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 Dionisio,FACP Onset: 06/24/2017 Ex-smoker Mina Dorsey, Active Dionisio,FACP Onset: 08/17/2014 Dizziness and giddiness Inactive Inactive: 10/15/2016 Onset: 07/16/2014 Epigastric pain Inactive Inactive: 10/15/2016 Onset: 07/16/2014 Flatulence, eructation and gas pain Inactive Inactive: 10/15/2016 Family History Date Family Member(s) Observation Comments Father RI Bypass graft x4 Father due to Heart Disease () Mother Heart Disease Tachycardic Mother due to Heart Disease () Siblings None Paternal Grandfather due to Heart Disease () Maternal Grandmother due to Bladder Cancer () Maternal Grandmother due to Heart Disease () Social History Type Date Description Comments Sex Unknown Marital Status Lives With Daughter 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 [employer] ETOH Use 06/23/2018 Denies alcohol use Recreational Drug Use 10/15/2016 Denies Drug Use Tobacco Use Start: Unknown Patient has never smoked Smoking Status Reviewed: 09/23/18 Patient has never smoked Allergies, Adverse Reactions, Alerts Date Description Reaction Status Severity Comments 09/24/2016 Iodinated Diagnostic Hives Active Agents 09/24/2016 Codeine Nausea and Vomiting Active 09/24/2016 Compazine Active convulsions 12/16/2016 Jardiance Active yeast infection 12/21/2016 Trulicity Active diarrhea Medications Medication Date Status Form Strength Qnty SIG Indications Ordering Provider Cheryl Loving 09/24/19 Active Solution 300Unit/M 2unit inject Barrett 19 Pen-Inject L s subcutane RYAN Long ously 30 u once a day Fluticasone 09/24/19 Active Suspension 50mcg/Act 16gm 2 sprays J30.89 Barrett Propionate 19 each RYAN Long nostril qd. Ondansetron HCL 06/23/20 Active Tablets 8mg 20tab take one Mina 18 s tablet by uriah Dale M.D.,FACP every day as needed Accu-Check 09/25/19 Active Device 1unit use E11.9 Mina Glucose Monitor 18 s devise as aspen Dale M.D.,FACP d daily last visit: 09/24/17, may change product if insurance does not cover Accu-Check Emily 09/25/19 Active Misc 100un check E11.9 Mina Chem Strips 18 its blood D. [place], sugar up M.D.,FACP to three times daily last visit: 09/24/17 may change product if insurance does not cover Accu-Check Emily 09/25/19 Active Misc 100un use with E11.9 Mina Latifet Drums 18 its glucomete Linda Dorsey r up to M.D.,FACP three times daily, last visit: 09/24/17 product may be changed if the insurance does not cover Glipizide ER 06/24/20 Active Tablets ER 2.5mg 90tab take 1 Mina Larson 24HR s tablet by Linda Dorsey, mouth M.D.,FACP every day Pen Douds 03/19/20 Active Misc 31G X 8 100un use one E11.9 Mina /16" 17 mm its time a Linda Dorsey, daily M.D.,FACP with toualison last visit: 09/24/17 Januvia 12/22/19 Active Tablets 100mg 56tab take 1 Reina 17 s tablet by uriah Pascal MD every day Lovastatin 12/17/19 Active Tablets 10mg 90tab Take 1 Mina 17 s Tablet By Linda Dorsey, Mouth AT M.D.,FACP Bedtime Meclizine HCL 10/16/19 Active Tablets 25mg 30tab 1/2-1 by Mina 17 s mouth Linda Dorsey, three M.D.,FACP times a day as needed Losartan 10/16/19 Active Tablets 50mg 90tab Take 1 Mina Potassium 17 s Tablet By Linda Dorsey, Mouth M.D.,FACP Every Day Aspirin Low Dose 09/26/19 Active Chewtabs 81mg 100un Every Day Unknown 17 its Carafate 07/10/19 Active Tablets 1gm 120ta take one K29.00 Barrett 17 bs tablet by RYAN Long mouth four times a day before meals every night Pantoprazole 02/07/[address] 20mg 180ta take 1 Barrett Sodium 15 bs tablet by RYAN Long mouth twice day Metformin HCL 02/02/20 Active Tablets 1000mg 180ta Take 1 Mina 15 bs Tablet By Linda Dorsey, Mouth M.D.,FACP Twice A Day Tylenol Active Capsules 325mg 2 tablets Unknown 00 every 4 hours as needed for pain Atenolol Active Tablets 50mg 180ta take 1 Mina 00 bs tablet by Linda Dorsey, mouth M.D.,FACP twice a day Cheryl Max 09/24/19 Hx Solution 300Unit/M Barrett Solostar 19 - Pen-Inject L Ethan KING MAKER 09/24/19 19 Flagyl 01/01/20 Hx Tablets 500mg 3tabs 1 tab by Swathi Santos 18 - mouth at [place], Unknown 1:00 at night & 7:00 at night the day before surgery and at 7:00 in the morning the day of surgery Neomycin Sulfate 01/01/20 Hx Tablets 500mg 6tabs 2 tabs by Swathi Santos 18 - mouth at [place], Unknown 1:00 at night & 7:00 at night the day before surgery, and at 7:00 in the morning the day of surgery [id number]/Electro 01/01/20 Hx Solution 236gm 4000m as Swathi Santos lytes 18 - Rec l directed [place], Unknown Cyclobenzaprine 09/25/19 Hx Tablets 10mg 60tab 1 tablet Mina HCL 18 - s by mouth Linda Dorsey, Unknown bid as M.DJayla,FACP needed muscle spasms Augmentin 07/28/19 Hx Tablets 875-125mg 20tab 1 tablet J01.90 Barrett 18 - s by mouth RYAN Long 08/07/19 q12 hours 18 for 10 days Tramadol HCL 07/28/19 Hx Tablets 50mg 30tab 1-2 M89.8x8 Barrett 18 - s tablets RYAN Long 08/04/19 every 12 18 hours as needed for pain. Computer [employer] 05/26/20 Hx Device Mina Blood Glucose 17 - D. Sunita, Meter 09/25/19 M.D.,FACP 18 Computer Numeric Control Setter Express 05/26/20 Hx Strips 150un check BS Mina Blood Glucose 17 - its tid Linda Dorsey, Test Strips 09/25/19 M.D.,FACP 18 Glipizide ER 03/19/20 Hx Tablets ER 5mg 90tab 1 by Yair 17 - 24HR s mouth Pachikara 06/24/20 every , M.D. 17 morning Nystatin 03/19/20 Hx Powder [id number] 60gm topical B37.9 Mina 17 - t/GM twice a D. Sunita, 09/25/19 day as M.D.,FACP 18 needed Youualison Solostar 03/19/20 Hx Solution 300Unit/M 2unit inject Reina 17 - Pen-Inject L s subcutane Pascal, 09/24/19 ously 30 MD 19 u once a day Clotrimazole 02/24/20 Hx Cream 1% 90gm apply B37.9 Yair 17 - twice Pachikara 03/19/20 daily , M.D. 17 Trulicity 12/17/19 Hx Solution 0.75mg/0. 4unit sc weekly Mina Larson - Pen-Inject 5ML s D. Sunita, 12/22/19 M.D.,FACP 17 Januvia 11/04/19 Hx Tablets 100mg 90tab 1 by Mina Larson - s mouth D. Sunita, 12/17/19 every day M.D.,FACP 17 Flexeril 11/02/19 Hx Tablets 10mg 30tab one Mina Larson - s tablet D. Sunita, 09/25/19 every 12 M.D.,FACP 18 hours as needed for muscle spasm Diflucan 11/02/19 Hx Tablets 150mg 2tabs 1tab by Other 17 - mouth now Ordering 02/24/20 and Provider 17 repeat in 3 days Terconazole 11/02/19 Hx Cream 0.8% 20gm 1 Other 17 - applicato Ordering 11/05/19 r Provider 17 intravagi violeta at bedtime x 3 Valacyclovir HCL 10/16/19 Hx Tablets 1gm 21tab by mouth Mina Larson - s every 8 D. Sunita, 10/23/19 hours for M.D.,FACP 17 1 week Synjardy 10/16/19 Hx Tablets 5-500mg 60tab 2 tabs po Mina Larson - s every Am DJayla Dorsey, 11/04/19 M.D.,FACP 17 Nexium 09/25/19 Hx Capsules 40mg Every Day Unknown 17 - DR 10/16/19 17 Prevnar 13 06/18/20 Hx Suspension .5uni 0.5mg Z00.00 Huan 15 - ts intramusc Kris, 10/16/19 ular once MD Larson Zostavax 06/18/20 Hx Suspension 27734Lum/ 1unit 1 sq Z00.00 Tess Pressley - Rec 0.65ML s Kris, 10/16/19 MD Larson Glipizide 02/02/20 Hx Tablets 5mg 180ta 1 tab Mina 15 - bs twice a D. Sunita, 03/19/20 day M.Linda,FACP 17 Eql Pain Relief 01/27/20 Hx Capsules 500mg Once Unknown Extra Strength 15 - 10/16/19 17 Meclizine HCL 08/17/19 Hx Tablets 12.5mg 30tab one tab Huan 15 - s every 8 Kris, 10/16/19 hours as MD Larson needed Glucophage 02/28/20 Hx Tablets 500mg Twice Unknown 13 - Daily 10/16/19 17 Losartan Hx Tablets 25mg 90tab daily Roque Soliz 00 - s Rizwana, 10/16/19 [employer] 17 Medications Administered in Office Medication Date Status Form Strength Qnty SIG Indications Ordering Provider Pneumococcal,U Administered Injection Unknown nspecified 010 Immunizations CPT Code Status Date Vaccine Reaction Lot # [id number] Given 03/23/2018 Influenza Virus Vaccine, Quadrivalent, Split, Preservative Free [id number] Given 06/24/2017 Pneumonia Vaccine [id number] Given 03/19/2017 Influenza Virus Vaccine, NO IMMEDIATE REACTION , [id number] Quadrivalent, Split, PT TOLERATED WELL Preservative Free 70187 Given 04/29/2015 Pneumococcal Conjugate Vaccine 13 Valent For Intramuscular Use Vital Signs Date Vital Result Comment 09/23/2018 3:02pm Height 62.5 inches 5'2.50" Weight 177.50 lb Heart Rate 74 /min BP Systolic 153 mmHg BP Diastolic 73 mmHg BP Systolic Recheck 148 mmHg BP Diastolic Recheck 72 mmHg Body Temperature 98.3 F O2 % BldC Oximetry 95 % BMI (Body Mass Index) 31.9 kg/m2 06/23/2018 11:00am Height 63 inches 5'3" Weight 171.00 lb Heart Rate 63 /min BP Systolic Sitting 160 mmHg BP Diastolic Sitting 76 mmHg BP Systolic Recheck 165 mmHg BP Diastolic Recheck 78 mmHg Body Temperature 97.3 F O2 % BldC Oximetry 98 % BMI (Body Mass Index) 30.3 kg/m2 02/22/2018 3:38pm Height 63 inches 5'3" Weight 155.00 lb Heart Rate 75 /min BP Systolic Sitting 128 mmHg BP Diastolic Sitting 54 mmHg Body Temperature 97.8 F O2 % BldC Oximetry 97 % BMI (Body Mass Index) 27.5 kg/m2 02/10/2018 8:44am Heart Rate 74 /min Respiratory Rate 18 /min Body Temperature 98.3 F 01/24/2018 10:17am Heart Rate 80 /min Respiratory Rate 18 /min Body Temperature 98.3 F 12/31/2017 9:46am Height 62.5 inches 5'2.50" Weight 171.00 lb Heart Rate 63 /min BP Systolic Sitting 120 mmHg BP Diastolic Sitting 60 mmHg Body Temperature 97.6 F O2 % BldC Oximetry 97 % BMI (Body Mass Index) 30.8 kg/m2 12/30/2017 1:27pm Height 62.5 inches 5'2.50" Weight 170.00 lb Heart Rate 72 /min BP Systolic Sitting 138 mmHg BP Diastolic Sitting 74 mmHg Respiratory Rate 18 /min Body Temperature 97.2 F BMI (Body Mass Index) 30.6 kg/m2 10/14/2017 3:25pm Height 62.5 inches 5'2.50" Weight 170.00 lb Heart Rate 74 /min BP Systolic 128 mmHg BP Diastolic 68 mmHg Respiratory Rate 16 /min Body Temperature 98.1 F BMI (Body Mass Index) 30.6 kg/m2 09/24/2017 2:23pm Height 62.5 inches 5'2.50" Weight 170.00 lb Heart Rate 67 /min BP Systolic Sitting 138 mmHg BP Diastolic Sitting 68 mmHg Body Temperature 96.7 F O2 % BldC Oximetry 98 % BMI (Body Mass Index) 30.6 kg/m2 07/28/2017 4:25pm Weight 170.00 lb Heart Rate 73 /min BP Systolic 130 mmHg BP Diastolic 70 mmHg Body Temperature 97.7 F O2 % BldC Oximetry 96 % 06/24/2017 1:47pm Weight 172.00 lb Heart Rate 63 /min BP Systolic Sitting 154 mmHg BP Diastolic Sitting 80 mmHg BP Systolic Recheck 156 mmHg BP Diastolic Recheck 78 mmHg Body Temperature 98.0 F O2 % BldC Oximetry 98 % 05/31/2017 2:45pm Weight 173.00 lb Heart Rate 71 /min BP Systolic Sitting 160 mmHg BP Diastolic Sitting 80 mmHg Body Temperature 97.5 F O2 % BldC Oximetry 96 % 03/19/2017 4:04pm Height 63 inches 5'3" Weight 173.38 lb Heart Rate 63 /min BP Systolic 122 mmHg BP Diastolic 64 mmHg Body Temperature 98.7 F O2 % BldC Oximetry 98 % BMI (Body Mass Index) 30.7 kg/m2 02/23/2017 11:19am Height 63 inches 5'3" Weight 173.50 lb Heart Rate 62 /min BP Systolic 136 mmHg BP Diastolic 72 mmHg Body Temperature 97.6 F O2 % BldC Oximetry 99 % BMI (Body Mass Index) 30.7 kg/m2 12/16/2016 4:32pm Weight 173.12 lb Heart Rate 74 /min BP Systolic Sitting 120 mmHg BP Diastolic Sitting 68 mmHg Body Temperature 98.5 F O2 % BldC Oximetry 97 % 10/15/2016 11:15am Height 62.5 inches 5'2.50" Weight 173.12 lb Heart Rate 66 /min BP Systolic Sitting 160 mmHg BP Diastolic Sitting 80 mmHg BP Systolic Recheck 180 mmHg BP Diastolic Recheck 84 mmHg Body Temperature 98.1 F O2 % BldC Oximetry 98 % BMI (Body Mass Index) 31.2 kg/m2 07/10/2016 3:15pm Height 66 inches Weight 180.00 lb Heart Rate 66 /min BP Systolic 160 mmHg BP Diastolic 84 mmHg BMI (Body Mass Index) 29.0 kg/m2 Results Test Date Facility Test Result H/L Range Note Laboratory test 09/23/2018 [facility] Hemoglobin A1c 7.7% High 5-7 finding Basic Metabolic 09/20/2018 [facility] Sodium 142 mmol/L N 135- [address] [place] [address] [phone] Potassium 4.3 mmol/L N 3.5-5.0 Chloride 106 mmol/L N 101-111 Co2 Carbon Dioxide 26 mmol/L N 22-32 Anion Gap 10 mmol/L N 2-11 Glucose 160 mg/dL High 70-100 Blood Urea Nitrogen 22 mg/dL N 6-24 Creatinine 0.80 mg/dL N 0.51-0.95 BUN/Creatinine Ratio 27.5 High 8-20 Calcium 9.2 mg/dL N 8.6-10.3 Egfr Non- 70.7 >60 Egfr 85.6 >60 1 Lipid Profile 09/20/2018 [facility] Triglycerides 83 mg/dL 2 (Trig/Chol/HDL) [address] [place] [address] [phone] Cholesterol 151 mg/dL 3 HDL Cholesterol 61.9 mg/dL 4 LDL Cholesterol 73 mg/dL 5 Laboratory test 09/03/2018 [facility] Partial 29.4 seconds N 26.0-36.[address] [place] [address] PTT [phone] CBC Auto Diff 09/03/2018 [facility] White Blood 8.8 10^3/uL N 3.5-10.[address] [place] [address] [phone] Red Blood Count 4.26 10^6/uL N 4.00-5.40 Hemoglobin 10.1 g/dL Low 12.0-16.0 Hematocrit 32 % Low 35-47 Mean Corpuscular Volume 74 fL Low 80-97 6 Mean Corpuscular Hemoglobin 24 pg Low 27-31 Mean Corpuscular HGB Conc 32 g/dL N 31-36 Red Cell Distribution Width 17 % High 10.5-15 Platelet Count 236 10^3/uL N 150-450 Mean Platelet Volume 8.0 fL N 7.4-10.4 Abs Neutrophils 4.9 10^3/uL N 1.5-7.7 Abs Lymphocytes 2.3 10^3/uL N 1.0-4.8 Abs Monocytes 0.9 10^3/uL High 0-0.8 Abs Eosinophils 0.6 10^3/uL N 0-0.6 Abs Basophils 0.1 10^3/uL N 0-0.2 Abs Nucleated RBC 0 10^3/uL Granulocyte % 55.9 % Lymphocyte % 26.1 % Monocyte % 10.6 % Eosinophil % 6.8 % Basophil % 0.6 % Nucleated Red Blood Cells % 0 Comp Metabolic Panel 09/03/2018 [facility] Sodium 136 mmol/L N 135-[address] [place] [address] [phone] Potassium 4.1 mmol/L N 3.5-5.0 Chloride 103 mmol/L N 101-111 Co2 Carbon Dioxide 22 mmol/L N 22-32 Anion Gap 11 mmol/L N 2-11 Glucose 188 mg/dL High 70-100 Blood Urea Nitrogen 31 mg/dL High 6-24 Creatinine 1.03 mg/dL High 0.51-0.95 BUN/Creatinine Ratio 30.1 High 8-20 Calcium 9.2 mg/dL N 8.6-10.3 Total Protein 7.0 g/dL N 6.4-8.9 Albumin 4.1 g/dL N 3.2-5.2 Globulin 2.9 g/dL N 2-4 Albumin/Globulin Ratio 1.4 N 1-3 Total Bilirubin 0.30 mg/dL N 0.2-1.0 Alkaline Phosphatase 59 U/L N 34-104 Alt 30 U/L N 7-52 Ast 30 U/L N 13-39 Egfr Non- 52.8 >60 Egfr 63.9 >60 7 Laboratory test 09/03/2018 [facility] Magnesium 1.9 mg/dL N 1.9-2.[address] [place] [address] [phone] Amylase 51 U/L N 29-103 Lipase 25 U/L N 11.0-82.0 C Reactive Protein 6.70 mg/L N <8.01 Troponin-I (TnI) 0.01 ng/mL <0.04 8 Poc Urinalysis 08/29/2018 [facility] Poc Glucose, Negative Negative [address] [place] [address] [phone] Poc Bilirubin, Urine Negative Negative Poc Ketone, Urine Negative Negative Poc Specific Bynum, Urine <=1.005 Low 1.010-1.030 Poc Blood, Urine Trace-intact Abnormal Negative Poc pH, Urine 5.0 N 5-9 Poc Protein, Urine 2+ Abnormal Negative Poc Urobilinogen, Urine 0.2 Negative Poc Nitrite, Urine Negative Negative Poc Leukocytes, Urine 1+ Abnormal Negative Poc Color, Urine Light yellow Poc Clarity, Urine Slightly Cloudy 9 Urine Culture And 08/29/2018 [facility] Urine SEE RESULT 10 , [address] [place] [address] [phone] CBC Auto Diff 07/30/2018 [facility] White Blood 7.4 10^3/uL N 3.5-[address] Count 0.8 [place] [address] [phone] Red Blood Count 4.44 10^6/uL N 4.00-5.40 Hemoglobin 10.5 g/dL Low 12.0-16.0 Hematocrit 33 % Low 35-47 Mean Corpuscular Volume 74 fL Low 80-97 Mean Corpuscular Hemoglobin 24 pg Low 27-31 Mean Corpuscular HGB Conc 32 g/dL N 31-36 Red Cell Distribution Width 17 % High 10.5-15 Platelet Count 231 10^3/uL N 150-450 Mean Platelet Volume 7.7 fL N 7.4-10.4 Abs Neutrophils 4.4 10^3/uL N 1.5-7.7 Abs Lymphocytes 1.9 10^3/uL N 1.0-4.8 Abs Monocytes 0.6 10^3/uL N 0-0.8 Abs Eosinophils 0.5 10^3/uL N 0-0.6 Abs Basophils 0.1 10^3/uL N 0-0.2 Abs Nucleated RBC 0 10^3/uL Granulocyte % 59.3 % Lymphocyte % 25.4 % Monocyte % 7.5 % Eosinophil % 6.8 % Basophil % 1.0 % Nucleated Red Blood Cells % 0 Comp Metabolic Panel 07/30/2018 [facility] Sodium 140 mmol/L N 135-[address] [place] [address] [phone] Potassium 4.4 mmol/L N 3.5-5.0 Chloride 105 mmol/L N 101-111 Co2 Carbon Dioxide 26 mmol/L N 22-32 Anion Gap 9 mmol/L N 2-11 Glucose 132 mg/dL High 70-100 Blood Urea Nitrogen 25 mg/dL High 6-24 Creatinine 1.10 mg/dL High 0.51-0.95 BUN/Creatinine Ratio 22.7 High 8-20 Calcium 9.6 mg/dL N 8.6-10.3 Total Protein 6.7 g/dL N 6.4-8.9 Albumin 4.0 g/dL N 3.2-5.2 Globulin 2.7 g/dL N 2-4 Albumin/Globulin Ratio 1.5 N 1-3 Total Bilirubin 0.40 mg/dL N 0.2-1.0 Alkaline Phosphatase 62 U/L N 34-104 Alt 31 U/L N 7-52 Ast 32 U/L N 13-39 Egfr Non- 49.0 >60 Egfr 59.2 >60 12 Laboratory test finding 07/30/2018 [facility] Lipase 16 U/L N 11.0-82.[address] [place] [address] [phone] C Reactive Protein 3.03 mg/L N <8.01 Troponin-I (TnI) 0.00 ng/mL <0.04 13 B-Type Natriuretic Peptide BNP 77 pg/mL <=100 Lactic Acid 1.9 mmol/L N 0.5-2.0 14 Comp Metabolic Panel 05/09/2018 [facility] Sodium 142 mmol/L N 135-[address] [place] [address] [phone] Potassium 5.0 mmol/L N 3.5-5.0 Chloride 107 mmol/L N 101-111 Co2 Carbon Dioxide 27 mmol/L N 22-32 Anion Gap 8 mmol/L N 2-11 Glucose 88 mg/dL N 70-100 Blood Urea Nitrogen 23 mg/dL N 6-24 Creatinine 0.87 mg/dL N 0.51-0.95 BUN/Creatinine Ratio 26.4 High 8-20 Calcium 9.8 mg/dL N 8.6-10.3 Total Protein 6.7 g/dL N 6.4-8.9 Albumin 4.3 g/dL N 3.2-5.2 Globulin 2.4 g/dL N 2-4 Albumin/Globulin Ratio 1.8 N 1-3 Total Bilirubin 0.50 mg/dL N 0.2-1.0 Alkaline Phosphatase 65 U/L N 34-104 Alt 32 U/L N 7-52 Ast 27 U/L N 13-39 Egfr Non- 64.2 >60 Egfr 77.7 >60 15 Laboratory test 05/09/2018 [facility] Hemoglobin A1c 6.9 % High 4.0-5.[address] (Glyco HGB) [place] [address] [phone] Laboratory test 01/12/2018 [facility] Surgical SEE RESULT [address] [place] [address] [phone] Laboratory test 12/31/2017 [facility] Hemoglobin A1c 7.2 High 5-7 finding Comp Metabolic 12/30/2017 [facility] Sodium 140 mmol/L N 135- [address] [place] [address] [phone] Chloride 104 mmol/L N 101-111 Co2 Carbon Dioxide 26 mmol/L N 22-32 Glucose 112 mg/dL High 70-100 Blood Urea Nitrogen 21 mg/dL N 6-24 Creatinine 0.98 mg/dL High 0.51-0.95 BUN/Creatinine Ratio 21.4 High 8-20 Calcium 9.6 mg/dL N 8.6-10.3 Total Protein 7.4 g/dL N 6.4-8.9 Albumin 4.4 g/dL N 3.2-5.2 Globulin 3.0 g/dL N 2-4 Albumin/Globulin Ratio 1.5 N 1-3 Total Bilirubin 0.50 mg/dL N 0.2-1.0 Alkaline Phosphatase 55 U/L N 34-104 Alt 34 U/L N 7-52 Egfr Non- 55.9 >60 Egfr 67.7 >60 18 Potassium 4.7 mmol/L N 3.5-5.0 Anion Gap 10 mmol/L N 2-11 Ast 40 U/L High 13-39 CBC Auto Diff 12/30/2017 [facility] White Blood 7.3 10^3/uL N 3.5-10.[address] [place] [address] [phone] Red Blood Count 4.68 10^6/uL N 4.00-5.40 Hemoglobin 13.2 g/dL N 12.0-16.0 Hematocrit 39 % N 35-47 Mean Corpuscular Volume 83 fL N 80-97 Mean Corpuscular Hemoglobin 28 pg N 27-31 Mean Corpuscular HGB Conc 34 g/dL N 31-36 Red Cell Distribution Width 15 % N 10.5-15 Platelet Count 194 10^3/uL N 150-450 Mean Platelet Volume 7.8 um3 N 7.4-10.4 Abs Neutrophils 4.0 10^3/uL N 1.5-7.7 Abs Lymphocytes 2.2 10^3/uL N 1.0-4.8 Abs Monocytes 0.6 10^3/uL N 0-0.8 Abs Eosinophils 0.4 10^3/uL N 0-0.6 Abs Basophils 0.1 10^3/uL N 0-0.2 Abs Nucleated RBC 0 10^3/uL Granulocyte % 54.9 % N 38-83 Lymphocyte % 30.3 % N 25-47 Monocyte % 8.0 % High 0-7 Eosinophil % 5.9 % N 0-6 Basophil % 0.9 % N 0-2 Nucleated Red Blood Cells % 0 Type & Screen 12/30/2017 [facility] Patient [place] [address] [phone] Antibody Screen NEGATIVE Laboratory test finding 11/22/2017 [facility] Lipase 26 U/L N 11.0-[address] [place] [address] [phone] Troponin-I (TnI) 0.00 ng/mL <0.04 Lactic Acid 1.1 mmol/L N 0.5-2.0 19 Urinalysis Profile 11/22/2017 [facility] [place] [address] [phone] Urine Appearance Cloudy Urine Specific Bynum 1.012 N 1.010-1.030 Urine pH 5.0 N 5-9 Urine Urobilinogen Negative Negative Urine Ketones Negative Negative Urine Protein Negative Negative Urine Leukocytes 1+ Abnormal Negative Urine Blood Negative Negative Urine Nitrite Negative Negative Urine Bilirubin Negative Negative Urine Glucose Negative Negative Urine White Blood Cell Trace(0-5/hpf) Absent Urine Red Blood Cell Trace(0-2/hpf) Absent Urine Bacteria Absent Absent Urine Squamous Epithelial Cell Present Abnormal Absent Urine Culture And 11/22/2017 [facility] Urine Culture SEE RESULT [address] [place] [address] [phone] Inr/Protime 11/22/2017 [facility] Inr [address] [place] [address] [phone] CBC Auto Diff 11/22/2017 [facility] White Blood 7.2 10^3/uL N 3.5-[address] Count 0.8 [place] [address] [phone] Red Blood Count 4.58 10^6/uL N 4.0-5.4 Hemoglobin 12.7 g/dL N 12.0-16.0 Hematocrit 39 % N 35-47 Mean Corpuscular Volume 84 fL N 80-97 Mean Corpuscular Hemoglobin 28 pg N 27-31 Mean Corpuscular HGB Conc 33 g/dL N 31-36 Red Cell Distribution Width 15 % N 10.5-15 Platelet Count 197 10^3/uL N 150-450 Mean Platelet Volume 7.7 um3 N 7.4-10.4 Abs Neutrophils 4.4 10^3/uL N 1.5-7.7 Abs Lymphocytes 1.9 10^3/uL N 1.0-4.8 Abs Monocytes 0.5 10^3/uL N 0-0.8 Abs Eosinophils 0.4 10^3/uL N 0-0.6 Abs Basophils 0.1 10^3/uL N 0-0.2 Abs Nucleated RBC 0 10^3/uL Granulocyte % 61.0 % N 38-83 Lymphocyte % 26.1 % N 25-47 Monocyte % 6.6 % N 0-7 Eosinophil % 5.5 % N 0-6 Basophil % 0.8 % N 0-2 Nucleated Red Blood Cells % 0 Laboratory test 11/22/2017 [facility] Partial 32.4 seconds N 26.0-36.[address] [place] [address] PTT [phone] Comp Metabolic 11/22/2017 [facility] Sodium 139 mmol/L N 139- [address] [place] [address] [phone] Potassium 4.7 mmol/L N 3.5-5.0 Chloride 106 mmol/L N 101-111 Co2 Carbon Dioxide 25 mmol/L N 22-32 Anion Gap 8 mmol/L N 2-11 Glucose 99 mg/dL N 70-100 Blood Urea Nitrogen 22 mg/dL N 6-24 Creatinine 0.97 mg/dL High 0.51-0.95 BUN/Creatinine Ratio 22.7 High 8-20 Calcium 9.4 mg/dL N 8.6-10.3 Total Protein 7.3 g/dL N 6.4-8.9 Albumin 4.2 g/dL N 3.2-5.2 Globulin 3.1 g/dL N 2-4 Albumin/Globulin Ratio 1.4 N 1-3 Total Bilirubin 0.50 mg/dL N 0.2-1.0 Alkaline Phosphatase 48 U/L N 34-104 Alt 35 U/L N 7-52 Ast 37 U/L N 13-39 Egfr Non- 56.6 >60 Egfr 72.8 >60 21 Urine Microalbumin 09/24/2017 [facility] Ur Microalbumin 161.8 mg/L Random 101 (mg/L) [place] [address] [phone] Urine Creatinine 97.93 mg/dL Urine Microalbumin/Creatinine 165.2 ug/mg High <31 Lipid Profile 09/24/2017 [facility] Triglycerides 105 mg/dL 22 (Trig/Chol/HDL) [address] [place] [address] [phone] Cholesterol 144 mg/dL 23 HDL Cholesterol 63.7 mg/dL 24 LDL Cholesterol 59 mg/dL 25 Basic Metabolic Panel 09/24/2017 [facility] Sodium 141 mmol/L N [address] [place] [address] [phone] Potassium 4.7 mmol/L N 3.5-5.0 Chloride 105 mmol/L N 101-111 Co2 Carbon Dioxide 25 mmol/L N 22-32 Anion Gap 11 mmol/L N 2-11 Glucose 140 mg/dL High 70-100 Blood Urea Nitrogen 23 mg/dL N 6-24 Creatinine 0.92 mg/dL N 0.51-0.95 BUN/Creatinine Ratio 25.0 High 8-20 Calcium 9.8 mg/dL N 8.6-10.3 Egfr Non- 60.3 >60 Egfr 77.6 >60 26 Laboratory test 09/24/2017 [facility] Hemoglobin A1c 7.5 % High 4.0-5.[address] (Glyco HGB) [place] [address] [phone] Hepatitis C Antibody Nonreactive Nonreactive 28 CBC Auto Diff 08/23/2017 [facility] White Blood 9.8 10^3/uL N 3.5-10.[address] [place] [address] [phone] Red Blood Count 4.36 10^6/uL N 4.0-5.4 Hemoglobin 12.1 g/dL N 12.0-16.0 Hematocrit 37 % N 35-47 Mean Corpuscular Volume 84 fL N 80-97 Mean Corpuscular Hemoglobin 28 pg N 27-31 Mean Corpuscular HGB Conc 33 g/dL N 31-36 Red Cell Distribution Width 15 % N 10.5-15 Platelet Count 191 10^3/uL N 150-450 Mean Platelet Volume 8 um3 N 7.4-10.4 Abs Neutrophils 7.3 10^3/uL N 1.5-7.7 Abs Lymphocytes 1.5 10^3/uL N 1.0-4.8 Abs Monocytes 0.8 10^3/uL N 0-0.8 Abs Eosinophils 0.2 10^3/uL N 0-0.6 Abs Basophils 0.1 10^3/uL N 0-0.2 Abs Nucleated RBC 0 10^3/uL Granulocyte % 74.1 % N 38-83 Lymphocyte % 15.2 % Low 25-47 Monocyte % 8.4 % High 0-7 Eosinophil % 1.5 % N 0-6 Basophil % 0.8 % N 0-2 Nucleated Red Blood Cells % 0.1 Laboratory test 08/23/2017 [facility] Lactic Acid 2.2 mmol/L High 0.5-2.0 29 finding [address] [place] [address] [phone] Comp Metabolic 08/23/2017 [facility] Sodium 136 mmol/L N 133- 145 Panel [address] [place] [address] [phone] Potassium 4.2 mmol/L N 3.5-5.0 Chloride 101 mmol/L N 101-111 Co2 Carbon Dioxide 28 mmol/L N 22-32 Anion Gap 7 mmol/L N 2-11 Glucose 147 mg/dL High 70-100 Blood Urea Nitrogen 17 mg/dL N 6-24 Creatinine 0.88 mg/dL N 0.51-0.95 BUN/Creatinine Ratio 19.3 N 8-20 Calcium 9.7 mg/dL N 8.6-10.3 Total Protein 7.1 g/dL N 6.4-8.9 Albumin 3.9 g/dL N 3.2-5.2 Globulin 3.2 g/dL N 2-4 Albumin/Globulin Ratio 1.2 N 1-3 Total Bilirubin 0.70 mg/dL N 0.2-1.0 Alkaline Phosphatase 56 U/L N 34-104 Alt 26 U/L N 7-52 Ast 22 U/L N 13-39 Egfr Non- 63.5 >60 Egfr 81.7 >60 30 Laboratory test finding 08/23/2017 [facility] Lipase 19 U/L N 11.0-82.[address] [place] [address] [phone] C Reactive Protein 33.38 mg/L High < 5.00 31 Laboratory test 07/25/2017 [facility] Rapid SEE RESULT [address] [place] [address] Antigen [phone] Laboratory test 07/25/2017 [facility] Rapid Strep A SEE RESULT [address] [place] [address] [phone] Laboratory test 07/25/2017 [facility] Rapid Strep Negative Negative [address] [place] [address] [phone] Comp Metabolic 07/25/2017 [facility] Sodium 137 mmol/L N 133- [address] [place] [address] [phone] Potassium 4.1 mmol/L N 3.5-5.0 Chloride 101 mmol/L N 101-111 Co2 Carbon Dioxide 27 mmol/L N 22-32 Anion Gap 9 mmol/L N 2-11 Glucose 127 mg/dL High 70-100 Blood Urea Nitrogen 20 mg/dL N 6-24 Creatinine 1.06 mg/dL High 0.51-0.95 BUN/Creatinine Ratio 18.9 N 8-20 Calcium 9.1 mg/dL N 8.6-10.3 Total Protein 7.0 g/dL N 6.4-8.9 Albumin 4.0 g/dL N 3.2-5.2 Globulin 3.0 g/dL N 2-4 Albumin/Globulin Ratio 1.3 N 1-3 Total Bilirubin 0.40 mg/dL N 0.2-1.0 Alkaline Phosphatase 46 U/L N 34-104 Alt 26 U/L N 7-52 Ast 28 U/L N 13-39 Egfr Non- 51.2 >60 Egfr 65.9 >60 35 Laboratory test 07/25/2017 [facility] C Reactive 8.70 mg/L High < 5.00 [address] [place] [address] [phone] Urinalysis 07/25/2017 [facility] Urine Color Straw Profile [address] [place] [address] [phone] Urine Appearance Clear Urine Specific Bynum 1.004 Low 1.010-1.030 Urine pH 5.0 N 5-9 Urine Urobilinogen Negative Negative Urine Ketones Negative Negative Urine Protein Negative Negative Urine Leukocytes Negative Negative Urine Blood Negative Negative Urine Nitrite Negative Negative Urine Bilirubin Negative Negative Urine Glucose Negative Negative Rapid Influenza 07/25/2017 [facility] Influenza A NEGATIVE Negative 37 A & B Molecular [address] [place] [address] [phone] Influenza B Molecular NEGATIVE Negative CBC Auto Diff 07/25/2017 [facility] White Blood 6.5 10^3/uL N 3.5-10.[address] [place] [address] [phone] Red Blood Count 4.54 10^6/uL N 4.0-5.4 Hemoglobin 12.7 g/dL N 12.0-16.0 Hematocrit 38 % N 35-47 Mean Corpuscular Volume 84 fL N 80-97 Mean Corpuscular Hemoglobin 28 pg N 27-31 Mean Corpuscular HGB Conc 33 g/dL N 31-36 Red Cell Distribution Width 15 % N 10.5-15 Platelet Count 193 10^3/uL N 150-450 Mean Platelet Volume 8 um3 N 7.4-10.4 Abs Neutrophils 4.1 10^3/uL N 1.5-7.7 Abs Lymphocytes 1.6 10^3/uL N 1.0-4.8 Abs Monocytes 0.6 10^3/uL N 0-0.8 Abs Eosinophils 0.2 10^3/uL N 0-0.6 Abs Basophils 0 10^3/uL N 0-0.2 Abs Nucleated RBC 0 10^3/uL Granulocyte % 62.3 % N 38-83 Lymphocyte % 24.7 % Low 25-47 Monocyte % 9.0 % N 1-9 Eosinophil % 3.5 % N 0-6 Basophil % 0.5 % N 0-2 Nucleated Red Blood Cells % 0.1 Laboratory test 07/13/2017 [facility] Lactic Acid 1.0 mmol/L N 0.5-2.0 38 finding [address] [place] [address] [phone] Laboratory test 07/13/2017 [facility] Troponin-I 0.01 ng/mL < 0.[address] (TnI) [place] [address] [phone] CBC Auto Diff 07/13/2017 [facility] White Blood 8.0 10^3/uL N 3.5-10.[address] [place] [address] [phone] Red Blood Count 4.49 10^6/uL N 4.0-5.4 Hemoglobin 12.9 g/dL N 12.0-16.0 Hematocrit 37 % N 35-47 Mean Corpuscular Volume 83 fL N 80-97 Mean Corpuscular Hemoglobin 29 pg N 27-31 Mean Corpuscular HGB Conc 34 g/dL N 31-36 Red Cell Distribution Width 15 % N 10.5-15 Platelet Count 183 10^3/uL N 150-450 Mean Platelet Volume 8 um3 N 7.4-10.4 Abs Neutrophils 5.6 10^3/uL N 1.5-7.7 Abs Lymphocytes 1.4 10^3/uL N 1.0-4.8 Abs Monocytes 0.9 10^3/uL High 0-0.8 Abs Eosinophils 0.1 10^3/uL N 0-0.6 Abs Basophils 0 10^3/uL N 0-0.2 Abs Nucleated RBC 0 10^3/uL Granulocyte % 69.6 % N 38-83 Lymphocyte % 17.8 % Low 25-47 Monocyte % 11.5 % High 1-9 Eosinophil % 0.7 % N 0-6 Basophil % 0.4 % N 0-2 Nucleated Red Blood Cells % 0.1 Laboratory test 07/13/2017 [facility] Lactic Acid 2.4 mmol/L High 0.5-2.0 [address] [place] [address] [phone] Comp Metabolic 07/13/2017 [facility] Sodium 133 mmol/L N 133- [address] [place] [address] [phone] Potassium 4.0 mmol/L N 3.5-5.0 Chloride 98 mmol/L Low 101-111 Co2 Carbon Dioxide 25 mmol/L N 22-32 Anion Gap 10 mmol/L N 2-11 Glucose 99 mg/dL N 70-100 Blood Urea Nitrogen 22 mg/dL N 6-24 Creatinine 1.18 mg/dL High 0.51-0.95 BUN/Creatinine Ratio 18.6 N 8-20 Calcium 9.1 mg/dL N 8.6-10.3 Total Protein 6.9 g/dL N 6.4-8.9 Albumin 3.9 g/dL N 3.2-5.2 Globulin 3.0 g/dL N 2-4 Albumin/Globulin Ratio 1.3 N 1-3 Total Bilirubin 0.50 mg/dL N 0.2-1.0 Alkaline Phosphatase 49 U/L N 34-104 Alt 27 U/L N 7-52 Ast 30 U/L N 13-39 Egfr Non- 45.3 >60 Egfr 58.2 >60 40 Laboratory 07/12/2017 [facility] Rapid Strep Negative Negative 41 test finding [address] [place] [address] [phone] Rapid 07/12/2017 [facility] Influenza A POSITIVE Abnormal Negative 42 Influenza A & [address] [place] [address] [phone] Influenza B Molecular NEGATIVE Negative Laboratory test 06/24/2017 [facility] Hemoglobin A1c 7.2 High 5-7 finding Urine Culture And 05/22/2017 [facility] Urine Culture SEE RESULT [address] [place] [address] [phone] Urinalysis Profile 05/22/2017 [facility] Urine Color Straw [address] [place] [address] [phone] Urine Appearance Clear Urine Specific [place] 1.010 N 1.010-1.030 Urine pH 5.0 N 5-9 Urine Urobilinogen Negative Negative Urine Ketones Negative Negative Urine Protein Negative Negative Urine Leukocytes Trace Abnormal Negative Urine Blood Negative Negative Urine Nitrite Negative Negative Urine Bilirubin Negative Negative Urine Glucose Negative Negative Urine White Blood Cell Trace(0-5/hpf) Absent Urine Red Blood Cell Absent Absent Urine Bacteria Absent Absent Urine Squamous Epithelial Cell Present Abnormal Absent CBC Auto Diff 05/22/2017 [facility] White Blood 8.3 10^3/uL N 3.5-10.[address] [place] [address] [phone] Red Blood Count 4.54 10^6/uL N 4.0-5.4 Hemoglobin 12.7 g/dL N 12.0-16.0 Hematocrit 39 % N 35-47 Mean Corpuscular Volume 85 fL N 80-97 Mean Corpuscular Hemoglobin 28 pg N 27-31 Mean Corpuscular HGB Conc 33 g/dL N 31-36 Red Cell Distribution Width 14 % N 10.5-15 Platelet Count 194 10^3/uL N 150-450 Mean Platelet Volume 8 um3 N 7.4-10.4 Abs Neutrophils 5.7 10^3/uL N 1.5-7.7 Abs Lymphocytes 1.7 10^3/uL N 1.0-4.8 Abs Monocytes 0.6 10^3/uL N 0-0.8 Abs Eosinophils 0.3 10^3/uL N 0-0.6 Abs Basophils 0.1 10^3/uL N 0-0.2 Abs Nucleated RBC 0 10^3/uL Granulocyte % 68.0 % N 38-83 Lymphocyte % 20.0 % Low 25-47 Monocyte % 7.7 % N 1-9 Eosinophil % 3.6 % N 0-6 Basophil % 0.7 % N 0-2 Nucleated Red Blood Cells % 0 Comp Metabolic Panel 05/22/2017 [facility] Sodium 138 mmol/L N 133-145 [address] [place] [address] [phone] Potassium 3.9 mmol/L N 3.5-5.0 Chloride 105 mmol/L N 101-111 Co2 Carbon Dioxide 23 mmol/L N 22-32 Anion Gap 10 mmol/L N 2-11 Glucose 165 mg/dL High 70-100 Blood Urea Nitrogen 20 mg/dL N 6-24 Creatinine 1.02 mg/dL High 0.51-0.95 BUN/Creatinine Ratio 19.6 N 8-20 Calcium 9.4 mg/dL N 8.6-10.3 Total Protein 7.0 g/dL N 6.4-8.9 Albumin 4.3 g/dL N 3.2-5.2 Globulin 2.7 g/dL N 2-4 Albumin/Globulin Ratio 1.6 N 1-3 Total Bilirubin 0.50 mg/dL N 0.2-1.0 Alkaline Phosphatase 49 U/L N 34-104 Alt 26 U/L N 7-52 Ast 27 U/L N 13-39 Egfr Non- 53.6 >60 Egfr 68.9 >60 44 Laboratory test 05/22/2017 [facility] Partial 31.1 seconds N 26.0-36.[address] [place] [address] PTT [phone] Inr/Protime 05/22/2017 [facility] Inr 0.99 N 0.89-1.[address] [place] [address] [phone] Laboratory test 05/22/2017 [facility] Amylase 41 U/L N 29-[address] [place], [place] [address] [phone] Lipase 24 U/L N 11.0-82.0 C Reactive Protein 4.08 mg/L N < 5.00 45 Laboratory test 03/19/2017 [facility] Hemoglobin A1c 8.4 High 5-7 finding Laboratory test 12/27/2016 [facility] Point of Care 124 mg/dL High 74-106 [address] [place] [address] [phone] Laboratory test 12/16/2016 [facility] Culture Throat SEE RESULT [address] [place], [place] [address] [phone] Laboratory test 12/16/2016 [facility] Rapid Group A neg finding Strep Laboratory test 12/16/2016 [facility] Hemoglobin A1c 8.3 High 5-7 finding Laboratory test 11/01/2016 [facility] Gardnerella/Yea SEE RESULT [address]: Vaginal Dna [place], [place] [address] [phone] Poc Urinalysis 11/01/2016 [facility] Poc Glucose, 2+ Abnormal Negative [address] [place] [address] [phone] Poc Bilirubin, Urine Negative N Negative Poc Ketone, Urine Negative N Negative Poc Specific Bynum, Urine 1.010 N 1.010-1.030 Poc Blood, Urine Trace-intact Abnormal Negative Poc pH, Urine 5.0 N 5-9 Poc Protein, Urine Negative N Negative Poc Urobilinogen, Urine 0.2 N Negative Poc Nitrite, Urine Negative N Negative Poc Leukocytes, Urine Negative N Negative Poc Color, Urine Yellow N Poc Clarity, Urine Clear N 49 Urine Culture And 11/01/2016 [facility] Urine Culture SEE RESULT [address] [place] [address] [phone] Comp Metabolic 09/24/2016 N2N/CCD Import Albumin 4.3 g/dL 3.2-5 Panel .2 Albumin/Globulin Ratio 1.5 1-3 Alkaline Phosphatase 58 [...] 3.8 mmol/L 3.5-5.0 Sodium 135 mmol/L 133-145 51 Total Bilirubin 0.40 mg/dL 0.2-1.0 Total Protein 7.2 g/dL 6.4-8.9 Inr/Protime 09/24/2016 N2N/CCD Import Inr 0.98 0.89-1.11 Laboratory Studies 09/24/2016 N2N/CCD Import Absolute 0.1 10^3/ul 0-0.2 Basophils (auto) Absolute Eosinophils (auto) 0.4 10^3/ul 0-0.6 Absolute [...] Distribution Width 15 % 10.5-15 Urine Specific Bynum 1.013 1.010-1.030 Urine pH 5.0 5-9 White Blood Count 7.6 10^3/ul 3.5-10.8 Urinalysis Profile 09/24/2016 [email or web address] Import Urine Appearance Clear Urine Bacteria Absent Absent Urine Bilirubin Negative Negative Urine Blood Negative Negative Urine Color Yellow Urine Glucose 1+(50 mg/dL) Negative Urine Ketones Negative Negative Urine Leukocytes Negative Negative Urine Nitrite Negative Negative Urine Protein 1+(30 mg/dL) Negative Urine Red Blood Cell Absent Absent Urine Specific Bynum 1.013 1.010-1.030 Urine Urobilinogen Negative Negative Urine White Blood Cell Absent Absent Urine pH 5.0 5-9 Laboratory test finding 09/24/2016 [email or web address] Import Lactic Acid 1.6 mmol/L 0.5-2.0 52 Troponin I 0.01 ng/mL <0.04 53 CBC Auto Diff 09/24/2016 [email or web address] Import Abs Basophils 0.1 10^3/uL 0-0.2 Abs Eosinophils [...] Blood Count 7.6 10^3/uL 3.5-10.8 CBC W/Auto 09/17/2016 N2N/CCD Import Absolute 2.0 X103/UL 1.0-4.8 Differential(!) Lymphocytes Absolute Monocytes 0.4 X103/UL 0.0-0.8 Absolute Neutrophils 3.6 X103/UL 1.5-7.7 Hematocrit 39.4 % 35-52 Hemoglobin Blood 12.4 g/dL 12.0-18.0 Lymph% 33.1 % 20.0-45.0 MCH (Corpuscular Hemoglobin) 28.3 pg 27-31 MCHC (Corpuscular Hemog Conc) 31.6 g/dL Low 32.0-36.0 MCV (Corpuscular Volume) 89.6 FL 79-97 MPV 8.1 FL 7.4-10.4 [place]% 7.3 % 1.0-9.0 Neutrophil % 59.6 % 38.0-83.0 Platelet Count Blood Auto CNT 165 X103/UL 150-450 RBC Red Blood Count 4.39 X106/UL 4.20-6.20 RDW 15.7 % High 10.5-15.0 White Blood Count Ser Auto CNT 6.1 3/UL 4.8-10.8 CMP(!) 09/17/2016 N2N/CCD Import Albumin Serum/Plasma(!) 4.3 g/dL 3.5- 5.2 Alkaline Phosphatase(!) 63 U/L 39-117 Alt - [...] Mass/Vol(!) 3.1 mg/dL 2.6-7.2 Lipid Panel(!) 09/17/2016 N2N/CCD Import Cholesterol Total 152 mg/dL 140 -200 Mass/Vol HDL Cholesterol Mol/Vol 58 30-85 LDL Cholesterol Mass/Vol(!) 71 mg/dL 0-130 Triglycerides Ser/Plas Mass/VL 113 mg/dL 30-150 Ua Dipstick Macroscopic(!) 09/17/2016 N2N/CCD Import Ua Appearance Clear Ua Bilirubin Neg Ua Blood Qual Neg Ua Color Yellow Ua Glucose QL 3+ High Ua Ketones Neg Ua Leukocytes Neg Ua Nitrite Neg Ua PH Test 5.0 units 5.0-8.0 Ua Protein 1+ High Ua Specific B[place]um 1.020 GM/ML 1.00-1.035 Ua Urobilinogen Neg Ua Microscopic 09/17/2016 N2N/CCD Import Ua Amorphous None Ua Bacteria Trace Ua Casts None Ua Crystals Few- CA.Oxalate Ua Epithelial Cells Mod Ua Mucous Small Ua RBC Rare Ua WBC 0-2 Ua Yeast None Laboratory test 09/17/2016 N[facility]N/[facility] Import Vitamin B12 249 pg/mL 180-914 54 finding Laboratory Studies 09/17/2016 N2N/[facility]D Import Urine Creatinine 128.28 mg/dL mg/dL Urine Microalbumin/Creatinine Ratio 366.2 ug/mg High 0-31 Urine Random Microalbumin 469.8 mg/L Vitamin B12 Level 249 pg/mL 180-914 Urine Microalbumin 09/17/2016 N2N/CCD Import Ur Microalbumin 469.8 mg/L Random (mg/L) Urine Creatinine 128.28 mg/dL Urine Microalbumin/Creatinine 366.2 ug/mg High <31 Laboratory test 09/17/2016 N2N/CCD Import Hemoglobin A1c 8.1 % High 4.0- 5.9 finding (!) Laboratory 06/28/2016 N2N/CCD Import Urine Specific 1.011 1.010-1.030 Studies Bynum Urine pH 6.0 5-9 Laboratory test finding 06/28/2016 N2N/CCD Import Lactic Acid 1.3 mmol/L 0.5-2.0 55 Lipase 17 U/L 11.0-82.0 56 Troponin I 0.01 ng/mL <0.04 CBC Auto Diff 06/28/2016 N2N/CCD Import Abs Basophils 0.1 10^3/uL 0-0.2 Abs Eosinophils [...] 7.7 10^3/uL 3.5-10.8 Comp Metabolic Panel 06/28/2016 N2N/CCD Import Albumin 4.0 g/dL 3.2-5.2 Albumin/Globulin Ratio 1.4 [...] 4.3 mmol/L 3.5-5.0 Sodium 138 mmol/L 133-145 57 Total Bilirubin 0.40 mg/dL 0.2-1.0 Total Protein 6.8 g/dL 6.4-8.9 Laboratory Studies 06/28/2016 N2N/CCD Import Absolute Basophils 0.1 10^3/ ul 0-0.2 (auto) Absolute Eosinophils (auto) 0.5 10^3/ul 0-0.6 Absolute [...] Count 7.7 10^3/ul 3.5-10.8 Urinalysis Profile 06/28/2016 N2N/CCD Import Urine Appearance Clear Urine Bilirubin Negative Negative Urine Blood Negative Negative Urine Color Yellow Urine Glucose Negative Negative Urine Ketones Negative Negative Urine Leukocytes Negative Negative Urine Nitrite Negative Negative Urine Protein Negative Negative Urine Specific [place] 1.011 1.010-1.030 Urine Urobilinogen Negative Negative Urine pH 6.0 5-9 CBC Auto Diff 06/23/2016 N2N/CCD Import Abs Basophils 0 10^3/uL 0-0.2 Abs Eosinophils [...] 8.2 10^3/uL 3.5-10.8 Comp Metabolic Panel 06/23/2016 N2N/CCD Import Albumin 4.3 g/dL 3.2-5.2 Albumin/Globulin Ratio 1.4 [...] 4.1 mmol/L 3.5-5.0 Sodium 137 mmol/L 133-145 58 Total Bilirubin 0.50 mg/dL 0.2-1.0 Total Protein 7.3 g/dL 6.4-8.9 Laboratory test 10/24/2015 N2N/CCD Import Point of Care 143 mg/dL High 74 -106 59 finding Glucose Laboratory test 06/25/2015 N2N/CCD Import SOB 1St Sample Neg finding (Gai) SOB 2ND Sample (Gai) Neg SOB 3RD Sample (Gai) Neg Ua Microscopic 06/18/2015 N2N/CCD Import Ua Amorphous None Ua Bacteria Rare Ua Casts Few-Hyaline Ua Crystals None Ua Epithelial Cells Mod Ua Mucous Small Ua RBC 0-2 Ua WBC 7-12 High Ua Yeast None Ua Dipstick Macroscopic(!) 06/18/2015 N2N/CCD Import Ua Appearance Clear Ua Bilirubin Neg Ua Blood Qual Neg Ua Color Yellow Ua Glucose QL Neg Ua Ketones Neg Ua Leukocytes 1+ High Ua Nitrite Neg Ua PH Test 5.0 units 5.0-8.0 Ua Protein Neg Ua Specific Bynum 1.020 GM/ML 1.00-1.035 Ua Urobilinogen Neg Laboratory test 06/11/2015 N2N/CCD Import Hemoglobin A1c (!) 6.2 % High 4.0-5.9 finding CBC W/Auto 06/11/2015 N2N/CCD Import Absolute 2.1 1.0-4.8 Differential(!) Lymphocytes X103/UL Absolute Monocytes 0.5 X103/UL 0.0-0.8 Absolute Neutrophils 3.9 X103/UL 1.5-7.7 Hematocrit 38.2 % 35-52 Hemoglobin Blood 12.0 g/dL 12.0-18.0 Lymph% 32.0 % 20.0-45.0 MCH (Corpuscular Hemoglobin) 27.4 pg 27-31 MCHC (Corpuscular Hemog Conc) 31.4 g/dL Low 32.0-36.0 MCV (Corpuscular Volume) 87.4 FL 79-97 MPV 7.6 FL 7.4-10.4 [place]% 8.0 % 1.0-9.0 Neutrophil % 60.0 % 38.0-83.0 Platelet Count Blood Auto CNT 197 X103/UL 150-450 RBC Red Blood Count 4.37 X106/UL 4.20-6.20 RDW 14.8 % 10.5-15.0 White Blood Count Ser Auto CNT 6.5 3/UL 4.8-10.8 CMP(!) 06/11/2015 N2N/CCD Import Albumin Serum/Plasma(!) 4.2 g/dL 3.5- 5.2 Alkaline Phosphatase(!) 57 U/L 39-117 Alt - [...] Mass/Vol(!) 4.4 mg/dL 2.6-7.2 Lipid Panel(!) 06/11/2015 N2N/CCD Import Cholesterol Total 156 mg/dL 140 -200 Mass/Vol HDL Cholesterol Mol/Vol 53 30-85 LDL Cholesterol Mass/Vol(!) 78 mg/dL 0-130 Triglycerides Ser/Plas Mass/VL 124 mg/dL 30-150 Laboratory test finding 04/30/2015 [email or web address] Import Lactic Acid 1.8 mmol/L 0.5-2.2 Troponin I 0.00 ng/mL <0.03 60 CBC Auto Diff 04/30/2015 N2N/CCD Import Abs Basophils 0.1 10^3/uL 0-0.2 Abs Eosinophils [...] 7.2 10^3/uL 4.8-10.8 Comp Metabolic Panel 04/30/2015 [email or web address] Import Albumin 4.3 g/dL 3.2-5.2 Albumin/Globulin Ratio 1.5 [...] TNP mmol/L 3.5-5.0 Sodium 136 mmol/L 133-145 61 Total Bilirubin 0.60 mg/dL 0.2-1.0 Total Protein 7.1 g/dL 6.4-8.9 Laboratory Studies 04/30/2015 N2N/CCD Import Absolute Basophils 0.1 10^3/ ul 0-0.2 (auto) Absolute Eosinophils (auto) 0.3 10^3/ul 0-0.6 Absolute [...] 7.2 10^3/ul 4.8-10.8 Ua Dipstick Macroscopic(!) 01/18/2015 N2N/CCD Import Ua Appearance Clear Ua Bilirubin Neg Ua Blood Qual Neg Ua Color Yellow Ua Glucose QL Neg Ua Ketones Neg Ua Leukocytes Neg Ua Nitrite Neg Ua PH Test 5.0 units 5.0-8.0 Ua Protein Neg Ua Specific [place] 1.020 GM/ML 1.00-1.035 Ua Urobilinogen Neg Laboratory test 01/12/2015 N2N/CCD Import Troponin I 0.01 ng/mL <0.03 62 finding Laboratory test 01/12/2015 N2N/CCD Import Lipase 44 U/L 11.0-82.0 63 finding Troponin I 0.00 ng/mL <0.03 CBC Auto Diff 01/12/2015 N2N/CCD Import Abs Basophils 0.1 10^3/uL 0-0.2 Abs Eosinophils [...] 8.1 10^3/uL 4.8-10.8 Comp Metabolic Panel 01/12/2015 N2N/CCD Import Albumin 4.3 g/dL 3.2-5.2 Albumin/Globulin Ratio 1.5 [...] 4.0 mmol/L 3.5-5.0 Sodium 137 mmol/L 133-145 64 Total Bilirubin 0.30 mg/dL 0.2-1.0 Total Protein 7.1 g/dL 6.4-8.9 CMP(!) 01/04/2015 N2N/CCD Import Albumin Serum/Plasma(!) 4.4 g/dL 3.5- 5.2 Alkaline Phosphatase(!) 62 U/L 39-117 Alt - [...] Ser/Plas Mass/Vol(!) 4.2 mg/dL 2.6-7.2 Urine Microalbumin 11/15/2014 N2N/CCD Import Ur Microalbumin 45.0 mg/L Random (mg/L) Urine Creatinine 175.14 mg/dL Urine Microalbumin/Creatinine 25.6 [...] 5 Kidney failure <15 (or dialysis) 2 Desirable: <150 Borderline High: 150-199 High: 200-499 Very High: >500 3 Desirable: <200 Borderline High: 200-239 High: >239 4 Low: <40 Desirable: 40-60 High: >60 5 Desirable: <100 Near Optimal: 100-129 Borderline High: 130-159 High: 160-189 Very High: >189 6 Consistent with Previous Results Reported on 07/30/18 7 Because ethnic data is not always readily [...] 15-29 5 Kidney failure <15 (or dialysis) 8 Troponin-I testing on Plasma Separator Tubes (PST) has a known false positive rate of 0.20-0.40%. All positive troponins reflex immediate secondary confirmatory testing. 9 Engineering Surveyor: [id number] SEE RESULT BELOW Name: CHARLINE ANGULO : [address]: Jorge Alberto Hong MD Acct: [id number] Unit: [id number] AGE: 72 Location: [facility] Re08/29/18 SEX: F Status: DEP ER SPEC: [id number] KATHE: 08/29/[address] [facility] [address]: Damien CARVAJAL REQ: [id number] RECD: 08/29/18 STATUS: COMP MARTHAHR DR: Mina Hong MD _ SOURCE: URINE SPDESC: ORDERED: Urine Culture COMMENTS: [id number] Procedure Result Reported Site Urine Culture Final 08/30/18- 817 ML No growth of clinically significant organisms * ML - Main Lab . END OF REPORT DEPARTMENT OF PATHOLOGY, [address] [place] [address] Anil Goodrich M.D. Director [facility] # [id number] 12 Because ethnic data is not always readily [...] 15-29 5 Kidney failure <15 (or dialysis) 13 Troponin-I testing on Plasma Separator Tubes (PST) has a known false positive rate of 0.20-0.40%. All positive troponins reflex immediate secondary confirmatory testing. 14 [facility] Severe Sepsis and Septic Shock Management Bundle Measure requires all lactic acids initially measuring >2.0 mmol/L be repeated. 15 Because ethnic data is not always readily [...] 15-29 5 Kidney failure <15 (or dialysis) 16 Therapeutic target for the treatment of diabetes mellitus patients is <7% HBA1C, and in selective patients <6.0%. Please refer to [place] [employer] diabetic care guidelines for further information. 17 SEE RESULT BELOW Name: CHARLINE ANGULO : [address]: Davis Smith MD Acct: [id number] Unit: [id number] AGE: 72 Location: [place] [address] Re01/12/18 SEX: F Status: ADM IN SPEC: [id number] KATHE: 01/12/18- [facility] DR: Davis Smith MD REQ: [id number] RECD: 01/12/18 STATUS: SOUT _ ORDERED: LEVEL [...] mucosa is glistening schafer-pink with normal folds. Office Messenger sections are submitted in cassettes A through F as follows: A- margins, B-detached area and C through F-diverticula. Signed by and Reported on: Genesis Ramirez MD 01/14/18 1533 END OF REPORT DEPARTMENT OF PATHOLOGY, [address] [place] [address] Anil Goodrich M.D. Director [facility] # [id number] 18 Because ethnic data is not always [...] 5 Kidney failure <15 (or dialysis) 19 [facility] Severe Sepsis and Septic Shock Management Bundle Measure requires all lactic acids initially measuring >2.0 mmol/L be repeated. 20 SEE RESULT BELOW Name: CHARLINE ANGULO : [address]: Fab Ricardo MD Acct: [id number] Unit: [id number] AGE: 72 Location: ED Re11/22/17 SEX: F Status: DEP ER SPEC: [id number] KATHE: 11/22/[address] [facility] [address]: Fab Ricardo MD REQ: [id number] RECD: 11/22/17 STATUS: COMP [facility]IDA DR: Mina Dorsey MD _ SOURCE: URINE SPDESC: ORDERED: Urine Culture Procedure Result Reported Site Urine Culture Final 11/23/17- 1304 ML No Growth (<1,000 CFU/mL) * ML - Main Lab . END OF REPORT DEPARTMENT OF PATHOLOGY, [address] [place] [address] Anil Goodrich M.D. Director [facility] # [id number] 21 Because ethnic data is not always [...] 5 Kidney failure <15 (or dialysis) 22 Desirable: <150 Borderline High: 150-199 High: 200-499 Very High: >500 23 Desirable: <200 Borderline High: 200-239 High: >239 24 Low: <40 Desirable: 40-60 High: >60 25 Desirable: <100 Near Optimal: 100-129 Borderline High: 130-159 High: 160-189 Very High: >189 26 Because ethnic data is not always [...] 5 Kidney failure <15 (or dialysis) 27 Therapeutic target for the treatment of diabetes mellitus patients is <7% HBA1C, and in selective patients <6.0%. Please refer to [employer] diabetic care guidelines for further information. 28 FASTING 10 HOUR 29 Critical Result LACT:2.2 Called to DOYLE at: 10:00:35 by:[id number] Read back by:DOYLE EPSTEIN Severe Sepsis and Septic Shock Management Bundle Measure requires all lactic acids initially measuring >2.0 mmol/L be repeated. 30 Because ethnic data is not always readily [...] 15-29 5 Kidney failure <15 (or dialysis) 31 Acute inflammation: >10.00 32 SEE RESULT BELOW Name: CHARLINE ANGULO : [address]: Mike Santo MD Acct: [id number] Unit: [id number] AGE: 71 Location: ED Re07/25/17 SEX: F Status: REG ER SPEC: [id number] KATHE: 07/25/[address]: Evi CARVAJAL REQ: [id number] RECD: 07/25/17 STATUS: IRINA MARRERO DR: Mina Santo MD _ SOURCE: NASAL SPDESC: ORDERED: Flu A B Request Procedure Result Reported Site Rapid Influenza A B Request Final 07/25/17- 1735 ML Specimen received for Influenza A/B Molecular testing * ML - MAIN LAB ([facility]) . END OF REPORT * ML=Testing performed at Main Lab DEPARTMENT OF PATHOLOGY, [address] [place] [place] [address] Anil Goodrich M.D. Director [facility] # [id number] 33 SEE RESULT BELOW Name: OPERACHARLINE Mary Ann : [address]: Mike Santo MD Acct: [id number] Unit: [id number] AGE: 71 Location: ED Re07/25/17 SEX: F Status: REG ER SPEC: [id number] KATHE: 07/25/[address] [facility] [address]: Mike Santo MD REQ: [id number] RECD: 07/25/17 STATUS: IRINA MARRERO DR: Mina Dorsey MD _ SOURCE: THROAT SPDESC: ORDERED: Strep A Request Procedure Result Reported Site Rapid Strep A Request Final 07/25/17- 1721 ML Specimen received for Rapid Strep A Molecular testing * ML - MAIN LAB ([facility]) . END OF REPORT * ML=Testing performed at Main Lab DEPARTMENT OF PATHOLOGY, [address] [place] [address] Anil Goodrich M.D. Director [facility] # [id number] 34 Engineering Surveyor: [id number] 35 Because ethnic data is not always [...] 5 Kidney failure <15 (or dialysis) 36 Acute inflammation: >10.00 37 Engineering Surveyor: [id number] 38 [facility] Severe Sepsis and Septic Shock Management Bundle Measure requires all lactic acids initially measuring >2.0 mmol/L be repeated. 39 Critical Result LACT:2.4 Called to [id number] at: 14:56:34 by:[id number] Read back by:[id number] [facility] Severe Sepsis and Septic Shock Management Bundle Measure requires all lactic acids initially measuring >2.0 mmol/L be repeated. 40 Because ethnic data is not always [...] 5 Kidney failure <15 (or dialysis) 41 Engineering Surveyor: [id number] Engineering Surveyor: [id number] 43 SEE RESULT BELOW Name: CHARLINE ANGULO : [address]: Lilibeth Wan MD Acct: [id number] Unit: [id number] AGE: 71 Location: ED Re05/22/17 SEX: F Status: DEP ER SPEC: [id number] KATHE: 05/22/[address]: Lilibeth Wan MD REQ: [id number] RECD: 05/22/17 STATUS: IRINA MARRERO DR: Mina Dorsey MD _ SOURCE: URINE [facility]ESC: ORDERED: Urine Culture Procedure Result Reported Site Urine Culture Final 05/24/17826 ML No growth of clinically significant organisms * ML - MAIN LAB ([facility]) . END OF REPORT * ML=Testing performed at Main Lab DEPARTMENT OF PATHOLOGY, [address] [place] [address] Anil Goodrich M.D. Director [facility] # [id number] 44 Because ethnic data is not always [...] 5 Kidney failure <15 (or dialysis) 45 Acute inflammation: >10.00 46 Engineering Surveyor: [id number] 47 SEE RESULT BELOW Name: CHARLINE ANGULO Mary Ann : [address]: Fidel Dorsey MD Acct: [id number] Unit: [id number] AGE: 71 Location: [facility] Re12/16/16 SEX: F Status: REG REF SPEC: [id number] KATHE: 12/16/16-[address]: Mina Dorsey MD REQ: [id number] RECD: 12/16/16 STATUS: COMP _ SOURCE: THROAT SPDESC: ORDERED: Throat Culture COMMENTS: [id number] Procedure Result Reported Site Throat Culture Final 12/18/16- 1110 ML Organism 1 NORMAL MARIANN Quantity 2+ Throat cultures are clinically indicated to detect the presence of group A strep, arcanobacterium and yeast. In certain cases, predominating organisms will be reported. * ML - MAIN LAB ([facility]) . END OF REPORT * ML=Testing performed at Main Lab DEPARTMENT OF PATHOLOGY, [address] [place] [address] Anil Goodrich M.D. Director [facility] # [id number] 48 SEE RESULT BELOW Name: CHARLINE ANGULO : [address]: Stanislav Enciso MD Acct: [id number] Unit: [id number] AGE: 70 Location: [facility] Re11/01/16 SEX: F Status: DEP ER SPEC: [id number] KATHE: 11/01/[address] [facility] [address]: Roxann Cook NP REQ: [id number] RECD: 11/01/16 STATUS: IRINA THOMAS DR: Stanislav Dorsey MD _ SOURCE: VAGINAL [...] or failure. * ML - MAIN LAB ([facility]) . END OF REPORT * ML=Testing performed at Main Lab DEPARTMENT OF PATHOLOGY, [address] [place] [address] Anil Goodrich M.D. Director [facility] # [id number] 49 Engineering Surveyor: [id number] 50 SEE RESULT BELOW Name: CHARLINE ANGULO : [address]: Stanislav Enciso MD Acct: [id number] Unit: [id number] AGE: 70 Location: [facility] Re11/01/16 SEX: F Status: DEP ER SPEC: [id number] KATHE: 11/01/[address] [facility] [address]: Roxann Cook NP REQ: [id number] RECD: 11/01/16 STATUS: IRINA MARRERO DR: Stanislav Dorsey MD _ SOURCE: URINE [facility]: ORDERED: Urine Culture Procedure Result Reported Site Urine Culture Final 11/02/16- 1303 ML No growth of clinically significant organisms * ML - MAIN LAB ([facility]) . END OF REPORT * ML=Testing performed at Main Lab DEPARTMENT OF PATHOLOGY, [address] [place] [address] Anil Goodrich M.D. Director [facility] # [id number] 51 Because ethnic data is not always readily [...] 15-29 5 Kidney failure <15 (or dialysis) 52 [facility] Severe Sepsis and Septic Shock Management Bundle Measure requires all lactic acids initially measuring >2.0 mmol/L be repeated. 53 99th percentile=0.04 ng/mL Troponin results at [facility] and [facility] are not interchangeable. 54 [id number] 55 [facility] Severe Sepsis and Septic Shock Management Bundle Measure requires all lactic acids initially measuring >2.0 mmol/L be repeated. 56 99th percentile=0.04 ng/mL Troponin results at [facility] and [facility] are not interchangeable. 57 Because ethnic data is not always readily [...] 15-29 5 Kidney failure <15 (or dialysis) 58 Because ethnic data is not always readily [...] 15-29 5 Kidney failure <15 (or dialysis) 59 Engineering Surveyor: [id number] 60 Reference Range and Interpretation: TnI (ng/mL) Interpretation Less Than 0.03 ng/mL Not supportive of diagnosis of RI 0.03 - 0.50 ng/mL Indeterminate: suggest serial studies if clinically indicated. Greater than 0.5 ng/mL Consistent with diagnosis of RI 61 Because ethnic data is not always readily [...] 15-29 5 Kidney failure <15 (or dialysis) 62 Reference Range and Interpretation: TnI (ng/mL) Interpretation Less Than 0.03 ng/mL Not supportive of diagnosis of RI 0.03 - 0.50 ng/mL Indeterminate: suggest serial studies if clinically indicated. Greater than 0.5 ng/mL Consistent with diagnosis of RI 63 Reference Range and Interpretation: TnI (ng/mL) Interpretation Less Than 0.03 ng/mL Not supportive of diagnosis of RI 0.03 - 0.50 ng/mL Indeterminate: suggest serial studies if clinically indicated. Greater than 0.5 ng/mL Consistent with diagnosis of RI 64 Because ethnic data is not always readily [...] Kidney failure <15 (or dialysis) Procedures Date Code Description Status 09/12/2018 [id number] Mammogram Completed 01/12/2018 12917 Colectomy Partial W/Coloproctostomy Completed 01/12/2018 68399 Colectomy Partial W/Coloproctostomy Completed 01/12/2018 04008 Mobilization Splenic Flexure W/Partial Colectomy Completed 01/12/2018 77665 Mobilization Splenic Flexure W/Partial Colectomy Completed 08/25/2017 [id number] Mammogram Completed 02/17/2017 817269577 Diabetic Retinal Eye Exam Completed 09/25/2016 69736 ECHO Transthorasic Realtime 2D W Doppler & Color Flow Completed Hosp 09/24/2016 96445 EKG, Interpretation Only Completed 08/17/2016 82648135 Mammogram Completed 10/24/2015 64120945 Colonoscopy Completed 08/09/2015 31940934 Mammogram Completed Encounters Type Date Location Provider Dx Diagnosis Office Visit 06/23/2018 [facility] Mina Mckeon E11.9 Type 2 diabetes 11:40a [facility] [place] Dionisio Dorsey,FACP mellitus without Rd complications I10 Essential (primary) hypertension K57.30 Dvrtclos of lg int w/o perforation or abscess w/o bleeding Office Visit 02/22/2018 3:20p [facility] Mina Mckeon K57.32 Dvtrcli of lg int Jed Dorsey M.D.,FACP w/o perforation Amigo or abscess w/o bleeding E11.9 Type 2 diabetes mellitus without complications I10 Essential (primary) hypertension Office Visit 12/31/2017 9:40a [facility] Mina Mckeon E11.9 Type 2 diabetes Jed Dorsey M.D.,FACP mellitus without [address] complications I10 Essential (primary) hypertension K57.30 Dvrtclos of lg int w/o perforation or abscess w/o bleeding Office Visit 10/14/2017 3:30p [facility] Moe K57.32 Dvtrcli of lg int [facility] MD Luis, w/o perforation or FACS abscess w/o bleeding K58.2 Mixed irritable bowel syndrome Office Visit 07/28/2017 4:00p [facility] Barrett Long, J01.90 Acute sinusitis, Medicine - [facility] [employer] unspecified Amigo R05 Cough M89.8x8 Other specified disorders of bone, other site Office Visit 07/13/2017 1:08p [facility] Jorge Alberto J10.1 Flu due to oth Assoc,pc [facility] [place] ident influenza Hospitalists virus w oth resp manifest E11.65 Type 2 diabetes mellitus with hyperglycemia E86.0 Dehydration I10 Essential (primary) hypertension Office Visit 06/24/2017 2:00p [facility] Mina Mckeon E11.9 Type 2 diabetes Jed Dorsey M.D.,FACP mellitus without [address] complications I10 Essential (primary) hypertension Z23 Encounter for immunization Office Visit 05/31/2017 2:30p [facility] Yanci R10.10 Upper abdominal Medicine - Weiss, [employer] pain, unspecified [address] Office Visit 03/19/2017 4:00p [facility] Mina Mckeon E11.9 Type 2 diabetes Jed Dorsey M.D.,FACP mellitus without [address] complications K21.9 Gastro-esophageal reflux disease without esophagitis I10 Essential (primary) hypertension Z23 Encounter for immunization Office Visit 02/23/2017 11:40a [facility] Yair B37.9 Candidiasis, Jed Gutiérrez M.D. unspecified [address] E11.9 Type 2 diabetes mellitus without complications Office Visit 12/16/2016 4:20p [facility] Mina Mckeon E11.8 Type 2 diabetes Jed Dorsey M.D.,FACP mellitus with [address] unspecified complications J02.9 Acute pharyngitis, unspecified Office Visit 10/15/2016 11:50a [facility] Mina Mkceon G45.9 Transient cerebral Jed Dorsey M.D.,FACP ischemic attack, [address] unspecified E11.8 Type 2 diabetes mellitus with unspecified complications I10 Essential (primary) hypertension B00.89 Other herpesviral infection Office Visit 09/25/2016 [facility] Joni G45.9 Transient 9:50a Clinic Dionisio Hanley cerebral ischemic attack, unspecified I10 Essential (primary) hypertension Office Visit 09/25/2016 2:05p [facility] Osman G45.9 Transient Assoc,sol Rivera M.D. cerebral ischemic Hospitalists attack, unspecified E11.8 Type 2 diabetes mellitus with unspecified complications I16.0 Hypertensive urgency G43.909 Migraine, unsp, not intractable, without status migrainosus Office Visit 09/24/2016 [facility] Joni G45.9 Transient 9:50a Clinic Dionisio Hanley cerebral ischemic attack, unspecified I10 Essential (primary) hypertension Office Visit 09/24/2016 2:04p [facility] Ladonna G45.9 Transient Assoc,sol Leija M.D. cerebral ischemic Hospitalists attack, unspecified E11.8 Type 2 diabetes mellitus with unspecified complications I16.0 Hypertensive urgency Plan of Treatment Future Appointment(s):12/26/2018 4:00 pm - Barrett Long NP at [facility]09/23/2018 - Barrett Long NPZ00.00 Encounter for general adult medical examination without abnoComments:VACCINES:Flu shot every year in the fall.We do not have a record of your last tetanus vaccine. A booster is recommended if you sustain a significant injury.Pneumonia: you are up to date on pneumonia vaccines.Shingles: The Shingrix is recommended in all people over 50. This is available at pharmacies.SCREENING:Colonoscopy: Done in 2016.Mammogram: Done recently. Recheck next year. Pap: No longer indicated.Cholesterol yearly. This was done recently.Screening for glaucoma: every 2 years unless otherwiseinstructed by your eye oofhybW06.9 Type 2 diabetes mellitus without complicationsComments:Your A1c is 7.7% up from 6.9%. It is important to increase activity and try to decrease carbohydrates in your diet. Try to find alternatives to the bagels and toast that are higher in protein.Follow up:3 months, 20 minRecommendations:See your bread dumper every year. It is OK to go every 2 years if he finds no retinal damage from diabetes. Ask your bread dumper to communicate his findings to us. See a chemical preparer every 6 months if you have numbness in your feet or a history of foot ulcers.I10 Essential (primary) hypertensionComments:Your blood pressure is slightly elevated today. Try to check your blood pressure at least once weekly at work and record those readings. If consistently running greater than 140/90 ( either number) please call.R10.9 Unspecified abdominal painComments:Increase the pantoprazole to twice daily. Continue to use the Carafate.If there is no improvement I would recommend we get you back in with Dr. Hilario.J30.89 Other allergic rhinitisNew Medication:Fluticasone Propionate 50 mcg/Act - 2 sprays each nostril qd.Comments:Start using the Flonase, two sprays each nostril once daily for at least two weeks. This may help your ear discomfort. Goals 09/23/2018 - Barrett Long NPE11.9 Type 2 diabetes mellitus without complicationsGoal Hemoglobin A1c is less than 7.0%. Goal Blood pressure is less than 130/85.
[2018-10-17 11:11] VITALS: BP 147/74
[2018-10-17 11:14] LABS: ABS Basophils 0 10^3/ul (0-0.2); ABS Eosinophils 0.5 10^3/ul (0-0.6); ABS Lymphocytes 2.2 10^3/ul (1.0-4.8); ABS Monocytes 0.7 10^3/ul (0-0.8); ABS Neutrophils 4.4 10^3/ul (1.5-7.7); ABS Nucleated RBC 0 10^3/ul; Eosinophil % 6.1 %; Hematocrit 34 % (33-41); Hemoglobin 10.7 g/dL (12.0-16.0); Lymphocyte % 27.6 %; Mean Corpuscular HGB Conc 32 g/dL (31-36); Mean Corpuscular Hemoglobin 23 pg (27-31); Mean Corpuscular Volume 73 fL (80-97); Mean Platelet Volume 8.5 fL (7.4-10.4); Nucleated Red Blood Cells % 0.1; Platelet Count 226 10^3/uL (150-450); Red Cell Distribution Width 16 % (10.5-15); White Blood Count 7.8 10^3/uL (3.5-10.8)
== END 2018-10-17 11:11 | disposition home or self-care (01) ==
LOC: ED 08:58
DX: N39.0 Urinary tract infection, site not specified (principal); E11.65 Type 2 diabetes mellitus with hyperglycemia; I10 Essential (primary) hypertension; E11.9 Type 2 diabetes mellitus without complications; J44.9 Chronic obstructive pulmonary disease, unspecified; K21.9 Gastro-esophageal reflux disease without esophagitis; K44.9 Diaphragmatic hernia without obstruction or gangrene; K58.9 Irritable bowel syndrome, unspecified; M19.90 Unspecified osteoarthritis, unspecified site; Z88.5 Allergy status to narcotic agent; Z88.8 Allergy status to other drugs, medicaments and biological substances; Z91.041 Radiographic dye allergy status; R94.31 Abnormal electrocardiogram [ECG] [EKG]
CPT/HCPCS: 36415; 80053; 81003; 81015; 83605; 84484; 85025; 86140; 87086; 93005; 96360; 99283

== ENCOUNTER 2018-10-21 03:21 | Emergency (ER) | payer MEDICARE ==
[2018-10-21] MEDS ORDERED: Atenolol TAB* 50 MG PO ONE (03:34)
--- NOTE | 2018-10-21 03:39 | ED ---
Palpitations / Dysrhythmia - HPI Summary HPI Summary: Pt is a 72 y/o female who presents to the ED c/o palpitations. 2 days ago she ran out of her Atenolol. She called her PCP however they would not call in a prescription refill. Pt states that she took a double dose of her Losartan, total 100 mg, this evening in order to counteract not having her Atenolol. She c /o mild racing palpitations, anxiety, headache, and increased urinary frequency. Pt denies any CP, SOB, or nausea. BP 185/88. - History of Current Complaint Chief Complaint: EDMedicationRefill Time Seen by Provider: 10/21/18 03:24 Hx Obtained From: Patient Onset/Duration: Gradual Onset, Lasting Hours, Still Present Timing: Constant Character: Fast Aggravating: Medication - ran out of Atenolol 2 days Associated Signs & Symptoms: Negative - Allergy/Home Medications Allergies/Adverse Reactions: Allergies Allergy/AdvReac Type Severity Reaction Status Date / Time codeine Allergy Severe Nausea Verified 10/17/18 09:06 Iodinated Contrast- Oral and Allergy Severe Hives Verified 10/17/18 09:06 IV Dye prochlorperazine Allergy Severe convulsions Verified 10/17/18 09:06 [From Compazine] PMH/Surg Hx/FS Hx/Imm Hx Endocrine/Hematology History: Reports: Hx Diabetes - TYPE 2 Denies: Hx Bone Marrow Disease, Hx Sickle Cell Disease, Hx Thyroid Disease, Hx Anemia Cardiovascular History: Reports: Hx Hypertension Denies: Hx Pacemaker/ICD Respiratory History: Denies: Hx Asthma, Hx Chronic Obstructive Pulmonary Disease (COPD) GI History: Reports: Hx Diverticulosis, Hx Gastroesophageal Reflux Disease, Hx Hiatal Hernia, Hx Irritable Bowel, Hx Ulcer, Other GI Disorders - CHRONIC GASTRITIS, DIVERTICULITIS Musculoskeletal History: Reports: Hx Arthritis, Hx Bursitis - HX OF- RIGHT SHOULDER, RIGHT FOOT Sensory History: Reports: Hx Cataracts - RIGHT, MILD, Hx Contacts or Glasses - READING Denies: Hx Glaucoma, Hx Hearing Aid Opthamlomology History: Reports: Hx Cataracts - RIGHT, MILD, Hx Contacts or Glasses - READING Denies: Hx Glaucoma Psychiatric History: Reports: Hx Anxiety - r/t upcoming procedure Denies: Hx Panic Disorder, Other Psychiatric Issues/Disorders - Cancer History Hx Chemotherapy: No Hx Radiation Therapy: No - Surgical History Surgery Procedure, Year, and Place: Tonsillectomy 6 yrs of age [place]. Hysterectomy with left oopherectomy age 34 yrs 1979' [facility]. oopherectomy age 39 [facility]. Cholecystectomy [facility]. Right Knee Arthroscopy [facility], colon resection for diveric. Hx Anesthesia Reactions: Yes - severe n/v post-op - Immunization History Date of Tetanus Vaccine: unk Date of Influenza Vaccine: 03/14 Infectious Disease History: No Infectious Disease History: Reports: Hx Shingles - 30 yrs ago, under breasts, has been ok since Denies: Hx Clostridium Difficile, Hx Hepatitis, Hx Human Immunodeficiency Virus (HIV), Hx of Known/Suspected MRSA, Hx Tuberculosis, Hx Known/Suspected VRE , Hx Known/Suspected VRSA, History Other Infectious Disease, Traveled Outside the [place] in Last 30 Days - Family History Known Family History: Positive: Cardiac Disease - Both parents., Hypertension, Other - similar neck problems - mother - Social History Alcohol Use: None Hx Substance Use: No Substance Use Type: Reports: None Hx Tobacco Use: No Smoking Status (MU): Never Smoked Tobacco Have You Smoked in the Last Year: No Review of Systems Positive: Palpitations. Negative: Chest Pain Negative: Shortness Of Breath Negative: Nausea Positive: frequency Positive: Headache Positive: Anxious All Other Systems Reviewed And Are Negative: Yes Physical Exam - Summary Physical Exam Summary: Appearance: well appearing, no pain distress Skin: warm, dry, reflects adequate perfusion Head/face: normal Eyes: EOMI, SHEILA ENT: mucous membranes moist Neck: supple, non-tender Respiratory: CTA, breath sounds present Cardiovascular: tachycardic but regular rhythm, pulses symmetrical Abdomen: non-tender, soft Bowel Sounds: present Musculoskeletal: normal, strength/ROM intact Neuro: normal, sensory motor intact, A&Ox3 Triage Information Reviewed: Yes Vital Signs On Initial Exam: Initial Vitals Temp Pulse Resp BP Pulse Ox 97.6 F 114 18 185/88 96 10/21/18 03:29 10/21/18 03:29 10/21/18 03:29 10/21/18 03:29 10/21/18 03:29 Vital Signs Reviewed: Yes Diagnostics - Vital Signs Vital Signs Temp Pulse Resp BP Pulse Ox 10/21/18 03:29 97.6 F 114 18 185/88 96 - Laboratory Lab Statement: Any lab studies that have been ordered have been reviewed, and results considered in the medical decision making process. Course/Dx - Course Course Of Treatment: Pt presents with tachycardia after missing Atenolol dosings. Pt dosed here and soon slowed to 80 and was fully asymptomatic. No urinary sx. BPs remain elevated. To f/u closely with PMD. - Diagnoses Differential Diagnosis/HQI/PQRI: Positive: Medication Induced, Other - medication w/d synd, afib, SVT Provider Diagnoses: Sinus tachycardia, Hypertension Discharge - Sign-Out/Discharge Documenting (check all that apply): Patient Departure - Discharge Patient Received Moderate/Deep Sedation with Procedure: No - Discharge Plan Condition: Improved Disposition: HOME Prescriptions: Atenolol TAB* [Tenormin TAB* 50 MG] 50 mg PO BID #60 tab Patient Education Materials: Hypertension (ED), Tachycardia (ED) Referrals: Barrett Long, CARPENTRY SUPERVISOR [Primary Care Provider] - Additional Instructions: Stay well-hydrated. Call your doctor today to schedule follow-up for reevaluation of your blood pressure and your medications. Low salt diet. Return if worse, high blood sugars, uncontrolled heart rate, worse or other concerns. - Billing Disposition and Condition Condition: IMPROVED Disposition: Home - Attestation Statements Document Initiated by Mary: Yes Documenting Scribe: Benita Guadarrama Provider For Whom Mary is Documenting (Include Credential): Milo Matthew MD Scribe Attestation: Benita Owens, scribed for Milo Matthew MD on 10/21/18 at 0553. Scribe Documentation Reviewed: Yes Provider Attestation: The documentation as recorded by the Benita zamarripa accurately reflects the service I personally performed and the decisions made by me, Milo Matthew MD Status of Scrkarye Document: Viewed
[2018-10-21 04:44] VITALS: BP 169/88
== END 2018-10-21 04:48 | disposition home or self-care (01) ==
LOC: ED 03:21
DX: R00.0 Tachycardia, unspecified (principal); I10 Essential (primary) hypertension; K21.9 Gastro-esophageal reflux disease without esophagitis; K57.90 Diverticulosis of intestine, part unspecified, without perforation or abscess without bleeding
CPT/HCPCS: 99283; A9270-GY

== ENCOUNTER 2018-11-05 10:53 | Emergency (ER) | payer MEDICARE ==
--- OUTSIDE RECORDS SUMMARY | 2018-11-05 11:01 | XMS REPORT | Continuity of Care Document ---
:1945 External Reference #:[id number] Author Name Jennie Ulloa Care Team Providers Name Role Phone Kari He MD Primary Care Physician Unavailable Payers Date Identification Numbers Payment Provider Subscriber Effective: 2016 Policy Number: [id number] [facility] Medicare Solutions Charline Reese Opera PayID: [id number] [address] [address] [place] [address] Expires: 2016 Policy Number: [id number] Medicare Charline Reese Opera PayID: [id number] [address] [place] [address] Expires: 2016 Policy Number: [id number] [employer] Charline Reese Opera PayID: [id number] [address] [place] [address] Advance Directives Type Date Description Status Comment Other Directive 05/31/2017 Health Care Proxy Current and Verified Problems Active Problems Provider Date Type 2 diabetes mellitus Kris Pressley MD Onset: 01/17/2013 Essential hypertension Kris Pressley MD Onset: 01/17/2013 Irritable bowel syndrome Kris Pressley MD Onset: 01/17/2013 Diverticular disease of colon Kris Pressley MD Onset: 01/17/2013 Note: had sigmoid resection Microalbuminuria due to type 2 Mina Dorsey M.D.,FACP Onset: 10/15/2016 diabetes mellitus Ex-smoker Mina Dorsey M.D.,FACP Onset: 06/24/2017 Inactive Problems Dizziness and giddiness Onset: 08/17/2014 Inactive: 10/15/2016 Epigastric pain Onset: 07/16/2014 Inactive: 10/15/2016 Flatulence, eructation and gas pain Onset: 07/16/2014 Inactive: 10/15/2016 Family History Date Family Member(s) Observation Comments Father [place] Bypass graft x4 Father due to Heart Disease () Mother Heart Disease Tachycardic Mother due to Heart Disease () Siblings None Paternal Grandfather due to Heart Disease () Maternal Grandmother due to Bladder Cancer () Maternal Grandmother due to Heart Disease () Social History Type Date Description Comments Sex Unknown Marital Status Lives With Daughter 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 [employer] ETOH Use 06/23/2018 Denies alcohol use Recreational Drug Use 10/15/2016 Denies Drug Use Tobacco Use Start: Unknown Patient has never smoked Smoking Status Reviewed: 10/24/18 Patient has never smoked Allergies, Adverse Reactions, Alerts Active Allergies Reaction Severity Comments Date Iodinated Diagnostic Agents Hives 09/24/2016 Codeine Nausea and Vomiting 09/24/2016 Compazine convulsions 09/24/2016 Jardiance yeast infection 12/16/2016 Trulicity diarrhea 12/21/2016 Medications Active Medications SIG Qnty Indications Ordering Date Provider Blood Pressure check bp twice weekly 1units I10 Barrett Long NP 10/24/2018 Monitor Auto at home Inflate [facility] [place] Blood Glucose check blood sugar 1units E11.9 Barrett Long NP 10/24/2018 Monitoring System once daily and when feeling symtoms W/Device Kit Toujeo Solostar inject subcutaneously 2units Barrett Long NP 09/23/2018 30 u once a day 300Unit/ML Solution Pen-Inject Fluticasone 2 sprays each nostril 16gm J30.89 Barrett Long NP 09/23/2018 Propionate qd. 50mcg/Act Suspension Ondansetron HCL take one tablet by 20tabs Mina Mckeon 06/23/2018 8mg mouth every day as [place], Tablets needed M.D.,FACP Accu-Check Glucose use devise as 1units E11.9 Mina Mckeon 09/24/2017 Monitor instructed daily last [place], Device visit: 09/24/17, october M.D.,FACP change product if insurance does not cover Accu-Check Emily check blood sugar up 100units E11.9 Mina Mckeon 2017 Chem Strips to three times daily Khloe Dorsey last visit: 09/24/17 MERI Nichole may change product if insurance does not cover Accu-Check Emily use with glucometer 100units E11.9 Mina Mckeon 2017 Lancet Drums up to three times Khloe Dorsey daily, last visit: MERI Nichole 09/24/17 product may be changed if the insurance does not cover Glipizide ER take 1 tablet by 90tabs Mina Mckeon 06/24/2017 2.5mg mouth every day Sunita, Tablets ER 24HR MERI Nichole Pen [place] 11/10" use one time a daily 100units E11.9 Mina Mckeon 2016 with cheryl dawit Dorsey, 31G X 8 mm [facility] [place] visit: 09/24/17 MERI Nichole Januvia take 1 tablet by 56tabs Barrett oLng NP 12/21/2016 100mg mouth every day Tablets Lovastatin Take 1 Tablet By 90tabs Mina Mckeon 12/16/2016 10mg Mouth AT Bedtime Sunita, Tablets MERI Nichole Losartan Potassium take 1 tablet by 90tabs Barrett Long NP 10/15/2016 mouth twice daily 50mg Tablets Meclizine HCL 1/2-1 by mouth three 30tabs Mina Mckeon 10/15/2016 25mg times a day as needed [place], Tablets MERI Nichole Aspirin Low Dose Every Day 100units Unknown 09/25/2016 81mg Chewtabs Carafate take one tablet by 120tabs K29.00 Barrett Long NP 07/10/2016 1gm mouth four times a Tablets day before meals every night Pantoprazole Sodium take 1 tablet by 180tabs Barrett Long NP 02/06/2015 mouth twice day 20mg Tablets DR Metformin HCL Take 1 Tablet By 180tabs Mina Mckeon 02/01/2015 Mouth Twice A Day [place], 1000mg Tablets MERI Nichole Tylenol 2 tablets every 4 Unknown 325mg hours as needed for Capsules pain Atenolol take 1 tablet by 60tabs Yoko Trinon, 50mg mouth twice a day N.P. Tablets History Medications Cheryl Long NP 09/23/2018 - 09/23/2018 300Unit/ML Solution Pen-Inject Flagyl 1 tab by mouth at 3tabs [facility] 12/31/2017 - 500mg Tablets 1:00 at night & 7:00 MD Kaveh Unknown at night the day before surgery and at 7:00 in the morning the day of surgery Neomycin Sulfate 2 tabs by mouth at 6tabs [facility] 12/31/2017 - 500mg 1:00 at night & 7:00 MD Kaveh Unknown Tablets at night the day before surgery, and at 7:00 in the morning the day of surgery Peg-[id number]/Electrolytes as directed 4000ml [facility] 12/31/2017 - MD Kaveh Unknown 236gm Solution Rec Cyclobenzaprine HCL 1 tablet by mouth bid 60tabs Mina Mckeon 09/24/2017 - 10mg as needed muscle [place], Unknown Tablets spasms M.DJayla,FACP Augmentin 1 tablet by mouth q12 20tabs J01.90 Barrett Long NP 07/28/2017 - 875-125mg hours for 10 days 08/07/2017 Tablets Tramadol HCL 1-2 tablets every 12 30tabs M89.8x Barrett Long NP 07/28/2017 - 50mg Tablets hours as needed for 8 08/04/2017 pain. [place] [employer] Blood Mina Mckeon 05/26/2017 - Glucose Meter Sunita, 09/24/2017 Device Dionisio,FACP [employer] Blood check BS tid 150uni Mina Mckeon 05/26/2017 - Glucose Test Strips ts Sunita, 09/24/2017 Dionisio,FACP Strips Glipizide ER 1 by mouth every 90tabs Yair 03/19/2017 - 5mg Tablets morning Pachikara, 06/24/2017 ER 24HR MJaylaDJayla Nystatin topical twice a day 60gm B37.9 Mina Mckeon 03/19/2017 - 927347Aqdo/GM as needed [place], 09/24/2017 Powder MSaira,FACP Toujeo Solostar inject subcutaneously 2units Reina Tolberte, 03/19/2017 - 30 u once a day 09/23/2018 300Unit/ML Solution Pen-Inject Clotrimazole apply twice daily 90gm B37.9 [place] 02/23/2017 - 1% Cream Pachikara, 03/19/2017 Dionisio Trulicity sc weekly 4units Mina Mckeon 12/16/2016 - 0.75mg/0.5ML Sunita, 12/21/2016 Solution Pen-Inject Dionisio,FACP Januvia 1 by mouth every day 90tabs Mina Mckeon 11/03/2016 - 100mg Tablets Sunita, 12/16/2016 Dionisio,FACP Terconazole 1 applicator 20gm Other Ordering 11/01/2016 - 0.8% Cream intravaginally at Provider 11/04/2016 bedtime x 3 Diflucan 1tab by mouth now and 2tabs Other Ordering 11/01/2016 - 150mg Tablets repeat in 3 days Provider 02/23/2017 Flexeril one tablet every 12 30tabs Mina Mckeon 11/01/2016 - 10mg Tablets hours as needed for Sunita, 09/24/2017 muscle spasm Dionisio,FACP Valacyclovir HCL by mouth every 8 21tabs Mina Mckeon 10/15/2016 - 1gm hours for 1 week Sunita, 10/22/2016 Tablets Dionisio,FACP Synjardy 2 tabs po every Am 60tabs Mina Mckeon 10/15/2016 - 5-500mg Tablets Sunita, 11/03/2016 Dionisio,FACP Nexium Every Day Unknown 09/24/2016 - 40mg Capsules 10/15/2016 Prevnar 13 0.5mg intramuscular .5unit Z00.00 Huan, 06/18/2015 - Suspension once s MD Kris 10/15/2016 Zostavax 1 sq 1units Z00.00 Huan, 06/18/2015 - 13178Dej/0.65ML MD Kris 10/15/2016 Suspension Rec Glipizide 1 tab twice a day 180tab Mina Mckeon 02/01/2015 - 5mg Tablets s Sunita, 03/19/2017 Dionisio,FACP Eql Pain Relief Extra Once Unknown 01/26/2015 - Strength 10/15/2016 500mg Capsules Meclizine HCL one tab every 8 hours 30tabs Huan, 08/17/2014 - 12.5mg as needed MD Kris 10/15/2016 Tablets Glucophage Twice Daily Unknown 02/27/2013 - 500mg Tablets 10/15/2016 Losartan Potassium daily 90tabs Martínez, - 25mg JOSSY Wagoner 10/15/2016 Tablets Medications Administered in Office Medication SIG Qnty Indications Ordering Provider Date Pneumococcal,Unspecified Unknown 11/09/2009 Injection Immunizations CPT Code Status Date Vaccine Reaction Lot # [id number] Given 03/23/2018 Influenza Virus Vaccine, Quadrivalent, Split, Preservative Free [id number] Given 06/24/2017 Pneumonia Vaccine [id number] Given 03/19/2017 Influenza Virus Vaccine, NO IMMEDIATE REACTION , [id number] Quadrivalent, Split, PT TOLERATED WELL Preservative Free 00234 Given 04/29/2015 Pneumococcal Conjugate Vaccine 13 Valent For Intramuscular Use Vital Signs Date Vital Result Comment 10/24/2018 10:00am Height 62.5 inches 5'2.50" Weight 178.56 lb Heart Rate 67 /min BP Systolic 155 mmHg BP Diastolic 74 mmHg BP Systolic Recheck 176 mmHg BP Diastolic Recheck 84 mmHg Body Temperature 98.6 F O2 % BldC Oximetry 98 % BMI (Body Mass Index) 32.1 kg/m2 09/23/2018 3:02pm Height 62.5 inches 5'2.50" Weight [...] Date Facility Test Result H/L Range Note Urine Culture And 10/17/2018 [facility] Urine Culture SEE RESULT [address] [place] [address] [phone] Urinalysis Profile 10/17/2018 [facility] Urine Color Straw [address] [place] [address] [phone] Urine Appearance Clear Urine Specific [place] 1.008 Low 1.010-1.030 Urine pH 5.0 N 5-9 Urine Urobilinogen Negative Negative Urine Ketones Negative Negative Urine Protein 1+(30 mg/dL) Abnormal Negative Urine Leukocytes 1+ Abnormal Negative Urine Blood 1+ Abnormal Negative Urine Nitrite Negative Negative Urine Bilirubin Negative Negative Urine Glucose 1+(50 mg/dL) Abnormal Negative Urine White Blood Cell 2+(11-20/hpf) Abnormal Absent Urine Red Blood Cell Trace(0-2/hpf) Absent Urine Bacteria 1+ Abnormal Absent Urine Squamous Epithelial Cell Present Abnormal Absent Laboratory test 10/17/2018 [facility] Lactic Acid 1.3 mmol/L N 0.5-2.0 [address] [place] [address] [phone] Comp Metabolic 10/17/2018 [facility] Sodium 138 mmol/L N 135- [address] [place] [address] [phone] Potassium 4.6 mmol/L N 3.5-5.0 Chloride 104 mmol/L N 101-111 Co2 Carbon Dioxide 25 mmol/L N 22-32 Anion Gap 9 mmol/L N 2-11 Glucose 179 mg/dL High 70-100 Blood Urea Nitrogen 21 mg/dL N 6-24 Creatinine 0.95 mg/dL N 0.51-0.95 BUN/Creatinine Ratio 22.1 High 8-20 Calcium 9.6 mg/dL N 8.6-10.3 Total Protein 7.1 g/dL N 6.4-8.9 Albumin 4.2 g/dL N 3.2-5.2 Globulin 2.9 g/dL N 2-4 Albumin/Globulin Ratio 1.4 N 1-3 Total Bilirubin 0.40 mg/dL N 0.2-1.0 Alkaline Phosphatase 64 U/L N 34-104 Alt 27 U/L N 7-52 Ast 28 U/L N 13-39 Egfr Non- 58.0 >60 Egfr 70.2 >60 3 CBC Auto Diff 10/17/2018 [facility] White Blood 7.8 10^3/uL N 3.5-10.[address] [place] [address] [phone] Red Blood Count 4.60 10^6/uL N 3.70-4.87 Hemoglobin 10.7 g/dL Low 12.0-16.0 Hematocrit 34 % N 33-41 Mean Corpuscular Volume 73 fL Low 80-97 Mean Corpuscular Hemoglobin 23 pg Low 27-31 Mean Corpuscular HGB Conc 32 g/dL N 31-36 Red Cell Distribution Width 16 % High 10.5-15 Platelet Count 226 10^3/uL N 150-450 Mean Platelet Volume 8.5 fL N 7.4-10.4 Abs Neutrophils 4.4 10^3/uL N 1.5-7.7 Abs Lymphocytes 2.2 10^3/uL N 1.0-4.8 Abs Monocytes 0.7 10^3/uL N 0-0.8 Abs Eosinophils 0.5 10^3/uL N 0-0.6 Abs Basophils 0 10^3/uL N 0-0.2 Abs Nucleated RBC 0 10^3/uL Granulocyte % 56.7 % Lymphocyte % 27.6 % Monocyte % 9.0 % Eosinophil % 6.1 % Basophil % 0.6 % Nucleated Red Blood Cells % 0.1 Laboratory test 10/17/2018 [facility] C Reactive 4.89 mg/L N < 8.[address] [place] [address] [phone] Troponin-I (TnI) 0.01 ng/mL <0.04 4 Laboratory test 09/23/2018 [facility] Hemoglobin A1c 7.7% High 5-7 finding Urine Microalbumin 09/23/2018 [facility] Urine Creatinine 117.[address] mg/[place] [address] [phone] Ur Microalbumin (mg/L) 755.0 mg/L Urine Microalbumin/Creatinine 642.3 High <31 Basic Metabolic Panel 09/20/2018 [facility] Sodium 142 mmol/L N 135-[address] [place] [address] [phone] Potassium 4.3 mmol/L N 3.5-5.0 Chloride 106 mmol/L N 101-111 Co2 Carbon Dioxide 26 mmol/L N 22-32 Anion Gap 10 mmol/L N 2-11 Glucose 160 mg/dL High 70-100 Blood Urea Nitrogen 22 mg/dL N 6-24 Creatinine 0.80 mg/dL N 0.51-0.95 BUN/Creatinine Ratio 27.5 High 8-20 Calcium 9.2 mg/dL N 8.6-10.3 Egfr Non- 70.7 >60 Egfr 85.6 >60 5 Lipid Profile 09/20/2018 [facility] Triglycerides 83 mg/dL 6 (Trig/Chol/HDL) [address] [place] [address] [phone] Cholesterol 151 mg/dL 7 HDL Cholesterol 61.9 mg/dL 8 LDL Cholesterol 73 mg/dL 9 CBC Auto Diff 09/03/2018 [facility] White Blood 8.8 10^3/uL N 3.5-10.[address] [place] [address] [phone] Red Blood Count 4.26 10^6/uL N 4.00-5.40 Hemoglobin 10.1 g/dL Low 12.0-16.0 Hematocrit 32 % Low 35-47 Mean Corpuscular Volume 74 fL Low 80-97 10 Mean Corpuscular Hemoglobin 24 pg Low 27-31 [...] % Nucleated Red Blood Cells % 0 Laboratory test 09/03/2018 [facility] Partial 29.4 seconds N 26.0-36.[address] [place] [address] PTT [phone] Comp Metabolic 09/03/2018 [facility] Sodium 136 mmol/L N 135- [address] [place] [address] [phone] Potassium 4.1 mmol/L N 3.5-5.0 Chloride 103 [...] Egfr Non- 52.8 >60 Egfr 63.9 >60 11 Laboratory test 09/03/2018 [facility] Magnesium 1.9 mg/dL N 1.9-2.[address] [place] [address] [phone] Amylase 51 U/L N 29-103 Lipase 25 U/L N 11.0-82.0 C Reactive Protein 6.70 mg/L N <8.01 Troponin-I (TnI) 0.01 ng/mL <0.04 12 Poc Urinalysis 08/29/2018 [facility] Poc Glucose, Negative Negative [address] [place] [address] [phone] Poc Bilirubin, Urine Negative Negative Poc Ketone, Urine Negative Negative Poc Specific [place], Urine <=1.005 Low 1.010-1.030 Poc Blood, Urine Trace-intact Abnormal Negative Poc pH, Urine 5.0 N 5-9 Poc Protein, Urine 2+ Abnormal Negative Poc Urobilinogen, Urine 0.2 Negative Poc Nitrite, Urine Negative Negative Poc Leukocytes, Urine 1+ Abnormal Negative Poc Color, Urine Light yellow Poc Clarity, Urine Slightly Cloudy 13 Urine Culture And 08/29/2018 [facility] Urine SEE RESULT 14 , [address] [place] [address] [phone] Comp Metabolic 07/30/2018 [facility] Sodium 140 mmol/L N 135- [address] [place] [address] [phone] Potassium 4.4 mmol/L N 3.5-5.0 Chloride 105 [...] Egfr Non- 49.0 >60 Egfr 59.2 >60 16 Laboratory test finding 07/30/2018 [facility] Lipase 16 U/L N 11.0-82.[address] [place] [address] [phone] C Reactive Protein 3.03 mg/L N <8.01 Troponin-I (TnI) 0.00 ng/mL <0.04 17 B-Type Natriuretic Peptide BNP 77 pg/mL <=100 Lactic Acid 1.9 mmol/L N 0.5-2.0 18 CBC Auto Diff 07/30/2018 [facility] White Blood 7.4 10^3/uL N 3.5-10.[address] [place] [address] [phone] Red Blood Count 4.44 10^6/uL N 4.00-5.40 [...] % Nucleated Red Blood Cells % 0 Laboratory test 05/09/2018 [facility] Hemoglobin A1c 6.9 % High 4.0-5.6 [address] (Glyco HGB) [place] [address] [phone] Comp Metabolic 05/09/2018 [facility] Sodium 142 N 135-[address] mmol/[place] [address] [phone] Potassium 5.0 mmol/L N 3.5-5.0 Chloride 107 [...] Egfr Non- 64.2 >60 Egfr 77.7 >60 20 Laboratory test 01/12/2018 [facility] Surgical SEE RESULT [address] [place] [address] [phone] Laboratory test 12/31/2017 [facility] Hemoglobin A1c 7.2 High 5-7 finding CBC Auto Diff 12/30/2017 [facility] White Blood 7.3 10^3/uL N 3.5-[address] Count 0.8 [place] [address] [phone] Red Blood Count 4.68 10^6/uL N 4.00-5.40 [...] Cells % 0 Comp Metabolic Panel 12/30/2017 [facility] Sodium 140 mmol/L N 135-[address] [place] [address] [phone] Chloride 104 mmol/L N 101-111 Co2 Carbon [...] Egfr Non- 55.9 >60 Egfr 67.7 >60 22 Potassium 4.7 mmol/L N 3.5-5.0 Anion Gap 10 mmol/L N 2-11 Ast 40 U/L High 13-39 Type & Screen 12/30/2017 [facility] Patient Blood Type A Positive [address] [place] [address] [phone] Antibody Screen NEGATIVE CBC Auto Diff 11/22/2017 [facility] White Blood 7.2 10^3/uL N 3.5-10.[address] [place] [address] [phone] Red Blood Count 4.58 10^6/uL N 4.0-5.4 [...] Red Blood Cells % 0 Inr/Protime 11/22/2017 [facility] Inr 1.02 N 0.77-1.[address] [place] [address] [phone] Laboratory test 11/22/2017 [facility] Partial 32.4 seconds N 26.0-36.[address] [place] [address] PTT [phone] Comp Metabolic 11/22/2017 [facility] Sodium 139 mmol/L N 139- [address] [place] [address] [phone] Potassium 4.7 mmol/L N 3.5-5.0 Chloride 106 [...] Egfr Non- 56.6 >60 Egfr 72.8 >60 23 Laboratory test finding 11/22/2017 [facility] Lipase 26 U/L N 11.0-82.0 [address] [place] [address] [phone] Troponin-I (TnI) 0.00 ng/mL <0.04 Lactic Acid 1.1 mmol/L N 0.5-2.0 24 Urinalysis Profile 11/22/2017 [facility] Urine Color Yellow [address] [place] [address] [phone] Urine Appearance Cloudy Urine Specific [place] 1.012 N 1.010-1.030 Urine pH 5.0 N [...] Present Abnormal Absent Urine Culture And 11/22/2017 [facility] Urine Culture SEE RESULT [address] [place] [address] [phone] Lipid Profile 09/24/2017 [facility] Triglycerides 105 mg/dL 26 (Trig/Chol/HDL) [address] [place] [address] [phone] Cholesterol 144 mg/dL 27 HDL Cholesterol 63.7 mg/dL 28 LDL Cholesterol 59 mg/dL 29 Basic Metabolic Panel 09/24/2017 [facility] Sodium 141 mmol/L N 139-145 [address] [place] [address] [phone] Potassium 4.7 mmol/L N 3.5-5.0 Chloride 105 mmol/L N 101-111 Co2 Carbon Dioxide 25 mmol/L N 22-32 Anion Gap 11 mmol/L N 2-11 Glucose 140 mg/dL High 70-100 Blood Urea Nitrogen 23 mg/dL N 6-24 Creatinine 0.92 mg/dL N 0.51-0.95 BUN/Creatinine Ratio 25.0 High 8-20 Calcium 9.8 mg/dL N 8.6-10.3 Egfr Non- 60.3 >60 Egfr 77.6 >60 30 Laboratory test 09/24/2017 [facility] Hemoglobin A1c 7.5 % High 4.0-5.[address] (Glyco HGB) [place] [address] [phone] Hepatitis C Antibody Nonreactive Nonreactive 32 Urine Microalbumin 09/24/2017 [facility] Ur Microalbumin 161.8 mg/L Random 101 (mg/L) [place] [address] [phone] Urine Creatinine 97.93 mg/dL Urine Microalbumin/Creatinine 165.2 ug/mg High <31 CBC Auto Diff 08/23/2017 [facility] White Blood 9.8 10^3/uL N 3.5-10.[address] [place] [address] [phone] Red Blood Count 4.36 10^6/uL N 4.0-5.4 [...] Blood Cells % 0.1 Laboratory test 08/23/2017 [facility] Lactic Acid 2.2 mmol/L High 0.5-2.0 33 finding [address] [place] [address] [phone] Comp Metabolic 08/23/2017 [facility] Sodium 136 mmol/L N 133- 145 Panel [address] [place] [address] [phone] Potassium 4.2 mmol/L N 3.5-5.0 Chloride 101 [...] Egfr Non- 63.5 >60 Egfr 81.7 >60 34 Laboratory test finding 08/23/2017 [facility] Lipase 19 U/L N 11.0-82.0 [address] [place] [address] [phone] C Reactive Protein 33.38 mg/L High < 5.00 35 Comp Metabolic Panel 07/25/2017 [facility] Sodium 137 mmol/L N 133-145 [address] [place] [address] [phone] Potassium 4.1 mmol/L N 3.5-5.0 Chloride 101 [...] Egfr Non- 51.2 >60 Egfr 65.9 >60 36 Laboratory test 07/25/2017 [facility] C Reactive 8.70 mg/L High < 5.00 [address] [place] [address] [phone] Laboratory test 07/25/2017 [facility] Rapid SEE RESULT [address] Influenza [place] [address] Antigen [phone] CBC Auto Diff 07/25/2017 [facility] White Blood 6.5 N 3.5- 10.[address] Count 10^3/uL [place], [place] [address] [phone] Red Blood Count 4.54 10^6/uL N 4.0-5.4 [...] Red Blood Cells % 0.1 Rapid Influenza 07/25/2017 [facility] Influenza A NEGATIVE Negative 39 A & B Molecular [address] [place] [address] [phone] Influenza B Molecular NEGATIVE Negative Urinalysis Profile 07/25/2017 [facility] Urine Color Straw [address] [place] [address] [phone] Urine Appearance Clear Urine Specific [place] 1.004 Low 1.010-1.030 Urine pH 5.0 N 5-9 Urine Urobilinogen Negative Negative Urine Ketones Negative Negative Urine Protein Negative Negative Urine Leukocytes Negative Negative Urine Blood Negative Negative Urine Nitrite Negative Negative Urine Bilirubin Negative Negative Urine Glucose Negative Negative Laboratory test 07/25/2017 [facility] Rapid Strep A SEE RESULT 40 finding [address] [place] [address] [phone] Laboratory test 07/25/2017 [facility] Rapid Strep Negative Negative 41 finding [address] [place] [address] [phone] Laboratory test 07/13/2017 [facility] Lactic Acid 1.0 mmol/L N 0.5-2.0 42 finding [address] [place] [address] [phone] CBC Auto Diff 07/13/2017 [facility] White Blood 8.0 10^3/uL N 3.5-10.8 [address] [facility] [place] [address] [phone] Red Blood Count 4.49 10^6/uL N 4.0-5.4 [...] Blood Cells % 0.1 Laboratory test 07/13/2017 [facility] Lactic Acid 2.4 mmol/L High 0.5-2.0 43 finding [address] [place] [address] [phone] Comp Metabolic 07/13/2017 [facility] Sodium 133 mmol/L N 133- 145 Panel [address] [place] [address] [phone] Potassium 4.0 mmol/L N 3.5-5.0 Chloride 98 [...] Egfr Non- 45.3 >60 Egfr 58.2 >60 44 Laboratory 07/13/2017 [facility] Troponin-I 0.01 ng/mL <0.04 test finding [address] (TnI) [place] [address] [phone] Laboratory 07/12/2017 [facility] Rapid Strep Negative Negative 45 test finding [address] [place] [address] [phone] Rapid 07/12/2017 [facility] Influenza A POSITIVE Abnormal Negative 46 Influenza A & [address] [place] [address] [phone] Influenza B Molecular NEGATIVE Negative Laboratory test 06/24/2017 [facility] Hemoglobin A1c 7.2 High 5-7 finding CBC Auto Diff 05/22/2017 [facility] White Blood Count 8.3 N 3.5-10.[address] 10^3/[place] [address] [phone] Red Blood Count 4.54 10^6/uL N 4.0-5.4 [...] Cells % 0 Comp Metabolic Panel 05/22/2017 [facility] Sodium 138 mmol/L N 133-[address] [place] [address] [phone] Potassium 3.9 mmol/L N 3.5-5.0 Chloride 105 [...] Egfr Non- 53.6 >60 Egfr 68.9 >60 47 Urine Culture And 05/22/2017 [facility] Urine Culture SEE RESULT [address] [place] [address] [phone] Laboratory test 05/22/2017 [facility] Amylase 41 U/L N 29-[address] [place] [address] [phone] Lipase 24 U/L N 11.0-82.0 C Reactive Protein 4.08 mg/L N < 5.00 49 Inr/Protime 05/22/2017 [facility] Inr 0.99 N 0.89-1.[address] [place] [address] [phone] Laboratory test 05/22/2017 [facility] Partial 31.1 seconds N 26.0-36.[address] [place] [address] PTT [phone] Urinalysis 05/22/2017 [facility] Urine Color Straw Profile [address] [place] [address] [phone] Urine Appearance Clear Urine Specific [place] 1.010 N 1.010-1.030 Urine pH 5.0 N [...] Urine Squamous Epithelial Cell Present Abnormal Absent Laboratory test 03/19/2017 [facility] Hemoglobin A1c 8.4 High 5-7 finding Laboratory test 12/27/2016 [facility] Point of Care 124 mg/dL High 74-106 [address] Glucose [place], [place] [id number] [phone] Laboratory test 12/16/2016 [facility] Culture Throat SEE RESULT [address] BELOW [place], [place] [id number] [phone] Laboratory test 12/16/2016 [facility] Rapid Group A neg finding Strep Laboratory test 12/16/2016 [facility] Hemoglobin A1c 8.3 High 5-7 finding Urine Culture And 11/01/2016 [facility] Urine Culture SEE RESULT [address] BELOW [place], [place] [id number] [phone] Laboratory test 11/01/2016 [facility] Gardnerella/Ye SEE RESULT [address] ast: [place] [address] Dna [phone] Poc Urinalysis 11/01/2016 [facility] Poc Glucose, 2+ Abnormal Negative [address] Urine [place], [place] [id number] [phone] Poc Bilirubin, Urine Negative N Negative Poc Ketone, Urine Negative N Negative Poc Specific [place], Urine 1.010 N 1.010-1.030 Poc Blood, Urine Trace-intact Abnormal Negative Poc pH, Urine 5.0 N 5-9 Poc Protein, Urine Negative N Negative Poc Urobilinogen, Urine 0.2 N Negative Poc Nitrite, Urine Negative N Negative Poc Leukocytes, Urine Negative N Negative Poc Color, Urine Yellow N Poc Clarity, Urine Clear N 54 Urinalysis Profile 09/24/2016 N2N/[facility] Import Urine Appearance Clear Urine Bacteria Absent Absent Urine Bilirubin Negative Negative Urine Blood Negative Negative Urine Color Yellow Urine Glucose 1+(50 mg/dL) Negative Urine Ketones Negative Negative Urine Leukocytes Negative Negative Urine Nitrite Negative Negative Urine Protein 1+(30 mg/dL) Negative Urine Red Blood Cell Absent Absent Urine Specific [place] 1.013 1.010-1.030 Urine Urobilinogen Negative Negative Urine White Blood Cell Absent Absent Urine pH 5.0 5-9 Inr/Protime 09/24/2016 [facility] Import Inr 0.98 0.89-1.11 CBC Auto Diff 09/24/2016 N2N/[facility]D Import Abs Basophils 0.1 10^3/uL 0-0.2 [...] 10.5-15 White Blood Count 7.6 10^3/uL 3.5-10.8 Laboratory Studies 09/24/2016 [facility] Import Absolute Basophils 0.1 10^3/ ul 0-0.2 (auto) Absolute Eosinophils (auto) 0.4 10^3/ul 0-0.6 [...] Distribution Width 15 % 10.5-15 Urine Specific [place] 1.013 1.010-1.030 Urine pH 5.0 5-9 White Blood Count 7.6 10^3/ul 3.5-10.8 Comp Metabolic Panel 09/24/2016 N2N/[facility] Import Albumin 4.3 g/dL 3.2-5.2 Albumin/Globulin [...] 3.8 mmol/L 3.5-5.0 Sodium 135 mmol/L 133-145 55 Total Bilirubin 0.40 mg/dL 0.2-1.0 Total Protein 7.2 g/dL 6.4-8.9 Laboratory test finding 09/24/2016 N2N/CCD Import Lactic Acid 1.6 mmol/L 0.5-2.0 56 Troponin I 0.01 ng/mL <0.04 57 CMP(!) 09/17/2016 N2N/[facility]D Import Albumin Serum/Plasma(!) 4.3 [...] Uric Acid Ser/Plas Mass/Vol(!) 3.1 mg/dL 2.6-7.2 CBC W/Auto 09/17/2016 N2N/[facility]D Import Absolute 2.0 X103/UL 1.0-4.8 Differential(!) Lymphocytes Absolute Monocytes 0.4 X103/UL 0.0-0.8 Absolute Neutrophils 3.6 X103/UL 1.5-7.7 Hematocrit 39.4 % 35-52 Hemoglobin Blood 12.4 g/dL 12.0-18.0 Lymph% 33.1 % 20.0-45.0 MCH (Corpuscular Hemoglobin) 28.3 pg 27-31 MCHC (Corpuscular Hemog Conc) 31.6 g/dL Low 32.0-36.0 MCV (Corpuscular Volume) 89.6 FL 79-97 MPV 8.1 FL 7.4-10.4 Kane% 7.3 % 1.0-9.0 Neutrophil % 59.6 % 38.0-83.0 Platelet Count Blood Auto CNT 165 X103/UL 150-450 RBC Red Blood Count 4.39 X106/UL 4.20-6.20 RDW 15.7 % High 10.5-15.0 White Blood Count Ser Auto CNT 6.1 3/UL 4.8-10.8 Lipid Panel(!) 09/17/2016 N2N/CCD Import Cholesterol Total [...] 5.0-8.0 Ua Protein 1+ High Ua Specific [place] 1.020 GM/ML 1.00-1.035 Ua Urobilinogen Neg Urine Microalbumin 09/17/2016 N2N/CCD Import Ur Microalbumin 469.8 mg/L 58 Random (mg/L) Urine Creatinine 128.28 mg/dL Urine Microalbumin/Creatinine 366.2 ug/mg High <31 Ua Microscopic 09/17/2016 N2N/CCD Import Ua Amorphous None Ua Bacteria Trace Ua Casts None Ua Crystals Few- CA.Oxalate Ua Epithelial Cells Mod Ua Mucous Small Ua RBC Rare Ua WBC 0-2 Ua Yeast None Laboratory test 09/17/2016 N2N/CCD Import Hemoglobin A1c 8.1 % High 4.0- 5.9 finding (!) Laboratory Studies 09/17/2016 N2N/CCD Import Urine Creatinine 128.28 mg/dL mg/dL Urine Microalbumin/Creatinine Ratio 366.2 ug/mg High 0-31 Urine Random Microalbumin 469.8 mg/L Vitamin B12 Level 249 pg/mL 180-914 Laboratory test 09/17/2016 N2N/CCD Import Vitamin B12 249 pg/mL 180-914 finding Laboratory Studies 06/28/2016 N2N/CCD Import Absolute 0.1 10^3/ul 0-0.2 Basophils (auto) Absolute Eosinophils (auto) 0.5 10^3/ul 0-0.6 [...] Negative Urine Protein Negative Negative Urine Specific [place] 1.011 1.010-1.030 Urine Urobilinogen Negative Negative Urine pH 6.0 5-9 Laboratory Studies 06/28/2016 N2N/CCD Import Urine Specific 1.011 1.010- 1.030 [place] Urine pH 6.0 5-9 Laboratory test finding 06/28/2016 N2N/CCD Import Lactic Acid 1.3 mmol/L 0.5-2.0 59 Lipase 17 U/L 11.0-82.0 60 Troponin I 0.01 ng/mL <0.04 CBC Auto [...] 7.7 10^3/uL 3.5-10.8 Comp Metabolic Panel 06/28/2016 [facility] Import Albumin 4.0 g/dL 3.2-5.2 Albumin/Globulin Ratio [...] 4.3 mmol/L 3.5-5.0 Sodium 138 mmol/L 133-145 61 Total Bilirubin 0.40 mg/dL 0.2-1.0 Total Protein 6.8 g/dL 6.4-8.9 CBC Auto Diff 06/23/2016 N2N/CCD Import Abs [...] 4.1 mmol/L 3.5-5.0 Sodium 137 mmol/L 133-145 62 Total Bilirubin 0.50 mg/dL 0.2-1.0 Total Protein 7.3 g/dL 6.4-8.9 Laboratory test 10/24/2015 N2N/CCD Import Point of Care 143 mg/dL High 74 -106 63 finding Glucose Laboratory test 06/25/2015 N2N/CCD Import SOB 1St Sample Neg finding (Gai) SOB 2ND Sample (Gai) Neg SOB 3RD Sample (Gai) Neg Ua Dipstick Macroscopic(!) 06/18/2015 N2N/CCD Import Ua Appearance Clear Ua Bilirubin Neg Ua Blood Qual Neg Ua Color Yellow Ua Glucose QL Neg Ua Ketones Neg Ua Leukocytes 1+ High Ua Nitrite Neg Ua PH Test 5.0 units 5.0-8.0 Ua Protein Neg Ua Specific [place] 1.020 GM/ML 1.00-1.035 Ua Urobilinogen Neg Ua Microscopic 06/18/2015 N2N/CCD Import Ua Amorphous None Ua Bacteria Rare Ua Casts Few-Hyaline Ua Crystals None Ua Epithelial Cells Mod Ua Mucous Small Ua RBC 0-2 Ua WBC 7-12 High Ua Yeast None Laboratory test 06/11/2015 N2N/CCD Import Hemoglobin A1c [...] 87.4 FL 79-97 MPV 7.6 FL 7.4-10.4 Kane% 8.0 % 1.0-9.0 Neutrophil % 60.0 % [...] 124 mg/dL 30-150 Laboratory test finding 04/30/2015 N2N/CCD Import Lactic Acid 1.8 mmol/L 0.5-2.2 Troponin I 0.00 ng/mL <0.03 64 CBC Auto Diff 04/30/2015 N2N/CCD Import Abs [...] 7.2 10^3/uL 4.8-10.8 Comp Metabolic Panel 04/30/2015 N2N/CCD Import Albumin 4.3 g/dL 3.2-5.2 Albumin/Globulin [...] TNP mmol/L 3.5-5.0 Sodium 136 mmol/L 133-145 65 Total Bilirubin 0.60 mg/dL 0.2-1.0 Total Protein [...] 7.2 10^3/ul 4.8-10.8 Ua Dipstick Macroscopic(!) 01/18/2015 [facility] Import Ua Appearance Clear Ua Bilirubin Neg Ua Blood Qual Neg Ua Color Yellow Ua Glucose QL Neg Ua Ketones Neg Ua Leukocytes Neg Ua Nitrite Neg Ua PH Test 5.0 units 5.0-8.0 Ua Protein Neg Ua Specific [place] 1.020 GM/ML 1.00-1.035 Ua Urobilinogen Neg Laboratory test 01/12/2015 N2N/CCD Import Troponin I 0.01 ng/mL <0.03 66 finding Laboratory test 01/12/2015 N2N/CCD Import Lipase 44 U/L 11.0-82.0 67 finding Troponin I 0.00 ng/mL <0.03 CBC [...] 4.0 mmol/L 3.5-5.0 Sodium 137 mmol/L 133-145 68 Total Bilirubin 0.30 mg/dL 0.2-1.0 Total Protein [...] 1 SEE RESULT BELOW Name: CHARLINE ANGULO Mary Ann : [address]: Milo Matthew MD Acct: [id number] Unit: [id number] AGE: 72 Location: ED Re10/17/18 SEX: F Status: DEP ER SPEC: [id number] KATHE: 10/17/[address]: Milo Matthew MD REQ: [id number] RECD: 10/17/18 STATUS: IRINA MARRERO DR: Barrett Long WEB PRESS OPERATOR APPRENTICE _ SOURCE: URINE SPDESC: ORDERED: Urine Culture Procedure Result Reported Site Urine Culture Final 10/18/18- 3002 ML Organism 1 STAPHYLOCOCCUS HAEMOLYTICUS No growth of clinically significant organisms * ML - Main Lab . END OF REPORT DEPARTMENT OF PATHOLOGY, [address] [place] [address] Anil Goodrich M.D. Director [facility] # [id number] 2 [facility] Severe Sepsis and Septic Shock Management Bundle Measure requires all lactic acids initially measuring >2.0 mmol/L be repeated. 3 Because ethnic data is not always [...] 5 Kidney failure <15 (or dialysis) 4 Troponin-I testing on Plasma Separator Tubes (PST) has a known false positive rate of 0.20-0.40%. All positive troponins reflex immediately to secondary confirmatory testing. Using the LifeCareSimI 800 Access Immunoassay systems, the 99th percentile upper reference limit was demonstrated to be < 0.03 ng/mL. 5 Because ethnic data is not always readily [...] 15-29 5 Kidney failure <15 (or dialysis) 6 Desirable: <150 Borderline High: 150-199 High: 200-499 Very High: >500 7 Desirable: <200 Borderline High: 200-239 High: >239 8 Low: <40 Desirable: 40-60 High: >60 9 Desirable: <100 Near Optimal: 100-129 Borderline High: 130-159 High: 160-189 Very High: >189 10 Consistent with Previous Results Reported on 07/30/18 11 Because ethnic data is not always readily [...] 15-29 5 Kidney failure <15 (or dialysis) 12 Troponin-I testing on Plasma Separator Tubes (PST) has a known false positive rate of 0.20-0.40%. All positive troponins reflex immediate secondary confirmatory testing. 13 Logistics Engineer: [id number] 15 SEE RESULT BELOW Name: OPERACHARLINE Mary Ann : [address]: Jorge Alberto Hong MD Acct: [id number] Unit: [id number] AGE: 72 Location: [facility] Re08/29/18 SEX: F Status: DEP ER SPEC: [id number] KATHE: 08/29/[address] [facility] [address]: Damien CARVAJAL REQ: [id number] RECD: 08/29/18 STATUS: IRINA MARRERO DR: Mina Hong MD _ SOURCE: URINE SPDESC: ORDERED: Urine Culture COMMENTS: [id number] Procedure Result Reported Site Urine Culture Final 08/30/18817 ML No growth of clinically significant organisms * ML - Main Lab . END OF REPORT DEPARTMENT OF PATHOLOGY, [address] [place] [address] Anil Goodrich M.D. Director [facility] # [id number] 16 Because ethnic data is not always readily [...] 15-29 5 Kidney failure <15 (or dialysis) 17 Troponin-I testing on Plasma Separator Tubes (PST) has a known false positive rate of 0.20-0.40%. All positive troponins reflex immediate secondary confirmatory testing. 18 [facility] Severe Sepsis and Septic Shock Management Bundle Measure requires all lactic acids initially measuring >2.0 mmol/L be repeated. 19 Therapeutic target for the treatment of diabetes mellitus patients is <7% HBA1C, and in selective patients <6.0%. Please refer to [place] [employer] diabetic care guidelines for further information. 20 Because ethnic data is not always [...] 5 Kidney failure <15 (or dialysis) 21 SEE RESULT BELOW Name: CHARLINE ANGULO : [address]: Davis Smith MD Acct: [id number] Unit: [id number] AGE: 72 Location: [place] [address] Re01/12/18 SEX: F Status: ADM IN SPEC: [id number] KATHE: 01/12/18- SUBM DR: Davis Smith MD REQ: [id number] RECD: 01/12/18 STATUS: SOUT _ ORDERED: LEVEL [...] mucosa is glistening schafer-pink with normal folds. Sammying Machine Operator sections are submitted in cassettes A through F as follows: A- margins, B-detached area and C through F-diverticula. Signed by and Reported on: Genesis Ramirez MD 01/14/18 1533 END OF REPORT DEPARTMENT OF PATHOLOGY, [address] [place] [address] Anil Goodrich M.D. Director [facility] # [id number] 22 Because ethnic data is not always readily [...] 15-29 5 Kidney failure <15 (or dialysis) 23 Because ethnic data is not always readily [...] 15-29 5 Kidney failure <15 (or dialysis) 24 [facility] Severe Sepsis and Septic Shock Management Bundle Measure requires all lactic acids initially measuring >2.0 mmol/L be repeated. 25 SEE RESULT BELOW Name: CHARLINE ANGULO : [address]: Fab Ricardo MD Acct: [id number] Unit: [id number] AGE: 72 Location: ED Re11/22/17 SEX: F Status: DEP ER SPEC: [id number] KATHE: 11/22/[address]: Fab Ricardo MD REQ: [id number] RECD: 11/22/17 STATUS: IRINA MARRERO DR: Mina Dorsey MD _ SOURCE: URINE SPDESC: ORDERED: Urine Culture Procedure Result Reported Site Urine Culture Final 11/23/17- 1304 ML No Growth (<1,000 CFU/mL) * ML - Main Lab . END OF REPORT DEPARTMENT OF PATHOLOGY, [address] [place] [address] Anil Goodrich M.D. Director [facility] # [id number] 26 Desirable: <150 Borderline High: 150-199 High: 200-499 Very High: >500 27 Desirable: <200 Borderline High: 200-239 High: >239 28 Low: <40 Desirable: 40-60 High: >60 29 Desirable: <100 Near Optimal: 100-129 Borderline High: 130-159 High: 160-189 Very High: >189 30 Because ethnic data is not always [...] 5 Kidney failure <15 (or dialysis) 31 Therapeutic target for the treatment of diabetes mellitus patients is <7% HBA1C, and in selective patients <6.0%. Please refer to [place] [employer] diabetic care guidelines for further information. 32 FASTING 10 HOUR 33 Critical Result LACT:2.2 Called to DOYLE at: 10:00:35 by:[id number] Read back by:DOYLE EPSTEIN Severe Sepsis and Septic Shock Management Bundle Measure requires all lactic acids initially measuring >2.0 mmol/L be repeated. 34 Because ethnic data is not always readily [...] 15-29 5 Kidney failure <15 (or dialysis) 35 Acute inflammation: >10.00 36 Because ethnic data is not always [...] 5 Kidney failure <15 (or dialysis) 37 Acute inflammation: >10.00 38 SEE RESULT BELOW Name: CHARLINE ANGULO : [address]: Mike Santo MD Acct: [id number] Unit: [id number] AGE: 71 Location: ED Re07/25/17 SEX: F Status: REG ER SPEC: [id number] KATHE: 07/25/[address]: Evi CARVAJAL REQ: [id number] RECD: 07/25/17 STATUS: IRINA MARRERO DR: Mina Santo MD _ SOURCE: NASAL SPDESC: ORDERED: Flu A B Request Procedure Result Reported Site Rapid Influenza A B Request Final 07/25/171735 ML Specimen received for Influenza A/B Molecular testing * ML - MAIN LAB ([facility]) . END OF REPORT * ML=Testing performed at Main Lab DEPARTMENT OF PATHOLOGY, [address] [place] [address] Anil Goodrich M.D. Director [facility] # [id number] 39 Logistics Engineer: [id number] 40 SEE RESULT BELOW Name: CHARLINE ANGULO : [address]: Mike Santo MD Acct: [id number] Unit: [id number] AGE: 71 Location: ED Re07/25/17 SEX: F Status: REG ER SPEC: [id number] KATHE: 07/25/[address]: Mike Santo MD REQ: [id number] RECD: 07/25/17 STATUS: IRINA MARRERO DR: Mina Dorsey MD _ SOURCE: THROAT SPDESC: ORDERED: Strep A Request Procedure Result Reported Site Rapid Strep A Request Final 07/25/17- 1721 ML Specimen received for Rapid Strep A Molecular testing * ML - MAIN LAB ([facility]) . END OF REPORT * ML=Testing performed at Main Lab DEPARTMENT OF PATHOLOGY, [address] [place] [address] Anil Goodrich M.D. Director [facility] # [id number] 41 Logistics Engineer: [id number] 42 [facility] Severe Sepsis and Septic Shock Management Bundle Measure requires all lactic acids initially measuring >2.0 mmol/L be repeated. 43 Critical Result LACT:2.4 Called to [id number] at: 14:56:34 by:[id number] Read back by:[id number] [facility] Severe Sepsis and Septic Shock Management Bundle Measure requires all lactic acids initially measuring >2.0 mmol/L be repeated. 44 Because ethnic data is not always [...] 5 Kidney failure <15 (or dialysis) 45 Logistics Engineer: [id number] 46 Logistics Engineer: [id number] 47 Because ethnic data is not always [...] 15-29 5 Kidney failure <15 (or dialysis) 48 SEE RESULT BELOW Name: CHARLINE ANGULO : [address]: Lilibeth Wan MD Acct: [id number] Unit: [id number] AGE: 71 Location: ED Re05/22/17 SEX: F Status: DEP ER SPEC: [id number] KATHE: 05/22/[address] [facility] [address]: Lilibeth Wan MD REQ: [id number] RECD: 05/22/17 STATUS: IRINA MARRERO DR: Mina Dorsey MD _ SOURCE: URINE SPDESC: ORDERED: Urine Culture Procedure Result Reported Site Urine Culture Final 05/24/17826 ML No growth of clinically significant organisms * ML - MAIN LAB ([facility]) . END OF REPORT * ML=Testing performed at Main Lab DEPARTMENT OF PATHOLOGY, [address] [place] [address] Anil Goodrich M.D. Director [facility] # [id number] 49 Acute inflammation: >10.00 50 Logistics Engineer: [id number] 51 SEE RESULT BELOW Name: CHARLINE ANGULO : [address]: Fidel Dorsey MD Acct: [id number] Unit: [id number] AGE: 71 Location: [facility] Re12/16/16 SEX: F Status: REG REF SPEC: [id number] KATHE: 12/16/[address]: Mina Dorsey MD REQ: [id number] RECD: 12/16/16 STATUS: COMP _ SOURCE: THROAT SPDESC: ORDERED: Throat Culture COMMENTS: [id number] Procedure Result Reported Site Throat Culture Final 12/18/16- 1110 ML Organism 1 NORMAL MARIANN Quantity 2+ Throat cultures are clinically indicated to detect the presence of group A strep, arcanobacterium and yeast. In certain cases, predominating organisms will be reported. * ML - MAIN LAB ([facility]) . END OF REPORT * ML=Testing performed at Main Lab DEPARTMENT OF PATHOLOGY, [address] [place] [address] Anil Goodrich M.D. Director [facility] # [id number] 52 SEE RESULT BELOW Name: CHARLINE ANGULO Mary Ann : [address]: Stanislav Enciso MD Acct: [id number] Unit: [id number] AGE: 70 Location: [facility] Re11/01/16 SEX: F Status: DEP ER SPEC: [id number] KATHE: 11/01/[address]: Roxann Cook NP REQ: [id number] RECD: 11/01/16 STATUS: IRINA MARRERO DR: Stanislav Dorsey MD _ SOURCE: URINE SPDESC: ORDERED: Urine Culture Procedure Result Reported Site Urine Culture Final 11/02/16- 1303 ML No growth of clinically significant organisms * ML - MAIN LAB ([facility]) . END OF REPORT * ML=Testing performed at Main Lab DEPARTMENT OF PATHOLOGY, [address] [place] [address] Anil Goodrich M.D. Director [facility] # [id number] 53 SEE RESULT BELOW Name: CHARLINE ANGULO : [address]: Stanislav Enciso MD Acct: [id number] Unit: [id number] AGE: 70 Location: [facility] Re11/01/16 SEX: F Status: DEP ER SPEC: [id number] KATHE: 11/01/[address]: Roxann Cook NP REQ: [id number] RECD: 11/01/16 STATUS: IRINA MARRERO DR: Stanislav [...] or failure. * ML - MAIN LAB ([facility]) . END OF REPORT * ML=Testing performed at Main Lab DEPARTMENT OF PATHOLOGY, [address] [place] [address] Anil Goodrich M.D. Director [facility] # [id number] 54 Logistics Engineer: [id number] 55 Because ethnic data is not always readily [...] 15-29 5 Kidney failure <15 (or dialysis) 56 [facility] Severe Sepsis and Septic Shock Management Bundle Measure requires all lactic acids initially measuring >2.0 mmol/L be repeated. 57 99th percentile=0.04 ng/mL Troponin results at [facility] and [facility] are not interchangeable. 58 [id number] 59 [facility] Severe Sepsis and Septic Shock Management Bundle Measure requires all lactic acids initially measuring >2.0 mmol/L be repeated. 60 99th percentile=0.04 ng/mL Troponin results at [facility] and [facility] are not interchangeable. 61 Because ethnic data is not always [...] 5 Kidney failure <15 (or dialysis) 62 Because ethnic data is not always readily [...] 15-29 5 Kidney failure <15 (or dialysis) 63 Logistics Engineer: [id number] BRAULIO NUGENT 64 Reference Range and Interpretation: TnI (ng/mL) Interpretation Less Than 0.03 ng/mL Not supportive of diagnosis of [place] 0.03 - 0.50 ng/mL Indeterminate: suggest serial studies if clinically indicated. Greater than 0.5 ng/mL Consistent with diagnosis of [place] 65 Because ethnic data is not always readily [...] 15-29 5 Kidney failure <15 (or dialysis) 66 Reference Range and Interpretation: TnI (ng/mL) Interpretation Less Than 0.03 ng/mL Not supportive of diagnosis of [place] 0.03 - 0.50 ng/mL Indeterminate: suggest serial studies if clinically indicated. Greater than 0.5 ng/mL Consistent with diagnosis of [place] 67 Reference Range and Interpretation: TnI (ng/mL) Interpretation Less Than 0.03 ng/mL Not supportive of diagnosis of [place] 0.03 - 0.50 ng/mL Indeterminate: suggest serial studies if clinically indicated. Greater than 0.5 ng/mL Consistent with diagnosis of [place] 68 Because ethnic data is not always readily [...] dialysis) Procedures Date Code Description Status 09/12/2018 [id number] Mammogram Completed 01/12/2018 42448 Colectomy Partial W/Coloproctostomy Completed 01/12/2018 58171 Colectomy Partial W/Coloproctostomy Completed 01/12/2018 91730 Mobilization Splenic Flexure W/Partial Colectomy Completed 01/12/2018 38226 Mobilization Splenic Flexure W/Partial Colectomy Completed 08/25/2017 [id number] Mammogram Completed 02/17/2017 [id number] Diabetic Retinal Eye Exam Completed 09/25/2016 02963 ECHO Transthorasic Realtime 2D W Doppler & Color Flow Completed Hosp 09/24/2016 80494 EKG, Interpretation Only Completed 08/17/2016 [id number] Mammogram Completed 10/24/2015 [id number] Colonoscopy Completed 08/09/2015 76043211 Mammogram Completed Encounters Type Date Location Provider Dx Diagnosis Office Visit 09/23/2018 [facility] Internal Barrett Long NP Z00.00 Encntr for general 3:00p Medicine adult medical exam w/o abnormal findings E11.9 Type 2 diabetes mellitus without complications I10 Essential (primary) hypertension R10.9 Unspecified abdominal pain J30.89 Other allergic rhinitis Office Visit 06/23/2018 11:40a [facility] Internal Mina Mckeon E11.9 Type 2 diabetes Jed Dorsey M.D.,FACP mellitus without [address] complications I10 Essential (primary) hypertension K57.30 Dvrtclos of lg int w/o perforation or abscess w/o bleeding Office Visit 02/22/2018 3:20p [facility] Internal Mina Mckeon K57.32 Dvtrcli of lg int Jed Dorsey M.D.,FACP w/o perforation or abscess w/o bleeding E11.9 Type 2 diabetes mellitus without complications I10 Essential (primary) hypertension Office Visit 12/31/2017 9:40a [facility] Alonso Ortiz. E11.9 Type 2 diabetes Jed Dorsey M.D.,FACP mellitus without [address] complications I10 Essential (primary) hypertension K57.30 Dvrtclos of lg int w/o perforation or abscess w/o bleeding Office Visit 10/14/2017 3:30p Surgical Davis Moe K57.32 Dvtrcli of lg int [facility] MD Luis, w/o perforation or FACS abscess w/o bleeding K58.2 Mixed irritable bowel syndrome Office Visit 07/28/2017 4:00p [facility] Internal Barrett Long, J01.90 Acute sinusitis, Medicine WEB PRESS OPERATOR APPRENTICE unspecified R05 Cough M89.8x8 Other specified disorders of bone, other site Office Visit 07/13/2017 1:08p [facility] J10.1 Flu due to oth Assoc,pc [facility] [place] ident influenza Hospitalists virus w oth resp manifest E11.65 Type 2 diabetes mellitus with hyperglycemia E86.0 Dehydration I10 Essential (primary) hypertension Office Visit 06/24/2017 2:00p [facility] Internal Mina Mckeon E11.9 Type 2 diabetes Jed Dorsey M.D.,FACP mellitus without [address] complications I10 Essential (primary) hypertension Z23 Encounter for immunization Office Visit 05/31/2017 2:30p [facility] Internal Yanci R10.10 Upper abdominal Medicine - Isela, WEB PRESS OPERATOR APPRENTICE pain, unspecified [address] Office Visit 03/19/2017 4:00p [facility] Internal Mina Mckeon E11.9 Type 2 diabetes Jed Dorsey M.D.,FACP mellitus without [address] complications K21.9 Gastro-esophageal reflux disease without esophagitis I10 Essential (primary) hypertension Z23 Encounter for immunization Office Visit 02/23/2017 11:40a [facility] Internal Yair B37.9 Candidiasis, Jed Gutiérrez M.D. unspecified [address] E11.9 Type 2 diabetes mellitus without complications Office Visit 12/16/2016 4:20p [facility] Internal Mina Mckeon E11.8 Type 2 diabetes Jed Dorsey M.D.,FACP mellitus with [address] unspecified complications J02.9 Acute pharyngitis, unspecified Office Visit 10/15/2016 11:50a [facility] Internal Mina Mckeon G45.9 Transient cerebral Medicine - Dionisio Dorsey,FACP ischemic attack, [address] unspecified E11.8 Type 2 diabetes mellitus with unspecified complications I10 Essential (primary) hypertension B00.89 Other herpesviral infection Office Visit 09/25/2016 Neurohospitalist Joni G45.9 Transient 9:50a Clinic Dionisio Hanley cerebral ischemic attack, unspecified I10 Essential (primary) hypertension Office Visit 09/25/2016 2:05p [facility] Osman G45.9 Transient Assoc,sol Rivera M.D. cerebral ischemic Hospitalists attack, unspecified E11.8 Type 2 diabetes mellitus with unspecified complications I16.0 Hypertensive urgency G43.909 Migraine, unsp, not intractable, without status migrainosus Office Visit 09/24/2016 Neurohospitalist Joni G45.9 Transient 9:50a Jeff Hanley M.D. cerebral ischemic attack, unspecified I10 Essential (primary) hypertension Office Visit 09/24/2016 2:04p [facility] Ladonna G45.9 Transient Assoc,sol Leija M.D. cerebral ischemic Hospitalists attack, unspecified E11.8 Type 2 diabetes mellitus with unspecified complications I16.0 Hypertensive urgency Plan of Treatment Future Appointment(s):11/11/2018 3:40 pm - Barrett Long NP at [facility] Internal Yqlfkeju40/01/2019 4:00 pm - Barrett Long NP at [facility] Internal Jwclvbky35/29/2019 - Barrett Long NPE11.9 Type 2 diabetes mellitus without complicationsNew Medication:Blood Glucose Monitoring System W/Device - check blood sugar once daily and when feeling symtomsComments:Continue to check your blood sugar daily and report very high readings.I10 Essential (primary) hypertensionNew Medication :Blood Pressure Monitor Auto Inflate - check bp twice weekly at homeComments :Increase the Losartan to twice daily. Take a dose of that when you get home today and then again tonight. Continue to check your blood pressure and report high or low readings.Follow up:2 xzbazO51.83 Other cejhplsR83.50 Pain in unspecified ltuttC15.18 Myalgia, other site
[2018-11-05 11:04] VITALS: BP 149/63
--- NOTE | 2018-11-05 11:38 | UC ---
Upper Extremity HPI - HPI Summary HPI Summary: 72 year old female presents with right shoulder pain x 4 days. NO injury, no trauma, no prior injuries other then tendonitis when younger and golfing. States pain increased last night, difficulty sleeping does have h/o cervical stenosis but this pain is different than her typical pain. Decreased ROM with overhead motions, difficulty dressing. no swelling, numbness. Ice help, naproxen helped but no relief last night. - History of Current Complaint Chief Complaint: UCUpperExtremity Stated Complaint: RT SHOULDER/ARM PAIN Time Seen by Provider: 11/05/18 11:13 Hx Obtained From: Patient Hx Last Menstrual Period: post ?: No Onset/Duration: Sudden Onset, Lasting Days - 4 days Severity Initially: Moderate Severity Currently: Moderate Pain Intensity: 8 Pain Scale Used: 0-10 Numeric Character: Sharp, Dull, Aching Aggravating Factor(s): Movement, Lifting, Flexion Alleviating Factor(s): Ice - Allergies/Home Medications Allergies/Adverse Reactions: Allergies Allergy/AdvReac Type Severity Reaction Status Date / Time Iodinated Contrast- Oral and Allergy Severe Hives Verified 11/05/18 11:05 IV Dye prochlorperazine Allergy Severe convulsions Verified 11/05/18 11:05 [From Compazine] codeine AdvReac Severe Nausea Verified 11/05/18 11:05 Home Medications: Home Medications Acetaminophen TAB* [Tylenol TAB*] 650 mg PO Q4H PRN 11/05/18 [History Confirmed 11/05/18] PMH/Surg Hx/FS Hx/Imm Hx Previously Healthy: Yes - Surgical History Surgical History: Yes Surgery Procedure, Year, and Place: Tonsillectomy 6 yrs of age [place]. Hysterectomy with left oopherectomy age 34 yrs [facility] [place]. oopherectomy age 39 [facility]. Cholecystectomy [facility]. Right Knee Arthroscopy [facility] [place], colon resection for divertic - Family History Known Family History: Positive: Cardiac Disease - Both parents., Hypertension, Other - similar neck problems - mother - Social History Alcohol Use: Rare Substance Use Type: None Smoking Status (MU): Never Smoked Tobacco Have You Smoked in the Last Year: No - Immunization History Most Recent Influenza Vaccination: 04/13 Most Recent Tetanus Shot: utd Most Recent Pneumonia Vaccination: utd Review of Systems All Other Systems Reviewed And Are Negative: Yes Musculoskeletal: Positive: Arthralgia, Decreased ROM, Myalgia Is Patient Immunocompromised?: No Physical Exam Triage Information Reviewed: Yes Appearance: Well-Appearing, No Pain Distress, Well-Nourished Vital Signs: Initial Vital Signs Temp 98.2 F 11/05/18 11:00 Pulse 68 11/05/18 11:00 Resp 16 11/05/18 11:00 BP 149/63 11/05/18 11:00 Pulse Ox 100 11/05/18 11:00 Vital Signs Reviewed: Yes Eyes: Positive: Conjunctiva Clear Respiratory: Positive: Chest non-tender Musculoskeletal: Positive: Other: - Right shoulder: + supraspinat. weakness, pain. + infraspina weakness, pain - speed, - neer TTP over anterior, superior GH joint. Mild AC joint tenderness b/l. L shoulder exam negative. Neurological Exam: Normal Neurological: Positive: Muscle Tone Normal Psychological Exam: Normal Skin Exam: Normal Upper Extremity Course/Dx - Course Course Of Treatment: sling given for comfort, NSAIDS, follow up with ortho, increase rest - Differential Dx/Diagnosis Differential Diagnosis/HQI/PQRI: Strain, Sprain Provider Diagnosis: Rotator cuff (capsule) sprain Discharge - Sign-Out/Discharge Documenting (check all that apply): Patient Departure All imaging exams completed and their final reports reviewed: No Studies - Discharge Plan Condition: Good Disposition: HOME Prescriptions: Naproxen [Naproxen 500 mg tab] 500 mg PO BID #60 tablet. Patient Education Materials: Naproxen (By mouth), Rotator Cuff Tendinitis (ED) Referrals: Barrett Long NP [Primary Care Provider] - Elizabeth Tanner MD [Medical Doctor] - (Call for appointment within 2-3 days if no improvment ) Additional Instructions: - Use sling for comfort, remove arm from sling several times a day and do range of motion to prevent frozen shoulder - Naproxen twice daily x 5 days to decrease swelling, pain - Follow up with orthopedics within 2-3 days if no improvement - Billing Disposition and Condition Condition: GOOD Disposition: Home
== END 2018-11-05 11:50 | disposition home or self-care (01) ==
LOC: UCEAST 10:53
DX: S43.421A Sprain of right rotator cuff capsule, initial encounter (principal); X58.XXXA Exposure to other specified factors, initial encounter; Y92.9 Unspecified place or not applicable; Z88.5 Allergy status to narcotic agent; Z88.8 Allergy status to other drugs, medicaments and biological substances; Z91.041 Radiographic dye allergy status
CPT/HCPCS: 99212; G0463

== ENCOUNTER 2018-11-12 19:43 | Emergency (ER) | payer MEDICARE ==
--- NOTE | 2018-11-12 20:00 | ED ---
Upper Extremity Pain - HPI Summary HPI Summary: This patient is a 73 year old female presenting to [facility] with a chief complaint of increased right shoulder pain since 12 hours ago. The patient was previously seen for this pain and was prescribed Naproxen. She states the medication did not help and now she is experiencing new symptoms, reporting neck pain, nausea and fever. The patient rates her pain 9/10 in severity. The patient has a Hx of stenosis in her neck, which she states is causing the neck pain. She states her shoulder pain is chronic and radiates from her neck. The patient denies diarrhea and SOB. Losartan TAB* [Cozaar TAB*] 50 mg PO BID 02/27/13 [History Confirmed 11/05/18] metFORMIN* [Glucophage 500 MG TAB *] 1,000 mg PO BID 02/27/13 [History Confirmed 11/05/18] glipiZIDE TAB* [Glucotrol TAB*] 2.5 mg PO QAM 10/22/15 [History Confirmed ] Sucralfate TAB* [Carafate*] 1 gm PO QAM 09/03/16 [History Confirmed 11/05/18] Insulin Glargine (Nf) [Toujeo Solostar Pen (NF)] 30 unit SUBCUT QAM 07/13/17 [ History Confirmed 11/05/18] Aspirin 81 mg CHEW TAB* 81 mg PO QAM 08/23/17 [History Confirmed 11/05/18] Lovastatin (NF) [Mevacor (NF)] 10 mg PO QPM 08/23/17 [History Confirmed 11/05/18 ] Pantoprazole TAB (NF) [Protonix TAB (NF)] 20 mg PO QAM 08/23/17 [History Confirmed 11/05/18] SitaGLIPtin (NF) [Januvia (NF)] 100 mg PO QAM 08/23/17 [History Confirmed ] Multivitamin [Once Daily] 1 each PO QAM 12/30/17 [History Confirmed 11/05/18] Meclizine TAB* 1 tab PO SEE INSTRUCTIONS PRN 01/12/18 [History Confirmed ] Ibuprofen TAB* [Motrin TAB* 400 MG] 400 mg PO ONCE PRN 02/09/18 [History Confirmed 11/05/18] Atenolol TAB* [Tenormin TAB* 50 MG] 50 mg PO BID #60 tab 10/21/18 [Rx Confirmed 11/05/18] Acetaminophen TAB* [Tylenol TAB*] 650 mg PO Q4H PRN 11/05/18 [History Confirmed 11/05/18] Naproxen [Naproxen 500 mg tab] 500 mg PO BID #60 tablet. 11/05/18 [Rx] - History of Current Complaint Chief Complaint: EDGeneral Stated Complaint: "NAUSEA/ NECK PAIN PER PT" Hx Obtained From: Patient Hx Last Menstrual Period: post Onset/Duration: Started Hours Ago Timing: Constant Severity Initially: Severe Severity Currently: Severe Pain Location: Shoulder - Allergies/Home Medications Allergies/Adverse Reactions: Allergies Allergy/AdvReac Type Severity Reaction Status Date / Time Iodinated Contrast- Oral and Allergy Severe Hives Verified 11/12/18 19:48 IV Dye prochlorperazine Allergy Severe convulsions Verified 11/12/18 19:48 [From Compazine] codeine AdvReac Severe Nausea Verified 11/12/18 19:48 PMH/Surg Hx/FS Hx/Imm Hx Endocrine/Hematology History: Reports: Hx Diabetes - TYPE 2 Denies: Hx Bone Marrow Disease, Hx Sickle Cell Disease, Hx Thyroid Disease, Hx Anemia Cardiovascular History: Reports: Hx Hypertension Denies: Hx Pacemaker/ICD Respiratory History: Denies: Hx Asthma, Hx Chronic Obstructive Pulmonary Disease (COPD) GI History: Reports: Hx Diverticulosis, Hx Gastroesophageal Reflux Disease, Hx Hiatal Hernia, Hx Irritable Bowel, Hx Ulcer, Other GI Disorders - CHRONIC GASTRITIS, DIVERTICULITIS Musculoskeletal History: Reports: Hx Arthritis, Hx Bursitis - HX OF- RIGHT SHOULDER, RIGHT FOOT Sensory History: Reports: Hx Cataracts - RIGHT, MILD, Hx Contacts or Glasses - READING Denies: Hx Glaucoma, Hx Hearing Aid Opthamlomology History: Reports: Hx Cataracts - RIGHT, MILD, Hx Contacts or Glasses - READING Denies: Hx Glaucoma Psychiatric History: Reports: Hx Anxiety - r/t upcoming procedure Denies: Hx Panic Disorder, Other Psychiatric Issues/Disorders - Cancer History Hx Chemotherapy: No Hx Radiation Therapy: No - Surgical History Surgery Procedure, Year, and Place: Tonsillectomy 6 yrs of age [place]. Hysterectomy with left oopherectomy age 34 yrs 1979' [facility] [place]. oopherectomy age 39 [facility]. Cholecystectomy [facility]. Right Knee Arthroscopy [facility] [place], colon resection for divertic Hx Anesthesia Reactions: Yes - severe n/v post-op - Immunization History Date of Tetanus Vaccine: unk Date of Influenza Vaccine: 03/14 Infectious Disease History: No Infectious Disease History: Reports: Hx Shingles Denies: Hx Clostridium Difficile, Hx Hepatitis, Hx Human Immunodeficiency Virus (HIV), Hx of Known/Suspected MRSA, Hx Tuberculosis, Hx Known/Suspected VRE , Hx Known/Suspected VRSA, History Other Infectious Disease, Traveled Outside the [place] in Last 30 Days - Family History Known Family History: Positive: Cardiac Disease - Both parents., Hypertension, Other - similar neck problems - mother - Social History Alcohol Use: Rare Hx Substance Use: No Substance Use Type: Reports: None Hx Tobacco Use: No Smoking Status (MU): Never Smoked Tobacco Have You Smoked in the Last Year: No Review of Systems Positive: Fever Negative: Shortness Of Breath Positive: Nausea. Negative: Diarrhea Positive: Other - Shoulder pain, Neck pain All Other Systems Reviewed And Are Negative: Yes Physical Exam - Summary Physical Exam Summary: VITAL SIGNS: Reviewed. GENERAL: Patient is a well-developed and nourished FEMALE who is lying comfortable in the stretcher. Patient is not in any acute respiratory distress. HEAD AND FACE: No signs of trauma. No ecchymosis, hematomas or skull depressions. No sinus tenderness. EYES: PERRLA, EOMI x 2, No injected conjunctiva, no nystagmus. EARS: Hearing grossly intact. Ear canals and tympanic membranes are within normal limits. MOUTH: Oropharynx within normal limits. NECK: Supple, trachea is midline, no adenopathy, no JVD, no carotid bruit, no c- spine tenderness, neck with full ROM. CHEST: Symmetric, no tenderness at palpation LUNGS: Clear to auscultation bilaterally. No wheezing or crackles. CVS: Regular rate and rhythm, S1 and S2 present, no murmurs or gallops appreciated. ABDOMEN: Soft, non-tender. No signs of distention. No rebound no guarding, and no masses palpated. Bowel sounds are normal. EXTREMITIES: FROM in all major joints, no edema, no cyanosis or clubbing. NEURO: Alert and oriented x 3. No acute neurological deficits. Speech is normal and follows commands. SKIN: Dry and warm Triage Information Reviewed: Yes Vital Signs On Initial Exam: Initial Vitals Temp Pulse Resp BP Pulse Ox 99.5 F 83 16 165/72 96 11/12/18 19:45 11/12/18 19:45 11/12/18 19:45 11/12/18 19:45 11/12/18 19:45 Vital Signs Reviewed: Yes Diagnostics - Vital Signs Vital Signs Temp Pulse Resp BP Pulse Ox 11/12/18 19:45 99.5 F 83 16 165/72 96 - Laboratory Result Diagrams: 11/12/18 20:43 11/12/18 20:43 Lab Statement: Any lab studies that have been ordered have been reviewed, and results considered in the medical decision making process. - Radiology CXR Radiology Interpretation Completed By: ED Physician Summary of Radiographic Findings: No acute process. Pending offical radiologist report. - CT RUE CT Interpretation Completed By: Radiologist Summary of CT Findings: Mid right shoulder primary osteoarthritis. ED Provider has reviewed this report. Re-Evaluation - Re-Evaluation First Eval Re-Evaluation Time: 00:40 Comment: Discussed results and plan for discharge with patient. Course/Dx - Course Course Of Treatment: This patient is a 73 year old female presenting to [facility] with a chief complaint of increased right shoulder pain since 12 hours ago. CXR was unremarkable for cardiopulomary problems. RUE CT revealed mid right shoulder primary arthritis. Labs were remarkable for UTI. The patient will be discharged with a prescription to treat the UTI. This plan was discussed with the patient and she was agreeable with this plan. - Diagnoses Provider Diagnoses: UTI (urinary tract infection), Osteoarthritis of right shoulder Discharge - Sign-Out/Discharge Documenting (check all that apply): Patient Departure - Discharge Patient Received Moderate/Deep Sedation with Procedure: No - Discharge Plan Condition: Stable Disposition: HOME Patient Education Materials: Urinary Tract Infection in Women (ED), Osteoarthritis (ED) Referrals: Barrett Long, FASHION ADVISER [Primary Care Provider] - Additional Instructions: Return to ED with any new or worsening symptoms. - Attestation Statements Document Initiated by Scribe: Yes Documenting Scribe: Donavan Kesley Provider For Whom Scribe is Documenting (Include Credential): Lilibeth Wan MD Scribe Attestation: Donavan Owens, scribed for Lilibeth Wan MD on 11/13/18 at 0037. Status of Scribe Document: Ready
[2018-11-12] MEDS ORDERED: Acetaminophen TAB* 325 MG PO ONE (20:10)
[2018-11-12] MEDS ORDERED: NS 0.9% 1000 ML** 1,000 ML IV ONE ×2 (20:10→22:15)
--- OUTSIDE RECORDS SUMMARY | 2018-11-12 20:29 | XMS REPORT | Continuity of Care Document ---
:1945 External Reference #:[id number] Author Name Carlos Mercado Care Team Providers Name Role Phone Kari He MD Primary Care Physician Unavailable Payers Date Identification Numbers Payment Provider Subscriber Effective: 2016 Policy Number: [id number] [facility] Medicare Solutions Charline Reese Opera PayID: [id number] [address] [address] [place] [address] Expires: 2016 Policy Number: [id number] Medicare Charline Reese Opera PayID: [id number] [address] [place] [address] Expires: 2016 Policy Number: [id number] [employer] Charline Reese Opera PayID: [id number] [address] [place] [address] Advance Directives Type Date Description Status Comment [...] History Date Family Member(s) Observation Comments Father OR Bypass graft x4 Father due to Heart Disease () Mother Heart Disease Tachycardic Mother due to Heart Disease () Siblings None Paternal Grandfather due to Heart Disease () Maternal Grandmother due to Bladder Cancer () Maternal Grandmother due to Heart Disease () Social History Type Date Description Comments Sex Unknown Marital Status Lives With Daughter 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 [employer] ETOH Use 06/23/2018 Denies alcohol use Recreational Drug Use 10/15/2016 Denies Drug Use Tobacco Use Start: Unknown Patient has never smoked Smoking Status Reviewed: 11/11/18 Patient has never smoked Allergies, Adverse Reactions, Alerts Active Allergies Reaction Severity Comments Date Iodinated Diagnostic Agents Hives 09/24/2016 Codeine Nausea and Vomiting 09/24/2016 Compazine convulsions 09/24/2016 Jardiance yeast infection 12/16/2016 Trulicity diarrhea 12/21/2016 Medications Active Medications SIG Qnty Indications Ordering Date Provider Glipizide XL One tablet once daily 90tabs E11.9 Barrett Long NP 11/11/2018 5mg Tablets ER 24HR Blood Pressure check bp twice weekly 1units I10 Barrett Long NP 10/24/2018 Monitor Auto at home Inflate [facility] Blood Glucose check blood sugar 1units E11.9 Barrett Long NP 10/24/2018 Monitoring System once daily and when feeling symtoms W/Device Kit Toujeo Solostar inject subcutaneously 2units Barrett Long NP 09/23/2018 30 u once a day 300Unit/ML Solution Pen-Inject Fluticasone not taking ---- 2 16gm J30.89 Barrett Long NP 09/23/2018 Propionate sprays each nostril qd. 50mcg/Act Suspension Ondansetron HCL take one tablet by 20tabs Mina Mckeon 06/23/2018 8mg mouth every day as [place], Tablets needed M.DJayla,FACP Accu-Check Glucose use devise as 1units E11.9 Mina Mckeon 09/24/2017 Monitor instructed daily last [place], Device visit: 09/24/17, october MERI Nichole change product if insurance does not cover Accu-Check Emily check blood sugar up 100units E11.9 Barrett Long NP 2017 Chem Strips to three times daily Misc last visit: 09/24/17 may change product if insurance does not cover Accu-Check Emily use with glucometer 100units E11.9 Mina Mckeon 2017 Lancet Drums up to three times [place], Misc daily, last visit: MERI Nichole 09/24/17 product may be changed if the insurance does not cover Pen [place] 11/10" use one time a daily 100units E11.9 Mina Mckeon 2016 with cheryl dawit [place], 31G X 8 mm Misc visit: 09/24/17 MERI Nichole Januvia take 1 tablet by 56tabs Barrett Long NP 12/21/2016 100mg mouth every day Tablets Lovastatin Take 1 Tablet By 90tabs Mina Mckeon 12/16/2016 10mg Mouth AT Bedtime [place], Tablets Dionisio,MERI Losartan Potassium take 1 tablet by 180tabs Barrett Long NP 10/15/2016 mouth twice daily 50mg Tablets Meclizine HCL 1/2-1 by mouth three 30tabs Mina Mckeon 10/15/2016 25mg times a day as needed [place], Tablets Dionisio,MERI Aspirin Low Dose Every Day 100units Unknown 09/25/2016 81mg Chewtabs Carafate take one tablet by 120tabs K29.00 Barrett Long NP 07/10/2016 1gm mouth four times a Tablets day before meals every night Pantoprazole Sodium (taking once a 180tabs Barrett Long NP 02/06/2015 day-11/11/18- )take [address] tablet by mouth twice day Metformin HCL Take 1 Tablet By 180tabs Mina Mckeon 02/01/2015 Mouth Twice A Day [place], 1000mg Tablets Dionisio,MERI Tylenol 2 tablets every 4 Unknown 325mg hours as needed for Capsules pain Atenolol take 1 tablet by 60tabs Yoko Dickerson, 50mg mouth twice a day N.P. Tablets Naproxen 1 tablet with food by Unknown 500mg mouth twice a day Tablets History Medications Cheryl Loving Barrett Long NP 09/23/2018 - 09/23/2018 300Unit/ML Solution Pen-Inject Flagyl 1 tab by mouth at 3tabs Swathi Santos 12/31/2017 - 500mg Tablets 1:00 at night & 7:00 MD Kaveh Unknown at night the day before surgery and at 7:00 in the morning the day of surgery Neomycin Sulfate 2 tabs by mouth at 6tabs Swathi Santos 12/31/2017 - 500mg 1:00 at night & 7:00 MD Kaveh Unknown Tablets at night the day before surgery, and at 7:00 in the morning the day of surgery Peg-[id number]/Electrolytes as directed 4000ml Swathi Santos 12/31/2017 - MD Kaveh Unknown 236gm Solution Rec Cyclobenzaprine HCL 1 tablet by mouth bid 60tabs Mina Mckeon 09/24/2017 - 10mg as needed muscle [place], Unknown Tablets spasms M.D.,FACP Augmentin 1 tablet by mouth q12 20tabs J01.90 Barrett Long NP 07/28/2017 - 875-125mg hours for 10 days 08/07/2017 Tablets Tramadol HCL 1-2 tablets every 12 30tabs M89.8x Barrett Long NP 07/28/2017 - 50mg Tablets hours as needed for 8 08/04/2017 pain. Glipizide ER take 2 tablet by 90tabs E11.9 Mina Mckeon 06/24/2017 - 2.5mg mouth every day [place], 11/11/2018 Tablets ER 24HR Dionisio,FACP [employer] Blood Mina Mckeon 05/26/2017 - Glucose Meter [place], 09/24/2017 Device Dionisio,FACP [employer] Blood check BS tid 150uni Mina Mckeon 05/26/2017 - Glucose Test Strips ts [place]ita, 09/24/2017 Dionisio,FACP Strips Glipizide ER 1 by mouth every 90tabs Yair 03/19/2017 - 5mg Tablets morning [place], 06/24/2017 ER 24HR Dionisio Nystatin topical twice a day 60gm B37.9 Mina Mckeon 03/19/2017 - 534869Kpnt/GM as needed [place], 09/24/2017 Powder Dionisio,FACP Toubreao Solostar inject subcutaneously 2units Reina Pascal 03/19/2017 - 30 u once a day 09/23/2018 300Unit/ML Solution Pen-Inject Clotrimazole apply twice daily 90gm B37.9 [place] 02/23/2017 - 1% Cream Marla, 03/19/2017 Dionisio Trulicity sc weekly 4units Mina [...] 1 sq 1units Z00.00 Huan, 06/18/2015 - 82399Nsq/0.65ML MD Kris 10/15/2016 Suspension Rec Glipizide 1 tab twice a day 180tab Mina Mckeon 02/01/2015 - 5mg Tablets damián [place], 03/19/2017 Doinisio,FACP Eql Pain Relief Extra Once Unknown 01/26/2015 [...] Code Status Date Vaccine Reaction Lot # [id number] Given 03/23/2018 Influenza Virus Vaccine, Quadrivalent, Split, Preservative Free [id number] Given 06/24/2017 Pneumonia Vaccine [id number] 89713 Given 03/19/2017 Influenza Virus Vaccine, NO IMMEDIATE REACTION , [id number] Quadrivalent, Split, PT TOLERATED WELL Preservative Free 73267 Given 04/29/2015 Pneumococcal Conjugate Vaccine 13 Valent For Intramuscular Use Vital Signs Date Vital Result Comment 11/11/2018 3:52pm Weight 174.00 lb Heart Rate 74 /min BP Systolic 128 mmHg BP Diastolic 64 mmHg Respiratory Rate 18 /min Body Temperature 97.7 F Pain Level 5 neck O2 % BldC Oximetry 96 % 10/24/2018 10:00am Height 62.5 inches 5'2.50" Weight [...] Test Result H/L Range Note Laboratory test 10/24/2018 [facility] Creatine 90 U/L N 10- [address] Kinase(CK) [place] [address] [phone] Lyme Screen W/ Reflex To WB Negative Negative Erythrocyte Sed Rate 40 mm/Hr High 0-29 Cyclic Citrullinated Pep Igg <15.6 U 1 Nuclear AB 10/24/2018 [facility] Nuclear Ab Positive 1:160 Abnormal 2 (Laina) By If[address] (Laina) by Ifa, [place] [address] IgG [phone] Laina Titer: 1:160 Laina Pattern: Homogeneous 3 Laboratory test 10/24/2018 [facility] Rheumatoid < 10 IU/mL N <15 finding [address] [place], [place] [id number] [phone] Comp Metabolic 10/24/2018 [facility] Sodium 139 mmol/L N 135- [address] [place] [address] [phone] Potassium 4.7 mmol/L N 3.5-5.0 Chloride 107 mmol/L N 101-111 Co2 Carbon Dioxide 23 mmol/L N 22-32 Anion Gap 9 mmol/L N 2-11 Glucose 125 mg/dL High 70-100 Blood Urea Nitrogen 20 mg/dL N 6-24 Creatinine 0.91 mg/dL N 0.51-0.95 BUN/Creatinine Ratio 22.0 High 8-20 Calcium 9.2 mg/dL N 8.6-10.3 Total Protein 6.9 g/dL N 6.4-8.9 Albumin 4.4 g/dL N 3.2-5.2 Globulin 2.5 g/dL N 2-4 Albumin/Globulin Ratio 1.8 N 1-3 Total Bilirubin 0.40 mg/dL N 0.2-1.0 Alkaline Phosphatase 62 U/L N 34-104 Alt 30 U/L N 7-52 Ast 32 U/L N 13-39 Egfr Non- 60.9 >60 Egfr 73.7 >60 4 Laboratory test 10/17/2018 [facility] Lactic Acid 1.3 mmol/L N 0.5-2.[address] [place] [address] [phone] Comp Metabolic 10/17/2018 [facility] Sodium 138 mmol/L N 135- [address] [place] [address] [phone] Potassium 4.6 mmol/L N 3.5-5.0 Chloride 104 [...] Egfr Non- 58.0 >60 Egfr 70.2 >60 6 Laboratory test 10/17/2018 [facility] C Reactive 4.89 mg/L N < 8.[address] [place] [address] [phone] Troponin-I (TnI) 0.01 ng/mL <0.04 7 CBC Auto Diff 10/17/2018 [facility] White Blood 7.8 10^3/uL N 3.5-10.[address] [place] [address] [phone] Red Blood Count 4.60 10^6/uL N 3.70-4.87 [...] % Nucleated Red Blood Cells % 0.1 Urinalysis Profile 10/17/2018 [facility] Urine Color Straw [address] [place] [address] [phone] Urine Appearance Clear Urine Specific [place] 1.008 Low 1.010-1.030 Urine pH 5.0 N [...] Cell Present Abnormal Absent Urine Culture And 10/17/2018 [facility] Urine Culture SEE RESULT [address] [place] [address] [phone] Laboratory test 09/23/2018 [employer] [facility] Hemoglobin A1c 7.7% High 5-7 finding Urine Microalbumin 09/23/2018 [facility] Urine 117.[address] Creatinine mg/[place] [address] [phone] Ur Microalbumin (mg/L) 755.0 mg/L Urine Microalbumin/Creatinine 642.3 High <31 Basic Metabolic Panel 09/20/2018 [facility] Sodium 142 mmol/L N 135-[address] [place] [address] [phone] Potassium 4.3 mmol/L N 3.5-5.0 Chloride 106 mmol/L N 101-111 Co2 Carbon Dioxide 26 mmol/L N 22-32 Anion Gap 10 mmol/L N 2-11 Glucose 160 mg/dL High 70-100 Blood Urea Nitrogen 22 mg/dL N 6-24 Creatinine 0.80 mg/dL N 0.51-0.95 BUN/Creatinine Ratio 27.5 High 8-20 Calcium 9.2 mg/dL N 8.6-10.3 Egfr Non- 70.7 >60 Egfr 85.6 >60 9 Lipid Profile 09/20/2018 [facility] Triglycerides 83 mg/dL 10 (Trig/Chol/HDL) [address] [place] [address] [phone] Cholesterol 151 mg/dL 11 HDL Cholesterol 61.9 mg/dL 12 LDL Cholesterol 73 mg/dL 13 Laboratory test 09/03/2018 [facility] Partial 29.4 seconds N 26.0-36.[address] [place] [address] PTT [phone] CBC Auto Diff 09/03/2018 [facility] White Blood 8.8 10^3/uL N 3.5-10.[address] [place] [address] [phone] Red Blood Count 4.26 10^6/uL N 4.00-5.40 Hemoglobin 10.1 g/dL Low 12.0-16.0 Hematocrit 32 % Low 35-47 Mean Corpuscular Volume 74 fL Low 80-97 14 Mean Corpuscular Hemoglobin 24 pg Low 27-31 [...] Cells % 0 Comp Metabolic Panel 09/03/2018 [facility] Sodium 136 mmol/L N 135-[address] [place] [address] [phone] Potassium 4.1 mmol/L N 3.5-5.0 Chloride 103 [...] Egfr Non- 52.8 >60 Egfr 63.9 >60 15 Laboratory test 09/03/2018 [facility] Magnesium 1.9 mg/dL N 1.9-2.[address] [place] [address] [phone] Amylase 51 U/L N 29-103 Lipase 25 U/L N 11.0-82.0 C Reactive Protein 6.70 mg/L N <8.01 Troponin-I (TnI) 0.01 ng/mL <0.04 16 Poc Urinalysis 08/29/2018 [facility] Poc Glucose, Negative Negative [address] [place] [address] [phone] Poc Bilirubin, Urine Negative Negative Poc Ketone, Urine Negative Negative Poc Specific [place], Urine <=1.005 Low 1.010-1.030 Poc Blood, Urine Trace-intact Abnormal Negative Poc pH, Urine 5.0 N 5-9 Poc Protein, Urine 2+ Abnormal Negative Poc Urobilinogen, Urine 0.2 Negative Poc Nitrite, Urine Negative Negative Poc Leukocytes, Urine 1+ Abnormal Negative Poc Color, Urine Light yellow Poc Clarity, Urine Slightly Cloudy 17 Urine Culture And 08/29/2018 [facility] Urine SEE RESULT 18 , [address] [place] [address] [phone] CBC Auto Diff 07/30/2018 [facility] White Blood 7.4 10^3/uL N 3.5-[address] Count 0.8 [place] [address] [phone] Red Blood Count 4.44 10^6/uL N 4.00-5.40 [...] Cells % 0 Comp Metabolic Panel 07/30/2018 [facility] Sodium 140 mmol/L N 135-145 [address] [place] [address] [phone] Potassium 4.4 mmol/L N 3.5-5.0 Chloride 105 [...] Egfr Non- 49.0 >60 Egfr 59.2 >60 20 Laboratory test finding 07/30/2018 [facility] Lipase 16 U/L N 11.0-82.[address] [place] [address] [phone] C Reactive Protein 3.03 mg/L N <8.01 Troponin-I (TnI) 0.00 ng/mL <0.04 21 B-Type Natriuretic Peptide BNP 77 pg/mL <=100 Lactic Acid 1.9 mmol/L N 0.5-2.0 22 Comp Metabolic Panel 05/09/2018 [facility] Sodium 142 mmol/L N 135-[address] [place] [address] [phone] Potassium 5.0 mmol/L N 3.5-5.0 Chloride 107 [...] Egfr Non- 64.2 >60 Egfr 77.7 >60 23 Laboratory test 05/09/2018 [facility] Hemoglobin A1c 6.9 % High 4.0-5.[address] (Glyco HGB) [place] [address] [phone] Laboratory test 01/12/2018 [facility] Surgical SEE RESULT [address] [place] [address] [phone] Laboratory test 12/31/2017 [facility] Hemoglobin A1c 7.2 High 5-7 finding Comp Metabolic 12/30/2017 [facility] Sodium 140 mmol/L N 135- [address] [place] [address] [phone] Chloride 104 mmol/L N 101-111 Co2 Carbon [...] Egfr Non- 55.9 >60 Egfr 67.7 >60 26 Potassium 4.7 mmol/L N 3.5-5.0 Anion Gap 10 mmol/L N 2-11 Ast 40 U/L High 13-39 CBC Auto Diff 12/30/2017 [facility] White Blood 7.3 10^3/uL N 3.5-10.[address] [place] [address] [phone] Red Blood Count 4.68 10^6/uL N 4.00-5.40 [...] Cells % 0 Type & Screen 12/30/2017 [facility] Patient Blood Type A Positive [address] [place] [address] [phone] Antibody Screen NEGATIVE Laboratory test finding 11/22/2017 [facility] Lipase 26 U/L N 11.0-82.[address] [place] [address] [phone] Troponin-I (TnI) 0.00 ng/mL <0.04 Lactic Acid 1.1 mmol/L N 0.5-2.0 27 Urinalysis Profile 11/22/2017 [facility] Urine Color Yellow [address] [place] [address] [phone] Urine Appearance Cloudy Urine Specific [place] 1.012 N 1.010-1.030 Urine pH 5.0 N [...] Present Abnormal Absent Urine Culture And 11/22/2017 [facility] Urine Culture SEE RESULT [address] [place] [address] [phone] Inr/Protime 11/22/2017 [facility] Inr 1.02 N 0.77- [address] 1[address]02 [place] [address] [phone] CBC Auto Diff 11/22/2017 [facility] White Blood 7.2 10^3/uL N 3.5-[address] Count 0.8 [place] [address] [phone] Red Blood Count 4.58 10^6/uL N 4.0-5.4 [...] Blood Cells % 0 Laboratory test 11/22/2017 [facility] Partial 32.4 seconds N 26.0-36.[address] [place] [address] PTT [phone] Comp Metabolic 11/22/2017 [facility] Sodium 139 mmol/L N 139- [address] [place] [address] [phone] Potassium 4.7 mmol/L N 3.5-5.0 Chloride 106 [...] Egfr Non- 56.6 >60 Egfr 72.8 >60 29 Urine Microalbumin 09/24/2017 [facility] Ur Microalbumin 161.8 mg/L Random [address] (mg/L) [place] [address] [phone] Urine Creatinine 97.93 mg/dL Urine Microalbumin/Creatinine 165.2 ug/mg High <31 Lipid Profile 09/24/2017 [facility] Triglycerides 105 mg/dL 30 (Trig/Chol/HDL) [address] [place] [address] [phone] Cholesterol 144 mg/dL 31 HDL Cholesterol 63.7 mg/dL 32 LDL Cholesterol 59 mg/dL 33 Basic Metabolic Panel 09/24/2017 [facility] Sodium 141 mmol/L N 139-[address] [place] [address] [phone] Potassium 4.7 mmol/L N 3.5-5.0 Chloride 105 mmol/L N 101-111 Co2 Carbon Dioxide 25 mmol/L N 22-32 Anion Gap 11 mmol/L N 2-11 Glucose 140 mg/dL High 70-100 Blood Urea Nitrogen 23 mg/dL N 6-24 Creatinine 0.92 mg/dL N 0.51-0.95 BUN/Creatinine Ratio 25.0 High 8-20 Calcium 9.8 mg/dL N 8.6-10.3 Egfr Non- 60.3 >60 Egfr 77.6 >60 34 Laboratory test 09/24/2017 [facility] Hemoglobin A1c 7.5 % High 4.0-5.6 35 finding [address] (Glyco HGB) [place] [address] [phone] Hepatitis C Antibody Nonreactive Nonreactive 36 CBC Auto Diff 08/23/2017 [facility] White Blood 9.8 10^3/uL N 3.5-10.[address] [place] [address] [phone] Red Blood Count 4.36 10^6/uL N 4.0-5.4 [...] Blood Cells % 0.1 Laboratory test 08/23/2017 [facility] Lactic Acid 2.2 mmol/L High 0.5-2.0 37 finding [address] [place] [address] [phone] Comp Metabolic 08/23/2017 [facility] Sodium 136 mmol/L N 133- 145 Panel [address] [place] [address] [phone] Potassium 4.2 mmol/L N 3.5-5.0 Chloride 101 [...] Egfr Non- 63.5 >60 Egfr 81.7 >60 38 Laboratory test finding 08/23/2017 [facility] Lipase 19 U/L N 11.0-82.0 [address] [place] [address] [phone] C Reactive Protein 33.38 mg/L High < 5.00 39 Laboratory test 07/25/2017 [facility] Rapid SEE RESULT [address] [place] [address] Antigen [phone] Laboratory test 07/25/2017 [facility] Rapid Strep A SEE RESULT [address] [place] [address] [phone] Laboratory test 07/25/2017 [facility] Rapid Strep Negative Negative [address] [place] [address] [phone] Comp Metabolic 07/25/2017 [facility] Sodium 137 mmol/L N 133- [address] [place] [address] [phone] Potassium 4.1 mmol/L N 3.5-5.0 Chloride 101 [...] Egfr Non- 51.2 >60 Egfr 65.9 >60 43 Laboratory test 07/25/2017 [facility] C Reactive 8.70 mg/L High < 5.00 [address] [place] [address] [phone] Urinalysis 07/25/2017 [facility] Urine Color Straw Profile [address] [place] [address] [phone] Urine Appearance Clear Urine Specific [place] 1.004 Low 1.010-1.030 Urine pH 5.0 N 5-9 Urine Urobilinogen Negative Negative Urine Ketones Negative Negative Urine Protein Negative Negative Urine Leukocytes Negative Negative Urine Blood Negative Negative Urine Nitrite Negative Negative Urine Bilirubin Negative Negative Urine Glucose Negative Negative Rapid Influenza 07/25/2017 [facility] Influenza A NEGATIVE Negative 45 A & B Molecular [address] [place] [address] [phone] Influenza B Molecular NEGATIVE Negative CBC Auto Diff 07/25/2017 [facility] White Blood 6.5 10^3/uL N 3.5-10.[address] [place] [address] [phone] Red Blood Count 4.54 10^6/uL N 4.0-5.4 [...] Blood Cells % 0.1 Laboratory test 07/13/2017 [facility] Lactic Acid 1.0 mmol/L N 0.5-2.[address] [place] [address] [phone] Laboratory test 07/13/2017 [facility] Troponin-I 0.01 ng/mL < 0.[address] (TnI) [place] [address] [phone] CBC Auto Diff 07/13/2017 [facility] White Blood 8.0 10^3/uL N 3.5-10.[address] [place] [address] [phone] Red Blood Count 4.49 10^6/uL N 4.0-5.4 [...] Blood Cells % 0.1 Laboratory test 07/13/2017 [facility] Lactic Acid 2.4 mmol/L High 0.5-2.0 47 finding [address] [place] [address] [phone] Comp Metabolic 07/13/2017 [facility] Sodium 133 mmol/L N 133- 145 Panel [address] [place] [address] [phone] Potassium 4.0 mmol/L N 3.5-5.0 Chloride 98 [...] Egfr Non- 45.3 >60 Egfr 58.2 >60 48 Laboratory 07/12/2017 [facility] Rapid Strep Negative Negative 49 test finding [address] [place] [address] [phone] Rapid 07/12/2017 [facility] Influenza A POSITIVE Abnormal Negative 50 Influenza A & [address] [place] [address] [phone] Influenza B Molecular NEGATIVE Negative Laboratory test 06/24/2017 [facility] Hemoglobin A1c 7.2 High 5-7 finding Urine Culture And 05/22/2017 [facility] Urine Culture SEE RESULT [address] [place] [address] [phone] Urinalysis Profile 05/22/2017 [facility] Urine Color Straw [address] [place] [address] [phone] Urine Appearance Clear Urine Specific [place] 1.010 N 1.010-1.030 Urine pH 5.0 N [...] Present Abnormal Absent CBC Auto Diff 05/22/2017 [facility] White Blood 8.3 10^3/uL N 3.5-10.[address] [place] [address] [phone] Red Blood Count 4.54 10^6/uL N 4.0-5.4 [...] Cells % 0 Comp Metabolic Panel 05/22/2017 [facility] Sodium 138 mmol/L N 133-[address] [place] [address] [phone] Potassium 3.9 mmol/L N 3.5-5.0 Chloride 105 [...] Egfr Non- 53.6 >60 Egfr 68.9 >60 52 Laboratory test 05/22/2017 [facility] Partial 31.1 seconds N 26.0-36.[address] [place] [address] PTT [phone] Inr/Protime 05/22/2017 [facility] Inr 0.99 N 0.89-1.[address] [place], [place] [address] [phone] Laboratory test 05/22/2017 [facility] Amylase 41 U/L N 29-[address] [place], [place] [address] [phone] Lipase 24 U/L N 11.0-82.0 C Reactive Protein 4.08 mg/L N < 5.00 53 Laboratory test 03/19/2017 [facility] Hemoglobin A1c 8.4 High 5-7 finding Laboratory test 12/27/2016 [facility] Point of Care 124 mg/dL High 74-106 [address] [place] [address] [phone] Laboratory test 12/16/2016 [facility] Culture Throat SEE RESULT [address] [place] [address] [phone] Laboratory test 12/16/2016 [facility] Rapid Group A neg finding Strep Laboratory test 12/16/2016 [facility] Hemoglobin A1c 8.3 High 5-7 finding Laboratory test 11/01/2016 [facility] Gardnerella/Yea SEE RESULT [address]: [place] [address] [phone] Poc Urinalysis 11/01/2016 [facility] Poc Glucose, 2+ Abnormal Negative [address] [place] [address] [phone] Poc Bilirubin, Urine Negative N Negative Poc Ketone, Urine Negative N Negative Poc Specific [place], Urine 1.010 N 1.010-1.030 Poc Blood, Urine Trace-intact Abnormal Negative Poc pH, Urine 5.0 N 5-9 Poc Protein, Urine Negative N Negative Poc Urobilinogen, Urine 0.2 N Negative Poc Nitrite, Urine Negative N Negative Poc Leukocytes, Urine Negative N Negative Poc Color, Urine Yellow N Poc Clarity, Urine Clear N 57 Urine Culture And 11/01/2016 [facility] Urine Culture SEE RESULT [address] [place] [address] [phone] Comp Metabolic 09/24/2016 [facility] Import Albumin 4.3 [...] 3.8 mmol/L 3.5-5.0 Sodium 135 mmol/L 133-145 59 Total Bilirubin 0.40 mg/dL 0.2-1.0 Total Protein [...] Distribution Width 15 % 10.5-15 Urine Specific [place] 1.013 1.010-1.030 Urine pH 5.0 5-9 White Blood Count 7.6 10^3/ul 3.5-10.8 Urinalysis Profile 09/24/2016 [facility] Import Urine Appearance Clear Urine Bacteria Absent Absent Urine Bilirubin Negative Negative Urine Blood Negative Negative Urine Color Yellow Urine Glucose 1+(50 mg/dL) Negative Urine Ketones Negative Negative Urine Leukocytes Negative Negative Urine Nitrite Negative Negative Urine Protein 1+(30 mg/dL) Negative Urine Red Blood Cell Absent Absent Urine Specific [place] 1.013 1.010-1.030 Urine Urobilinogen Negative Negative Urine White Blood Cell Absent Absent Urine pH 5.0 5-9 Laboratory test finding 09/24/2016 [email or web address] Import Lactic Acid 1.6 mmol/L 0.5-2.0 60 Troponin I 0.01 ng/mL <0.04 61 CBC Auto Diff 09/24/2016 [employer] Import Abs Basophils 0.1 10^3/uL 0-0.2 Abs [...] 89.6 FL 79-97 MPV 8.1 FL 7.4-10.4 Cla[place]orne% 7.3 % 1.0-9.0 Neutrophil % 59.6 % [...] 5.0-8.0 Ua Protein 1+ High Ua Specific [place] 1.020 GM/ML 1.00-1.035 Ua Urobilinogen Neg Ua Microscopic 09/17/2016 N2N/CCD Import Ua Amorphous None Ua Bacteria Trace Ua Casts None Ua Crystals Few- CA.[place]alate Ua Epithelial Cells Mod Ua Mucous Small Ua RBC Rare Ua WBC 0-2 Ua Yeast None Laboratory test 09/17/2016 N2N/CCD Import Vitamin B12 249 pg/mL 180-914 62 finding Laboratory Studies 09/17/2016 N2N/CCD Import Urine [...] N2N/CCD Import Urine Specific 1.011 1.010-1.030 Studies [place] Urine pH 6.0 5-9 Laboratory test finding 06/28/2016 N2N/CCD Import Lactic Acid 1.3 mmol/L 0.5-2.0 63 Lipase 17 U/L 11.0-82.0 64 Troponin I 0.01 ng/mL <0.04 CBC Auto [...] 4.3 mmol/L 3.5-5.0 Sodium 138 mmol/L 133-145 65 Total Bilirubin 0.40 mg/dL 0.2-1.0 Total Protein [...] Count 7.7 10^3/ul 3.5-10.8 Urinalysis Profile 06/28/2016 [email or web address] Import Urine Appearance Clear Urine Bilirubin Negative Negative Urine Blood Negative Negative Urine Color Yellow Urine Glucose Negative Negative Urine Ketones Negative Negative Urine Leukocytes Negative Negative Urine Nitrite Negative Negative Urine Protein Negative Negative Urine Specific [place] 1.011 1.010-1.030 Urine Urobilinogen Negative Negative Urine pH 6.0 5-9 CBC Auto Diff 06/23/2016 [employer] Import Abs Basophils 0 10^3/uL 0-0.2 Abs [...] 8.2 10^3/uL 3.5-10.8 Comp Metabolic Panel 06/23/2016 [employer] Import Albumin 4.3 g/dL 3.2-5.2 Albumin/Globulin Ratio [...] 4.1 mmol/L 3.5-5.0 Sodium 137 mmol/L 133-145 66 Total Bilirubin 0.50 mg/dL 0.2-1.0 Total Protein 7.3 g/dL 6.4-8.9 Laboratory test 10/24/2015 N2N/CCD Import Point of Care 143 mg/dL High 74 -106 67 finding Glucose Laboratory test 06/25/2015 N2N/CCD Import [...] units 5.0-8.0 Ua Protein Neg Ua Specific [place] 1.020 GM/ML 1.00-1.035 Ua Urobilinogen Neg Laboratory [...] 87.4 FL 79-97 MPV 7.6 FL 7.4-10.4 Cla[place]orne% 8.0 % 1.0-9.0 Neutrophil % 60.0 % 38.0-83.0 Platelet Count Blood Auto CNT 197 X103/UL 150-450 RBC Red Blood Count 4.37 X106/UL 4.20-6.20 RDW 14.8 % 10.5-15.0 White Blood Count Ser Auto CNT 6.5 3/UL 4.8-10.8 CMP(!) 06/11/2015 [employer] Import Albumin Serum/Plasma(!) 4.2 g/dL 3.5- 5.2 [...] Mass/Vol(!) 4.4 mg/dL 2.6-7.2 Lipid Panel(!) 06/11/2015 [email or web address] Import Cholesterol Total 156 mg/dL 140 -200 Mass/Vol HDL Cholesterol Mol/Vol 53 30-85 LDL Cholesterol Mass/Vol(!) 78 mg/dL 0-130 Triglycerides Ser/Plas Mass/VL 124 mg/dL 30-150 Laboratory test finding 04/30/2015 [email or web address] Import Lactic Acid 1.8 mmol/L 0.5-2.2 Troponin I 0.00 ng/mL <0.03 68 CBC Auto Diff 04/30/2015 N2N/CCD Import Abs [...] TNP mmol/L 3.5-5.0 Sodium 136 mmol/L 133-145 69 Total Bilirubin 0.60 mg/dL 0.2-1.0 Total Protein 7.1 g/dL 6.4-8.9 Laboratory Studies 04/30/2015 [employer] Import Absolute Basophils 0.1 10^3/ ul 0-0.2 [...] 7.2 10^3/ul 4.8-10.8 Ua Dipstick Macroscopic(!) 01/18/2015 [email or web address] Import Ua Appearance Clear Ua Bilirubin Neg Ua Blood Qual Neg Ua Color Yellow Ua Glucose QL Neg Ua Ketones Neg Ua Leukocytes Neg Ua Nitrite Neg Ua PH Test 5.0 units 5.0-8.0 Ua Protein Neg Ua Specific [place] 1.020 GM/ML 1.00-1.035 Ua Urobilinogen Neg Laboratory test 01/12/2015 [employer] Import Troponin I 0.01 ng/mL <0.03 70 finding Laboratory test 01/12/2015 [employer] Import Lipase 44 U/L 11.0-82.0 71 finding Troponin I 0.00 ng/mL <0.03 CBC [...] 4.0 mmol/L 3.5-5.0 Sodium 137 mmol/L 133-145 72 Total Bilirubin 0.30 mg/dL 0.2-1.0 Total Protein [...] mg/dL Urine Microalbumin/Creatinine 25.6 ug/mg <31 1 REFERENCE VALUE <20.0 (Negative) Test Performed by: [email or web address] [place] [employer] [address] [place] [address] 2 REFERENCE VALUE <1:80 (Negative) 3 Test Performed by: [facility] [email or web address] [place] [address] 4 Because ethnic data is not always [...] 5 Kidney failure <15 (or dialysis) 5 [facility] Severe Sepsis and Septic Shock Management Bundle Measure requires all lactic acids initially measuring >2.0 mmol/L be repeated. 6 Because ethnic data is not always readily [...] 15-29 5 Kidney failure <15 (or dialysis) 7 Troponin-I testing on Plasma Separator Tubes (PST) has a known false positive rate of 0.20-0.40%. All positive troponins reflex immediately to secondary confirmatory testing. Using the [employer] 800 Access Immunoassay systems, the 99th percentile upper reference limit was demonstrated to be < 0.03 ng/mL. 8 SEE RESULT BELOW Name: CHARLINE ANGULO : [address]: Milo Matthew MD Acct: [id number] Unit: [id number] AGE: 72 Location: ED Re10/17/18 SEX: F Status: DEP ER SPEC: [id number] KATHE: 10/17/[address]: Milo Matthew MD REQ: [id number] RECD: 10/17/18 STATUS: IRINA MARRERO DR: Barrett Long TARIFF COMPILING CLERK _ SOURCE: URINE SPDESC: ORDERED: Urine Culture Procedure Result Reported Site Urine Culture Final 10/18/18- 1459 ML Organism 1 STAPHYLOCOCCUS HAEMOLYTICUS No growth of clinically significant organisms * ML - Main Lab . END OF REPORT DEPARTMENT OF PATHOLOGY, [address] [place] [address] Anil Goodrich M.D. Director [facility] # [id number] 9 Because ethnic data is not always [...] 5 Kidney failure <15 (or dialysis) 10 Desirable: <150 Borderline High: 150-199 High: 200-499 Very High: >500 11 Desirable: <200 Borderline High: 200-239 High: >239 12 Low: <40 Desirable: 40-60 High: >60 13 Desirable: <100 Near Optimal: 100-129 Borderline High: 130-159 High: 160-189 Very High: >189 14 Consistent with Previous Results Reported on 07/30/18 15 Because ethnic data is not always [...] 5 Kidney failure <15 (or dialysis) 16 Troponin-I testing on Plasma Separator Tubes (PST) has a known false positive rate of 0.20-0.40%. All positive troponins reflex immediate secondary confirmatory testing. 17 Eclectic Doctor: [id number] 19 SEE RESULT BELOW Name: CHARLINE ANGULO : [address]: Jorge Alberto Hong MD Acct: [id number] Unit: [id number] AGE: 72 Location: [facility] Re08/29/18 SEX: F Status: DEP ER SPEC: [id number] KATHE: 08/29/[address]: Damien CARVAJAL REQ: [id number] RECD: 08/29/18 STATUS: IRINA MARRERO DR: Mina Hong MD _ SOURCE: URINE SPDESC: ORDERED: Urine Culture COMMENTS: [id number] Procedure Result Reported Site Urine Culture Final 08/30/18- 18 ML No growth of clinically significant organisms * ML - Main Lab . END OF REPORT DEPARTMENT OF PATHOLOGY, [address] [place] [address] Anil Goodrich M.D. Director [facility] # [id number] 20 Because ethnic data is not always [...] 5 Kidney failure <15 (or dialysis) 21 Troponin-I testing on Plasma Separator Tubes (PST) has a known false positive rate of 0.20-0.40%. All positive troponins reflex immediate secondary confirmatory testing. 22 [facility] Severe Sepsis and Septic Shock Management Bundle Measure requires all lactic acids initially measuring >2.0 mmol/L be repeated. 23 Because ethnic data is not always [...] 5 Kidney failure <15 (or dialysis) 24 Therapeutic target for the treatment of diabetes mellitus patients is <7% HBA1C, and in selective patients <6.0%. Please refer to [place] [employer] diabetic care guidelines for further information. 25 SEE RESULT BELOW Name: CHARLINE ANGULO : [address]: Davis Smith MD Acct: [id number] Unit: [id number] AGE: 72 Location: [address] Re01/12/18 SEX: F Status: ADM IN SPEC: [id number] KATHE: 01/12/18- [facility] DR: Davis Smith MD REQ: [id number] RECD: 01/12/18 STATUS: SOUT _ ORDERED: LEVEL [...] mucosa is glistening schafer-pink with normal folds. Resident Hall Director sections are submitted in cassettes A through F as follows: A- margins, B-detached area and C through F-diverticula. Signed by and Reported on: Genesis Ramirez MD 01/14/18 1533 END OF REPORT DEPARTMENT OF PATHOLOGY, [address] [place] [address] Anil Goodrich M.D. Director [facility] # [id number] 26 Because ethnic data is not always [...] 5 Kidney failure <15 (or dialysis) 27 [facility] Severe Sepsis and Septic Shock Management Bundle Measure requires all lactic acids initially measuring >2.0 mmol/L be repeated. 28 SEE RESULT BELOW Name: CHARLINE ANGULO : [address]: Fab Ricardo MD Acct: [id number] Unit: [id number] AGE: 72 Location: ED Re11/22/17 SEX: F Status: DEP ER SPEC: [id number] KATHE: 11/22/17-[address]: Fab Ricardo MD REQ: [id number] RECD: 11/22/175 STATUS: IRINA MARRERO DR: Mina Dorsey MD _ SOURCE: URINE [facility]: ORDERED: Urine Culture Procedure Result Reported Site Urine Culture Final 11/23/17- 1304 ML No Growth (<1,000 CFU/mL) * ML - Main Lab . END OF REPORT DEPARTMENT OF PATHOLOGY, [address] [place] [address] Anil Goodrich M.D. Director [facility] # [id number] 29 Because ethnic data is not always readily [...] 15-29 5 Kidney failure <15 (or dialysis) 30 Desirable: <150 Borderline High: 150-199 High: 200-499 Very High: >500 31 Desirable: <200 Borderline High: 200-239 High: >239 32 Low: <40 Desirable: 40-60 High: >60 33 Desirable: <100 Near Optimal: 100-129 Borderline High: 130-159 High: 160-189 Very High: >189 34 Because ethnic data is not always [...] 5 Kidney failure <15 (or dialysis) 35 Therapeutic target for the treatment of diabetes mellitus patients is <7% HBA1C, and in selective patients <6.0%. Please refer to [place] [employer] diabetic care guidelines for further information. 36 FASTING 10 HOUR 37 Critical Result LACT:2.2 Called to DOYLE at: 10:00:35 by:[id number] Read back by:DOLYE EPSTEIN Severe Sepsis and Septic Shock Management Bundle Measure requires all lactic acids initially measuring >2.0 mmol/L be repeated. 38 Because ethnic data is not always readily [...] 15-29 5 Kidney failure <15 (or dialysis) 39 Acute inflammation: >10.00 40 SEE RESULT BELOW Name: CHARLINE ANGULO : [address]: Mike Santo MD Acct: [id number] Unit: [id number] AGE: 71 Location: ED Re07/25/17 SEX: F Status: REG ER SPEC: [id number] KATHE: 07/25/[address]: Evi CARVAJAL REQ: [id number] RECD: 07/25/17 STATUS: IRINA MARRERO DR: Mina Santo MD _ SOURCE: NASAL SPDESC: ORDERED: Flu A B Request Procedure Result Reported Site Rapid Influenza A B Request Final 07/25/17- 6029 ML Specimen received for Influenza A/B Molecular testing * ML - MAIN LAB ([facility]) . END OF REPORT * ML=Testing performed at Main Lab DEPARTMENT OF PATHOLOGY, [address] [place] [address] Anil Goodrich M.D. Director [facility] # [id number] 41 SEE RESULT BELOW Name: CHARLINE ANGULO : [address]: Mike Santo MD Acct: [id number] Unit: [id number] AGE: 71 Location: ED Re07/25/17 SEX: F Status: REG ER SPEC: [id number] KATHE: 07/25/17 [facility] [address]: Miek Santo MD REQ: [id number] RECD: 07/25/17 STATUS: IRINA MARRERO DR: Mina Dorsey MD _ SOURCE: THROAT SPDESC: ORDERED: Strep A Request Procedure Result Reported Site Rapid Strep A Request Final 07/25/17- 1720 ML Specimen received for Rapid Strep A Molecular testing * ML - MAIN LAB ([facility]) . END OF REPORT * ML=Testing performed at Main Lab DEPARTMENT OF PATHOLOGY, [address] [place] [address] Anil Goodrich M.D. Director [facility] # [id number] 42 Eclectic Doctor: [id number] 43 Because ethnic data is not always [...] 5 Kidney failure <15 (or dialysis) 44 Acute inflammation: >10.00 45 Eclectic Doctor: [id number] 46 [facility] Severe Sepsis and Septic Shock Management Bundle Measure requires all lactic acids initially measuring >2.0 mmol/L be repeated. 47 Critical Result LACT:2.4 Called to [id number] at: 14:56:34 by:[id number] Read back by:[id number] [facility] Severe Sepsis and Septic Shock Management Bundle Measure requires all lactic acids initially measuring >2.0 mmol/L be repeated. 48 Because ethnic data is not always [...] 15-29 5 Kidney failure <15 (or dialysis) 49 Eclectic Doctor: [id number] Eclectic Doctor: [id number] 51 SEE RESULT BELOW Name: CHARLINE ANGULO : [address]: Lilibeth Wan MD Acct: [id number] Unit: [id number] AGE: 71 Location: ED Re05/22/17 SEX: F Status: DEP ER SPEC: [id number] KATHE: 05/22/17 [facility] DR: Lilibeth Wan MD REQ: [id number] RECD: 05/22/17 STATUS: IRINA MARRERO DR: Mina Dorsey MD _ SOURCE: URINE SPDESC: ORDERED: Urine Culture Procedure Result Reported Site Urine Culture Final 05/24/17- 826 ML No growth of clinically significant organisms * ML - MAIN LAB ([facility]) . END OF REPORT * ML=Testing performed at Main Lab DEPARTMENT OF PATHOLOGY, [address] [place] [address] Anil Goodrich M.D. Director [facility] # [id number] 52 Because ethnic data is not always readily [...] 15-29 5 Kidney failure <15 (or dialysis) 53 Acute inflammation: >10.00 54 Eclectic Doctor: [id number] 55 SEE RESULT BELOW Name: CHARLINE ANGULO : [address]: Fidel Dorsey MD Acct: [id number] Unit: [id number] AGE: 71 Location: [facility] Re12/16/16 SEX: F Status: REG REF SPEC: [id number] KATHE: 12/16/16 [facility] [address]: Mina Dorsey MD REQ: [id number] RECD: 12/16/16 STATUS: COMP _ SOURCE: THROAT SPDESC: ORDERED: Throat Culture COMMENTS: [id number] Procedure Result Reported Site Throat Culture Final 12/18/16- 1110 ML Organism 1 NORMAL MARIANN Quantity 2+ Throat cultures are clinically indicated to detect the presence of group A strep, arcanobacterium and yeast. In certain cases, predominating organisms will be reported. * ML - MAIN LAB ([facility]) . END OF REPORT * ML=Testing performed at Main Lab DEPARTMENT OF PATHOLOGY, [address] [place] [address] Anil Goodrich M.D. Director [facility] # [id number] 56 SEE RESULT BELOW Name: CHARLINE ANGULO : [address]: Stanislav Enciso MD Acct: [id number] Unit: [id number] AGE: 70 Location: [facility] Re11/01/16 SEX: F Status: DEP ER SPEC: [id number] KATHE: 11/01/[address]: Roxann Cook NP REQ: [id number] RECD: 11/01/166155 STATUS: COMP [facility] DR: Stanislav Dorsey MD _ SOURCE: VAGINAL [...] or failure. * ML - MAIN LAB ([facility]) . END OF REPORT * ML=Testing performed at Main Lab DEPARTMENT OF PATHOLOGY, [address], [place], [place] [address] Anil Goodrich M.D. Director [facility] # [id number] 57 Eclectic Doctor: [id number] 58 SEE RESULT BELOW Name: CHARLINE ANGULO Mary Ann : [address]: Stanislav Enciso MD Acct: [id number] Unit: [id number] AGE: 70 Location: [facility] Re11/01/16 SEX: F Status: DEP ER SPEC: [id number] KATHE: 11/01/16 [facility] [address]: Roxann Cook NP REQ: [id number] RECD: 11/01/16 STATUS: IRINA MARRERO DR: Stanislav Dorsey MD _ SOURCE: URINE SPDESC: ORDERED: Urine Culture Procedure Result Reported Site Urine Culture Final 11/02/16- 1303 ML No growth of clinically significant organisms * ML - MAIN LAB ([facility]) . END OF REPORT * ML=Testing performed at Main Lab DEPARTMENT OF PATHOLOGY, [address] [place] [address] Anil Goodrich M.D. Director [facility] # [id number] 59 Because ethnic data is not always readily [...] 15-29 5 Kidney failure <15 (or dialysis) 60 [facility] Severe Sepsis and Septic Shock Management Bundle Measure requires all lactic acids initially measuring >2.0 mmol/L be repeated. 61 99th percentile=0.04 ng/mL Troponin results at [facility] and [facility] are not interchangeable. 62 [id number] 63 [facility] Severe Sepsis and Septic Shock Management Bundle Measure requires all lactic acids initially measuring >2.0 mmol/L be repeated. 64 99th percentile=0.04 ng/mL Troponin results at [facility] and [facility] are not interchangeable. 65 Because ethnic data is not always [...] 5 Kidney failure <15 (or dialysis) 66 Because ethnic data is not always readily [...] 15-29 5 Kidney failure <15 (or dialysis) 67 Eclectic Doctor: [id number] BRAULIO NUGENT 68 Reference Range and Interpretation: TnI (ng/mL) Interpretation Less Than 0.03 ng/mL Not supportive of diagnosis of OR 0.03 - 0.50 ng/mL Indeterminate: suggest serial studies if clinically indicated. Greater than 0.5 ng/mL Consistent with diagnosis of OR 69 Because ethnic data is not always readily [...] 15-29 5 Kidney failure <15 (or dialysis) 70 Reference Range and Interpretation: TnI (ng/mL) Interpretation Less Than 0.03 ng/mL Not supportive of diagnosis of OR 0.03 - 0.50 ng/mL Indeterminate: suggest serial studies if clinically indicated. Greater than 0.5 ng/mL Consistent with diagnosis of OR 71 Reference Range and Interpretation: TnI (ng/mL) Interpretation Less Than 0.03 ng/mL Not supportive of diagnosis of OR 0.03 - 0.50 ng/mL Indeterminate: suggest serial studies if clinically indicated. Greater than 0.5 ng/mL Consistent with diagnosis of OR 72 Because ethnic data is not always readily [...] dialysis) Procedures Date Code Description Status 09/12/2018 57905300 Mammogram Completed 01/12/2018 51719 Colectomy Partial W/Coloproctostomy Completed 01/12/2018 35406 Colectomy Partial W/Coloproctostomy Completed 01/12/2018 59805 Mobilization Splenic Flexure W/Partial Colectomy Completed 01/12/2018 12998 Mobilization Splenic Flexure W/Partial Colectomy Completed 08/25/2017 [id number] Mammogram Completed 02/17/2017 562221239 Diabetic Retinal Eye Exam Completed 09/25/2016 86107 ECHO Transthorasic Realtime 2D W Doppler & Color Flow Completed Hosp 09/24/2016 41412 EKG, Interpretation Only Completed 08/17/2016 46534111 Mammogram Completed 10/24/2015 83631530 Colonoscopy Completed 08/09/2015 39524334 Mammogram Completed Encounters Type Date Location Provider Dx Diagnosis Office Visit 10/24/2018 [facility] Barrett Long NP E11.9 Type 2 diabetes 10:00a Medicine mellitus without complications I10 Essential (primary) hypertension R53.83 Other fatigue M25.50 Pain in unspecified joint M79.18 Myalgia, other site Office Visit 09/23/2018 3:00p [facility] Barrett Long NP Z00.00 Encntr for Medicine general adult medical exam w/o abnormal findings E11.9 Type 2 diabetes mellitus without complications I10 Essential (primary) hypertension R10.9 Unspecified abdominal pain J30.89 Other allergic rhinitis Office Visit 06/23/2018 11:40a [facility] Mina Mckeon E11.9 Type 2 diabetes Jed Dorsey M.D.,FACP mellitus without [address] complications I10 Essential (primary) hypertension K57.30 Dvrtclos of lg int w/o perforation or abscess w/o bleeding Office Visit 02/22/2018 3:20p [facility] Mina Mckeon K57.32 Dvtrcli of lg int Jed Dorsey M.D.,FACP w/o perforation or abscess w/o bleeding E11.9 Type 2 diabetes mellitus without complications I10 Essential (primary) hypertension Office Visit 12/31/2017 9:40a [facility] Mina Mckeon E11.9 Type 2 diabetes Jed Dorsey M.D.,FACP mellitus without [address] complications I10 Essential (primary) hypertension K57.30 Dvrtclos of lg int w/o perforation or abscess w/o bleeding Office Visit 10/14/2017 3:30p [facility] Moe K57.32 Dvtrcli of lg int [facility] Smith MD, w/o perforation or FACS abscess w/o bleeding K58.2 Mixed irritable bowel syndrome Office Visit 07/28/2017 4:00p [facility] Barrett Long, J01.90 Acute sinusitis, Medicine TARIFF COMPILING CLERK unspecified R05 Cough M89.8x8 Other specified disorders of bone, other site Office Visit 07/13/2017 1:08p [facility] J10.1 Flu due to oth Assoc,pc [facility] [place] ident influenza Hospitalists virus w oth resp manifest E11.65 Type 2 diabetes mellitus with hyperglycemia E86.0 Dehydration I10 Essential (primary) hypertension Office Visit 06/24/2017 2:00p [facility] Mina Mckeon E11.9 Type 2 diabetes Jed Dorsey M.D.,FACP mellitus without [address] complications I10 Essential (primary) hypertension Z23 Encounter for immunization Office Visit 05/31/2017 2:30p [facility] Yanci R10.10 Upper abdominal Medicine - Isela, TARIFF COMPILING CLERK pain, unspecified [address] Office Visit 03/19/2017 4:00p [facility] Mina Mckeon E11.9 Type 2 diabetes Jed Dorsey M.D.,FACP mellitus without [address] complications K21.9 Gastro-esophageal reflux disease without esophagitis I10 Essential (primary) hypertension Z23 Encounter for immunization Office Visit 02/23/2017 11:40a [facility] Yair B37.9 Candidiasis, Jed Gutiérrez M.D. unspecified [address] E11.9 Type 2 diabetes mellitus without complications Office Visit 12/16/2016 4:20p [facility] Mina Mckeon E11.8 Type 2 diabetes Jed Dorsey M.D.,FACP mellitus with [address] unspecified complications J02.9 Acute pharyngitis, unspecified Office Visit 10/15/2016 11:50a [facility] Mina Mckeon G45.9 Transient cerebral Jed Dorsey M.D.,FACP ischemic attack, [address] unspecified E11.8 Type 2 diabetes mellitus with unspecified complications I10 Essential (primary) hypertension B00.89 Other herpesviral infection Office Visit 09/25/2016 [facility] Joni G45.9 Transient 9:50a Jeff Hanley M.D. cerebral ischemic attack, unspecified I10 Essential (primary) hypertension Office Visit 09/25/2016 2:05p [facility] Osman G45.9 Transient Assoc,sol Rivera M.D. cerebral ischemic Hospitalists attack, unspecified E11.8 Type 2 diabetes mellitus with unspecified complications I16.0 Hypertensive urgency G43.909 Migraine, unsp, not intractable, without status migrainosus Office Visit 09/24/2016 [facility] Joni G45.9 Transient 9:50a Jeff Hanley M.D. cerebral ischemic attack, unspecified I10 Essential (primary) hypertension Office Visit 09/24/2016 2:04p [facility] Ladonna G45.9 Transient Assoc,sol Leija M.D. cerebral ischemic Hospitalists attack, unspecified E11.8 Type 2 diabetes mellitus with unspecified complications I16.0 Hypertensive urgency Plan of Treatment Future Appointment(s):01/20/2019 9:00 am - Sulaiman Phelps M.D. at [facility]12/26/2018 4:00 pm - Barrett Long NP at [facility] [id number] - Barrett Long NPI10 Essential (primary) hypertensionComments: HYPERTENSION:Well controlled on current regimen. Continue present management.E11.9 Type 2 diabetes mellitus without complicationsNew Medication: Glipizide XL 5 mg - One tablet once dailyComments:Increase the glipizide to 5mg daily. Continue checking your blood sugar as you have been.
[2018-11-12 20:53] LABS: Hematocrit 31 % (35-47); Hemoglobin 9.9 g/dL (12.0-16.0); Mean Corpuscular HGB Conc 32 g/dL (31-36); Mean Corpuscular Hemoglobin 23 pg (27-31); Mean Corpuscular Volume 72 fL (80-97); Mean Platelet Volume 7.6 fL (7.4-10.4); Platelet Count 172 10^3/uL (150-450); Red Blood Count 4.28 10^6 /uL (3.70-4.87); Red Cell Distribution Width 17 % (10.5-15); White Blood Count 3.9 10^3/uL (3.5-10.8)
[2018-11-12 21:01] LABS: Activated Partial Thrombo Time 30.1 seconds (26.0-36.3); INR 1.16 (0.82-1.09)
[2018-11-12 21:09] LABS: Albumin/Globulin Ratio 1.4 (1-3); BUN/Creatinine Ratio 21.7 (8-20); C Reactive Protein 38.09 mg/L (<8.01); EGFR African American 61.7 (>60); Globulin 2.9 g/dL (2-4); Potassium 4.4 mmol/L (3.5-5.0); Total Bilirubin 0.5 mg/dL (0.2-1.0); Total Protein 6.9 g/dL (6.4-8.9)
[2018-11-12 21:11] LABS: Troponin I 0.01 ng/mL (<0.04)
[2018-11-12 21:12] LABS: ABS Lymphocytes 0.6 10^3/ul (1.0-4.8); ABS Monocytes 0.5 10^3/ul (0-0.8); ABS Neutrophils 2.7 10^3/ul (1.5-7.7); Eosinophil % 0.9 %; Lymphocyte % 15.2 %
[2018-11-12 21:50] LABS: Influenza A Molecular NEGATIVE (Negative); Influenza B Molecular NEGATIVE (Negative)
[2018-11-12 22:42] LABS: Urine Appearance Cloudy; Urine Bacteria Absent (Absent); Urine Bilirubin Negative (Negative); Urine Blood 1+ (Negative); Urine Color Yellow; Urine Glucose 2+(150 mg/dL) (Negative); Urine Ketones Negative (Negative); Urine Nitrite Negative (Negative); Urine Protein 1+(30 mg/dL) (Negative); Urine Red Blood Cell Trace(0-2/hpf) (Absent); Urine Specific Gravity 1.018 (1.010-1.030); Urine Squamous Epithelial Cell Present (Absent); Urine Urobilinogen Negative (Negative); Urine White Blood Cell 2+(11-20/hpf) (Absent)
[2018-11-12] MEDS ORDERED: Levofloxacin TAB* 500 MG PO ONE (23:55)
[2018-11-13 01:02] VITALS: BP 124/84
== END 2018-11-13 01:01 | disposition home or self-care (01) ==
LOC: ED 19:43
DX: M19.011 Primary osteoarthritis, right shoulder (principal); N39.0 Urinary tract infection, site not specified; E11.9 Type 2 diabetes mellitus without complications; I10 Essential (primary) hypertension; Z79.82 Long term (current) use of aspirin; Z79.899 Other long term (current) drug therapy; Z79.4 Long term (current) use of insulin; Z88.5 Allergy status to narcotic agent; Z88.8 Allergy status to other drugs, medicaments and biological substances; Z91.041 Radiographic dye allergy status
CPT/HCPCS: 36415; 71045; 80053; 81003; 81015; 83605; 84484; 85025; 85610; 85730; 86140; 87040; 87086; 96360; 96361; 99284; A9270-GY

== ENCOUNTER 2019-02-23 18:01 | Emergency (ER) | payer MEDICARE ==
[2019-02-23 18:07] VITALS: BP 183/80
== END 2019-02-23 19:24 | disposition left against medical advice (07) ==
LOC: ED 18:01
DX: Z53.21 Procedure and treatment not carried out due to patient leaving prior to being seen by health care provider (principal)
CPT/HCPCS: 99281

== ENCOUNTER 2019-04-18 18:56 | Emergency (ER) | payer MEDICARE ==
--- OUTSIDE RECORDS SUMMARY | 2019-04-18 19:41 | XMS REPORT | Continuity of Care Document ---
:1945 External Reference #:[id number] Author Name Barrett Long NP (transmitted by agent of provider Kelle Campbell) Address [address] [facility], [place] [address] Care Team Providers Name Role Phone Davis Smith MD - Surgery Care Team Information Consultant Education [phone] Kari He MD - Internal Care Team Information Consultant Education Medicine Sulaiman Phelps MD - Rheumatology Care Team Information Consultant Education [phone] Problems Active Problems Provider Date Type 2 diabetes mellitus Kris Pressley MD Onset: 01/17/2013 Essential hypertension Kris Pressley MD Onset: 01/17/2013 Irritable bowel syndrome Kris Pressley MD Onset: 01/17/2013 Diverticular disease of colon Kris Pressley MD Onset: 01/17/2013 Note: had sigmoid resection Microalbuminuria due to type 2 Mina Dorsey M.D.,FACP Onset: 10/15/2016 diabetes mellitus Ex-smoker Mina Dorsey M.D.,FACP Onset: 06/24/2017 Iron deficiency anemia Tee Hilario MD Onset: 07/30/2018 Note: Jul 2018 - MCV fell to 74 from 80s Orthostatic hypotension Tee Hilario MD Onset: 02/18/2014 Note: mentioned in Dr Pressley 2015 Annual exam (he was primary MD ) Gastroesophageal reflux disease Tee Hilario MD Onset: 02/18/2001 Note: on PPI in 2019; went on Protonix then Nexium (see Dr Pressley 2013 annual) Social History Type Date Description Comments Sex Unknown ETOH Use 06/23/2018 Denies alcohol use Recreational Drug Use 10/15/2016 Denies Drug Use Tobacco Use Start: Unknown Patient has never smoked Smoking Status Reviewed: 04/13/19 Patient has never smoked Exercise Type/Frequency 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 [employer] Allergies, Adverse Reactions, Alerts Active Allergies Reaction Severity Comments Date Iodinated Diagnostic Agents Hives 09/24/2016 Codeine Nausea and Vomiting 09/24/2016 Compazine convulsions 09/24/2016 Jardiance yeast infection 12/16/2016 Trulicity diarrhea 12/21/2016 Medications Active Medications SIG Qnty Indications Ordering Date Provider Amlodipine Besylate 1 by mouth every day 30tabs I10 Barrett Long NP 9 2.5mg Tablets Cyclobenzaprine HCL 1 tablet by mouth 60tabs M54.2 Barrett Long NP bid as needed muscle 9 10mg Tablets spasms Toujeo Solostar inject 3ml Barrett Long NP subcutaneously 40 9 300Unit/ML Solution units once daily Pen-Inject Glipizide XL 1 by mouth every day E11.9 Barrett Long NP 2.5mg 9 Tablets ER 24HR Fast Acting B12 sublingual daily 90tabs Sulaiman Phelps, 2500mcg M.D. 9 Tablets Sub Iron (Ferrous take one 60tabs Sulaiman Phelps, Sulfate) capsule/tablet daily M.D. 9 142(45Fe) mg by mouth Tablets ER Accu-Chek Emily Plus Check Blood Sugar Up 200units Barrett Long NP To Three Times Daily 9 Strips Blood Pressure check bp twice 1units I10 Barrett Long NP Monitor Auto weekly at home 9 Inflate [facility] Blood Glucose check blood sugar 1units E11.9 Barrett Long NP Monitoring System once daily and when 9 feeling symtoms W/Device Kit Fluticasone Shake Liquid And Use 48units J30.89 Barrett Long NP Propionate 2 Sprays In Each 9 50mcg/Act Nostril Every Day Suspension Accu-Check Glucose use devise as 1units E11.9 Mina Mckeon Monitor instructed daily [place], 8 Device last visit: 09/24/17, MERI Nichole may change product if insurance does not cover Accu-Check Emily Chem check blood sugar up 100units E11.9 Barrett Long NP Strips to three times daily 8 Misc last visit: 09/24/17 may change product if insurance does not cover Accu-Check Emily use with glucometer 100units E11.9 Mina Mckeon Lancet Drums up to three times Barlow, 8 Misc daily, last visit: MERI Nichole 09/24/17 product may be changed if the insurance does not cover Pen [place] 11/10" use one time a daily 100units E11.9 Barrett Long NP 03/19 31G X with toujeo last 7 8 mm Misc visit: 09/24/17 Januvia Take 1 Tablet By 90tabs Barrett Long NP 100mg Tablets Mouth Every Day 7 Lovastatin take 1 tablet by 90tabs Barrett Long NP 10mg Tablets mouth at bedtime 7 Losartan Potassium take 1 tablet by 180tabs Barrett Long NP 50mg mouth twice daily 7 Tablets Pantoprazole Sodium take 1 tablet by 180tabs Barrett Long NP mouth daily [address] Metformin HCL take 1 tablet by 180tabs Barrett Long NP 1000mg mouth twice a day 5 Tablets Tylenol 2 tablets every 4 Unknown 325mg Capsules hours as needed for 0 pain Atenolol take 1 tablet by 180tabs Barrett Long NP 50mg Tablets mouth twice a day 0 History Medications Basaglar Kwikpen 50 units once daily 15ml Barrett Long NP 03/29/2019 - subcutneous 04/12/2019 100Unit/ML Solution Pen-Inject Januvia 1 by mouth every day 30tabs E11.9 Barrett Long NP 03/17/2019 - 50mg Tablets 03/29/2019 Venofer infusion of 200 mg 100ml Breanna Posada, 03/02/2019 - 20mg/ml in a maximum of 100 NETWORK SECURITY ADMINISTRATOR 03/29/2019 Solution mL of 0.9% NaCl over a period of 60 minutes Suprep Bowel Prep take according to 354ml Tee Galvan 02/22/2019 - Kit the instructions you MD Sulaiman 03/27/2019 received, the 17.5-3.13-1.6GM/177M afternoon before and L Solution morning of your procedure. Feraheme feraheme infusion 510ml Tee Galvan 02/18/2019 - 510mg/17ML 510 mg intravenously MD Sulaiman 03/02/2019 Solution over 1 hour, followed by a second infusion in a week Basaglar Kwikpen 50 units once daily 15ml E11.9 Barrett Long NP 02/15/2019 - subcutneous 11/17/2018 100Unit/ML Solution Pen-Inject Basaglar Kwikpen 30 units daily subcu 3ml E11.9 Barrett Long NP 12/26/2018 - 12/26/2018 100Unit/ML Solution Pen-Inject Ciprofloxacin HCL take one tablet 14tabs R35.0 Barrett Long NP 12/26/2018 - twice a day for 7 01/05/2019 250mg Tablets days. Sulfamethoxazole/Tri one by mouth twice a 14tabs Yoko Dickerson 2018 - methoprim DS day for 7 days N.P. 11/21/2018 800-160mg Tablets Glipizide XL one tablet once 90tabs E11.9 Barrett Long NP 11/11/2018 - 5mg daily 03/29/2019 Tablets ER 24HR Medications Administered in Office Medication SIG Qnty Indications Ordering Provider Date Pneumococcal,Unspecified Unknown 11/09/2009 Injection Immunizations CPT Code Status Date Vaccine Reaction Lot # [id number] Given 03/31/2019 Influenza Virus Vaccine, Quadrivalent, Split, Preservative Free 30717 Given 03/23/2018 Influenza Virus Vaccine, Quadrivalent, Split, Preservative Free 30692 Given 06/24/2017 Pneumonia Vaccine [id number] 42824 Given 03/19/2017 Influenza Virus Vaccine, NO IMMEDIATE REACTION , [id number] Quadrivalent, Split, PT TOLERATED WELL Preservative Free 40884 Given 04/29/2015 Pneumococcal Conjugate Vaccine 13 Valent For Intramuscular Use Vital Signs Date Vital Result Comment 04/13/2019 2:22pm Height 63 inches 5'3" Weight 174.00 lb Heart Rate 66 /min BP Systolic Sitting 160 mmHg BP Diastolic Sitting 78 mmHg BP Systolic Recheck 162 mmHg BP Diastolic Recheck 90 mmHg Body Temperature 98.1 F O2 % BldC Oximetry 97 % BMI (Body Mass Index) 30.8 kg/m2 03/29/2019 3:43pm Height 63 inches 5'3" Weight 178.25 lb Heart Rate 57 /min BP Systolic 158 mmHg Ra sitting BP Diastolic 88 mmHg Ra sitting BP Systolic Recheck 136 mmHg BP Diastolic Recheck 84 mmHg Body Temperature 97.9 F O2 % BldC Oximetry 98 % BMI (Body Mass Index) 31.6 kg/m2 Results Test Date Facility Test Result H/L Range Note Laboratory test 03/21/2019 [facility] Clotest SEE RESULT [address] [place] [address] [phone] Laboratory test 03/21/2019 [facility] Surgical SEE RESULT [address] [place] [address] [phone] Laboratory test 03/21/2019 [facility] Point of Care 95 mg/dL Normal 70-100 [address] [place] [address] [phone] CBC No Diff 03/09/2019 [facility] White Blood 5.1 10^3/uL Normal 3.5-10.[address] [place] [address] [phone] Red Blood Count 4.24 10^6/uL Normal 3.70-4.87 Hemoglobin 11.3 g/dL Low 12.0-16.0 Hematocrit 34 % Low 35-47 Mean Corpuscular Volume 80 fL Normal 80-97 Mean Corpuscular Hemoglobin 27 pg Normal 27-31 Mean Corpuscular HGB Conc 33 g/dL Normal 31-36 Red Cell Distribution Width 23 % High 10-15 Platelet Count 189 10^3/uL Normal 150-450 Mean Platelet Volume 8.0 fL Normal 7.4-10.4 Laboratory test 03/09/2019 [facility] Ferritin 279.5 ng/mL Normal 11-[address] [place] [address] [phone] Basic Metabolic 03/09/2019 [facility] Sodium 142 mmol/L Normal 135-[address] [place] [address] [phone] Potassium 4.3 mmol/L Normal 3.5-5.0 Chloride 108 mmol/L Normal 101-111 Co2 Carbon Dioxide 25 mmol/L Normal 22-32 Anion Gap 9 mmol/L Normal 2-11 Glucose 131 mg/dL High 70-100 Blood Urea Nitrogen 16 mg/dL Normal 6-24 Creatinine 0.94 mg/dL Normal 0.51-0.95 BUN/Creatinine Ratio 17.0 Normal 8-20 Calcium 8.9 mg/dL Normal 8.6-10.3 Egfr Non- 58.5 >60 Egfr 70.8 >60 4 Laboratory test 03/09/2019 [facility] Hemoglobin A1c 6.6 % High 4.0-5.6 5 finding 101 [facility] (Glyco HGB) [place] [address] [phone] Urinalysis 02/19/2019 [facility] Urine Color Yellow Profile [address] [place] [address] [phone] Urine Appearance Cloudy Urine Specific [place] 1.015 Normal 1.010-1.030 Urine pH 5.0 Normal 5-9 Urine Urobilinogen Negative Negative Urine Ketones Trace Abnormal Negative Urine Protein 1+(30 mg/dL) Abnormal Negative Urine Leukocytes Negative Negative Urine Blood Negative Negative Urine Nitrite Negative Negative Urine Bilirubin Negative Negative Urine Glucose 3+(>=500 mg/dL) Abnormal Negative Urine White Blood Cell Absent Absent Urine Red Blood Cell Absent Absent Urine Bacteria Absent Absent Urine Squamous Epithelial Cell Present Abnormal Absent Laboratory test 02/19/2019 [facility] Lipase 16 U/L Normal 11.0-82.0 finding [address] [place] [address] [phone] Comp Metabolic 02/19/2019 [facility] Sodium 133 mmol/L Low 135 -145 Panel [address] [place] [address] [phone] Potassium 4.1 mmol/L Normal 3.5-5.0 Chloride 100 mmol/L Low 101-111 Co2 Carbon Dioxide 23 mmol/L Normal 22-32 Anion Gap 10 mmol/L Normal 2-11 Glucose 280 mg/dL High 70-100 Blood Urea Nitrogen 20 mg/dL Normal 6-24 Creatinine 1.03 mg/dL High 0.51-0.95 BUN/Creatinine Ratio 19.4 Normal 8-20 Calcium 9.2 mg/dL Normal 8.6-10.3 Total Protein 6.9 g/dL Normal 6.4-8.9 Albumin 4.2 g/dL Normal 3.2-5.2 Globulin 2.7 g/dL Normal 2-4 Albumin/Globulin Ratio 1.6 Normal 1-3 Total Bilirubin 0.60 mg/dL Normal 0.2-1.0 Alkaline Phosphatase 59 U/L Normal 34-104 Alt 24 U/L Normal 7-52 Ast 25 U/L Normal 13-39 Egfr Non- 52.7 >60 Egfr 63.7 >60 6 CBC Auto 02/19/2019 [facility] White Blood 7.5 10^3/uL Normal 3.5-10.[address] [place] [address] [phone] Red Blood Count 4.64 10^6/uL Normal 3.70-4.87 Hemoglobin 11.3 g/dL Low 12.0-16.0 Hematocrit 35 % Normal 35-47 Mean Corpuscular Volume 75 fL Low 80-97 Mean Corpuscular Hemoglobin 24 pg Low 27-31 Mean Corpuscular HGB Conc 33 g/dL Normal 31-36 Red Cell Distribution Width 20 % High 10-15 Platelet Count 210 10^3/uL Normal 150-450 Mean Platelet Volume 7.7 fL Normal 7.4-10.4 Abs Neutrophils 6.1 10^3/uL Normal 1.5-7.7 Abs Lymphocytes 0.7 10^3/uL Low 1.0-4.8 Abs Monocytes 0.6 10^3/uL Normal 0-0.8 Abs Eosinophils 0.0 10^3/uL Normal 0-0.6 Abs Basophils 0.0 10^3/uL Normal 0-0.2 Abs Nucleated RBC 0.0 10^3/uL Granulocyte % 81.7 % Lymphocyte % 8.9 % Monocyte % 8.6 % Eosinophil % 0.3 % Basophil % 0.5 % Nucleated Red Blood Cells % 0.0 Laboratory 02/19/2019 [facility] Lactic 2.9 Critical 0.5-2.0 7 test finding [address] Acid mmol/[place] [address] [phone] Laboratory 02/19/2019 [facility] Blood SEE 8 test finding [address] [place] [address] BELOW [phone] Laboratory 02/19/2019 [facility] Lactic 2.3 Critical 0.5-2.0 9, 10 test finding [address] Acid mmol/[place] [address] [phone] CBC Auto Diff 01/20/2019 [facility] White 6.2 Normal 3.5-10.[address] Blood 10^3/[place] [address] Count [phone] Red Blood Count 4.55 10^6/uL Normal 3.70-4.87 Hemoglobin 10.5 g/dL Low 12.0-16.0 Hematocrit 34 % Low 35-47 Mean Corpuscular Volume 74 fL Low 80-97 11 Mean Corpuscular Hemoglobin 23 pg Low 27-31 Mean Corpuscular HGB Conc 31 g/dL Normal 31-36 Red Cell Distribution Width 18 % High 10-15 Platelet Count 233 10^3/uL Normal 150-450 Mean Platelet Volume 8.3 fL Normal 7.4-10.4 Abs Neutrophils 3.4 10^3/uL Normal 1.5-7.7 Abs Lymphocytes 1.8 10^3/uL Normal 1.0-4.8 Abs Monocytes 0.5 10^3/uL Normal 0-0.8 Abs Eosinophils 0.5 10^3/uL Normal 0-0.6 Abs Basophils 0.0 10^3/uL Normal 0-0.2 Abs Nucleated RBC 0.0 10^3/uL Granulocyte % 55.2 % Lymphocyte % 28.7 % Monocyte % 7.7 % Eosinophil % 7.8 % Basophil % 0.6 % Nucleated Red Blood Cells % 0.0 Vitamin B12 01/20/2019 [facility] Vitamin B12 187 pg/mL Normal 180-914 12 And Folate [address] [place] [address] [phone] Folic Acid (Folate) > 20.00 ng/mL >3.99 Laboratory test 01/20/2019 [facility] Ferritin 9.0 ng/mL Low 11-[address] [place], [place] [id number] [phone] T3 Free 3.80 pg/mL Normal 2.5-3.9 C Reactive Protein 6.96 mg/L Normal <8.01 Aso (Antistreptolysin O) Titer Negative IU/mL <200 Iu/mL 13 Iron & Iron Binding 01/20/2019 [facility] Iron 39 g/dL Low 50-[address] [place] [address] [phone] Unsaturated Iron Binding < 520 g/dL Total Iron Binding Capacity 535 g/dL High 250-450 Transferrin 382 mg/dL High 203-362 % Iron Saturation 7 % Low 15-55 Hla B27 01/20/2019 [facility] Hla B27 [address] [place] [address] [phone] Hla B27 Interp See Comment 15 Laboratory 01/20/2019 [facility] Thyroperoxidase 0.72 IU/mL Normal <9 [place] [address] [phone] Anca AB Ser 01/20/2019 [facility] C-Anca Negative [place] [address] [phone] P-Anca Negative Negative 16 Protein 01/20/2019 [facility] Total 6.9 g/dL 6.3 - Electrophoresis DRIVE Protein(Pep) 7.9 [place] [address] [phone] Albumin 3.5 g/dL 3.4-4.7 Alpha-1 Globulin 0.3 g/dL 0.1-0.3 Alpha-2 Globulin 1.1 g/dL Abnormal 0.6-1.0 Beta Globulin 1.2 g/dL 0.7-1.2 Gamma Globulin 0.8 g/dL 0.6-1.6 Albumin/Globulin Ratio 1.05 Impression See Comment 17 Madai Igg AB Reflex 01/20/2019 [facility] SS-A/Ro Antibody <0.[address] [place] [address] [phone] SS-B/La Antibody <0.2 U 19 Sm (Brown) IgG Antibody <0.2 U 20 [employer] Antibody, IgG <0.2 U 21 Scl-70 (Scleroderma) Antibody <0.2 U 22 Tatyana-1 Antibody <0.2 U 23 Laboratory test 01/20/2019 [facility] Angiotensin 57 U/L 16 - 85 24 finding [facility] [place] [address] [phone] Complement C3 145 mg/dL 75 - 175 25 Complement C4 28 mg/dL 14 - 40 26 Anti Double Stranded Dna AB 17.6 IU/mL 27 Erythrocyte Sed Rate 35 mm/Hr High 0-29 28 Urine Culture And 01/18/2019 [facility] Urine Culture SEE RESULT 29, [address] [place] [address] [phone] Ua Routine 12/26/2018 [employer] In House Ua Specific 1.020 [place] Ua PH 5 Ua Color yellow Ua Appera clear Ua WBC + Ua Protein trace Ua Glucose 100 Ua Ketones negative Ua Bilirubin negative Ua Urobilinogen normal Ua Nitrite positive Ua Occult Blood negative Laboratory test 12/26/2018 [employer] Hemoglobin A1c 8.2% High 5-7 finding Laboratory test 11/13/2018 [facility] Lactic Acid 1.2 mmol/L Normal 0.5-2.0 [address] [place] [address] [phone] Urine Culture And 11/12/2018 [facility] Urine Culture SEE RESULT [address] [place] [address] [phone] Laboratory test 11/12/2018 [facility] Blood Culture SEE RESULT [address] [place] [address] [phone] Urinalysis Profile 11/12/2018 [facility] Urine Color Yellow [address] [place], [place] [id number] [phone] Urine Appearance Cloudy Urine Specific [place] 1.018 Normal 1.010-1.030 Urine pH 5.0 Normal 5-9 Urine Urobilinogen Negative Negative Urine Ketones Negative Negative Urine Protein 1+(30 mg/dL) Abnormal Negative Urine Leukocytes 2+ Abnormal Negative Urine Blood 1+ Abnormal Negative Urine Nitrite Negative Negative Urine Bilirubin Negative Negative Urine Glucose 2+(150 mg/dL) Abnormal Negative Urine White Blood Cell 2+(11-20/hpf) Abnormal Absent Urine Red Blood Cell Trace(0-2/hpf) Absent Urine Bacteria Absent Absent Urine Squamous Epithelial Cell Present Abnormal Absent Laboratory 11/12/2018 [facility] Partial 30.1 Normal 26.0- 36.3 test finding [address] [address] Time PTT [phone] Inr/Protime 11/12/2018 [facility] Inr 1.16 High 0.82-1.[address] [place] [address] [phone] Laboratory 11/12/2018 [facility] Lactic Acid 1.8 mmol/L Normal 0.5-2.0 [address] [place] [address] [phone] CBC Auto Diff 11/12/2018 [facility] White Blood 3.9 10^3/uL Normal 3.5-10.[address] [place] [address] [phone] Red Blood Count 4.28 10^6/uL Normal 3.70-4.87 Hemoglobin 9.9 g/dL Low 12.0-16.0 Hematocrit 31 % Low 35-47 Mean Corpuscular Volume 72 fL Low 80-97 36 Mean Corpuscular Hemoglobin 23 pg Low 27-31 Mean Corpuscular HGB Conc 32 g/dL Normal 31-36 Red Cell Distribution Width 17 % High 10.5-15 Platelet Count 172 10^3/uL Normal 150-450 Mean Platelet Volume 7.6 fL Normal 7.4-10.4 Abs Neutrophils 2.7 10^3/uL Normal 1.5-7.7 Abs Lymphocytes 0.6 10^3/uL Low 1.0-4.8 Abs Monocytes 0.5 10^3/uL Normal 0-0.8 Abs Eosinophils 0.0 10^3/uL Normal 0-0.6 Abs Basophils 0.0 10^3/uL Normal 0-0.2 Abs Nucleated RBC 0.0 10^3/uL Granulocyte % 71.0 % Lymphocyte % 15.2 % Monocyte % 12.2 % Eosinophil % 0.9 % Basophil % 0.7 % Nucleated Red Blood Cells % 0.0 Laboratory test 11/12/2018 [facility] C Reactive 38.09 mg/L High <8.01 finding 101 [facility] [place] [address] [phone] Troponin-I (TnI) 0.01 ng/mL <0.04 37 Comp Metabolic Panel 11/12/2018 [facility] Sodium 134 mmol/L Low 135-145 [address] [place] [address] [phone] Potassium 4.4 mmol/L Normal 3.5-5.0 Chloride 102 mmol/L Normal 101-111 Co2 Carbon Dioxide 22 mmol/L Normal 22-32 Anion Gap 10 mmol/L Normal 2-11 Glucose 236 mg/dL High 70-100 Blood Urea Nitrogen 23 mg/dL Normal 6-24 Creatinine 1.06 mg/dL High 0.51-0.95 BUN/Creatinine Ratio 21.7 High 8-20 Calcium 9.0 mg/dL Normal 8.6-10.3 Total Protein 6.9 g/dL Normal 6.4-8.9 Albumin 4.0 g/dL Normal 3.2-5.2 Globulin 2.9 g/dL Normal 2-4 Albumin/Globulin Ratio 1.4 Normal 1-3 Total Bilirubin 0.50 mg/dL Normal 0.2-1.0 Alkaline Phosphatase 71 U/L Normal 34-104 Alt 32 U/L Normal 7-52 Ast 37 U/L Normal 13-39 Egfr Non- 51.0 >60 Egfr 61.7 >60 38 Influenza A & B 11/12/2018 [facility] Influenza A NEGATIVE Negative [address] [place] [address] [phone] Influenza B Molecular NEGATIVE Negative Laboratory test 10/24/2018 [facility] Creatine 90 U/L Normal 10-[address] Kinase(CK) [place] [address] [phone] Lyme Screen W/ Reflex To WB Negative Negative Erythrocyte Sed Rate 40 mm/Hr High 0-29 Cyclic Citrullinated Pep Igg <15.6 U 40 Nuclear AB 10/24/2018 [facility] Nuclear Ab Positive 1:160 Abnormal 41 (Laina) By Ifa 101 (Laina) by Ifa, [place] [address] IgG [phone] Laina Titer: 1:160 Laina Pattern: Homogeneous 42 Laboratory test 10/24/2018 [facility] Rheumatoid < 10 Normal < [address] Factor IU/[place] [address] [phone] Comp Metabolic 10/24/2018 [facility] Sodium 139 Normal 135- [address] mmol/[place] [address] [phone] Potassium 4.7 mmol/L Normal 3.5-5.0 Chloride 107 mmol/L Normal 101-111 Co2 Carbon Dioxide 23 mmol/L Normal 22-32 Anion Gap 9 mmol/L Normal 2-11 Glucose 125 mg/dL High 70-100 Blood Urea Nitrogen 20 mg/dL Normal 6-24 Creatinine 0.91 mg/dL Normal 0.51-0.95 BUN/Creatinine Ratio 22.0 High 8-20 Calcium 9.2 mg/dL Normal 8.6-10.3 Total Protein 6.9 g/dL Normal 6.4-8.9 Albumin 4.4 g/dL Normal 3.2-5.2 Globulin 2.5 g/dL Normal 2-4 Albumin/Globulin Ratio 1.8 Normal 1-3 Total Bilirubin 0.40 mg/dL Normal 0.2-1.0 Alkaline Phosphatase 62 U/L Normal 34-104 Alt 30 U/L Normal 7-52 Ast 32 U/L Normal 13-39 Egfr Non- 60.9 >60 Egfr 73.7 >60 43 Laboratory test 10/17/2018 [facility] Lactic Acid 1.3 mmol/L Normal 0.5-2.0 [address] [place] [address] [phone] Comp Metabolic 10/17/2018 [facility] Sodium 138 mmol/L Normal 135-[address] [place] [address] [phone] Potassium 4.6 mmol/L Normal 3.5-5.0 Chloride 104 mmol/L Normal 101-111 Co2 Carbon Dioxide 25 mmol/L Normal 22-32 Anion Gap 9 mmol/L Normal 2-11 Glucose 179 mg/dL High 70-100 Blood Urea Nitrogen 21 mg/dL Normal 6-24 Creatinine 0.95 mg/dL Normal 0.51-0.95 BUN/Creatinine Ratio 22.1 High 8-20 Calcium 9.6 mg/dL Normal 8.6-10.3 Total Protein 7.1 g/dL Normal 6.4-8.9 Albumin 4.2 g/dL Normal 3.2-5.2 Globulin 2.9 g/dL Normal 2-4 Albumin/Globulin Ratio 1.4 Normal 1-3 Total Bilirubin 0.40 mg/dL Normal 0.2-1.0 Alkaline Phosphatase 64 U/L Normal 34-104 Alt 27 U/L Normal 7-52 Ast 28 U/L Normal 13-39 Egfr Non- 58.0 >60 Egfr 70.2 >60 45 Laboratory test 10/17/2018 [facility] C Reactive 4.89 mg/L Normal <8.[address] [place] [address] [phone] Troponin-I (TnI) 0.01 ng/mL <0.04 46 CBC Auto 10/17/2018 [facility] White Blood 7.8 10^3/uL Normal 3.5-10.[address] [place] [address] [phone] Red Blood Count 4.60 10^6/uL Normal 3.70-4.87 Hemoglobin 10.7 g/dL Low 12.0-16.0 Hematocrit 34 % Normal 33-41 Mean Corpuscular Volume 73 fL Low 80-97 Mean Corpuscular Hemoglobin 23 pg Low 27-31 Mean Corpuscular HGB Conc 32 g/dL Normal 31-36 Red Cell Distribution Width 16 % High 10.5-15 Platelet Count 226 10^3/uL Normal 150-450 Mean Platelet Volume 8.5 fL Normal 7.4-10.4 Abs Neutrophils 4.4 10^3/uL Normal 1.5-7.7 Abs Lymphocytes 2.2 10^3/uL Normal 1.0-4.8 Abs Monocytes 0.7 10^3/uL Normal 0-0.8 Abs Eosinophils 0.5 10^3/uL Normal 0-0.6 Abs Basophils 0 10^3/uL Normal 0-0.2 Abs Nucleated RBC 0 10^3/uL Granulocyte % 56.7 % Lymphocyte % 27.6 % Monocyte % 9.0 % Eosinophil % 6.1 % Basophil % 0.6 % Nucleated Red Blood Cells % 0.1 Urinalysis Profile 10/17/2018 [facility] Urine Color Straw [address] [place] [address] [phone] Urine Appearance Clear Urine Specific [place] 1.008 Low 1.010-1.030 Urine pH 5.0 Normal 5-9 Urine Urobilinogen Negative Negative Urine Ketones [...] Present Abnormal Absent Urine Culture And 10/17/2018 [facility] Urine Culture SEE RESULT [address] [place], [place] [address] [phone] 1 SEE RESULT BELOW Name: CHARLINE ANGULO : [address]: Tee Hilario MD Acct: [id number] Unit: [id number] AGE: 73 Location: ENDO Re03/21/19 SEX: F Status: REG REF SPEC: [id number] KATHE: 03/21/19-1437 [facility] DR: Tee Hilario MD REQ: [id number] RECD: 03/21/19 STATUS: IRINA MARRERO DR: Barrett Long NETWORK SECURITY ADMINISTRATOR _ SOURCE: GAS ANTRUM SPDESC: ORDERED: Clotest Procedure Result Reported Site Clotest Final 03/22/19- 0700 ML Clotest Negative * - Main Lab . END OF REPORT DEPARTMENT OF PATHOLOGY, [address] [place] [address] Anil Goodrich M.D. Director [facility] # [id number] 2 SEE RESULT BELOW Name: CHARLINE ANGULO : [address]: Tee Hilario MD Acct: [id number] Unit: [id number] AGE: 73 Location: ENDO Re03/21/19 SEX: F Status: DEP REF SPEC: [id number] KATHE: 03/21/19-1410 [facility] DR: Tee Hilario MD REQ: [id number] RECD: 03/21/195034 STATUS: LAURENCE MARRERO DR: Kari Long NETWORK SECURITY ADMINISTRATOR _ ORDERED: LEVEL 4/2, IMMUNO-FIRST ADDENDUM Addendum: An immunohistochemical stain for Helicobacter pylori-like organisms was performed with appropriate controls on part 1 and is negative. Addendum Signed (signature on file) Anil Goodrich MD 1156 FINAL DIAGNOSIS 1. Stomach, antrum, biopsy: -- Gastric antral mucosa with no significant pathologic abnormality. -- No active gastritis or Helicobacter pylori-like organisms identified on H E microscopy. See comment. 2. Biopsy anastomotic nodule at 12 cm, biopsy: -- Large intestinal mucosa with ulceration and acute and chronically inflamed granulation tissue. -- Reactive glandular changes. -- No evidence of adenomatous change or malignancy. Comment: An immunohistochemical stain for Helicobacter pylori-like organisms with appropriate controls is pending in part 1 and will be reported in an addendum. CLINICAL HISTORY Epigastric to costal margins ??? with meals/after emesis 3 weeks ago easting ; then diarrhea CONTINUED ON NEXT PAGE DEPARTMENT OF PATHOLOGY, [address] [place] [address] Anil Goodrich M.D. Director [facility] # [id number] POST-OPERATIVE DIAGNOSIS EGD: larynx ??? narrow; esophagus ??? small hiatal hernia sliding ( intermittent); stomach ??? 3 plus whispy streaky bleeding; duodenum ??? normal x 35 cm; colonoscopy; to 25 cm terminal ileum normal; except at 12 with nodules biopsy; conclusions: small hiatal hernia; gastritis; iron deficiency anemia GROSS DESCRIPTION 1. The specimen is received in formalin labeled, Biopsy Gastric Antrum, and consists of two schafer-pink irregular soft tissue fragments measuring 0.3 x 0.2 x 0.1 cm and 0.5 by up to 0.3 x 0.2 cm which are submitted entirely in one cassette. 2. The specimen is received in formalin labeled, Biopsy Anastomotic Nodule at 12 cm, and consists of two schafer-pink irregular soft tissue fragments measuring 0.3 x 0.2 x 0.2 cm and 0.4 by up to 0.3 x 0.1 cm which are submitted entirely in one cassette. Signed by and Reported on: Anil Goodrich MD 1147 END OF REPORT DEPARTMENT OF PATHOLOGY, [address] [place] [address] Anil Goodrich M.D. Director [facility] # [id number] 3 Business Dean: [id number] 4 Because ethnic data is not always [...] 5 Kidney failure <15 (or dialysis) 5 Therapeutic target for the treatment of diabetes mellitus patients is <7% HBA1C, and in selective patients <6.0%. Please refer to [place] [employer] diabetic care guidelines for further information. 6 Because ethnic data is not always [...] 5 Kidney failure <15 (or dialysis) 7 Critical Result LACT:2.9 Called to [id number] at: 16:13:18 by:[id number] Read back by:[id number] [place] Severe Sepsis and Septic Shock Management Bundle Measure requires all lactic acids initially measuring >2.0 mmol/L be repeated. 8 SEE RESULT BELOW Name: CHARLINE ANGULO : [address]: Elliot Thakur MD Acct: [id number] Unit: [id number] AGE: 73 Location: ED Re02/19/19 SEX: F Status: DEP ER SPEC: [id number] KATHE: 02/19/19-1639 [facility] DR: Elliot Thakur MD REQ: [id number] RECD: 02/19/19 STATUS: IRINA MARRERO DR: Barrett Long NETWORK SECURITY ADMINISTRATOR _ SOURCE: BLOOD,VENO SPDESC: ORDERED: Blood Cult Procedure Result Reported Site Aerobic Culture Bottle Final 02/24/19- 1649 ML No Growth Day 5 Anaerobic Culture Bottle Final 02/24/19- 1649 ML No Growth Day 5 * ML - Main Lab . END OF REPORT DEPARTMENT OF PATHOLOGY, [address] [place] [address] Anil Goodrich M.D. Director [facility] # [id number] 9 Comment: Please collect after 2L IVF 10 Critical Result LACT:2.3 Called to [id number] at: 17:25:43 by:[id number] Read back by:[id number] [facility] Severe Sepsis and Septic Shock Management Bundle Measure requires all lactic acids initially measuring >2.0 mmol/L be repeated. 11 Consistent with Previous Results Reported on 11/12/2018 12 Normal Range 180 to 914 Indeterminate Range 145 to 180 Deficient Range <145 13 Normal values may vary with age, season and geographic area. Titers above upper limits may be indicative of infection, however only a two dilution rise in titer is required to be considered significant. ASO titer will usually rise above upper limits within one week of exposure, increase to peak levels at 3-5 weeks and return to baseline level at 6-12 twelve months. 14 REFERENCE VALUE Not Applicable 15 RESULT: HLA-B27 antigen was not detected. ADDITIONAL INFORMATION Method: Flow Cytometry Performing Laboratory CLIA# [id number] Test Performed by: [facility] - [place] [id number] Negative for cANCA and pANCA patterns by immunofluorescence. ADDITIONAL INFORMATION This test was developed and its performance characteristics determined by [facility] in a manner consistent with CLIA requirements. This test has not been cleared or approved by the U.S. Food and Drug Administration. Test Performed by: [facility] - [address] [address] 17 RESULT: No apparent monoclonal protein on serum electrophoresis. Test Performed by: [facility] - [address] [address] 18 REFERENCE VALUE <1.0 (Negative) 19 REFERENCE VALUE <1.0 (Negative) 20 REFERENCE VALUE <1.0 (Negative) 21 REFERENCE VALUE <1.0 (Negative) 22 REFERENCE VALUE <1.0 (Negative) 23 REFERENCE VALUE <1.0 (Negative) Test Performed by: [facility] [place] [address] 24 Test Performed by: [place] [id number] Test Performed by: [facility] [employer] [place] [address] 26 Test Performed by: [facility] [place] [address] 27 REFERENCE VALUE <30.0 (Negative) Test Performed by: [facility] [employer] [place] [address] 28 Please check labs and xrays today 29 [id number] 30 SEE RESULT BELOW Name: CHARLINE ANGULO : [address]: Barrett Long NP Acct: [id number] Unit: [id number] AGE: 73 Location: [facility] Re01/18/19 SEX: F Status: REG REF SPEC: [id number] KATHE: 01/18/19-1110 [facility] DR: Barrett Long NP REQ: [id number] RECD: 01/18/19 STATUS: COMP _ SOURCE: URINE SPDESC: ORDERED: Urine Culture COMMENTS: [id number] Urine Source: Random Procedure Result Reported Site Urine Culture Final 01/19/19- 3505 ML Few Enterobacteriacae; possible contamination. * ML - Main Lab . END OF REPORT DEPARTMENT OF PATHOLOGY, [address] [place] [address] Anil Goodrich M.D. Director [facility] # [id number] 31 [facility] Severe Sepsis and Septic Shock Management Bundle Measure requires all lactic acids initially measuring >2.0 mmol/L be repeated. 32 SEE RESULT BELOW Name: CHARLINE ANGULO : [address]: Lilibeth Wan MD Acct: [id number] Unit: [id number] AGE: 73 Location: ED Re11/12/18 SEX: F Status: DEP ER SPEC: [id number] KATHE: 11/12/18 [facility] DR: Lilibeth Wan MD REQ: [id number] RECD: 11/12/18 STATUS: IRINA MARRERO DR: Barrett Long NETWORK SECURITY ADMINISTRATOR _ SOURCE: URINE SPDESC: ORDERED: Urine Culture Procedure Result Reported Site Urine Culture Final 11/15/18- 0818 ML No growth of clinically significant organisms * ML - Main Lab . END OF REPORT DEPARTMENT OF PATHOLOGY, [address] [place] [address] Anil Goodrich M.D. Director [facility] # [id number] 33 SEE RESULT BELOW Name: CHARLINE ANGULO : [address]: Lilibeth Wan MD Acct: [id number] Unit: [id number] AGE: 73 Location: ED Re11/12/18 SEX: F Status: DEP ER SPEC: [id number] KATHE: 11/12/18-[address]: Lilibeth Wan MD REQ: [id number] RECD: 11/12/18 STATUS: IRINA MARRERO DR: Barrett Long NETWORK SECURITY ADMINISTRATOR _ SOURCE: BLOOD,[facility] ORDERED: Blood Cult COMMENTS: L AC Procedure Result Reported Site Aerobic Culture Bottle Final 11/17/182048 ML No Growth Day 5 Anaerobic Culture Bottle Final 11/17/182048 ML No Growth Day 5 * ML - Main Lab . END OF REPORT DEPARTMENT OF PATHOLOGY, [address] [place] [address] Anil Goodrich M.D. Director [facility] # [id number] 34 Standard intensity warfarin therapeutic range: 2.0-3.0 High intensity warfarin therapeutic range: 2.5-3.5 35 [facility] Severe Sepsis and Septic Shock Management Bundle Measure requires all lactic acids initially measuring >2.0 mmol/L be repeated. 36 Consistent with Previous Results Reported on 04/22/19 37 Troponin-I testing on Plasma Separator Tubes (PST) has a known false positive rate of 0.20-0.40%. All positive troponins reflex immediately to secondary confirmatory testing. Using the [employer] DxI 800 Access Immunoassay systems, the 99th percentile upper reference limit was demonstrated to be < 0.03 ng/mL. 38 Because ethnic data is not always [...] 5 Kidney failure <15 (or dialysis) 39 Business Dean: [id number] 40 REFERENCE VALUE <20.0 (Negative) Test Performed by: [facility] [employer] [facility] [employer] [address] [place] [id number] 41 REFERENCE VALUE <1:80 (Negative) 42 Test Performed by: [facility] [employer] [facility] [employer] [address] [place] [address] 43 Because ethnic data is not always [...] 5 Kidney failure <15 (or dialysis) 44 [facility] Severe Sepsis and Septic Shock Management Bundle Measure requires all lactic acids initially measuring >2.0 mmol/L be repeated. 45 Because ethnic data is not always [...] 5 Kidney failure <15 (or dialysis) 46 Troponin-I testing on Plasma Separator Tubes (PST) has a known false positive rate of 0.20-0.40%. All positive troponins reflex immediately to secondary confirmatory testing. Using the [employer] DxI 800 Access Immunoassay systems, the 99th percentile upper reference limit was demonstrated to be < 0.03 ng/mL. 47 SEE RESULT BELOW Name: CHARLINE ANGULO : [address]: Milo Matthew MD Acct: [id number] Unit: [id number] AGE: 72 Location: ED Re10/17/18 SEX: F Status: DEP ER SPEC: [id number] KATHE: 10/17/18 [facility] DR: Milo Matthew MD REQ: [id number] RECD: 10/17/18 STATUS: IRINA MARRERO DR: Barrett Long NETWORK SECURITY ADMINISTRATOR _ SOURCE: URINE SPDESC: ORDERED: Urine Culture Procedure Result Reported Site Urine Culture Final 10/18/18- 1459 ML Organism 1 STAPHYLOCOCCUS HAEMOLYTICUS No growth of clinically significant organisms * ML - Main Lab . END OF REPORT DEPARTMENT OF PATHOLOGY, [address] [place] [address] Anil Goodrich M.D. Director [facility] # [id number] Procedures Date Code Description Status 03/29/2019 22915 Remove Impacted Cerumen Completed 03/21/2019 81426 Colonoscopy Flexible W/Biopsy Completed 03/21/2019 01618 Endoscopy Upper GI Biopsy Completed 09/12/2018 [id number] Mammogram Completed 08/25/2017 [id number] Mammogram Completed 02/17/2017 [id number] Diabetic Retinal Eye Exam Completed 08/17/2016 [id number] Mammogram Completed 10/24/2015 25049087 Colonoscopy Completed 08/09/2015 [id number] Mammogram Completed Medical Devices Description No Information Available Encounters Type Date Location Provider Dx Diagnosis Office Visit 03/15/2019 [facility] Gastroenterology Breanna Posada, D64.9 Anemia, 3:30p NETWORK SECURITY ADMINISTRATOR unspecified Z79.899 Other alf (current) drug therapy R70.0 Elevated erythrocyte sedimentation rate E11.9 Type 2 diabetes mellitus without complications Office Visit 02/17/2019 [facility] Gastroenterology Tee TJayla E11.9 Type 2 diabetes 10:30a MD Sulaiman mellitus without complications D64.9 Anemia, unspecified K57.30 Dvrtclos of lg int w/o perforation or abscess w/o bleeding M19.049 Primary osteoarthritis, unspecified hand M54.5 Low back pain Z79.899 Other superintendent terminal (current) drug therapy Office Visit 02/06/2019 Rheumatology Sulaiman R70.0 Elevated 11:40a Services Of Jana Phelps M.D. erythrocyte sedimentation rate D64.9 Anemia, unspecified M54.6 Pain in thoracic spine M19.049 Primary osteoarthritis, unspecified hand E53.8 Deficiency of other specified B group vitamins Office Visit 01/20/2019 Rheumatology Sulaiman M06.4 Inflammatory 9:00a [facility] J[facility] Phelps M.D. polyarthropathy R79.82 Elevated C-reactive protein (CRP) D64.9 Anemia, unspecified R20.8 Other disturbances of skin sensation M54.2 Cervicalgia M54.6 Pain in thoracic spine M19.049 Primary osteoarthritis, unspecified hand R76.0 Raised antibody titer M45.0 Ankylosing spondylitis of multiple sites in spine Office Visit 12/26/2018 4:00p [facility] Internal Barrett Ethan, I10 Essential [facility] NETWORK SECURITY ADMINISTRATOR hypertension E11.9 Type 2 diabetes mellitus without complications R35.0 Frequency of micturition M54.5 Low back pain Z79.4 terminal superintendent (current) use of insulin Office Visit 11/11/2018 3:40p [facility] Internal Barrett Ethan, I10 Essential ( primary) Medicine - [facility] NETWORK SECURITY ADMINISTRATOR hypertension E11.9 Type 2 diabetes mellitus without complications Office Visit 10/24/2018 10:00a [facility] Internal Barrett Ethan, E11.9 Type 2 [facility] NETWORK SECURITY ADMINISTRATOR mellitus without complications I10 Essential (primary) hypertension R53.83 Other fatigue M25.50 Pain in unspecified joint M79.18 Myalgia, other site Assessments Date Code Description Provider 04/13/2019 I10 Essential (primary) hypertension Barrett Ethan, NETWORK SECURITY ADMINISTRATOR 04/13/2019 M54.2 Cervicalgia Barrett Ethan, NETWORK SECURITY ADMINISTRATOR 03/29/2019 E11.9 Type 2 diabetes mellitus without Barrett Ethan, NETWORK SECURITY ADMINISTRATOR complications 03/29/2019 I10 Essential (primary) hypertension Barrett Ethan, NETWORK SECURITY ADMINISTRATOR 03/29/2019 H61.21 Impacted cerumen, right ear Barrett Ethan, NETWORK SECURITY ADMINISTRATOR 03/29/2019 H65.01 Acute serous otitis media, right ear Barrett Ethan, NETWORK SECURITY ADMINISTRATOR 03/21/2019 D50.9 Iron deficiency anemia, unspecified Tee Hilario MD 03/21/2019 K57.30 Diverticulosis of large intestine without Tee Hilario MD perforation or abscess without bleeding 03/21/2019 Z90.49 Acquired absence of other specified parts of Tee Hilario MD digestive tract 03/21/2019 K29.70 Gastritis, unspecified, without bleeding Tee Hilario MD 03/21/2019 K21.9 Gastro-esophageal reflux disease without Tee Hilario MD esophagitis 03/21/2019 K44.9 Diaphragmatic hernia without obstruction or Tee Hilario MD gangrene 03/15/2019 D64.9 Anemia, unspecified Breanna Posada NP 03/15/2019 Z79.899 Other superintendent terminal (current) drug therapy Breanna Posada NP 03/15/2019 R70.0 Elevated erythrocyte sedimentation rate Breanna Posada, NETWORK SECURITY ADMINISTRATOR 03/15/2019 E11.9 Type 2 diabetes mellitus without Breanna Posada NP complications 02/17/2019 E11.9 Type 2 diabetes mellitus without Tee Hilario MD complications 02/17/2019 D64.9 Anemia, unspecified Tee Hilario MD 02/17/2019 K57.30 Diverticulosis of large intestine without Tee Hilario MD perforation or abscess without bleeding 02/17/2019 M19.049 Primary osteoarthritis, unspecified hand Tee Hilario MD 02/17/2019 M54.5 Low back pain Tee Hilario MD 02/17/2019 Z79.899 Other superintendent terminal (current) drug therapy Tee Hilario MD 02/06/2019 R70.0 Elevated erythrocyte sedimentation rate Sulaiman Phelps M.D. 02/06/2019 D64.9 Anemia, unspecified Sulaiman Phelps M.D. 02/06/2019 M54.6 Pain in thoracic spine Sulaiman Phelps M.D. 02/06/2019 M19.049 Primary osteoarthritis, unspecified hand Sulaiman Phelps M.D. 02/06/2019 E53.8 Deficiency of other specified B group Sulaiman Phelps M.D. vitamins 01/20/2019 M06.4 Inflammatory polyarthropathy Sulaiman Phelps M.D. 01/20/2019 R79.82 Elevated C-reactive protein (CRP) Sulaiman Phelps M.D. 01/20/2019 D64.9 Anemia, unspecified Sulaiman Phelps M.D. 01/20/2019 R20.8 Other disturbances of skin sensation Sulaiman Phelps M.D. 01/20/2019 M54.2 Cervicalgia Sulaiman Phelps M.D. 01/20/2019 M54.6 Pain in thoracic spine Sulaiman Phelps M.D. 01/20/2019 M19.049 Primary osteoarthritis, unspecified hand Sulaiman Phelps M.D. 01/20/2019 R76.0 Raised antibody titer Sulaiman Phelps M.D. 01/20/2019 M45.0 Ankylosing spondylitis of multiple sites in Sulaiman Phelps M.D. spine 12/26/2018 I10 Essential (primary) hypertension Barrett Long NP 12/26/2018 E11.9 Type 2 diabetes mellitus without Barrett Long NP complications 12/26/2018 R35.0 Frequency of micturition Barrett Long NP 12/26/2018 M54.5 Low back pain Barrett Long NP 12/26/2018 Z79.4 FPC (current) use of insulin Barrett Long NP 11/11/2018 I10 Essential (primary) hypertension Barrett Long NP 11/11/2018 E11.9 Type 2 diabetes mellitus without Barrett Long NP complications 10/24/2018 E11.9 Type 2 diabetes mellitus without Barrett Long NP complications 10/24/2018 I10 Essential (primary) hypertension Barrett Long NP 10/24/2018 R53.83 Other fatigue Barrett Long NP 10/24/2018 M25.50 Pain in unspecified joint Barrett Long NP 10/24/2018 M79.18 Myalgia, other site Barrett Long NP Plan of Treatment Future Appointment(s):05/11/2019 3:40 pm - Barrett Long [facility] at [facility] pm - Barrett Long NP at [facility] Internal Medicine - [facility]05/01/2019 4:00 pm - Tee Hilario MD at [facility] Hggvjnvacjjoduhp36/17/ 2019 - Barrett Long NPI10 Essential (primary) hypertensionNew Medication: Amlodipine Besylate 2.5 mg - 1 by mouth every dayComments:Your blood pressure is elevated today. Start taking the Amlodipine daily. Continue to check your blood pressure daily. If consistently running greater than 140/90 (either number ) please call. Also let me know if it is running low.Follow up:4 hpihzN08.2 CervicalgiaNew Medication:Cyclobenzaprine HCL 10 mg - 1 tablet by mouth bid as needed muscle spasmsNew Therapy:Physical TherapyComments:I have prescribed the Flexeril (cyclobenzaprine) that you have used before. This may make you tired. Functional Status Description No Information Available Mental Status Description No Information Available Referrals Refer to Reason for Referral Status Appt Date Tee Hilario MD Please eval patient for GI sources of Iron Sent deficiency anemia, history of diverticular disease [address] [place] [address] [phone] Sulaiman Phelps MD Sent 01/20/2019 [address] [facility] [place] [address] [place] [address] [phone]
--- OUTSIDE RECORDS SUMMARY | 2019-04-18 19:41 | XMS REPORT | Continuity of Care Document ---
:1945 External Reference #:[id number] Author Name Breanna Posada NP (transmitted by agent of provider Erin Dominguez) Address [address] [place] [address] Care Team Providers Name Role Phone Davis Smith MD - Surgery Care Team Information Lifestyle Director [phone] Kari He MD - Internal Care Team Information Lifestyle Director Medicine Sulaiman Phelps MD - Rheumatology Care Team Information Lifestyle Director Problems Active Problems Provider Date Type 2 [...] Patient has never smoked Smoking Status Reviewed: 03/15/19 Patient has never smoked Exercise Type/Frequency 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 [employer] Allergies, Adverse Reactions, Alerts Active Allergies Reaction Severity Comments Date Iodinated Diagnostic Agents Hives 09/24/2016 Codeine Nausea and Vomiting 09/24/2016 Compazine convulsions 09/24/2016 Jardiance yeast infection 12/16/2016 Trulicity diarrhea 12/21/2016 Medications Active Medications SIG Qnty Indications Ordering Date Provider Venofer infusion of 200 mg in 100ml Breanna Posada, 03/02/2019 20mg/ml a maximum of 100 mL LAYOUT MECHANIC Solution of 0.9% NaCl over a period of 60 minutes Suprep Bowel Prep take according to the 354ml Tee Galvan 02/22/2019 Kit instructions you MD Sulaiman received, the 17.5-3.13-1.6GM/177 afternoon before and ML Solution morning of your procedure. Fast Acting B12 sublingual daily 90tabs Sulaiman Phelps, 02/06/2019 M.D. 2500mcg Tablets Sub Iron (Ferrous take one 60tabs Sulaiman Phelps, 01/29/2019 Sulfate) capsule/tablet daily M.D. 142(45Fe) by mouth mg Tablets ER Accu-Chek Emily Check Blood Sugar Up 200units Barrett Long NP 11/13/2018 Plus To Three Times Daily Strips Glipizide XL one tablet once daily 90tabs E11.9 Barrett Long NP 11/11/2018 5mg Tablets ER 24HR Blood Pressure check bp twice weekly 1units I10 Barrett Long NP 10/24/2018 Monitor Auto at home Inflate [place] Blood Glucose check blood sugar 1units E11.9 Barrett Long NP 10/24/2018 Monitoring System once daily and when feeling symtoms W/Device Kit Toujeo Solostar inject subcutaneously 3samples Barrett Long NP 09/23/2018 50 units once daily 300Unit/ML Solution Pen-Inject Fluticasone Shake Liquid And Use 48units J30.89 Barrett Long NP 09/23/2018 Propionate 2 Sprays In Each Nostril Every Day 50mcg/Act Suspension Accu-Check Glucose use devise as 1units E11.9 Mina Mckeon 09/24/2017 Monitor instructed daily last [place], Device visit: 09/24/17, october MERI Nichole change product if insurance does not cover Accu-Check Emily check blood sugar up 100units E11.9 Barrett Long NP 2017 Chem Strips to three times daily Misc last visit: 09/24/17 may change product if insurance does not cover Accu-Check Emily use with glucometer 100units E11.9 Mina Mckeon 2017 Lancet Drums up to three times [place], Misc daily, last visit: MERI Nichole 09/24/17 product may be changed if the insurance does not cover Pen Gruetli Laager 11/10" use one time a daily 100units E11.9 Barrett Long NP 03/19 with toujeo last 31G X 8 mm Misc visit: 09/24/17 Januvia Take 1 Tablet By 90tabs Barrett Long NP 12/21/2016 100mg Mouth Every Day Tablets Lovastatin take 1 tablet by 90tabs Barrett Long NP 12/16/2016 10mg mouth at bedtime Tablets Losartan Potassium take 1 tablet by 180tabs Barrett Long NP 10/15/2016 mouth twice daily 50mg Tablets Aspirin Low Dose Every Day 100units Unknown 09/25/2016 81mg Chewtabs Pantoprazole Sodium take 1 tablet by 180tabs Barrett Long NP 02/06/2015 mouth daily 20mg Tablets DR Metformin HCL take 1 tablet by 180tabs Barrett Long NP 02/01/2015 mouth twice a day 1000mg Tablets Tylenol 2 tablets every 4 Unknown 325mg hours as needed for Capsules pain Atenolol take 1 tablet by 60tabs Yoko Dickerson 50mg mouth twice a day N.P. Tablets History Medications Feraheme feraheme infusion 510ml Peter Mandy 02/18/2019 - 510mg/17ML 510 mg intravenously MD [...] one by mouth twice a 14tabs Yoko Dickerson, 2018 - methoprim DS day for 7 days N.P. 11/21/2018 800-160mg Tablets Cheryl Oakesjason Long NP 09/23/2018 - 09/23/2018 300Unit/ML Solution Pen-Inject Medications Administered in Office Medication SIG Qnty Indications Ordering Provider Date Pneumococcal,Unspecified Unknown 11/09/2009 Injection Immunizations CPT Code Status Date Vaccine Reaction Lot # [id number] Given 03/23/2018 Influenza Virus Vaccine, Quadrivalent, Split, Preservative Free [id number] Given 06/24/2017 Pneumonia Vaccine [id number] Given 03/19/2017 Influenza Virus Vaccine, NO IMMEDIATE REACTION , [id number] Quadrivalent, Split, PT TOLERATED WELL Preservative Free 55344 Given 04/29/2015 Pneumococcal Conjugate Vaccine 13 Valent For Intramuscular Use Vital Signs Date Vital Result Comment 03/15/2019 3:48pm Height 63 inches 5'3" Weight 172.00 lb Heart Rate 66 /min BP Systolic 119 mmHg BP Diastolic 69 mmHg O2 % BldC Oximetry 98 % BMI (Body Mass Index) 30.5 kg/m2 02/17/2019 10:32am Height 63 inches 5'3" Weight 183.00 lb Heart Rate 66 /min BP Systolic 157 mmHg BP Diastolic 78 mmHg O2 % BldC Oximetry 98 % BMI (Body Mass Index) 32.4 kg/m2 Results Test Date Facility Test Result H/L Range Note CBC No Diff 03/09/2019 [facility] White Blood 5.1 10^3/uL Normal 3.5-10.[address] [place] [address] [phone] Red Blood Count 4.24 10^6/uL Normal 3.70-4.87 Hemoglobin 11.3 g/dL Low 12.0-16.0 Hematocrit 34 % Low 35-47 Mean Corpuscular Volume 80 fL Normal 80-97 Mean Corpuscular Hemoglobin 27 pg Normal 27-31 Mean Corpuscular HGB Conc 33 g/dL Normal 31-36 Red Cell Distribution Width 23 % High 10-15 Platelet Count 189 10^3/uL Normal 150-450 Mean Platelet Volume 8.0 fL Normal 7.4-10.4 Laboratory test 03/09/2019 [facility] Ferritin 279.5 ng/mL Normal 11-[address] [place] [address] [phone] Basic Metabolic 03/09/2019 [facility] Sodium 142 mmol/L Normal 135-[address] [place] [address] [phone] Potassium 4.3 mmol/L Normal 3.5-5.0 Chloride 108 mmol/L Normal 101-111 Co2 Carbon Dioxide 25 mmol/L Normal 22-32 Anion Gap 9 mmol/L Normal 2-11 Glucose 131 mg/dL High 70-100 Blood Urea Nitrogen 16 mg/dL Normal 6-24 Creatinine 0.94 mg/dL Normal 0.51-0.95 BUN/Creatinine Ratio 17.0 Normal 8-20 Calcium 8.9 mg/dL Normal 8.6-10.3 Egfr Non- 58.5 >60 Egfr 70.8 >60 1 Laboratory 03/09/2019 [facility] Hemoglobin 6.6 % High 4.0- 5.6 [address] A1c ([place] [address] HGB) [phone] Laboratory 02/19/2019 [facility] Lactic Acid 2.3 Critical 0.5- 2.0 3, test finding [address] mmol/L high 4 [place], [place] [id number] [phone] Laboratory 02/19/2019 [facility] Blood Culture SEE [address] [place] [address] BELOW [phone] Laboratory 02/19/2019 [facility] Lactic Acid 2.9 Critical 0.5- 2.0 [address] mmol/L high [place], [place] [address] [phone] CBC Auto Diff 02/19/2019 [facility] White Blood 7.5 Normal 3.5 -10.[address] Count 10^3/[place] [address] [phone] Red Blood Count 4.64 10^6/uL Normal 3.70-4.87 [...] % Nucleated Red Blood Cells % 0.0 Comp Metabolic Panel 02/19/2019 [facility] Sodium 133 mmol/L Low 135-[address] [place] [address] [phone] Potassium 4.1 mmol/L Normal 3.5-5.0 Chloride 100 [...] Egfr Non- 52.7 >60 Egfr 63.7 >60 7 Laboratory test 02/19/2019 [facility] Lipase 16 U/L Normal 11.0-82.[address] [place] [address] [phone] Urinalysis 02/19/2019 [facility] Urine Color Yellow Profile [address] [place] [address] [phone] Urine Appearance Cloudy Urine Specific [place] 1.015 Normal 1.010-1.030 Urine pH 5.0 Normal [...] Epithelial Cell Present Abnormal Absent CBC Auto 01/20/2019 [facility] White Blood 6.2 10^3/uL Normal 3.5-10.[address] [place] [address] [phone] Red Blood Count 4.55 10^6/uL Normal 3.70-4.87 Hemoglobin 10.5 g/dL Low 12.0-16.0 Hematocrit 34 % Low 35-47 Mean Corpuscular Volume 74 fL Low 80-97 8 Mean Corpuscular Hemoglobin 23 pg Low 27-31 [...] Blood Cells % 0.0 Vitamin B12 01/20/2019 [facility] Vitamin B12 187 pg/mL Normal 180-914 9 And Folate [address] [place] [address] [phone] Folic Acid (Folate) > 20.00 ng/mL >3.99 Laboratory test 01/20/2019 [facility] Ferritin 9.0 ng/mL Low 11-307 [place] [address] [phone] T3 Free 3.80 pg/mL Normal 2.5-3.9 C Reactive Protein 6.96 mg/L Normal <8.01 Aso (Antistreptolysin O) Titer Negative IU/mL <200 Iu/mL 10 Iron & Iron Binding 01/20/2019 [facility] Iron 39 g/dL Low 50-212 [place] [address] [phone] Unsaturated Iron Binding < 520 g/dL Total Iron Binding Capacity 535 g/dL High 250-450 Transferrin 382 mg/dL High 203-362 % Iron Saturation 7 % Low 15-55 Hla B27 01/20/2019 [facility] Hla B27 Negative 11 [place] [address] [phone] Hla B27 Interp See Comment 12 Laboratory 01/20/2019 [facility] Thyroperoxidase 0.72 IU/mL Normal <9 [place] [address] [phone] Anca AB Ser 01/20/2019 [facility] C-[place] [address] [phone] P-Anca Negative Negative 13 Protein 01/20/2019 [facility] Total 6.9 g/dL 6.3 - Electrophoresis Protein(Pep) 7.9 [place] [address] [phone] Albumin 3.5 g/dL 3.4-4.7 Alpha-1 Globulin 0.3 g/dL 0.1-0.3 Alpha-2 Globulin 1.1 g/dL Abnormal 0.6-1.0 Beta Globulin 1.2 g/dL 0.7-1.2 Gamma Globulin 0.8 g/dL 0.6-1.6 Albumin/Globulin Ratio 1.05 Impression See Comment 14 Madai Igg AB Reflex 01/20/2019 [facility] SS-A/Ro Antibody <0.2 U [address] [place] [address] [phone] SS-B/La Antibody <0.2 U 16 Sm (Brown) IgG Antibody <0.2 U 17 PLATEN GRINDER Antibody, IgG <0.2 U 18 Scl-70 (Scleroderma) Antibody <0.2 U 19 Tatyana-1 Antibody <0.2 U 20 Laboratory test 01/20/2019 [facility] Angiotensin 57 U/L 16 - 85 [address] [place] [address] [phone] Complement C3 145 mg/dL 75 - 175 22 Complement C4 28 mg/dL 14 - 40 23 Anti Double Stranded Dna AB 17.6 IU/mL 24 Erythrocyte Sed Rate 35 mm/Hr High 0-29 25 Urine Culture And 01/18/2019 [facility] Urine Culture SEE RESULT 26, [address] [place] [address] [phone] Ua Routine 12/26/2018 [employer] [facility] House Ua Specific 1.020 [place] Ua PH 5 Ua Color yellow Ua Appera clear Ua WBC + Ua Protein trace Ua Glucose 100 Ua Ketones negative Ua Bilirubin negative Ua Urobilinogen normal Ua Nitrite positive Ua Occult Blood negative Laboratory test 12/26/2018 [facility] Hemoglobin A1c 8.2% High 5-7 finding Laboratory test 11/13/2018 [facility] Lactic Acid 1.2 mmol/L Normal 0.5-2.0 [address] [place] [address] [phone] Urine Culture And 11/12/2018 [facility] Urine Culture SEE RESULT [address] [place] [address] [phone] Laboratory test 11/12/2018 [facility] Blood Culture SEE RESULT [address] [place] [address] [phone] Urinalysis Profile 11/12/2018 [facility] Urine Color Yellow [address] [place] [address] [phone] Urine Appearance Cloudy Urine Specific [place] 1.018 Normal 1.010-1.030 Urine pH 5.0 Normal [...] Epithelial Cell Present Abnormal Absent Laboratory 11/12/2018 [facility] Partial 30.1 Normal 26.0- 36.3 test finding [address] [address] PTT [phone] Influenza A & 11/12/2018 [facility] Influenza A NEGATIVE Negative 31 B Request [address] [place] [address] [phone] Influenza B Molecular NEGATIVE Negative Comp Metabolic Panel 11/12/2018 [facility] Sodium 134 mmol/L Low 135-[address] [place] [address] [phone] Potassium 4.4 mmol/L Normal 3.5-5.0 Chloride 102 [...] Egfr Non- 51.0 >60 Egfr 61.7 >60 32 Laboratory test 11/12/2018 [facility] C Reactive 38.09 mg/L High <8.[address] [place] [address] [phone] Troponin-I (TnI) 0.01 ng/mL <0.04 33 Laboratory test 11/12/2018 [facility] Lactic Acid 1.8 mmol/L Normal 0.5-2.0 [address] [place] [address] [phone] CBC Auto Diff 11/12/2018 [facility] White Blood 3.9 Normal 3.5 -10.[address] Count 10^3/[place] [address] [phone] Red Blood Count 4.28 10^6/uL Normal 3.70-4.87 Hemoglobin 9.9 g/dL Low 12.0-16.0 Hematocrit 31 % Low 35-47 Mean Corpuscular Volume 72 fL Low 80-97 35 Mean Corpuscular Hemoglobin 23 pg Low 27-31 [...] % Nucleated Red Blood Cells % 0.0 Inr/Protime 11/12/2018 [facility] Inr 1.16 High 0.82-1.[address] [place] [address] [phone] Nuclear AB 10/24/2018 [facility] Nuclear Ab Positive Abnormal 37 (Laina) By Ifa 101 (Laina) by 1:160 [place] [address] Ifa, IgG [phone] Laina Titer: 1:160 Laina Pattern: Homogeneous 38 Laboratory test 10/24/2018 [facility] Rheumatoid < 10 Normal < [address] Factor IU/[place] [address] [phone] Comp Metabolic 10/24/2018 [facility] Sodium 139 Normal 135- [address] mmol/[place] [address] [phone] Potassium 4.7 mmol/L Normal 3.5-5.0 Chloride 107 [...] Egfr Non- 60.9 >60 Egfr 73.7 >60 39 Laboratory test 10/24/2018 [facility] Creatine 90 U/L Normal 10-[address] Kinase(CK) [place] [address] [phone] Lyme Screen W/ Reflex To WB Negative Negative Erythrocyte Sed Rate 40 mm/Hr High 0-29 Cyclic Citrullinated Pep Igg <15.6 U 40 Comp Metabolic 10/17/2018 [facility] Sodium 138 mmol/L Normal 135-[address] [place] [address] [phone] Potassium 4.6 mmol/L Normal 3.5-5.0 Chloride 104 [...] Egfr Non- 58.0 >60 Egfr 70.2 >60 41 Laboratory test 10/17/2018 [facility] C Reactive 4.89 mg/L Normal <8.[address] [place] [address] [phone] Troponin-I (TnI) 0.01 ng/mL <0.04 42 CBC Auto 10/17/2018 [facility] White Blood 7.8 10^3/uL Normal 3.5-10.[address] [place] [address] [phone] Red Blood Count 4.60 10^6/uL Normal 3.70-4.87 [...] Blood Cells % 0.1 Urinalysis Profile 10/17/2018 [facility] Urine Color Straw [address] [place] [address] [phone] Urine Appearance Clear Urine Specific [place] 1.008 Low 1.010-1.030 Urine pH 5.0 Normal [...] Present Abnormal Absent Urine Culture And 10/17/2018 [facility] Urine Culture SEE RESULT [address] [place] [address] [phone] Laboratory test 10/17/2018 [facility] Lactic Acid 1.3 mmol/L Normal 0.5- [address] 2.0 [place] [address] [phone] Laboratory test 09/23/2018 [facility] Hemoglobin A1c 7.7% High 5-7 finding Urine Microalbumin 09/23/2018 [facility] Urine 117.[address] Creatinine mg/dL [place], [place] [address] [phone] Ur Microalbumin (mg/L) 755.0 mg/L Urine Microalbumin/Creatinine 642.3 High <31 Lipid Profile 09/20/2018 [facility] Triglycerides 83 mg/dL 45 (Trig/Chol/HDL) [address] [place] [address] [phone] Cholesterol 151 mg/dL 46 HDL Cholesterol 61.9 mg/dL 47 LDL Cholesterol 73 mg/dL 48 Basic Metabolic 09/20/2018 [facility] Sodium 142 mmol/L Normal 135-[address] [place] [address] [phone] Potassium 4.3 mmol/L Normal 3.5-5.0 Chloride 106 mmol/L Normal 101-111 Co2 Carbon Dioxide 26 mmol/L Normal 22-32 Anion Gap 10 mmol/L Normal 2-11 Glucose 160 mg/dL High 70-100 Blood Urea Nitrogen 22 mg/dL Normal 6-24 Creatinine 0.80 mg/dL Normal 0.51-0.95 BUN/Creatinine Ratio 27.5 High 8-20 Calcium 9.2 mg/dL Normal 8.6-10.3 Egfr Non- 70.7 >60 Egfr 85.6 >60 49 1 Because ethnic data is not always [...] 5 Kidney failure <15 (or dialysis) 2 Therapeutic target for the treatment of diabetes mellitus patients is <7% HBA1C, and in selective patients <6.0%. Please refer to [place] [employer] diabetic care guidelines for further information. 3 Comment: Please collect after 2L IVF 4 Critical Result LACT:2.3 Called to [id number] at: 17:25:43 by:[id number] Read back by:[id number] [email or web address] Severe Sepsis and Septic Shock Management Bundle Measure requires all lactic acids initially measuring >2.0 mmol/L be repeated. 5 SEE RESULT BELOW Name: OPERACHARLINE C : [address]: Elliot Thakur MD Acct: [id number] Unit: [id number] AGE: 73 Location: ED Re02/19/19 SEX: F Status: DEP ER SPEC: [id number] KATHE: 02/19/19 [facility] DR: Elliot Thakur MD REQ: [id number] RECD: 02/19/19 STATUS: IRINA MARRERO DR: Barrett Long LAYOUT MECHANIC _ SOURCE: BLOOD,VENO SPDESC: ORDERED: Blood Cult Procedure Result Reported Site Aerobic Culture Bottle Final 02/24/191648 ML No Growth Day 5 Anaerobic Culture Bottle Final 02/24/191648 ML No Growth Day 5 * ML - Main Lab . END OF REPORT DEPARTMENT OF PATHOLOGY, [address] [place] [address] Anil Goodrich M.D. Director [facility] # [id number] 6 Critical Result LACT:2.9 Called to [id number] at: 16:13:18 by:[id number] Read back by:[id number] [facility] Severe Sepsis and Septic Shock Management Bundle Measure requires all lactic acids initially measuring >2.0 mmol/L be repeated. 7 Because ethnic data is not always [...] 5 Kidney failure <15 (or dialysis) 8 Consistent with Previous Results Reported on 11/12/2018 9 Normal Range 180 to 914 Indeterminate Range 145 to 180 Deficient Range <145 10 Normal values may vary with age, season and geographic area. Titers above upper limits may be indicative of infection, however only a two dilution rise in titer is required to be considered significant. ASO titer will usually rise above upper limits within one week of exposure, increase to peak levels at 3-5 weeks and return to baseline level at 6-12 twelve months. 11 REFERENCE VALUE Not Applicable 12 RESULT: HLA-B27 antigen was not detected. ADDITIONAL INFORMATION Method: Flow Cytometry Performing Laboratory CLIA# [id number] Test Performed by: [address] [address] 13 Negative for cANCA and pANCA patterns by immunofluorescence. ADDITIONAL INFORMATION This test was developed and its performance characteristics determined by [facility] in a manner consistent with CLIA requirements. This test has not been cleared or approved by the U.S. Food and Drug Administration. Test Performed by: [facility] [place] [address] 14 RESULT: No apparent monoclonal protein on serum electrophoresis. Test Performed by: [facility] [place] [address] 15 REFERENCE VALUE <1.0 (Negative) 16 REFERENCE VALUE <1.0 (Negative) 17 REFERENCE VALUE <1.0 (Negative) 18 REFERENCE VALUE <1.0 (Negative) 19 REFERENCE VALUE <1.0 (Negative) 20 REFERENCE VALUE <1.0 (Negative) Test Performed by: [facility] [place] [address] 21 Test Performed by: [facility] - [place] [address] [place] [address] 22 Test Performed by: [facility] - [facility] [address] [place] [address] 23 Test Performed by: [facility] - [address] [address] 24 REFERENCE VALUE <30.0 (Negative) Test Performed by: [facility] - [address] [address] 25 Please check labs and xrays today 26 [id number] 27 SEE RESULT BELOW Name: CHARLINE ANGULO Mary Ann : [address]: Barrett Long NP Acct: [id number] Unit: [id number] AGE: 73 Location: [facility] Re01/18/19 SEX: F Status: REG REF SPEC: [id number] KATHE: 01/18/19-[address]: Barrett Long LAYOUT MECHANIC REQ: [id number] RECD: 01/18/19-323 STATUS: COMP _ SOURCE: URINE SPDESC: ORDERED: Urine Culture COMMENTS: [id number] Urine Source: Random Procedure Result Reported Site Urine Culture Final 01/19/19- 1645 ML Few Enterobacteriacae; possible contamination. * ML - Main Lab . END OF REPORT DEPARTMENT OF PATHOLOGY, [address] [place] [address] Anil Goodrich M.D. Director [facility] # [id number] 28 [facility] Severe Sepsis and Septic Shock Management Bundle Measure requires all lactic acids initially measuring >2.0 mmol/L be repeated. 29 SEE RESULT BELOW Name: OPERACHARLINE C : [address]: Lilibeth Wan MD Acct: [id number] Unit: [id number] AGE: 73 Location: ED Re11/12/18 SEX: F Status: DEP ER SPEC: [id number] KATHE: 11/12/18 [facility] DR: Lilibeth Wan MD REQ: [id number] RECD: 11/12/18 STATUS: IRINA MARRERO DR: Barrett Long LAYOUT MECHANIC _ SOURCE: URINE SPDESC: ORDERED: Urine Culture Procedure Result Reported Site Urine Culture Final 11/15/18- 0818 ML No growth of clinically significant organisms * ML - Main Lab . END OF REPORT DEPARTMENT OF PATHOLOGY, [address] [place] [address] Anil Goodrich M.D. Director [facility] # [id number] 30 SEE RESULT BELOW Name: CHARLINE ANGULO : [address]: Lilibeth Wan MD Acct: [id number] Unit: [id number] AGE: 73 Location: ED Re11/12/18 SEX: F Status: DEP ER SPEC: [id number] KATHE: 11/12/[address]: Lilibeth Wan MD REQ: [id number] RECD: 11/12/18 STATUS: IRINA MARRERO DR: Barrett Long LAYOUT MECHANIC _ SOURCE: BLOOD,VENO SPDESC: ORDERED: Blood Cult COMMENTS: L AC Procedure Result Reported Site Aerobic Culture Bottle Final 11/17/18- 2048 ML No Growth Day 5 Anaerobic Culture Bottle Final 11/17/18- 2048 ML No Growth Day 5 * ML - Main Lab . END OF REPORT DEPARTMENT OF PATHOLOGY, [address] [place] [address] Anil Goodrich M.D. Director [facility] # [id number] 31 Floor Representative: [id number] 32 Because ethnic data is not always readily [...] 15-29 5 Kidney failure <15 (or dialysis) 33 Troponin-I testing on Plasma Separator Tubes (PST) has a known false positive rate of 0.20-0.40%. All positive troponins reflex immediately to secondary confirmatory testing. Using the [employer] 800 Access Immunoassay systems, the 99th percentile upper reference limit was demonstrated to be < 0.03 ng/mL. 34 [facility] Severe Sepsis and Septic Shock Management Bundle Measure requires all lactic acids initially measuring >2.0 mmol/L be repeated. 35 Consistent with Previous Results Reported on 10/17/18 36 Standard intensity warfarin therapeutic range: 2.0-3.0 High intensity warfarin therapeutic range: 2.5-3.5 37 REFERENCE VALUE <1:80 (Negative) 38 Test Performed by: [facility] [employer] [address] [place] [address] 39 Because ethnic data is not always [...] 5 Kidney failure <15 (or dialysis) 40 REFERENCE VALUE <20.0 (Negative) Test Performed by: [facility] [employer] [address] [place] [address] 41 Because ethnic data is not always [...] 5 Kidney failure <15 (or dialysis) 42 Troponin-I testing on Plasma Separator Tubes (PST) has a known false positive rate of 0.20-0.40%. All positive troponins reflex immediately to secondary confirmatory testing. Using the [employer] 800 Access Immunoassay systems, the 99th percentile upper reference limit was demonstrated to be < 0.03 ng/mL. 43 SEE RESULT BELOW Name: CHARLINE ANGULO : [address]: Milo Matthew MD Acct: [id number] Unit: [id number] AGE: 72 Location: ED Re10/17/18 SEX: F Status: DEP ER SPEC: [id number] KATHE: 10/17/18 [facility] DR: Milo Matthew MD REQ: [id number] RECD: 10/17/18 STATUS: COMP [facility] DR: Barrett Long LAYOUT MECHANIC _ SOURCE: URINE SPDESC: ORDERED: Urine Culture Procedure Result Reported Site Urine Culture Final 10/18/18- 1459 ML Organism 1 STAPHYLOCOCCUS HAEMOLYTICUS No growth of clinically significant organisms * ML - Main Lab . END OF REPORT DEPARTMENT OF PATHOLOGY, [address] [place] [address] Anil Goodrich M.D. Director [facility] # [id number] [facility] Severe Sepsis and Septic Shock Management Bundle Measure requires all lactic acids initially measuring >2.0 mmol/L be repeated. 45 Desirable: <150 Borderline High: 150-199 High: 200-499 Very High: >500 46 Desirable: <200 Borderline High: 200-239 High: >239 47 Low: <40 Desirable: 40-60 High: >60 48 Desirable: <100 Near Optimal: 100-129 Borderline High: 130-159 High: 160-189 Very High: >189 49 Because ethnic data is not always readily [...] dialysis) Procedures Date Code Description Status 09/12/2018 [id number] Mammogram Completed 08/25/2017 [id number] Mammogram Completed 02/17/2017 [id number] Diabetic Retinal Eye Exam Completed 08/17/2016 [id number] Mammogram Completed 10/24/2015 [id number] Colonoscopy Completed 08/09/2015 [id number] Mammogram Completed Medical Devices Description No Information Available Encounters Type Date Location Provider Dx Diagnosis Office Visit 02/17/2019 [facility] Gastroenterology Tee Galvan E11.9 Type 2 diabetes 10:30a MD Sulaiman mellitus without complications D64.9 Anemia, unspecified 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 LAYOUT MECHANIC mellitus without complications I10 Essential (primary) hypertension R53.83 Other fatigue M25.50 Pain in unspecified joint M79.18 Myalgia, other site Office Visit 09/23/2018 3:00p [facility] Internal Barrett Ethan, LAYOUT MECHANIC Z00.00 Encntr for Medicine - [facility] general adult medical exam w/o abnormal findings E11.9 Type 2 diabetes mellitus without complications I10 Essential (primary) hypertension R10.9 Unspecified abdominal pain J30.89 Other allergic rhinitis Assessments Date Code Description Provider 02/17/2019 E11.9 Type 2 diabetes mellitus without Tee Hilario MD complications 02/17/2019 D64.9 Anemia, unspecified Tee Hilario MD 02/17/2019 K57.30 Diverticulosis of large intestine without Tee Hilario MD perforation or abscess without bleeding 02/17/2019 M19.049 Primary osteoarthritis, unspecified hand Tee Hilario MD 02/17/2019 M54.5 Low back pain Tee Hilario MD 02/17/2019 Z79.899 Other fpc (current) drug therapy Tee Hilario MD 02/06/2019 [...] spine 12/26/2018 I10 Essential (primary) hypertension Barrett Ethan, LAYOUT MECHANIC 12/26/2018 E11.9 Type 2 diabetes mellitus without Barrett Ethan, LAYOUT MECHANIC complications 12/26/2018 R35.0 Frequency of micturition Barretthayde Long, LAYOUT MECHANIC 12/26/2018 M54.5 Low back pain Barrett Ethan, LAYOUT MECHANIC 12/26/2018 Z79.4 detention (current) use of insulin Barrett Ethan, LAYOUT MECHANIC 11/11/2018 I10 Essential (primary) hypertension Barrett Ethan, LAYOUT MECHANIC 11/11/2018 E11.9 Type 2 diabetes mellitus without Barrett Ethan, LAYOUT MECHANIC complications 10/24/2018 E11.9 Type 2 diabetes mellitus without Barrett Ethan, LAYOUT MECHANIC complications 10/24/2018 I10 Essential (primary) hypertension Barrett Ethan, LAYOUT MECHANIC 10/24/2018 R53.83 Other fatigue Barrett Ethan, LAYOUT MECHANIC 10/24/2018 M25.50 Pain in unspecified joint Barrett Ethan, LAYOUT MECHANIC 10/24/2018 M79.18 Myalgia, other site Barrett Ethan, LAYOUT MECHANIC 09/23/2018 Z00.00 Encounter for general adult medical Barrett Ethan, LAYOUT MECHANIC examination without abno 09/23/2018 E11.9 Type 2 diabetes mellitus without Barrett Ethan, LAYOUT MECHANIC complications 09/23/2018 I10 Essential (primary) hypertension Barrett Ethan, LAYOUT MECHANIC 09/23/2018 R10.9 Unspecified abdominal pain Barrett Long NP 09/23/2018 J30.89 Other allergic rhinitis Barrett Long NP Plan of Treatment Future Appointment(s):03/21/2019 12:30 pm - Tee Hilario MD at [facility] Nmyeuhykdartmclj11/02/2019 3:40 pm - Barrett Long NP at [facility] Internal Medicine - [facility] Functional Status Description No Information Available Mental Status Description No Information Available Referrals Refer to Reason for Referral Status Appt Date Tee Hilario MD Please eval patient for GI sources of Iron Sent deficiency anemia, history of diverticular disease [address] [place] [address] [phone] Sulaiman Phelps MD Sent 01/20/2019 [address] [place] [address] [place] [address] [phone]
--- OUTSIDE RECORDS SUMMARY | 2019-04-18 19:41 | XMS REPORT | Continuity of Care Document ---
:1945 External Reference #:[id number] Author Name Barrett Long NP (transmitted by agent of provider Afshan Hill) Address [address], [place] [address] Care Team Providers Name Role Phone Davis Smith MD - Surgery Care Team Information Time Study Statistician [phone] Kari He MD - Internal Care Team Information Time Study Statistician Medicine Sulaiman Phelps MD - Rheumatology Care Team Information Time Study Statistician [phone] Problems Active Problems Provider Date Type 2 [...] Patient has never smoked Smoking Status Reviewed: 03/29/19 Patient has never smoked Exercise Type/Frequency 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 [employer] Allergies, Adverse Reactions, Alerts Active Allergies Reaction Severity Comments Date Iodinated Diagnostic Agents Hives 09/24/2016 Codeine Nausea and Vomiting 09/24/2016 Compazine convulsions 09/24/2016 Jardiance yeast infection 12/16/2016 Trulicity diarrhea 12/21/2016 Medications Active Medications SIG Qnty Indications Ordering Date Provider Glipizide XL 1 by mouth every E11.9 Barrett Long NP 03/29/2019 2.5mg day Tablets ER 24HR Basaglar Kwikpen 50 units once 15ml Barrett Long NP 03/29/2019 daily subcutneous 100Unit/ML Solution Pen-Inject Fast Acting B12 sublingual daily 90tabs Sulaiman Phelps, 02/06/2019 M.DJayla 2500mcg Tablets Sub Iron (Ferrous take one 60tabs Sulaiman Phelps, 01/29/2019 Sulfate) capsule/tablet M.DJayla 142(45Fe) mg daily by mouth Tablets ER Accu-Chek Emily Plus Check Blood Sugar 200units Barrett Long NP 11/13/2018 Up To Three Times Strips Daily Blood Pressure check bp twice 1units I10 Barrett Long NP 10/24/2018 Monitor Auto weekly at home [facility] Blood Glucose check blood sugar 1units E11.9 Barrett Long NP 10/24/2018 Monitoring System once daily and when feeling W/Device Kit symtoms Fluticasone Shake Liquid And 48units J30.89 Barrett Long NP 09/23/2018 Propionate Use 2 Sprays In 50mcg/Act Each Nostril Every Suspension Day Accu-Check Glucose use devise as 1units E11.9 Mina Mckeon 09/24/2017 Monitor instructed daily Dionisio Dorsey,FACP Device last visit: 09/24/17, may change product if insurance does not cover Accu-Check Emily check blood sugar 100units E11.9 Barrett Long NP 2017 Chem Strips up to three times Misc daily last visit: 09/24/17 may change product if insurance does not cover Accu-Check Emily use with 100units E11.9 Mina Mckeon 09/24/2017 Rusty Kevin glucometer up to Dionisio Dorsey,[facility] three times daily, last visit: 09/24/17 product may be changed if the insurance does not cover [place] 11/10" use one time a 100units E11.9 Barrett Long NP 03/19/2017 31G daily with toujeo X 8 mm Misc last visit: 09/24/17 Januvia Take 1 Tablet By 90tabs Barrett Long NP 12/21/2016 100mg Tablets Mouth Every Day Lovastatin take 1 tablet by 90tabs Barrett Long NP 12/16/2016 10mg mouth at bedtime Tablets Losartan Potassium take 1 tablet by 180tabs Barrett Long NP 10/15/2016 mouth twice daily 50mg Tablets Pantoprazole Sodium take 1 tablet by 180tabs Barrett Long NP 02/06/2015 mouth daily 20mg Tablets DR Metformin HCL take 1 tablet by 180tabs Barrett Long NP 02/01/2015 1000mg mouth twice a day Tablets Tylenol 2 tablets every 4 Unknown 325mg hours as needed Capsules for pain Atenolol take 1 tablet by 60tabs Barrett Long NP 50mg Tablets mouth twice a day History Medications Januvia 1 by mouth every day 30tabs E11.9 Barrett Long NP 03/17/2019 - 50mg Tablets 03/29/2019 Venofer infusion of 200 mg 100ml Breanna Posada, 03/02/2019 - 20mg/ml in a maximum of 100 GEOTECHNICIAL PROPERTIES TECHNICIAN 03/29/2019 Solution mL of 0.9% NaCl over [...] one by mouth twice a 14tabs Yoko Jayla, 2018 - methoprim DS day for 7 days N.P. 11/21/2018 800-160mg Tablets Glipizide XL one tablet once 90tabs E11.9 Barrett Long NP 11/11/2018 - 5mg daily 03/29/2019 Tablets ER 24HR Medications Administered in Office Medication SIG Qnty Indications Ordering Provider Date Pneumococcal,Unspecified Unknown 11/09/2009 Injection Immunizations CPT Code Status Date Vaccine Reaction Lot # [id number] Given 03/23/2018 Influenza Virus Vaccine, Quadrivalent, Split, Preservative Free [id number] Given 06/24/2017 Pneumonia Vaccine [id number] Given 03/19/2017 Influenza Virus Vaccine, NO IMMEDIATE REACTION , [id number] Quadrivalent, Split, PT TOLERATED WELL Preservative Free 55762 Given 04/29/2015 Pneumococcal Conjugate Vaccine 13 Valent For Intramuscular Use Vital Signs Date Vital Result Comment 03/29/2019 3:43pm Height 63 inches 5'3" Weight 178.25 lb Heart Rate 57 /min BP Systolic 158 mmHg Ra sitting BP Diastolic 88 mmHg Ra sitting BP Systolic Recheck 136 mmHg BP Diastolic Recheck 84 mmHg Body Temperature 97.9 F O2 % BldC Oximetry 98 % BMI (Body Mass Index) 31.6 kg/m2 03/15/2019 3:48pm Height 63 inches 5'3" Weight 172.00 lb Heart Rate 66 /min BP Systolic 119 mmHg BP Diastolic 69 mmHg O2 % BldC Oximetry 98 % BMI (Body Mass Index) 30.5 kg/m2 Results Test Date Facility Test Result H/L Range Note Laboratory test 03/21/2019 [facility] Clotest SEE RESULT [address] [place] [address] [phone] Laboratory test 03/21/2019 [facility] Surgical SEE RESULT [address] [place] [address] [phone] Laboratory test 03/21/2019 [facility] Point of Care 95 mg/dL Normal 70-[address] [place] [address] [phone] CBC No Diff 03/09/2019 [facility] White Blood 5.1 10^3/uL Normal 3.5-10.[address] [place] [address] [phone] Red Blood Count 4.24 10^6/uL Normal 3.70-4.87 Hemoglobin 11.3 g/dL Low 12.0-16.0 Hematocrit 34 % Low 35-47 Mean Corpuscular Volume 80 fL Normal 80-97 Mean Corpuscular Hemoglobin 27 pg Normal 27-31 Mean Corpuscular HGB Conc 33 g/dL Normal 31-36 Red Cell Distribution Width 23 % High 10-15 Platelet Count 189 10^3/uL Normal 150-450 Mean Platelet Volume 8.0 fL Normal 7.4-10.4 Laboratory test 03/09/2019 [facility] Ferritin 279.5 ng/mL Normal 11-[address] [place] [address] [phone] Basic Metabolic 03/09/2019 [facility] Sodium 142 mmol/L Normal 135-[address] [place] [address] [phone] Potassium 4.3 mmol/L Normal 3.5-5.0 Chloride 108 mmol/L Normal 101-111 Co2 Carbon Dioxide 25 mmol/L Normal 22-32 Anion Gap 9 mmol/L Normal 2-11 Glucose 131 mg/dL High 70-100 Blood Urea Nitrogen 16 mg/dL Normal 6-24 Creatinine 0.94 mg/dL Normal 0.51-0.95 BUN/Creatinine Ratio 17.0 Normal 8-20 Calcium 8.9 mg/dL Normal 8.6-10.3 Egfr Non- 58.5 >60 Egfr 70.8 >60 4 Laboratory test 03/09/2019 [facility] Hemoglobin A1c 6.6 % High 4.0-5.[address] (Glyco HGB) [place] [address] [phone] Urinalysis 02/19/2019 [facility] Urine Color Yellow Profile [address] [place] [address] [phone] Urine Appearance Cloudy Urine Specific Lagro 1.015 Normal 1.010-1.030 Urine pH 5.0 Normal [...] Cell Present Abnormal Absent Laboratory test 02/19/2019 [facility] Lipase 16 U/L Normal 11.0-82.0 finding [address] [place] [address] [phone] Comp Metabolic 02/19/2019 [facility] Sodium 133 mmol/L Low 135 -145 Panel [address] [place] [address] [phone] Potassium 4.1 mmol/L Normal 3.5-5.0 Chloride 100 [...] Egfr 63.7 >60 6 CBC Auto 02/19/2019 [facility] White Blood 7.5 10^3/uL Normal 3.5-10.8 Diff [address] [facility] [place] [address] [phone] Red Blood Count 4.64 10^6/uL Normal 3.70-4.87 [...] Red Blood Cells % 0.0 Laboratory 02/19/2019 [facility] Lactic 2.9 Critical 0.5-2.0 7 test finding [address] Acid mmol/[place] [address] [phone] Laboratory 02/19/2019 [facility] Blood SEE 8 test finding [address] [place] [place] [address] BELOW [phone] Laboratory 02/19/2019 [facility] Lactic 2.3 Critical 0.5-2.0 9, 10 test finding [address] Acid mmol/L high [place], [place] [id number] [phone] CBC Auto Diff 01/20/2019 [facility] White 6.2 Normal 3.5-10.[address] Blood 10^3/[place] [address] Count [phone] Red Blood Count 4.55 10^6/uL Normal 3.70-4.87 [...] Blood Cells % 0.0 Vitamin B12 01/20/2019 [facility] Vitamin B12 187 pg/mL Normal 180-914 12 And Folate [address] [facility] [place] [address] [phone] Folic Acid (Folate) > 20.00 ng/mL >3.99 Laboratory test 01/20/2019 [facility] Ferritin 9.0 ng/mL Low 11-307 finding [address] [place] [address] [phone] T3 Free 3.80 pg/mL Normal 2.5-3.9 C Reactive Protein 6.96 mg/L Normal <8.01 Aso (Antistreptolysin O) Titer Negative IU/mL <200 Iu/mL 13 Iron & Iron Binding 01/20/2019 [facility] Iron 39 g/dL Low 50-212 Capacity [address] [place] [address] [phone] Unsaturated Iron Binding < 520 g/dL Total Iron Binding Capacity 535 g/dL High 250-450 Transferrin 382 mg/dL High 203-362 % Iron Saturation 7 % Low 15-55 Hla B27 01/20/2019 [facility] Hla B27 Negative 14 [address] [place] [address] [phone] Hla B27 Interp See Comment 15 Laboratory 01/20/2019 [facility] Thyroperoxidase 0.72 IU/mL Normal <[address] [place] [address] [phone] Anca AB Ser 01/20/2019 [facility] C-Anca Negative Negative If [address] [place] [address] [phone] P-Anca Negative Negative 16 Protein 01/20/2019 [facility] Total 6.9 g/dL 6.3 - Electrophoresis [address] Protein(Pep) 7.9 [place] [address] [phone] Albumin 3.5 g/dL 3.4-4.7 Alpha-1 Globulin 0.3 g/dL 0.1-0.3 Alpha-2 Globulin 1.1 g/dL Abnormal 0.6-1.0 Beta Globulin 1.2 g/dL 0.7-1.2 Gamma Globulin 0.8 g/dL 0.6-1.6 Albumin/Globulin Ratio 1.05 Impression See Comment 17 Madai Igg AB Reflex 01/20/2019 [facility] SS-A/Ro Antibody <0.2 U [address] [place] [address] [phone] SS-B/La Antibody <0.2 U 19 Sm (Brown) IgG Antibody <0.2 U 20 TELEMARKETER SUPERVISOR Antibody, IgG <0.2 U 21 Scl-70 (Scleroderma) Antibody <0.2 U 22 Tatyana-1 Antibody <0.2 U 23 Laboratory test 01/20/2019 [facility] Angiotensin 57 U/L 16 - 85 [address] [place] [address] [phone] Complement C3 145 mg/dL 75 - 175 25 Complement C4 28 mg/dL 14 - 40 26 Anti Double Stranded Dna AB 17.6 IU/mL 27 Erythrocyte Sed Rate 35 mm/Hr High 0-29 28 Urine Culture And 01/18/2019 [facility] Urine Culture SEE RESULT 29, [address] [place] [address] [phone] Ua Routine 12/26/2018 [facility] Ua Specific 1.020 Lagro Ua PH 5 Ua Color yellow Ua Appera clear Ua WBC + Ua Protein trace Ua Glucose 100 Ua Ketones negative Ua Bilirubin negative Ua Urobilinogen normal Ua Nitrite positive Ua Occult Blood negative Laboratory test 12/26/2018 [facility] Hemoglobin A1c 8.2% High 5-7 finding Laboratory test 11/13/2018 [facility] Lactic Acid 1.2 mmol/L Normal 0.5-2.0 [address] [place] [address] [phone] Urine Culture And 11/12/2018 [facility] Urine Culture SEE RESULT [address] [place] [address] [phone] Laboratory test 11/12/2018 [facility] Blood Culture SEE RESULT [address] BEL[place], [place] [address] [phone] Urinalysis Profile 11/12/2018 [facility] Urine Color Yellow [address] [place], [place] [address] [phone] Urine Appearance Cloudy Urine Specific Lagro 1.018 Normal 1.010-1.030 Urine pH 5.0 Normal [...] Epithelial Cell Present Abnormal Absent Laboratory 11/12/2018 [facility] Partial 30.1 Normal 26.0- 36.3 test finding [address] [address] Time PTT [phone] Inr/Protime 11/12/2018 [facility] Inr 1.16 High 0.82-1.[address] [place] [address] [phone] Laboratory 11/12/2018 [facility] Lactic Acid 1.8 mmol/L Normal 0.5-2.0 35 test finding [address] [place] [address] [phone] CBC Auto Diff 11/12/2018 [facility] White Blood 3.9 10^3/uL Normal 3.5-10.[address] Count [place], [place] [address] [phone] Red Blood Count 4.28 10^6/uL Normal 3.70-4.87 [...] Blood Cells % 0.0 Laboratory test 11/12/2018 [facility] C Reactive 38.09 mg/L High <8.[address] [place] [address] [phone] Troponin-I (TnI) 0.01 ng/mL <0.04 37 Comp Metabolic Panel 11/12/2018 [facility] Sodium 134 mmol/L Low 135-[address] [place] [address] [phone] Potassium 4.4 mmol/L Normal 3.5-5.0 Chloride 102 [...] >60 38 Influenza A & B 11/12/2018 [facility] Influenza A NEGATIVE Negative [address] [place] [address] [phone] Influenza B Molecular NEGATIVE Negative Laboratory test 10/24/2018 [facility] Creatine 90 U/L Normal 10-[address] Kinase(CK) [place] [address] [phone] Lyme Screen W/ Reflex To WB Negative Negative Erythrocyte Sed Rate 40 mm/Hr High 0-29 Cyclic Citrullinated Pep Igg <15.6 U 40 Nuclear AB 10/24/2018 [facility] Nuclear Ab Positive 1:160 Abnormal 41 (Laina) By Ifa [address] (Laina) by Ifa, [place] [address] IgG [phone] Laina Titer: 1:160 Laina Pattern: Homogeneous 42 Laboratory test 10/24/2018 [facility] Rheumatoid < 10 Normal < [address] Factor IU/[place] [address] [phone] Comp Metabolic 10/24/2018 [facility] Sodium 139 Normal 135- [address] mmol/[place] [address] [phone] Potassium 4.7 mmol/L Normal 3.5-5.0 Chloride 107 [...] Egfr 73.7 >60 43 Laboratory test 10/17/2018 [facility] Lactic Acid 1.3 mmol/L Normal 0.5-2.[address] [place] [address] [phone] Comp Metabolic 10/17/2018 [facility] Sodium 138 mmol/L Normal 135-[address] [place] [address] [phone] Potassium 4.6 mmol/L Normal 3.5-5.0 Chloride 104 [...] Egfr 70.2 >60 45 Laboratory test 10/17/2018 [facility] C Reactive 4.89 mg/L Normal <8.[address] [place] [address] [phone] Troponin-I (TnI) 0.01 ng/mL <0.04 46 CBC Auto 10/17/2018 [facility] White Blood 7.8 10^3/uL Normal 3.5-10.[address] [place] [address] [phone] Red Blood Count 4.60 10^6/uL Normal 3.70-4.87 [...] Blood Cells % 0.1 Urinalysis Profile 10/17/2018 [facility] Urine Color Straw [address] [place] [address] [phone] Urine Appearance Clear Urine Specific Lagro 1.008 Low 1.010-1.030 Urine pH 5.0 Normal [...] Present Abnormal Absent Urine Culture And 10/17/2018 [facility] Urine Culture SEE RESULT [address] [place] [address] [phone] 1 SEE RESULT BELOW Name: CHARLINE ANGULO : [address]: Tee Hilario MD Acct: [id number] Unit: [id number] AGE: 73 Location: [facility] Re03/21/19 SEX: F Status: REG REF SPEC: [id number] KATHE: 03/21/19-[address]: Tee Hilario MD REQ: [id number] RECD: 03/21/19 STATUS: IRINA MARRERO DR: Barrett Long GEOTECHNICIAL PROPERTIES TECHNICIAN _ SOURCE: GAS ANTRUM SPDESC: ORDERED: Clotest Procedure Result Reported Site Clotest Final 03/22/19- 07 ML Clotest Negative * ML - Main Lab . END OF REPORT DEPARTMENT OF PATHOLOGY, [address] [place] [address] Anil Goodrich M.D. Director [facility] # [id number] 2 SEE RESULT BELOW Name: CHARLINE ANGULO : [address]: Tee Hilario MD Acct: [id number] Unit: [id number] AGE: 73 Location: ENDO Re03/21/19 SEX: F Status: DEP REF SPEC: [id number] KATHE: 03/21/19-1410 [facility] DR: Tee Hilario MD REQ: [id number] RECD: 03/21/19 STATUS: LAURENCE MARRERO DR: Kari Long GEOTECHNICIAL PROPERTIES TECHNICIAN _ ORDERED: LEVEL 4/2, IMMUNO-FIRST ADDENDUM Addendum: [...] CONTINUED ON NEXT PAGE DEPARTMENT OF PATHOLOGY, [facility] [employer] [place] [address] Anil Goodrich M.D. Director [facility] # [id number] POST-OPERATIVE DIAGNOSIS EGD: larynx ??? narrow; esophagus [...] 1147 END OF REPORT DEPARTMENT OF PATHOLOGY, [facility] [employer] [place], [place] [address] Anil Goodrich M.D. Director [facility] # [id number] 3 Test Engineering Intern: [id number] Because ethnic data is not always [...] in selective patients <6.0%. Please refer to [place] [employer] diabetic care guidelines for further [...] dialysis) 7 Critical Result LACT:2.9 Called to [id number] at: 16:13:18 by:[email or web address] Read back by:[facility] Severe Sepsis and Septic Shock Management Bundle Measure requires all lactic acids initially measuring >2.0 mmol/L be repeated. 8 SEE RESULT BELOW Name: CHARLINE ANGULO : [address]: Elliot Thakur MD Acct: [id number] Unit: [id number] AGE: 73 Location: ED Re02/19/19 SEX: F Status: DEP ER SPEC: [id number] KATHE: 02/19/19-1640 [facility] DR: Elliot Thakur MD REQ: [id number] RECD: 02/19/19 STATUS: IRINA MARRERO DR: Barrett Long GEOTECHNICIAL PROPERTIES TECHNICIAN _ SOURCE: BLOOD,VENO SPDESC: ORDERED: Blood Cult Procedure Result Reported Site Aerobic Culture Bottle Final 02/24/19- 1649 ML No Growth Day 5 Anaerobic Culture Bottle Final 02/24/19- 1649 ML No Growth Day 5 * ML - Main Lab . END OF REPORT DEPARTMENT OF PATHOLOGY, [address] [place] [address] Anil Goodrich M.D. Director [facility] # [id number] 9 Comment: Please collect after 2L IVF 10 Critical Result LACT:2.3 Called to [id number] at: 17:25:43 by:[id number] Read back by:[facility] Severe Sepsis and Septic Shock Management [...] INFORMATION Method: Flow Cytometry Performing Laboratory CLIA# [id number] Test Performed by: [address] [address] 16 Negative for cANCA and pANCA patterns by immunofluorescence. ADDITIONAL INFORMATION This test was developed and its performance characteristics determined by [facility] in a manner consistent with CLIA requirements. This test has not been cleared or approved by the U.S. Food and Drug Administration. Test Performed by: [facility] [employer] [place] [address] 17 RESULT: No apparent monoclonal protein on serum electrophoresis. Test Performed by: [facility] [place] [address] 18 REFERENCE VALUE <1.0 (Negative) 19 REFERENCE VALUE <1.0 (Negative) 20 REFERENCE VALUE <1.0 (Negative) 21 REFERENCE VALUE <1.0 (Negative) 22 REFERENCE VALUE <1.0 (Negative) 23 REFERENCE VALUE <1.0 (Negative) Test Performed by: [facility] [place] [address] 24 Test Performed by: [facility] [address] [place] [address] 25 Test Performed by: [facility] [address] [place] [address] 26 Test Performed by: [facility] [place] [address] 27 REFERENCE VALUE <30.0 (Negative) Test Performed by: [facility] [place] [address] 28 Please check labs and xrays today 29 [id number] 30 SEE RESULT BELOW Name: CHARLINE ANGULO : [address]: Barrett Long NP Acct: [id number] Unit: [id number] AGE: 73 Location: [facility] Re01/18/19 SEX: F Status: REG REF SPEC: [id number] KATHE: 01/18/19-[address]: Barrett Long NP REQ: [id number] RECD: 01/18/19-2039 STATUS: COMP _ SOURCE: URINE SPDESC: ORDERED: Urine Culture COMMENTS: [id number] Urine Source: Random Procedure Result Reported Site Urine Culture Final 01/19/19- 1645 ML Few Enterobacteriacae; possible contamination. * ML - Main Lab . END OF REPORT DEPARTMENT OF PATHOLOGY, [address] [place] [address] Anil Goodrich M.D. Director [facility] # [id number] [facility] Severe Sepsis and Septic Shock Management Bundle Measure requires all lactic acids initially measuring >2.0 mmol/L be repeated. 32 SEE RESULT BELOW Name: CHARLINE ANGULO : [address]: Lilibeth Wan MD Acct: [id number] Unit: [id number] AGE: 73 Location: ED Re11/12/18 SEX: F Status: DEP ER SPEC: [id number] KATHE: 11/12/18 [facility] DR: Lilibeth Wan MD REQ: [id number] RECD: 11/12/18 STATUS: COMP ELIDA DR: Barrett Long GEOTECHNICIAL PROPERTIES TECHNICIAN _ SOURCE: URINE SPDESC: ORDERED: Urine Culture Procedure Result Reported Site Urine Culture Final 11/15/18- 0818 ML No growth of clinically significant organisms * ML - Main Lab . END OF REPORT DEPARTMENT OF PATHOLOGY, [address] [place] [address] Anil Goodrich M.D. Director [facility] # [id number] 33 SEE RESULT BELOW Name: CHARLINE ANGULO : [address]: Lilibeth Wan MD Acct: [id number] Unit: [id number] AGE: 73 Location: ED Re11/12/18 SEX: F Status: DEP ER SPEC: [id number] KATHE: 11/12/18 [facility] DR: Lilibeth Wan MD REQ: [id number] RECD: 11/12/18 STATUS: IRINA MARRERO DR: Barrett Long GEOTECHNICIAL PROPERTIES TECHNICIAN _ SOURCE: BLOOD,VENO SPDESC: ORDERED: Blood Cult COMMENTS: L AC Procedure Result Reported Site Aerobic Culture Bottle Final 11/17/18- 2048 ML No Growth Day 5 Anaerobic Culture Bottle Final 11/17/18- 2048 ML No Growth Day 5 * ML - Main Lab . END OF REPORT DEPARTMENT OF PATHOLOGY, [address] [place] [address] Anil Goodrich M.D. Director [facility] # [id number] 34 Standard intensity warfarin therapeutic range: 2.0-3.0 High intensity warfarin therapeutic range: 2.5-3.5 [facility] Severe Sepsis and Septic Shock Management Bundle Measure requires all lactic acids initially measuring >2.0 mmol/L be repeated. 36 Consistent with Previous Results Reported on 10/17/18 37 Troponin-I testing on Plasma Separator Tubes (PST) has a known false positive rate of 0.20-0.40%. All positive troponins reflex immediately to secondary confirmatory testing. Using the [employer] DxI 800 Access Immunoassay systems, the 99th [...] 5 Kidney failure <15 (or dialysis) 39 Test Engineering Intern: [id number] 40 REFERENCE VALUE <20.0 (Negative) Test Performed by: [facility] [employer] [address] [place] [address] 41 REFERENCE VALUE <1:80 (Negative) 42 Test Performed by: [facility] [employer] [address] [place] [address] 43 Because ethnic data is not always [...] 5 Kidney failure <15 (or dialysis) [facility] Severe Sepsis and Septic Shock Management [...] immediately to secondary confirmatory testing. Using the k[employer] DxI 800 Access Immunoassay systems, the 99th percentile upper reference limit was demonstrated to be < 0.03 ng/mL. 47 SEE RESULT BELOW Name: CHARLINE ANGULO : [address]: Milo Matthew MD Acct: [id number] Unit: [id number] AGE: 72 Location: ED Re10/17/18 SEX: F Status: DEP ER SPEC: [id number] KATHE: 10/17/[address]: Milo Matthew MD REQ: [id number] RECD: 10/17/18 STATUS: IRINA MARRERO DR: Barrett Long GEOTECHNICIAL PROPERTIES TECHNICIAN _ SOURCE: URINE SPDESC: ORDERED: Urine Culture Procedure Result Reported Site Urine Culture Final 10/18/18- 145 ML Organism 1 STAPHYLOCOCCUS HAEMOLYTICUS No growth of clinically significant organisms * ML - Main Lab . END OF REPORT DEPARTMENT OF PATHOLOGY, [address] [place] [address] Anil Goodrich M.D. Director [facility] # [id number] Procedures Date Code Description Status 09/12/2018 [id number] Mammogram Completed 08/25/2017 [id number] Mammogram Completed 02/17/2017 [id number] Diabetic Retinal Eye Exam Completed 08/17/2016 [id number] Mammogram Completed 10/24/2015 [id number] Colonoscopy Completed 08/09/2015 [id number] Mammogram Completed Medical Devices Description No Information Available Encounters Type Date Location Provider Dx Diagnosis Office Visit 03/15/2019 [facility] Breanna Posada, D64.9 Anemia, 3:30p GEOTECHNICIAL PROPERTIES TECHNICIAN unspecified Z79.899 Other rn long term care (current) drug therapy R70.0 Elevated erythrocyte sedimentation rate E11.9 Type 2 diabetes mellitus without complications Office Visit 02/17/2019 [facility] Tee Galvan E11.9 Type 2 diabetes 10:30a MD Sulaiman mellitus without complications D64.9 Anemia, unspecified K57.30 Dvrtclos of lg int w/o perforation or abscess w/o bleeding M19.049 Primary osteoarthritis, unspecified hand M54.5 Low back pain Z79.899 Other rn long term care (current) drug therapy Office Visit 02/06/2019 Rheumatology [...] sites in spine Office Visit 12/26/2018 4:00p [facility] Internal Barrett Ethan, I10 Essential ( primary) Medicine - [facility] GEOTECHNICIAL PROPERTIES TECHNICIAN hypertension E11.9 Type 2 diabetes mellitus without complications R35.0 Frequency of micturition M54.5 Low back pain Z79.4 watermelon inspector (current) use of insulin Office Visit 11/11/2018 3:40p [facility] Barrett Ethan, I10 Essential ( primary) Medicine - [facility] GEOTECHNICIAL PROPERTIES TECHNICIAN hypertension E11.9 Type 2 diabetes mellitus without complications Office Visit 10/24/2018 10:00a [facility] Barrett Ethan, E11.9 Type 2 diabetes Medicine - [facility] GEOTECHNICIAL PROPERTIES TECHNICIAN mellitus without complications I10 Essential (primary) hypertension R53.83 Other fatigue M25.50 Pain in unspecified joint M79.18 Myalgia, other site Assessments Date Code Description Provider 03/29/2019 E11.9 Type 2 diabetes mellitus without Barrett Ethan, GEOTECHNICIAL PROPERTIES TECHNICIAN complications 03/29/2019 I10 Essential (primary) hypertension Barrett Ethan, GEOTECHNICIAL PROPERTIES TECHNICIAN 03/29/2019 H61.21 Impacted cerumen, right ear Barrett Ethan, GEOTECHNICIAL PROPERTIES TECHNICIAN 03/29/2019 H65.01 Acute serous otitis media, right ear Barrett Ethan, GEOTECHNICIAL PROPERTIES TECHNICIAN 03/15/2019 D64.9 Anemia, unspecified Breannalurdes oPsada, GEOTECHNICIAL PROPERTIES TECHNICIAN 03/15/2019 Z79.899 [facility] drug therapy Breanna Posada, GEOTECHNICIAL PROPERTIES TECHNICIAN 03/15/2019 R70.0 Elevated erythrocyte sedimentation rate Breanna Posada, GEOTECHNICIAL PROPERTIES TECHNICIAN 03/15/2019 E11.9 Type 2 diabetes mellitus without Breanna Posada GEOTECHNICIAL PROPERTIES TECHNICIAN complications 02/17/2019 E11.9 Type 2 diabetes mellitus without Tee Hilario MD complications 02/17/2019 D64.9 Anemia, unspecified Tee Hilario MD 02/17/2019 K57.30 Diverticulosis of large intestine without Tee Hilario MD perforation or abscess without bleeding 02/17/2019 M19.049 Primary osteoarthritis, unspecified hand Tee Hilario MD 02/17/2019 M54.5 Low back pain Tee Hilario MD 02/17/2019 Z79.899 Other rn long term care (current) drug therapy Tee Hilario MD 02/06/2019 [...] back pain Barrett Long NP 12/26/2018 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 This is great. Continue with present management.Follow up:6 months, 20 minRecommendations:See your shearer helper every year. It is OK to go every 2 years if he finds no retinal damage from diabetes. Ask your shearer helper to communicate his findings to us. See a medical care administrator every 6 months if you have numbness in your feet or a history of foot ulcers.I10 Essential (primary) hypertensionComments:Continue monitoring your blood pressure at home.If this is regularly running greater than 140/90 please let me know.H61.21 Impacted cerumen, right earH65.01 Acute serous otitis media, right earComments:Continue using the fluticasone daily. Now that the ear is clear, if there is no improvement or worsening please let me know and I will refer you to ENT. Goals 03/29/2019 - Barrett Long, NPE11.9 Type 2 diabetes mellitus without complicationsGoal Hemoglobin A1c is less than 7.0%. Goal Blood pressure is less than 130/85. Functional Status Description No Information Available Mental Status Description No Information Available Referrals Refer to Reason for Referral Status Appt Date Tee Hilario MD Please eval patient for GI sources of Iron Sent deficiency anemia, history of diverticular disease [address] [place] [id number] [phone] Sulaiman Phelps MD Sent 01/20/2019 [address] [place] [address] [place] [address] [phone]
[2019-04-18] MEDS ORDERED: Pantoprazole IV* 40 MG IV ONE (22:06)
[2019-04-18 22:31] LABS: ABS Eosinophils 0.6 10^3/ul (0-0.6); ABS Lymphocytes 0.7 10^3/ul (1.0-4.8); ABS Monocytes 0.7 10^3/ul (0-0.8); ABS Neutrophils 6.2 10^3/ul (1.5-7.7); Eosinophil % 6.9 %; Hematocrit 36 % (35-47); Hemoglobin 11.9 g/dL (12.0-16.0); Lymphocyte % 8.2 %; Mean Corpuscular HGB Conc 33 g/dL (31-36); Mean Corpuscular Hemoglobin 28 pg (27-31); Mean Corpuscular Volume 83 fL (80-97); Mean Platelet Volume 8.2 fL (7.4-10.4); Platelet Count 144 10^3/uL (150-450); Red Cell Distribution Width 20 % (10-15); White Blood Count 8.2 10^3/uL (3.5-10.8)
[2019-04-18 22:48] LABS: Albumin/Globulin Ratio 1.3 (1-3); BUN/Creatinine Ratio 31.6 (8-20); C Reactive Protein 116.26 mg/L (<8.01); Calcium 9.3 mg/dL (8.6-10.3); EGFR African American 67.5 (>60); EGFR Non-African American 55.8 (>60); Globulin 3.2 g/dL (2-4); Magnesium 1.8 mg/dL (1.9-2.7); Potassium 3.9 mmol/L (3.5-5.0); Total Bilirubin 1.1 mg/dL (0.2-1.0); Total Protein 7.2 g/dL (6.4-8.9)
[2019-04-18 22:49] LABS: Troponin I 0.01 ng/mL (<0.04)
[2019-04-18 23:07] LABS: Urine Appearance Cloudy; Urine Bacteria Absent (Absent); Urine Bilirubin Negative (Negative); Urine Blood Negative (Negative); Urine Color Yellow; Urine Glucose Negative (Negative); Urine Ketones Negative (Negative); Urine Nitrite Negative (Negative); Urine Protein 1+(30 mg/dL) (Negative); Urine Red Blood Cell Absent (Absent); Urine Specific Gravity 1.019 (1.010-1.030); Urine Squamous Epithelial Cell Present (Absent); Urine Urobilinogen Negative (Negative); Urine White Blood Cell 3+(>20/hpf) (Absent)
[2019-04-18] MEDS ORDERED: Al Hydrox/Mg Hydrox/Simet LIQ* 30 ML UDC PO ONE (23:43)
[2019-04-18] MEDS ORDERED: Lidocaine 2% VISCOUS* 15 ML UDC PO ONE (23:43)
--- NOTE | 2019-04-18 23:54 | ED ---
GI/ HPI - HPI Summary HPI Summary: 73 year old female presents with abdominal pain today. States she has some dizziness earlier that resolved. States she had some burning chest pain that has resolved. She was having epigastric pain. She admits to acid reflux. States her blood pressure was high but is now back down to normal. States that she started new blood pressure medication a couple days ago. She states she broke out in a rash today. Denies any shortness of breath. No sore throat. Never had this reaction before. She hasn't taking anything for rash. The rash is very itchy. She denies any nausea vomiting. Has an extensive history of diverticulitis that required a colon resection. Has had her gallbladder out. - History of Current Complaint Chief Complaint: EDDizziness Time Seen by Provider: 04/18/19 21:50 Stated Complaint: DIZZINESS/;NAUSEA PER PT Hx Last Menstrual Period: post Pain Intensity: 5 - Additional Pertinent History Primary Care Physician: [id number] - Allergy/Home Medications Allergies/Adverse Reactions: Allergies Allergy/AdvReac Type Severity Reaction Status Date / Time Iodinated Contrast Media Allergy Severe Hives Verified 03/02/19 16:48 [Iodinated Contrast- Oral and IV Dye] prochlorperazine Allergy Severe convulsions Verified 03/02/19 16:48 [From Compazine] dulaglutide [From Trulicity] Allergy Diarrhea Verified 03/02/19 16:48 empagliflozin Allergy yeast Verified 03/02/19 16:48 [From Jardiance] infection codeine AdvReac Severe Nausea And Verified 03/02/19 16:48 Vomiting PMH/Surg Hx/FS Hx/Imm Hx Endocrine/Hematology History: Reports: Hx Diabetes - TYPE 2 Denies: Hx Bone Marrow Disease, Hx Sickle Cell Disease, Hx Thyroid Disease, Hx Anemia Cardiovascular History: Reports: Hx Hypertension Denies: Hx Pacemaker/ICD Respiratory History: Denies: Hx Asthma, Hx Chronic Obstructive Pulmonary Disease (COPD) GI History: Reports: Hx Diverticulosis, Hx Gastroesophageal Reflux Disease, Hx Hiatal Hernia, Hx Irritable Bowel, Hx Ulcer, Other GI Disorders - CHRONIC GASTRITIS, DIVERTICULITIS Musculoskeletal History: Reports: Hx Arthritis, Hx Bursitis - HX OF- RIGHT SHOULDER, RIGHT FOOT Sensory History: Reports: Hx Cataracts - RIGHT, MILD, Hx Contacts or Glasses - READING Denies: Hx Glaucoma, Hx Hearing Aid Opthamlomology History: Reports: Hx Cataracts - RIGHT, MILD, Hx Contacts or Glasses - READING Denies: Hx Glaucoma Psychiatric History: Reports: Hx Anxiety - r/t upcoming procedure Denies: Hx Panic Disorder, Other Psychiatric Issues/Disorders - Cancer History Hx Chemotherapy: No Hx Radiation Therapy: No - Surgical History Surgery Procedure, Year, and Place: Tonsillectomy 6 yrs of age [place]. Hysterectomy with left oopherectomy age 34 yrs 1979's [facility] [place]. oopherectomy age 39 [facility] [place]. [facility]olecyst[facility]. Right Knee Arthroscopy [facility] [place], colon resection for divertic Hx Anesthesia Reactions: Yes - severe n/v post-op - Immunization History Date of Tetanus Vaccine: unk Date of Influenza Vaccine: 04/07/2019 Immunizations Up to Date: Yes Infectious Disease History: No Infectious Disease History: Reports: Hx Shingles Denies: Hx Clostridium Difficile, Hx Hepatitis, Hx Human Immunodeficiency Virus (HIV), Hx of Known/Suspected MRSA, Hx Tuberculosis, Hx Known/Suspected VRE , Hx Known/Suspected VRSA, History Other Infectious Disease, Traveled Outside the in Last 30 Days - Family History Known Family History: Positive: Cardiac Disease - Both parents., Hypertension, Other - similar neck problems - mother - Social History Alcohol Use: None Hx Substance Use: No Substance Use Type: Reports: None Hx Tobacco Use: No Smoking Status (MU): Never Smoked Tobacco Have You Smoked in the Last Year: No Review of Systems Negative: Fever Positive: Chest Pain - resolved Negative: Shortness Of Breath Positive: Abdominal Pain. Negative: Vomiting, Diarrhea, Nausea Neurological: Other - dizziness resolved All Other Systems Reviewed And Are Negative: Yes Physical Exam Triage Information Reviewed: Yes Vital Signs On Initial Exam: Initial Vitals Temp Pulse Resp BP Pulse Ox 98.0 F 78 18 170/76 98 04/18/19 19:19 04/18/19 19:19 04/18/19 19:19 04/18/19 19:19 04/18/19 19:19 Vital Signs Reviewed: Yes Appearance: Positive: Well-Appearing Skin: Positive: Warm, Dry Head/Face: Positive: Normal Head/Face Inspection Eyes: Positive: Normal, EOMI, SHEILA, Conjunctiva Clear ENT: Positive: Pharynx normal, TMs normal Respiratory/Lung Sounds: Positive: Clear to Auscultation, Breath Sounds Present Cardiovascular: Positive: Normal, RRR Abdomen Description: Positive: Soft, Other: - tenderness in LUQ and LLQ Bowel Sounds: Positive: Present Musculoskeletal: Positive: Normal Neurological: Positive: Sensory/Motor Intact, Alert, Oriented to Person Place, Time, CN Intact II-III, Finger to Nose Psychiatric: Positive: Normal Procedures - Sedation Patient Received Moderate/Deep Sedation with Procedure: No Diagnostics - Vital Signs Vital Signs Temp Pulse Resp BP Pulse Ox 04/18/19 23:01 84 93 04/18/19 22:59 79 129/84 93 04/18/19 22:01 81 93 04/18/19 21:59 81 136/59 93 04/18/19 19:19 98.0 F 78 18 170/76 98 - Laboratory Lab Results: Lab Results 04/18/19 04/18/19 04/18/19 Range/Units 22:03 22:15 22:24 WBC 8.2 (3.5-10.8) 10^3/uL RBC 4.30 (3.70-4.87) 10^6 /uL Hgb 11.9 L (12.0-16.0) g/dL Hct 36 (35-47) % MCV 83 (80-97) fL MCH 28 (27-31) pg MCHC 33 (31-36) g/dL RDW 20 H (10-15) % Plt Count 144 L (150-450) 10^3/uL MPV 8.2 (7.4-10.4) fL Neut % (Auto) 75.9 % Lymph % (Auto) 8.2 % [place] % (Auto) 8.8 % Eos % (Auto) 6.9 % Baso % (Auto) 0.2 % Absolute Neuts (auto) 6.2 (1.5-7.7) 10^3/ul Absolute Lymphs (auto) 0.7 L (1.0-4.8) 10^3/ul Absolute Monos (auto) 0.7 (0-0.8) 10^3/ul Absolute Eos (auto) 0.6 (0-0.6) 10^3/ul Absolute Basos (auto) 0.0 (0-0.2) 10^3/ul Absolute Nucleated RBC 0.0 10^3/ul Nucleated RBC % 0.0 Sodium (135-145) mmol/L Potassium (3.5-5.0) mmol/L Chloride (101-111) mmol/L Carbon Dioxide (22-32) mmol/L Anion Gap (2-11) mmol/L BUN (6-24) mg/dL Creatinine (0.51-0.95) mg/dL Est GFR ( Amer) (>60) Est GFR (Non-Af Amer) (>60) BUN/Creatinine Ratio (8-20) Glucose (70-100) mg/dL POC Glucose (mg/dL) 154 H (70-100) mg/dL Lactic Acid (0.5-2.0) mmol/L Calcium (8.6-10.3) mg/dL Magnesium (1.9-2.7) mg/dL Total Bilirubin (0.2-1.0) mg/dL AST (13-39) U/L ALT (7-52) U/L Alkaline Phosphatase (34-104) U/L Troponin I (<0.04) ng/mL C-Reactive Protein (<8.01) mg/L Total Protein (6.4-8.9) g/dL Albumin (3.2-5.2) g/dL Globulin (2-4) g/dL Albumin/Globulin Ratio (1-3) Amylase (29-103) U/L Lipase (11.0-82.0) U/L Urine Color Yellow Urine Appearance Cloudy Urine pH 5.0 (5-9) Ur Specific [place] 1.019 (1.010-1.030) Urine Protein 1+(30 mg/dl) A (Negative) Urine Ketones Negative (Negative) Urine Blood Negative (Negative) Urine Nitrate Negative (Negative) Urine Bilirubin Negative (Negative) Urine Urobilinogen Negative (Negative) Ur Leukocyte Esterase 3+ A (Negative) Urine WBC (Auto) 3+(>20/hpf) A (Absent) Urine RBC (Auto) Absent (Absent) Ur Squamous Epith Cells Present A (Absent) Urine Bacteria Absent (Absent) Urine Glucose Negative (Negative) 04/18/19 04/18/19 Range/Units 22:24 22:24 WBC (3.5-10.8) 10^3/uL RBC (3.70-4.87) 10^6 /uL Hgb (12.0-16.0) g/dL Hct (35-47) % MCV (80-97) fL MCH (27-31) pg MCHC (31-36) g/dL RDW (10-15) % Plt Count (150-450) 10^3/uL MPV (7.4-10.4) fL Neut % (Auto) % Lymph % (Auto) % [place] % (Auto) % Eos % (Auto) % Baso % (Auto) % Absolute Neuts (auto) (1.5-7.7) 10^3/ul Absolute Lymphs (auto) (1.0-4.8) 10^3/ul Absolute Monos (auto) (0-0.8) 10^3/ul Absolute Eos (auto) (0-0.6) 10^3/ul Absolute Basos (auto) (0-0.2) 10^3/ul Absolute Nucleated RBC 10^3/ul Nucleated RBC % Sodium 135 (135-145) mmol/L Potassium 3.9 (3.5-5.0) mmol/L Chloride 103 (101-111) mmol/L Carbon Dioxide 23 (22-32) mmol/L Anion Gap 9 (2-11) mmol/L BUN 31 H (6-24) mg/dL Creatinine 0.98 H (0.51-0.95) mg/dL Est GFR ( Amer) 67.5 (>60) Est GFR (Non-Af Amer) 55.8 (>60) BUN/Creatinine Ratio 31.6 H (8-20) Glucose 141 H (70-100) mg/dL POC Glucose (mg/dL) (70-100) mg/dL Lactic Acid 0.9 (0.5-2.0) mmol/L Calcium 9.3 (8.6-10.3) mg/dL Magnesium 1.8 L (1.9-2.7) mg/dL Total Bilirubin 1.10 H (0.2-1.0) mg/dL AST 30 (13-39) U/L ALT 44 (7-52) U/L Alkaline Phosphatase 83 (34-104) U/L Troponin I 0.01 (<0.04) ng/mL C-Reactive Protein 116.26 H (<8.01) mg/L Total Protein 7.2 (6.4-8.9) g/dL Albumin 4.0 (3.2-5.2) g/dL Globulin 3.2 (2-4) g/dL Albumin/Globulin Ratio 1.3 (1-3) Amylase 23 L (29-103) U/L Lipase 12 (11.0-82.0) U/L Urine Color Urine Appearance Urine pH (5-9) Ur Specific [place] (1.010-1.030) Urine Protein (Negative) Urine Ketones (Negative) Urine Blood (Negative) Urine Nitrate (Negative) Urine Bilirubin (Negative) Urine Urobilinogen (Negative) Ur Leukocyte Esterase (Negative) Urine WBC (Auto) (Absent) Urine RBC (Auto) (Absent) Ur Squamous Epith Cells (Absent) Urine Bacteria (Absent) Urine Glucose (Negative) Result Diagrams: 04/18/19 22:24 04/18/19 22:24 Lab Statement: Any lab studies that have been ordered have been reviewed, and results considered in the medical decision making process. - CT abd CT Interpretation Completed By: Radiologist Summary of CT Findings: IMPRESSION: 1. Artifact from under distention versus mural thickening in the distal left colon which could represent mild colitis. 2. Postcholecystectomy and hysterectomy. 3. Surgical changes in distal colon. No bowel obstruction. 4. Diverticulosis coli. No evidence of diverticulitis. - EKG No standard instances Cardiac Rate: NL EKG Rhythm: Sinus Rhythm EKG Comparison: No Significant Change Summary of EKG Findings: sinus rhythm GIGU Course/Dx - Course Course Of Treatment: 73 year old female presents with abdominal pain today. States she has some dizziness earlier that resolved. States she had some burning chest pain that has resolved. She was having epigastric pain. She admits to acid reflux. States her blood pressure was high but is now back down to normal. States that she started new blood pressure medication a couple days ago. She states she broke out in a rash today. Denies any shortness of breath. No sore throat. Never had this reaction before. She hasn't taking anything for rash. The rash is very itchy. She denies any nausea vomiting. Has an extensive history of diverticulitis that required a colon resection. Has had her gallbladder out. On exam tenderness left upper quadrant and left lower quadrant. White blood cell count normal. CRP elevated. Urine shows A UTI. CT Shows Evidence of Colitis. EKG Shows Sinus Rhythm. Gave GI Cocktail and Benadryl and Feeling Better. Will Place on Augmentin for Colitis and UTI. Patient Has Follow up with GI in a Couple Weeks. Told to Continue Benadryl As Needed for Itching. Patient Understands Agrees with Plan. - Diagnoses Differential Diagnoses - Female: Colitis, Diverticulosis, Urinary Tract Infection Provider Diagnoses: UTI (urinary tract infection), Colitis, Rash Discharge ED - Sign-Out/Discharge Documenting (check all that apply): Patient Departure - Discharge Plan Condition: Good Disposition: HOME Prescriptions: Amoxicillin/Clavulanate TAB* [Augmentin TAB 875*] 875 mg PO BID #14 tab Patient Education Materials: Urinary Tract Infection in Women (ED) Referrals: Barrett Long SERVICE ENGINE REPAIRER [Primary Care Provider] - Additional Instructions: take augmentin twice a day for 7 days Drink plenty of fluids Take tyenlol as needed for pain every 6 hours follow up with primary within 5 days Return to ED if develop any new or worsening symptoms - Billing Disposition and Condition Condition: GOOD Disposition: Home
[2019-04-18] MEDS ORDERED: Amoxicillin/Clavulanate TAB* 875 MG PO ONE (23:59)
[2019-04-18] MEDS ORDERED: diPHENhydraMINE PO* 25 MG PO ONE (23:59)
[2019-04-19 00:16] VITALS: BP 145/72
== END 2019-04-19 00:14 | disposition home or self-care (01) ==
LOC: ED 18:56
DX: N39.0 Urinary tract infection, site not specified (principal); K52.9 Noninfective gastroenteritis and colitis, unspecified; R21 Rash and other nonspecific skin eruption; E11.9 Type 2 diabetes mellitus without complications; I10 Essential (primary) hypertension; K21.9 Gastro-esophageal reflux disease without esophagitis; F41.9 Anxiety disorder, unspecified; Z90.710 Acquired absence of both cervix and uterus; Z90.721 Acquired absence of ovaries, unilateral; Z90.49 Acquired absence of other specified parts of digestive tract; Z88.5 Allergy status to narcotic agent; Z88.8 Allergy status to other drugs, medicaments and biological substances; Z91.041 Radiographic dye allergy status; Z79.4 Long term (current) use of insulin; Z79.899 Other long term (current) drug therapy
CPT/HCPCS: 36415; 74176; 80053; 81003; 81015; 82150; 83605; 83690; 83735; 84484; 85025; 86140; 87086; 93005; 96374; 99284; A9270-GY

== ENCOUNTER 2019-07-15 05:43 | Emergency (ER) | payer MEDICARE ==
[2019-07-15] MEDS ORDERED: Ondansetron ODT TAB* 4 MG PO ONE (06:11)
[2019-07-15] MEDS ORDERED: Acetaminophen TAB* 325 MG PO ONE (06:11)
[2019-07-15 06:38] LABS: ABS Eosinophils 0.3 10^3/ul (0-0.6); ABS Lymphocytes 1.1 10^3/ul (1.0-4.8); ABS Monocytes 0.4 10^3/ul (0-0.8); ABS Neutrophils 3.7 10^3/ul (1.5-7.7); Eosinophil % 4.9 %; Hematocrit 35 % (35-47); Hemoglobin 12.3 g/dL (12.0-16.0); Lymphocyte % 20.7 %; Mean Corpuscular HGB Conc 35 g/dL (31-36); Mean Corpuscular Hemoglobin 30 pg (27-31); Mean Corpuscular Volume 86 fL (80-97); Mean Platelet Volume 7.9 fL (7.4-10.4); Nucleated Red Blood Cells % 0.1; Platelet Count 165 10^3/uL (150-450); Red Blood Count 4.11 10^6 /uL (3.70-4.87); Red Cell Distribution Width 15 % (10-15); White Blood Count 5.5 10^3/uL (3.5-10.8)
--- OUTSIDE RECORDS SUMMARY | 2019-07-15 06:45 | XMS REPORT | Continuity of Care Document ---
:1945 External Reference #:[id number] Author Name Tee Hilario MD (transmitted by agent of provider [place]) Address [address] [place] [address] Care Team Providers Name Role Phone Davis Smith MD - Surgery Care Team Information Sales Floor Team Member [phone] Kari He MD - Internal Care Team Information Sales Floor Team Member Medicine Sulaiman Phelps MD - Rheumatology Care Team Information Sales Floor Team Member Problems Active Problems Provider Date Type 2 [...] Patient has never smoked Smoking Status Reviewed: 06/05/19 Patient has never smoked Exercise Type/Frequency 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 [employer] Allergies, Adverse Reactions, Alerts Active Allergies Reaction Severity Comments Date Iodinated Diagnostic Agents Hives 09/24/2016 Codeine Nausea and Vomiting 09/24/2016 Compazine convulsions 09/24/2016 Jardiance yeast infection 12/16/2016 Trulicity diarrhea 12/21/2016 Medications Active Medications SIG Qnty Indications Ordering Date Provider Lantus Solostar inject 40 units 45ml Barrett Long NP 04/27/2019 sc every day 100Unit/ML Solution Pen-Inject Amlodipine Besylate 1 by mouth every 30tabs I10 Barrett Long NP 04/13/2019 2.5mg day Tablets Cyclobenzaprine HCL 1 tablet by mouth 60tabs M54.2 Barrett Long NP 2018 10mg bid as needed Tablets muscle spasms Glipizide XL 1 by mouth every 90tabs E11.9 Barrett Long NP 03/29/2019 2.5mg day Tablets ER 24HR Fast Acting B12 sublingual daily 90tabs Sulaiman Phelps, 02/06/2019 2500mcg M.D. Tablets Sub Iron (Ferrous Sulfate) take one 60tabs Sulaiman Phelps, 01/29/2019 capsule/tablet M.D. 142(45Fe) mg Tablets daily by mouth ER Accu-Chek Emily Plus Check Blood Sugar 200units Barrett Long NP 11/13/2018 Up To Three Times Strips Daily Blood Pressure Monitor check bp twice 1units I10 Barrett Long NP 10/24/2018 Auto Inflate weekly at home [facility] Blood Glucose check blood sugar 1units E11.9 Barrett Long NP 10/24/2018 Monitoring System once daily and when feeling W/Device Kit symtoms Fluticasone Propionate Shake Liquid And 48units J30.89 Barrett Long NP Use 2 Sprays In 50mcg/Act Suspension Each Nostril Every Day Accu-Check Glucose use devise as 1units E11.9 Mina Mckeon 09/24/2017 Monitor instructed daily Dionisio Dorsey,[facility] Device last visit: 09/24/17, may change product if insurance does not cover Accu-Check Emily Chem check blood sugar 100units E11.9 Barrett Long NP Strips up to three times Misc daily last visit: 09/24/17 may change product if insurance does not cover Accu-Check Emily use with 100units E11.9 Mina Mckeon 09/24/2017 Lancet Herberth glucometer up to Dionisio Dorsey,[facility] Misc three times daily, last visit: 09/24/17 product may be changed if the insurance does not cover Pen Balko 11/10" use one time a 100units E11.9 Barrett Long NP 03/19/2017 31G X 8 daily with elieser mm Misc last visit: 09/24/17 Januvia Take 1 Tablet By 90tabs Barrett Long NP 12/21/2016 100mg Tablets Mouth Every Day Lovastatin take 1 tablet by 90tabs Barrett Long NP 12/16/2016 10mg Tablets mouth at bedtime Losartan Potassium take 1 tablet by 10tabs Barrett Long NP 10/15/2016 50mg mouth twice daily Tablets Pantoprazole Sodium take 1 tablet by 180tabs Barrett Long NP 02/06/2015 20mg mouth daily Tablets DR Metformin HCL take 1 tablet by 180tabs Barrett Long NP 02/01/2015 1000mg mouth twice a day Tablets Tylenol 2 tablets every 4 Unknown 325mg Capsules hours as needed for pain Atenolol take 1 tablet by 180tabs Barrett Long NP 50mg Tablets mouth twice a day History Medications Basaglar Kwikpen 40 units once daily 15ml Barrett Long, 04/27/2019 - subcutaneous BUTTER FAT TESTER 04/27/2019 100Unit/ML Solution Pen-Inject Toujeo Solostar inject subcutaneously 3ml Barrett Long, 04/13/2019 - 40 units once daily BUTTER FAT TESTER 04/27/2019 300Unit/ML Solution Pen-Inject Basaglar Kwikpen 50 units once daily 15ml Barrett Long, 03/29/2019 - subcutneous BUTTER FAT TESTER 04/12/2019 100Unit/ML Solution Pen-Inject Januvia 1 by mouth every day 30tabs E11.9 Barrett Long, 03/17/2019 - 50mg Tablets BUTTER FAT TESTER 03/29/2019 Venofer infusion of 200 mg in 100ml Breanna Posada, 03/02/2019 - 20mg/ml a maximum of 100 mL BUTTER FAT TESTER 03/29/2019 Solution of 0.9% NaCl over a period of 60 minutes Suprep Bowel Prep Kit take according to the 354ml Tee Galvan 02/22/2019 - instructions you MD Sulaiman 03/27/2019 17.5-3.13-1.6GM/177ML received, the Solution afternoon before and morning of your procedure. Feraheme feraheme infusion 510 510ml Tee Galvan 02/18/2019 - 510mg/17ML mg intravenously over MD Sulaiman 03/02/2019 Solution 1 hour, followed by a second infusion in a week Basaglar Kwikpen 50 units once daily 15ml E11.9 Barrett Long, 02/15/2019 - subcutneous BUTTER FAT TESTER 11/17/2018 100Unit/ML Solution Pen-Inject Basaglar Kwikpen 30 units daily subcu 3ml E11.9 Barrett Long, 12/26/2018 - BUTTER FAT TESTER 12/26/2018 100Unit/ML Solution Pen-Inject Ciprofloxacin HCL take one tablet twice 14tabs R35.0 Barrett Long, 2018 - 250mg a day for 7 days. BUTTER FAT TESTER 01/05/2019 Tablets Medications Administered in Office Medication SIG Qnty Indications Ordering Provider Date Pneumococcal,Unspecified Unknown 11/09/2009 Injection Immunizations CPT Code Status Date Vaccine Reaction Lot # [id number] Given 03/31/2019 Influenza Virus Vaccine, Quadrivalent, Split, Preservative Free 31954 Given 03/23/2018 Influenza Virus Vaccine, Quadrivalent, Split, Preservative Free 16051 Given 06/24/2017 Pneumonia Vaccine [id number] Given 03/19/2017 Influenza Virus Vaccine, NO IMMEDIATE REACTION , [id number] Quadrivalent, Split, PT TOLERATED WELL Preservative Free 89913 Given 04/29/2015 Pneumococcal Conjugate Vaccine 13 Valent For Intramuscular Use Vital Signs Date Vital Result Comment 06/05/2019 3:53pm Height 63 inches 5'3" Weight 173.00 lb Heart Rate 76 /min BP Systolic Sitting 155 mmHg BP Diastolic Sitting 76 mmHg Respiratory Rate 16 /min O2 % BldC Oximetry 97 % BMI (Body Mass Index) 30.6 kg/m2 04/27/2019 10:23am Height 63 inches 5'3" Weight 164.00 lb Heart Rate 66 /min BP Systolic Sitting 142 mmHg BP Diastolic Sitting 78 mmHg BP Systolic Recheck 138 mmHg BP Diastolic Recheck 80 mmHg Body Temperature 97.9 F O2 % BldC Oximetry 97 % BMI (Body Mass Index) 29.0 kg/m2 Results Test Acquired Date Facility Test Result H/L Range Note CBC No Diff 04/25/2019 [facility] White Blood 8.2 10^3/uL Normal 3.5-10.[address] [place] [address] [phone] Red Blood Count 4.65 10^6/uL Normal 3.70-4.87 Hemoglobin 13.0 g/dL Normal 12.0-16.0 Hematocrit 39 % Normal 35-47 Mean Corpuscular Volume 84 fL Normal 80-97 Mean Corpuscular Hemoglobin 28 pg Normal 27-31 Mean Corpuscular HGB Conc 33 g/dL Normal 31-36 Red Cell Distribution Width 19 % High 10-15 Platelet Count 281 10^3/uL Normal 150-450 Mean Platelet Volume 8.2 fL Normal 7.4-10.4 Comp Metabolic 04/25/2019 [facility] Sodium 139 mmol/L Normal 135-[address] [place] [address] [phone] Chloride 105 mmol/L Normal 101-111 Co2 Carbon Dioxide 26 mmol/L Normal 22-32 Glucose 116 mg/dL High 70-100 Blood Urea Nitrogen 26 mg/dL High 6-24 Creatinine 0.98 mg/dL High 0.51-0.95 BUN/Creatinine Ratio 26.5 High 8-20 Calcium 9.9 mg/dL Normal 8.6-10.3 Total Protein 6.9 g/dL Normal 6.4-8.9 Albumin 4.3 g/dL Normal 3.2-5.2 Globulin 2.6 g/dL Normal 2-4 Albumin/Globulin Ratio 1.7 Normal 1-3 Total Bilirubin 0.60 mg/dL Normal 0.2-1.0 Alkaline Phosphatase 105 U/L High 34-104 Alt 48 U/L Normal 7-52 Ast 49 U/L High 13-39 Egfr Non- 55.8 >60 Egfr 67.5 >60 1 Potassium 5.5 mmol/L High 3.5-5.0 Anion Gap 8 mmol/L Normal 2-11 Laboratory test 04/25/2019 [facility] C Reactive 8.84 mg/L High <8.01 [address] [place] [address] [phone] Ferritin 206.3 ng/mL Normal 11-307 3 Urine Culture And 04/18/2019 [facility] Urine Culture SEE RESULT [address] [place] [address] [phone] Urinalysis Profile 04/18/2019 [facility] Urine Color Yellow [address] [place] [address] [phone] Urine Appearance Cloudy Urine Specific [place] 1.019 Normal 1.010-1.030 Urine pH 5.0 Normal 5-9 Urine Urobilinogen Negative Negative Urine Ketones Negative Negative Urine Protein 1+(30 mg/dL) Abnormal Negative Urine Leukocytes 3+ Abnormal Negative Urine Blood Negative Negative Urine Nitrite Negative Negative Urine Bilirubin Negative Negative Urine Glucose Negative Negative Urine White Blood Cell 3+(>20/hpf) Abnormal Absent Urine Red Blood Cell Absent Absent Urine Bacteria Absent Absent Urine Squamous Epithelial Cell Present Abnormal Absent Laboratory test 04/18/2019 [facility] Point of Care 154 mg/dL High 70-[address] [place] [address] [phone] Laboratory test 04/18/2019 [facility] Magnesium 1.8 mg/dL Low 1.9-2.[address] [place] [address] [phone] Amylase 23 U/L Low 29-103 Lipase 12 U/L Normal 11.0-82.0 C Reactive Protein 116.26 mg/L High <8.01 Troponin-I (TnI) 0.01 ng/mL <0.04 6 Comp Metabolic 04/18/2019 [facility] Sodium 135 mmol/L Normal 135-[address] [place] [address] [phone] Potassium 3.9 mmol/L Normal 3.5-5.0 Chloride 103 mmol/L Normal 101-111 Co2 Carbon Dioxide 23 mmol/L Normal 22-32 Anion Gap 9 mmol/L Normal 2-11 Glucose 141 mg/dL High 70-100 Blood Urea Nitrogen 31 mg/dL High 6-24 Creatinine 0.98 mg/dL High 0.51-0.95 BUN/Creatinine Ratio 31.6 High 8-20 Calcium 9.3 mg/dL Normal 8.6-10.3 Total Protein 7.2 g/dL Normal 6.4-8.9 Albumin 4.0 g/dL Normal 3.2-5.2 Globulin 3.2 g/dL Normal 2-4 Albumin/Globulin Ratio 1.3 Normal 1-3 Total Bilirubin 1.10 mg/dL High 0.2-1.0 Alkaline Phosphatase 83 U/L Normal 34-104 Alt 44 U/L Normal 7-52 Ast 30 U/L Normal 13-39 Egfr Non- 55.8 >60 Egfr 67.5 >60 7 Laboratory test 04/18/2019 [facility] Lactic Acid 0.9 mmol/L Normal 0.5-2.0 [address] [place] [address] [phone] CBC Auto Diff 04/18/2019 [facility] White Blood 8.2 10^3/uL Normal 3.5-10.[address] [place] [address] [phone] Red Blood Count 4.30 10^6/uL Normal 3.70-4.87 Hemoglobin 11.9 g/dL Low 12.0-16.0 Hematocrit 36 % Normal 35-47 Mean Corpuscular Volume 83 fL Normal 80-97 Mean Corpuscular Hemoglobin 28 pg Normal 27-31 Mean Corpuscular HGB Conc 33 g/dL Normal 31-36 Red Cell Distribution Width 20 % High 10-15 Platelet Count 144 10^3/uL Low 150-450 Mean Platelet Volume 8.2 fL Normal 7.4-10.4 Abs Neutrophils 6.2 10^3/uL Normal 1.5-7.7 Abs Lymphocytes 0.7 10^3/uL Low 1.0-4.8 Abs Monocytes 0.7 10^3/uL Normal 0-0.8 Abs Eosinophils 0.6 10^3/uL Normal 0-0.6 Abs Basophils 0.0 10^3/uL Normal 0-0.2 Abs Nucleated RBC 0.0 10^3/uL Granulocyte % 75.9 % Lymphocyte % 8.2 % Monocyte % 8.8 % Eosinophil % 6.9 % Basophil % 0.2 % Nucleated Red Blood Cells % 0.0 Laboratory test 03/21/2019 [facility] Clotest SEE RESULT [address] [place] [address] [phone] Laboratory test 03/21/2019 [facility] Surgical SEE RESULT [address] [address] [phone] Laboratory test 03/21/2019 [facility] Point of Care 95 mg/dL Normal 70-10 [address] Glucose 0 [place] [address] [phone] CBC No Diff 03/09/2019 [facility] White Blood 5.1 10^3/uL Normal 3.5-[address] 0.8 [place] [address] [phone] Red Blood Count 4.24 10^6/uL Normal 3.70-4.87 Hemoglobin 11.3 g/dL Low 12.0-16.0 Hematocrit 34 % Low 35-47 Mean Corpuscular Volume 80 fL Normal 80-97 Mean Corpuscular Hemoglobin 27 pg Normal 27-31 Mean Corpuscular HGB Conc 33 g/dL Normal 31-36 Red Cell Distribution Width 23 % High 10-15 Platelet Count 189 10^3/uL Normal 150-450 Mean Platelet Volume 8.0 fL Normal 7.4-10.4 Laboratory test 03/09/2019 [facility] Ferritin 279.5 ng/mL Normal 11-[address] [place] [address] [phone] Basic Metabolic 03/09/2019 [facility] Sodium 142 mmol/L Normal 135-[address] [place] [address] [phone] Potassium 4.3 mmol/L Normal 3.5-5.0 Chloride 108 mmol/L Normal 101-111 Co2 Carbon Dioxide 25 mmol/L Normal 22-32 Anion Gap 9 mmol/L Normal 2-11 Glucose 131 mg/dL High 70-100 Blood Urea Nitrogen 16 mg/dL Normal 6-24 Creatinine 0.94 mg/dL Normal 0.51-0.95 BUN/Creatinine Ratio 17.0 Normal 8-20 Calcium 8.9 mg/dL Normal 8.6-10.3 Egfr Non- 58.5 >60 Egfr 70.8 >60 12 Laboratory test 03/09/2019 [facility] Hemoglobin A1c 6.6 % High 4.0-5.6 13 finding [address] [facility] ([facility] H[facility]) [place] [address] [phone] Urinalysis 02/19/2019 [facility] Urine Color Yellow Profile [address] [place] [address] [phone] Urine Appearance Cloudy Urine Specific [place] 1.015 Normal 1.010-1.030 Urine pH 5.0 Normal [...] Cell Present Abnormal Absent Laboratory test 02/19/2019 [facility] Lipase 16 U/L Normal 11.0-82.0 finding [address] [place] [address] [phone] Comp Metabolic 02/19/2019 [facility] Sodium 133 mmol/L Low 135 -145 Panel [address] [place] [address] [phone] Potassium 4.1 mmol/L Normal 3.5-5.0 Chloride 100 [...] Egfr Non- 52.7 >60 Egfr 63.7 >60 14 CBC Auto 02/19/2019 [facility] White Blood 7.5 10^3/uL Normal 3.5-10.[address] [place] [address] [phone] Red Blood Count 4.64 10^6/uL Normal 3.70-4.87 [...] Red Blood Cells % 0.0 Laboratory 02/19/2019 [facility] Lactic 2.9 Critical 0.5-2.0 15 test finding [address] Acid mmol/[place] [address] [phone] Laboratory 02/19/2019 [facility] Blood SEE 16 test finding [address] [place] [address] BELOW [phone] Laboratory 02/19/2019 [facility] Lactic 2.3 Critical 0.5-2.0 17, test finding [address] Acid mmol/L high 18 [place], [place] [address] [phone] CBC Auto Diff 01/20/2019 [facility] White 6.2 Normal 3.5-10.[address] Blood 10^3/[place] [address] Count [phone] Red Blood Count 4.55 10^6/uL Normal 3.70-4.87 Hemoglobin 10.5 g/dL Low 12.0-16.0 Hematocrit 34 % Low 35-47 Mean Corpuscular Volume 74 fL Low 80-97 19 Mean Corpuscular Hemoglobin 23 pg Low 27-31 [...] Blood Cells % 0.0 Vitamin B12 01/20/2019 [facility] Vitamin B12 187 pg/mL Normal 180-914 20 And Folate 101 [facility] [place] [address] [phone] Folic Acid (Folate) > 20.00 ng/mL >3.99 Laboratory test 01/20/2019 [facility] Ferritin 9.0 ng/mL Low 11-307 finding [address] [place] [address] [phone] T3 Free 3.80 pg/mL Normal 2.5-3.9 C Reactive Protein 6.96 mg/L Normal <8.01 Aso (Antistreptolysin O) Titer Negative IU/mL <200 Iu/mL 21 Iron & Iron Binding 01/20/2019 [facility] Iron 39 g/dL Low 50-212 Capacity [address] [place] [address] [phone] Unsaturated Iron Binding < 520 g/dL Total Iron Binding Capacity 535 g/dL High 250-450 Transferrin 382 mg/dL High 203-362 % Iron Saturation 7 % Low 15-55 Protein 01/20/2019 [facility] Total 6.9 g/dL 6.3 - Electrophoresis [address] Protein(Pep) 7.9 [place] [address] [phone] Albumin 3.5 g/dL 3.4-4.7 Alpha-1 Globulin 0.3 g/dL 0.1-0.3 Alpha-2 Globulin 1.1 g/dL Abnormal 0.6-1.0 Beta Globulin 1.2 g/dL 0.7-1.2 Gamma Globulin 0.8 g/dL 0.6-1.6 Albumin/Globulin Ratio 1.05 Impression See Comment 22 Laboratory test 01/20/2019 [facility] Angiotensin 57 U/L 16 - 85 [address] [place] [address] [phone] Complement C3 145 mg/dL 75 - 175 24 Complement C4 28 mg/dL 14 - 40 25 Anti Double Stranded Dna AB 17.6 IU/mL 26 Erythrocyte Sed Rate 35 mm/Hr High 0-29 27 Madai Igg AB Reflex 01/20/2019 [facility] SS-A/Ro Antibody <0.2 U [address] [place] [address] [phone] SS-B/La Antibody <0.2 U 29 Sm (Brown) IgG Antibody <0.2 U 30 INDUSTRIAL ROOF PLUMBER Antibody, IgG <0.2 U 31 Scl-70 (Scleroderma) Antibody <0.2 U 32 Tatyana-1 Antibody <0.2 U 33 Anca AB Ser If 01/20/2019 [facility] C-Anca Negative Negative [address] [place] [address] [phone] P-Anca Negative Negative 34 Laboratory 01/20/2019 [facility] Thyroperoxidase AB 0.72 IU/mL Normal <9 test finding [address] [place] [address] [phone] Hla B27 01/20/2019 [facility] Hla B27 Negative [address] [place] [address] [phone] Hla B27 Interp See Comment 36 Urine Culture And 01/18/2019 [facility] Urine Culture SEE RESULT 37, [address] [place] [address] [phone] Ua Routine 12/26/2018 [facility] Ua Specific 1.020 [place] Ua PH 5 Ua Color yellow Ua Appera clear Ua WBC + Ua Protein trace Ua Glucose 100 Ua Ketones negative Ua Bilirubin negative Ua Urobilinogen normal Ua Nitrite positive Ua Occult Blood negative Laboratory test finding 12/26/2018 [facility] Hemoglobin A1c 8.2% High 5-7 1 Because ethnic data is not always [...] 5 Kidney failure <15 (or dialysis) 2 FASTING 3 FASTING 4 SEE RESULT BELOW Name: CHARLINE ANGULO : [address]: Caryn Virgen MD Acct: [id number] Unit: [id number] AGE: 73 Location: ED Re04/18/19 SEX: F Status: DEP ER SPEC: [id number] KATHE: 04/18/[address]: Genesis CARVAJAL REQ: [id number] RECD: 04/18/19 STATUS: IRINA MARRERO DR: Caryn Long BUTTER FAT TESTER _ SOURCE: URINE SPDESC: ORDERED: Urine Culture Procedure Result Reported Site Urine Culture Final 04/20/19- 928 ML No growth of clinically significant organisms * ML - Main Lab . END OF REPORT DEPARTMENT OF PATHOLOGY, [address] [place] [address] Anil Goodrich M.D. Director [facility] # [id number] 5 Ruling Machine Feeder: [id number] 6 Troponin-I testing on Plasma Separator Tubes (PST) has a known false positive rate of 0.20-0.40%. All positive troponins reflex immediately to secondary confirmatory testing. Using the [employer] DxI 800 Access Immunoassay systems, the 99th percentile upper reference limit was demonstrated to be < 0.03 ng/mL. 7 Because ethnic data is not always [...] 5 Kidney failure <15 (or dialysis) 8 [facility] Severe Sepsis and Septic Shock Management Bundle Measure requires all lactic acids initially measuring >2.0 mmol/L be repeated. 9 SEE RESULT BELOW Name: CHARLINE ANGULO : [address]: Tee Hilario MD Acct: [id number] Unit: [id number] AGE: 73 Location: [facility] Re03/21/19 SEX: F Status: REG REF SPEC: [id number] KATHE: 03/21/19-[address] [facility] [address]: Tee Hilario MD REQ: [id number] RECD: 03/21/19-1517 STATUS: IRINA MARRERO DR: Barrett Long BUTTER FAT TESTER _ SOURCE: GAS ANTRUM SPDESC: ORDERED: Clotest Procedure Result Reported Site Clotest Final 03/22/19- 0700 ML Clotest Negative * ML - Main Lab . END OF REPORT DEPARTMENT OF PATHOLOGY, [address] [place] [address] Anil Goodrich M.D. Director [facility] # [id number] 10 SEE RESULT BELOW Name: CHARLINE ANGULO : [address]: Tee Hilario MD Acct: [id number] Unit: [id number] AGE: 73 Location: ENDO Re03/21/19 SEX: F Status: DEP REF SPEC: [id number] KATHE: 03/21/19-[address] [facility] [address]: Tee Hilario MD REQ: [id number] RECD: 03/21/19-3588 STATUS: LAURENCE MARRERO DR: Kari Long BUTTER FAT TESTER _ ORDERED: LEVEL 4/2, IMMUNO-FIRST ADDENDUM Addendum: [...] CONTINUED ON NEXT PAGE DEPARTMENT OF PATHOLOGY, [address] [place] [address] Anil Goodrich M.D. Director [facility] # [id number] POST-OPERATIVE DIAGNOSIS EGD: larynx ??? narrow; esophagus [...] 1147 END OF REPORT DEPARTMENT OF PATHOLOGY, [address] [place] [address] Anil Goodrich M.D. Director [facility] # [id number] 11 Ruling Machine Feeder: [id number] 12 Because ethnic data is not always [...] 5 Kidney failure <15 (or dialysis) 13 Therapeutic target for the treatment of diabetes mellitus patients is <7% HBA1C, and in selective patients <6.0%. Please refer to [place] [employer] diabetic care guidelines for further information. 14 Because ethnic data is not always [...] 5 Kidney failure <15 (or dialysis) 15 Critical Result LACT:2.9 Called to [id number] at: 16:13:18 by:[id number] Read back by:[id number] [facility] Severe Sepsis and Septic Shock Management Bundle Measure requires all lactic acids initially measuring >2.0 mmol/L be repeated. 16 SEE RESULT BELOW Name: CHARLINE ANGULO Mary Ann : [address]: Elliot Thakur MD Acct: [id number] Unit: [id number] AGE: 73 Location: ED Re02/19/19 SEX: F Status: DEP ER SPEC: [id number] KATHE: 02/19/19 STEFANY MCINTOSH: Elliot Thakur MD REQ: [id number] RECD: 02/19/19 STATUS: RIINA MARRERO DR: Barrett Long BUTTER FAT TESTER _ SOURCE: BLOOD,VENO SPDES: ORDERED: Blood Cult Procedure Result Reported Site Aerobic Culture Bottle Final 02/24/191648 ML No Growth Day 5 Anaerobic Culture Bottle Final 02/24/191648 ML No Growth Day 5 * ML - Main Lab . END OF REPORT DEPARTMENT OF PATHOLOGY, [address] [place] [address] Anil Goodrich M.D. Director [facility] # [id number] 17 Comment: Please collect after 2L IVF 18 Critical Result LACT:2.3 Called to [id number] at: 17:25:43 by:[id number] Read back by:MARK [facility] Severe Sepsis and Septic Shock Management Bundle Measure requires all lactic acids initially measuring >2.0 mmol/L be repeated. 19 Consistent with Previous Results Reported on 11/12/2018 20 Normal Range 180 to 914 Indeterminate Range 145 to 180 Deficient Range <145 21 Normal values may vary with age, season and geographic area. Titers above upper limits may be indicative of infection, however only a two dilution rise in titer is required to be considered significant. ASO titer will usually rise above upper limits within one week of exposure, increase to peak levels at 3-5 weeks and return to baseline level at 6-12 twelve months. 22 RESULT: No apparent monoclonal protein on serum electrophoresis. Test Performed by: [facility] [place] [address] 23 Test Performed by: [address] [address] 24 Test Performed by: [facility] [place] [address] 25 Test Performed by: [facility] [place] [address] 26 REFERENCE VALUE <30.0 (Negative) Test Performed by: [facility] [place] [address] 27 Please check labs and xrays today 28 REFERENCE VALUE <1.0 (Negative) 29 REFERENCE VALUE <1.0 (Negative) 30 REFERENCE VALUE <1.0 (Negative) 31 REFERENCE VALUE <1.0 (Negative) 32 REFERENCE VALUE <1.0 (Negative) 33 REFERENCE VALUE <1.0 (Negative) Test Performed by: [facility] [employer] [address] [place] [address] 34 Negative for cANCA and pANCA patterns by immunofluorescence. ADDITIONAL INFORMATION This test was developed and its performance characteristics determined by [facility] in a manner consistent with CLIA requirements. This test has not been cleared or approved by the U.S. Food and Drug Administration. Test Performed by: [facility] [employer] [address] [place] [id number] 35 REFERENCE VALUE Not Applicable 36 RESULT: HLA-B27 antigen was not detected. ADDITIONAL INFORMATION Method: Flow Cytometry Performing Laboratory CLIA# [id number] Test Performed by: [facility] [address] [place] [address] 37 [id number] SEE RESULT BELOW Name: CHARLINE ANGULO : [address]: Barrett Long NP Acct: [id number] Unit: [id number] AGE: 73 Location: [facility] Re01/18/19 SEX: F Status: REG REF SPEC: [id number] KATHE: 01/18/19-[address] [facility] [address]: Barrett Long BUTTER FAT TESTER REQ: [id number] RECD: 01/18/19-1540 STATUS: COMP _ SOURCE: URINE SPDESC: ORDERED: Urine Culture COMMENTS: [id number] Urine Source: Random Procedure Result Reported Site Urine Culture Final 01/19/19- 1645 ML Few Enterobacteriacae; possible contamination. * ML - Main Lab . END OF REPORT DEPARTMENT OF PATHOLOGY, [address] [place] [address] Anil Goodrich M.D. Director [facility] # [id number] Procedures Date Code Description Status 03/29/2019 82249 Remove Impacted Cerumen Completed 03/21/2019 [address] Colonoscopy Flexible W/Biopsy Completed 03/21/2019 43858 Endoscopy Upper GI Biopsy Completed 09/12/2018 [id number] Mammogram Completed 08/25/2017 [id number] Mammogram Completed 02/17/2017 [id number] Diabetic Retinal Eye Exam Completed 08/17/2016 [id number] Mammogram Completed 10/24/2015 [id number] Colonoscopy Completed 08/09/2015 [id number] Mammogram Completed Medical Devices Description No Information Available Encounters Type Date Location Provider Dx Diagnosis Office Visit 04/27/2019 [facility] Internal Barrett Long NP I10 Essential (primary ) 10:20a Medicine - [facility] hypertension K29.70 Gastritis, unspecified, without bleeding Office Visit 04/24/2019 [facility] Gastroenterology Breanna K29.70 Gastritis, 4:00p RYAN Posada unspecified, without bleeding D50.9 Iron deficiency anemia, unspecified R10.9 Unspecified abdominal pain E11.9 Type 2 diabetes mellitus without complications Office Visit 04/13/2019 2:20p [facility] Internal Barretthayde Long, I10 Essential ( [facility] hypertension M54.2 Cervicalgia Office Visit 03/29/2019 3:40p [facility] Internal Barrett Ethan, E11.9 Type 2 diabetes [facility] mellitus without complications I10 Essential (primary) hypertension H65.01 Acute serous otitis media, right ear H61.21 Impacted cerumen, right ear Office Visit 03/15/2019 [facility] Gastroenterology Breanna D64.9 Anemia, 3:30p RYAN Posada unspecified Z79.899 Other terminal worker (current) drug therapy R70.0 Elevated erythrocyte sedimentation rate E11.9 Type 2 diabetes mellitus without complications Office Visit 02/17/2019 [facility] Gastroenterology Tee Galvan E11.9 Type 2 diabetes 10:30a MD Sulaiman mellitus without complications D64.9 Anemia, unspecified K57.30 Dvrtclos of lg int w/o perforation or abscess w/o bleeding M19.049 Primary osteoarthritis, unspecified hand M54.5 Low back pain Z79.899 Other terminal worker (current) drug therapy Office Visit 02/06/2019 Rheumatology [...] sites in spine Office Visit 12/26/2018 4:00p [facility] Internal Barrett Long, I10 Essential ( primary) Medicine - [facility] [employer] hypertension E11.9 Type 2 diabetes mellitus without complications R35.0 Frequency of micturition M54.5 Low back pain Z79.4 FDC (current) use of insulin Assessments Date Code Description Provider 06/05/2019 R53.82 Chronic fatigue, unspecified Tee Hilario MD 06/05/2019 D50.9 Iron deficiency anemia, unspecified Tee Hilario MD 06/05/2019 I10 Essential (primary) hypertension Tee Hilario MD 06/05/2019 E11.9 Type 2 diabetes mellitus without Tee Hilario MD complications 04/27/2019 I10 Essential (primary) hypertension Barrett Lnog NP 04/27/2019 K29.70 Gastritis, unspecified, without bleeding Barrett Long NP 04/24/2019 K29.70 Gastritis, unspecified, without bleeding Breanna Posada NP 04/24/2019 D50.9 Iron deficiency anemia, unspecified Breanna Posada NP 04/24/2019 R10.9 Unspecified abdominal pain Breanna Posada NP 04/24/2019 E11.9 Type 2 diabetes mellitus without Breanna Posada, [employer] complications 04/13/2019 I10 Essential (primary) hypertension Barrett Ethan, [employer] 04/13/2019 M54.2 Cervicalgia Barrett Ethan, [employer] 03/29/2019 E11.9 Type 2 diabetes mellitus without Barrett Ethan, [employer] complications 03/29/2019 I10 Essential (primary) hypertension Barrett Ethan, [employer] 03/29/2019 H65.01 Acute serous otitis media, right ear Barrett Ethan, [employer] 03/29/2019 H61.21 Impacted cerumen, right ear Barrett Ethan, [employer] 03/21/2019 D50.9 Iron deficiency anemia, unspecified Tee [...] Hilario MD gangrene 03/15/2019 D64.9 Anemia, unspecified Breannalurdes Posada, [employer] 03/15/2019 Z79.899 Other terminal worker (current) drug therapy Breanna Posada, [employer] 03/15/2019 R70.0 Elevated erythrocyte sedimentation rate Breanna Posada, [employer] 03/15/2019 E11.9 Type 2 diabetes mellitus without Breanna Posada, [employer] complications 02/17/2019 E11.9 Type 2 diabetes mellitus without Tee Hilario MD complications 02/17/2019 D64.9 Anemia, unspecified Tee Hilario MD 02/17/2019 K57.30 Diverticulosis of large intestine without Tee Hilario MD perforation or abscess without bleeding 02/17/2019 M19.049 Primary osteoarthritis, unspecified hand Tee Hilario MD 02/17/2019 M54.5 Low back pain Tee Hilario MD 02/17/2019 Z79.899 Other terminal worker (current) drug therapy Tee Hilario MD 02/06/2019 [...] back pain Barrett Long NP 12/26/2018 Z79.4 [facility]DC (current) use of insulin Barrett Long NP Plan of Treatment Future Appointment(s):07/28/2019 3:40 pm - Barrett Long NP at [facility] 3:40 pm - Barrett Long NP at [facility] - Tee Hilario, MDR53.82 Chronic fatigue, unspecifiedNew Labs:Hemoglobin A1c (Glyco HGB), Ordered: 06/05/19D50.9 Iron deficiency anemia, [id number] Essential (primary) [id number] Type 2 diabetes mellitus without complications Functional Status Description No Information Available Mental Status Description No Information Available Referrals Refer to Reason for Referral Status Appt Date Tee Hilario MD Please eval patient for GI sources of Iron Sent deficiency anemia, history of diverticular disease [address] [facility] [place] [address] [phone]
--- NOTE | 2019-07-15 06:50 | ED ---
Headache - HPI Summary HPI Summary: 73 year old female presents with neck pain for the past couple days. She states that she has had an intermittent headaches. Had these headaches before. She is nauseous but no vomiting. She states she thought she slept on her neck wrong. She states today she noticed that her blood pressure was elevated this morning. She checked her blood pressure at home and it was 190. She took her normal blood pressure medications before she came. She denies any chest pressures or shortness of breath. No recent illness. No cough. No fevers. No neck stiffness. Has history of arthritis in her neck. - History Of Current Complaint Chief Complaint: EDNeckIlyaplaint Stated Complaint: NECK PAIN PER PT Time Seen by Provider: 07/15/19 06:01 Hx Last Menstrual Period: post - Allergies/Home Medications Allergies/Adverse Reactions: Allergies Allergy/AdvReac Type Severity Reaction Status Date / Time Iodinated Contrast Media Allergy Severe Hives Verified 07/15/19 06:01 [Iodinated Contrast- Oral and IV Dye] prochlorperazine Allergy Severe convulsions Verified 07/15/19 06:01 [From Compazine] dulaglutide [From Trulicity] Allergy Diarrhea Verified 07/15/19 06:01 empagliflozin Allergy yeast Verified 07/15/19 06:01 [From Jardiance] infection codeine AdvReac Severe Nausea And Verified 07/15/19 06:01 Vomiting Home Medications: Home Medications Naproxen Sodium [Aleve] 2 cap PO BID PRN 07/15/19 [History Confirmed 07/15/19] PMH/Surg Hx/FS Hx/Imm Hx Endocrine/Hematology History: Reports: Hx Diabetes - TYPE 2 Denies: Hx Bone Marrow Disease, Hx Sickle Cell Disease, Hx Thyroid Disease, Hx Anemia Cardiovascular History: Reports: Hx Hypertension Denies: Hx Pacemaker/ICD Respiratory History: Denies: Hx Asthma, Hx Chronic Obstructive Pulmonary Disease (COPD) GI History: Reports: Hx Diverticulosis, Hx Gastroesophageal Reflux Disease, Hx Hiatal Hernia, Hx Irritable Bowel, Hx Ulcer, Other GI Disorders - CHRONIC GASTRITIS, DIVERTICULITIS Musculoskeletal History: Reports: Hx Arthritis, Hx Bursitis - HX OF- RIGHT SHOULDER, RIGHT FOOT Sensory History: Reports: Hx Cataracts - RIGHT, MILD, Hx Contacts or Glasses - READING Denies: Hx Glaucoma, Hx Hearing Aid Opthamlomology History: Reports: Hx Cataracts - RIGHT, MILD, Hx Contacts or Glasses - READING Denies: Hx Glaucoma Psychiatric History: Reports: Hx Anxiety - r/t upcoming procedure Denies: Hx Panic Disorder, Other Psychiatric Issues/Disorders - Cancer History Hx Chemotherapy: No Hx Radiation Therapy: No - Surgical History Surgery Procedure, Year, and Place: Tonsillectomy 6 yrs of age [place]. Hysterectomy with left oopherectomy age 34 yrs [place] [facility] [place]. oopherectomy age 39 [facility]. Cholecystectomy [facility]. Right Knee Arthroscopy [facility] [place], colon resection for divertic Hx Anesthesia Reactions: Yes - severe n/v post-op - Immunization History Date of Tetanus Vaccine: unk Date of Influenza Vaccine: 04/07/2019 Infectious Disease History: No Infectious Disease History: Reports: Hx Shingles Denies: Hx Clostridium Difficile, Hx Hepatitis, Hx Human Immunodeficiency Virus (HIV), Hx of Known/Suspected MRSA, Hx Tuberculosis, Hx Known/Suspected VRE , Hx Known/Suspected VRSA, History Other Infectious Disease, Traveled Outside the [place] in Last 30 Days - Family History Known Family History: Positive: Cardiac Disease - Both parents., Hypertension, Other - similar neck problems - mother - Social History Alcohol Use: Rare Hx Substance Use: No Substance Use Type: Reports: None Hx Tobacco Use: No Smoking Status (MU): Never Smoked Tobacco Have You Smoked in the Last Year: No Review of Systems Negative: Fever Negative: Chest Pain Negative: Shortness Of Breath Positive: Headache All Other Systems Reviewed And Are Negative: Yes Physical Exam Triage Information Reviewed: Yes Vital Signs On Initial Exam: Initial Vitals Temp Pulse Resp BP Pulse Ox 97.5 F 69 18 194/93 98 07/15/19 05:46 07/15/19 05:46 07/15/19 05:46 07/15/19 05:46 07/15/19 05:46 Vital Signs Reviewed: Yes Appearance: Positive: Well-Appearing Skin: Positive: Warm, Dry Head/Face: Positive: Normal Head/Face Inspection Eyes: Positive: Normal, EOMI, SHEILA, Conjunctiva Clear ENT: Positive: Normal ENT inspection, Pharynx normal, TMs normal Respiratory/Lung Sounds: Positive: Clear to Auscultation, Breath Sounds Present Cardiovascular: Positive: Normal, RRR Musculoskeletal: Positive: Normal Neurological: Positive: Sensory/Motor Intact, Alert, Oriented to Person Place, Time, CN Intact II-III Psychiatric: Positive: Normal Procedures - Sedation Patient Received Moderate/Deep Sedation with Procedure: No Diagnostics - Vital Signs Vital Signs Temp Pulse Resp BP Pulse Ox 07/15/19 06:27 64 19 146/74 95 07/15/19 06:00 68 19 96 07/15/19 05:57 67 19 155/88 97 07/15/19 05:46 97.5 F 69 18 194/93 98 - Laboratory Lab Results: Lab Results 07/15/19 Range/Units 06:22 WBC 5.5 (3.5-10.8) 10^3/uL RBC 4.11 (3.70-4.87) 10^6 /uL Hgb 12.3 (12.0-16.0) g/dL Hct 35 (35-47) % MCV 86 (80-97) fL MCH 30 (27-31) pg MCHC 35 (31-36) g/dL RDW 15 (10-15) % Plt Count 165 (150-450) 10^3/uL MPV 7.9 (7.4-10.4) fL Neut % (Auto) 67.2 % Lymph % (Auto) 20.7 % [place] % (Auto) 6.4 % Eos % (Auto) 4.9 % Baso % (Auto) 0.8 % Absolute Neuts (auto) 3.7 (1.5-7.7) 10^3/ul Absolute Lymphs (auto) 1.1 (1.0-4.8) 10^3/ul Absolute Monos (auto) 0.4 (0-0.8) 10^3/ul Absolute Eos (auto) 0.3 (0-0.6) 10^3/ul Absolute Basos (auto) 0.0 (0-0.2) 10^3/ul Absolute Nucleated RBC 0.0 10^3/ul Nucleated RBC % 0.1 Result Diagrams: 07/15/19 06:22 07/15/19 06:22 Lab Statement: Any lab studies that have been ordered have been reviewed, and results considered in the medical decision making process. - CT neck CT Interpretation Completed By: Radiologist Summary of CT Findings: IMPRESSION: 1. No evidence of acute cervical spine fracture or dislocation. 2. There are multiple calcified nodules noted within the thyroid gland. Recommend thyroid sonography for further evaluation brain CT Interpretation Completed By: Radiologist Summary of CT Findings: IMPRESSION: No acute intracranial hemorrhage or significant mass effect. - EKG No standard instances Cardiac Rate: NL EKG Rhythm: Sinus Rhythm EKG Comparison: No Significant Change Summary of EKG Findings: sinus rhythm Re-Evaluation - Re-Evaluation First Eval Re-Evaluation Time: 07:03 Comment: bp 144/74 Second Eval Re-Evaluation Time: 07:46 Change: Improved Comment: pain is better, nausea resolved Headache Course/Dx - Course Course Of Treatment: 73 year old female presents with neck pain for the past couple days. She states that she has had an intermittent headaches. Had these headaches before. She is nauseous but no vomiting. She states she thought she slept on her neck wrong. She states today she noticed that her blood pressure was elevated this morning. She checked her blood pressure at home and it was 190. She took her normal blood pressure medications before she came. She denies any chest pressures or shortness of breath. No recent illness. No cough. No fevers. No neck stiffness. Has history of arthritis in her neck. On exam tenderness of her neck. Normal neuro exam. Blood pressure is 156/94 currently. Gave Tylenol and Zofran. wbc normal. crp elevated. CT neck osteophytes present. CT brain shows no acute findings. bp is 132/68. feeling better with tyenlol and zofran. told follow up with primary. patient understand and agrees with plan. - Diagnoses Differential Diagnosis/HQI/PQRI: Migraine, Tension Headache, Other - neck sprain Provider Diagnoses: Headache, Neck pain, Hypertension Discharge ED - Sign-Out/Discharge Documenting (check all that apply): Patient Departure - Discharge Plan Condition: Good Disposition: HOME Patient Education Materials: Neck Pain (ED) Referrals: [facility]ICIAN [place]FERRAL [Outside] Additional Instructions: Take Tylenol every 6 hours as needed for pain Apply ice or heat keep a blood pressure log Follow up with primary care physician within 5 days Return to ED if develop any new or worsening symptoms - Billing Disposition and Condition Condition: GOOD Disposition: Home
[2019-07-15 06:54] LABS: Albumin 4.2 g/dL (3.2-5.2); Albumin/Globulin Ratio 1.6 (1-3); BUN/Creatinine Ratio 17.9 (8-20); C Reactive Protein 3.75 mg/L (<8.01); Calcium 9.1 mg/dL (8.6-10.3); EGFR African American 80.6 (>60); EGFR Non-African American 66.6 (>60); Globulin 2.6 g/dL (2-4); Potassium 4.2 mmol/L (3.5-5.0); Total Bilirubin 0.6 mg/dL (0.2-1.0); Total Protein 6.8 g/dL (6.4-8.9)
[2019-07-15 07:55] VITALS: BP 136/68
== END 2019-07-15 07:54 | disposition home or self-care (01) ==
LOC: ED 05:43
DX: R51 Headache (principal); M54.2 Cervicalgia; I10 Essential (primary) hypertension; E04.1 Nontoxic single thyroid nodule; R11.0 Nausea; E11.9 Type 2 diabetes mellitus without complications; Z79.84 Long term (current) use of oral hypoglycemic drugs; Z79.4 Long term (current) use of insulin; K21.9 Gastro-esophageal reflux disease without esophagitis; Z88.5 Allergy status to narcotic agent; Z88.8 Allergy status to other drugs, medicaments and biological substances; Z91.041 Radiographic dye allergy status
CPT/HCPCS: 36415; 70450; 72125; 80053; 83605; 85025; 86140; 93005; 99283; A9270-GY

== ENCOUNTER 2019-10-25 06:35 | Emergency (ER) | payer MEDICARE ==
[2019-10-25] MEDS ORDERED: NS 0.9% 1000 ml BAG 1,000 ML IV ONE (07:03)
[2019-10-25] MEDS ORDERED: Al Hydrox/Mg Hydrox/Simet LIQ 30 ML UDC PO ONE (07:03)
[2019-10-25] MEDS ORDERED: Famotidine IV 10 MG/ML 2 ml VIAL (20 mg) IV SLOW PU ONE (07:03)
[2019-10-25 07:35] LABS: ABS Basophils 0.1 10^3/ul (0-0.2); ABS Eosinophils 0.4 10^3/ul (0-0.6); ABS Lymphocytes 1.5 10^3/ul (1.0-4.8); ABS Monocytes 0.5 10^3/ul (0-0.8); Eosinophil % 5.6 %; Hematocrit 37 % (35-47); Hemoglobin 12.8 g/dL (12.0-16.0); Lymphocyte % 23.5 %; Mean Corpuscular HGB Conc 34 g/dL (31-36); Mean Corpuscular Hemoglobin 30 pg (27-31); Mean Corpuscular Volume 86 fL (80-97); Mean Platelet Volume 8.1 fL (7.4-10.4); Nucleated Red Blood Cells % 0.1; Platelet Count 169 10^3/uL (150-450); Red Blood Count 4.34 10^6 /uL (3.70-4.87); Red Cell Distribution Width 14 % (10-15); White Blood Count 6.4 10^3/uL (3.5-10.8)
[2019-10-25 07:43] LABS: INR 1.12 (0.82-1.09)
[2019-10-25 07:55] LABS: Albumin 4.1 g/dL (3.2-5.2); Albumin/Globulin Ratio 1.4 (1-3); BUN/Creatinine Ratio 21.7 (8-20); Calcium 9.3 mg/dL (8.6-10.3); EGFR African American 72.6 (>60); Magnesium 1.7 mg/dL (1.9-2.7); Potassium 4.4 mmol/L (3.5-5.0); Total Bilirubin 0.5 mg/dL (0.2-1.0); Total Protein 7.1 g/dL (6.4-8.9)
[2019-10-25 08:21] VITALS: BP 158/92
== END 2019-10-25 08:20 | disposition home or self-care (01) ==
LOC: ED 06:35